=== PATIENT | female | born 1965 | race Caucasian/White ===

== ENCOUNTER 2016-11-18 06:52 | Inpatient (IN) | payer BC ==
[2016-11-15 16:04] VITALS: Ht 162.6 cm; Wt 58.0 kg
[2016-11-18] VITALS (41 sets, daily range): BP systolic 101–158; BP diastolic 73–102; PULSE 75–97; RESP 6–34
[~2016-11-18] VITALS: Ht 162.6 cm; Wt 58.0 kg
[~2016-11-18 06:52] MED LIST: ACYC800T PO; CIPR500T4 PO; GABA300C16 PO; ZOLP5TAB6 PO
[2016-11-18] MEDS ORDERED: ACETAMINOPHEN 1000 MG/100 ML IVPB ONE (07:00)
[2016-11-18] MEDS ORDERED: metroNIDAZOLE 500 MG/100 ML NS IVPB ONE (07:00)
[2016-11-18] MEDS ORDERED: PROPOFOL 20 ML ONE (07:56)
[2016-11-18] MEDS ORDERED: LIDOCAINE 2% (SDV) 5 ML INJ ONE (07:56)
[2016-11-18] MEDS ORDERED: MIDAZOLAM 1 MG/ML 2 ML INJ ONE (07:56)
[2016-11-18] MEDS ORDERED: FENTAnyl 50 MCG/ML VIAL ONE (07:56)
[2016-11-18] MEDS ORDERED: LIDOCAINE 1% (STERILE-PAK) 30 ML INJ ONE (08:28)
[2016-11-18] MEDS ORDERED: BUPIVACAINE 0.25%/EPI (SDV) 30 ML INJ ONE (08:29)
[2016-11-18] MEDS ORDERED: BUPIVACAINE 0.5% ON-Q-PUMP 0 ML ONE (08:29)
[2016-11-18] MEDS ORDERED: AMPICILLIN/SULB 3 GM/NS (PMX) 100 ML IVPB ONE (08:30)
[2016-11-18] MEDS ORDERED: metroNIDAZOLE 500 MG/NS (PMX) 100 ML IVPB ONE (08:30)
[2016-11-18] MEDS ORDERED: SOD CHLORIDE 0.9% 1,000 ML IV SCH (08:30)
[2016-11-18] MEDS ORDERED: NITR100C73 PO (08:34)
[2016-11-18] MEDS ORDERED: ZOLP10TA5 PO (08:34)
[2016-11-18] MEDS ORDERED: TRAZ50TA18 PO (08:34)
[2016-11-18] MEDS ORDERED: ASPI81TA3 PO (08:34)
[2016-11-18] MEDS ORDERED: GABA-526 PO (08:34)
[2016-11-18] MEDS ORDERED: PANT40TA4 PO (08:34)
[2016-11-18] MEDS ORDERED: HYDR-3011 PO (08:34)
[2016-11-18] MEDS ORDERED: SUCR1TAB56 PO (08:34)
[2016-11-18] MEDS ORDERED: AMIT25TA9 PO (08:34)
[2016-11-18] MEDS ORDERED: TOPI-25 PO (08:34)
[2016-11-18] MEDS ORDERED: CEFAZOLIN 1 GM INJ ONE (09:03)
[2016-11-18] MEDS ORDERED: DEXAMETHASONE 4 MG/ML 1 ML INJ ONE (09:11)
[2016-11-18] MEDS ORDERED: ONDANSETRON 4 MG INJ ONE (09:11)
[2016-11-18] MEDS ORDERED: HYDROmorphONE 2 MG/ML SYG ONE (09:27)
[2016-11-18] MEDS ORDERED: BUPIVACAINE 0.25% (MPF) 30 ML INJ ONE (09:29)
[2016-11-18] MEDS ORDERED: NEOSTIGMINE 3 MG/3 ML SYRINGE ONE (09:59)
[2016-11-18] MEDS ORDERED: GLYCOPYRROLATE 0.4 MG INJ ONE (09:59)
[2016-11-18] MEDS ORDERED: MEPERIDINE 25 MG INJ IV PRN (10:00)
[2016-11-18] MEDS ORDERED: DIPHENHYDRAMINE 50 MG INJ IV PRN ×2 (10:00→13:00)
[2016-11-18] MEDS ORDERED: hydrALAzine 20 MG INJ IV PRN (10:00)
[2016-11-18] MEDS ORDERED: ALBUTEROL 0.5% (NEB) 2.5 MG/0.5 ML AMP INH ONE (10:00)
[2016-11-18] MEDS ORDERED: ONDANSETRON 4 MG INJ IV PRN (10:00)
[2016-11-18] MEDS ORDERED: PROCHLORPERAZINE 10 MG INJ IV PRN (10:00)
[2016-11-18] MEDS ORDERED: LABETALOL HCL 20MG INJ IV PRN (10:00)
[2016-11-18] MEDS ORDERED: IPRATROPIUM (NEB) 0.5 MG/2.5 ML AMP HHN ONE (10:00)
[2016-11-18] MEDS ORDERED: HYDROmorphONE (0.2 MG/ML) 10ML SYG IV PRN (10:00)
[2016-11-18] MEDS ORDERED: KETAMINE 500 MG INJ ONE (10:07)
[2016-11-18] MEDS ORDERED: ROCURONIUM 50 MG INJ ONE (10:30)
[2016-11-18] MEDS ORDERED: LACTATED RINGER'S 1,000 ML IV SCH (10:58)
[2016-11-18] MEDS: CIPROFLOXACIN 400MG/D5W 200 ML IVPB SCH ×2 (11:00→23:54)
[2016-11-18] MEDS: HYDROmorphONE (0.2 MG/ML) 10ML SYG IV PRN ×3 (11:20→12:23)
[2016-11-18] MEDS: FENTAnyl 50 MCG/ML VIAL IV PRN ×3 (11:26→12:28)
--- NOTE | 2016-11-18 11:33 | OPR ---
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 She requests surgical repair. Risks, alternatives, benefits, and personne l were discussed with the patient. Patient expressed understanding and consents to operation. PREOPERATIVE DIAGNOSES: Cecal bascule and chronic constipation. POSTOPERATIVE DIAGNOSES: Cecal bascule and chronic constipation. OPERATION PERFORMED: Laparoscopic right hemicolectomy. SURGEON: Srini Patricio MD SPECIMEN: Right colon and ileum. COMPLICATIONS: None. ANESTHESIA: General. DESCRIPTION OF PROCEDURE: The patient was taken to the OR and prepped and draped in the usual steri le fashion. Surgical timeout is performed. IV antibiotics were given. Infraumbilical midline inci brent is made with a 15 blade. Dissection cautery was carried down to the fascia, which was opened w ith cautery and 0 Vicryl stay sutures were placed on each side of the midline incision. Balloon Has son trocar was introduced. Pneumoperitoneum was established. Midline suprapubic 5 mm optical troca rs placed under direct visualization. Left lower quadrant 12 mm optical trocars placed under direct visualization. Upon initial inspection there is a large redundant cecum which is very floppy. The re are some adhesions to the anterior abdominal wall which were taken down bluntly and with laparosc opic Harmonic nena. The ileocolic artery was identified and ligated with 45 mm white load [place] stapler. Additional clips were placed for reinforcement. The right colon was then mobilized from the white line of T[place]t proximally all the way to the hepatic flexure. The colon is then bluntly di ssected and medialized. The ileum and right colon are fully mobilized. The hepatic flexure is part ially mobilized. The omentum is resected off of the part of the right transverse and right colon. This operation was then converted to the open portion. Midline incision is extended inferiorly furt her. The right colon and ileum are exteriorized. The right colon and ileum are resected and double stapled functional end-to-end [id number] anastomosis. This was performed by placing stay sutures on the tenia of the right colon and also on the ileum with 3-0 pop-off silk. Enterotomies were anastasia shaji in the ileum and colon. Two fires of 45 [place] blue load stapler is made for the anastomosis. The enterotomy is resected with multiple fires of the blue load. The mesentery is reinforced with i nterrupted 3-0 Vicryl and running 3-0 Vicryl. There is good hemostasis. The bowel looked viable. The specimen is handed over. Gel port was inserted in the midline. The bowel is then reexamined in traabdominally. There is no evidence of any torsion. There is good hemostasis. Ports were removed under direct visualization. The midline incision was closed with 2 running looped #1 PDS from super ior to inferior and inferior to superior and tied down the midline. Skin was closed using skin stap les. Local anesthesia was injected. Dry dressings were applied. Dictated By: SRINI CROSS/SCOTT Conf#: [id number] DID#: [id number]
[2016-11-18 11:44] LABS: ADD SCAN DIFF NO
[2016-11-18 11:52] LABS: BASOPHILS % 0.4 % (0.0-2.0); EOSINOPHILS % 0.2 % (0.0-7.0); HEMATOCRIT 39.1 % (37.0-47.0); HEMOGLOBIN 13.2 g/dl (12.0-16.0); LYMPHOCYTES # 1.1 10^3/ul (0.8-2.9); LYMPHOCYTES % 13.2 % (15.0-51.0); MEAN CORPUSCULAR HEMOGLOBIN 31.5 pg (29.0-33.0); MEAN CORPUSCULAR HGB CONC 33.8 g/dl (32.0-37.0); MEAN CORPUSCULAR VOLUME 93.3 fl (82.0-101.0); MEAN PLATELET VOLUME 11.2 fl (7.4-10.4); MONOCYTE # 0.1 10^3/ul (0.3-0.9); MONOCYTES % 1.3 % (0.0-11.0); NEUTROPHIL # 7.2 10^3/ul (1.6-7.5); NEUTROPHILS % 84.4 % (39.0-77.0); PLATELET COUNT 148 10^3/UL (140-415); RED BLOOD COUNT 4.19 10^6/ul (4.20-5.40); RED CELL DISTRIBUTION WIDTH 13.7 % (11.5-14.5); WHITE BLOOD COUNT 8.6 10^3/ul (4.8-10.8)
[2016-11-18 11:54] LABS: ALBUMIN 3.5 g/dl (3.3-4.9)
[2016-11-18 11:55] LABS: POTASSIUM 3.6 mmol/L (3.5-5.1)
[2016-11-18 11:57] LABS: ALBUMIN/GLOBULIN RATIO 1.34; TOTAL PROTEIN 6.1 g/dl (6.1-8.1)
[2016-11-18] MEDS: metroNIDAZOLE 500 MG/NS (PMX) 100 ML IVPB SCH ×2 (12:00→20:59)
[2016-11-18 12:21] LABS: CALCIUM 7.8 mg/dl (8.4-10.2); CREATININE 0.66 mg/dl (0.44-1.00)
[2016-11-18] MEDS ORDERED: HYDROmorphONE 0.2 MG/ML PCA ONE (12:32)
[2016-11-18] MEDS: HYDROmorphONE 0.2 MG/ML PCA IV SCH ×2 (12:39→19:53)
[2016-11-18] MEDS ORDERED: NALOXONE (0.4 MG/ML) INJ IV PRN (13:00)
[2016-11-18] MEDS ORDERED: TRIMETHOBENZAMIDE 100 MG/ML VIAL IM PRN (13:00)
[2016-11-18] MEDS ORDERED: OXYCODONE/ACETAMINOPHEN (5/325) TAB PO PRN ×2 (13:00)
[2016-11-18] MEDS ORDERED: HYDROmorphONE 1 MG/ML SYG IV PRN (13:00)
[2016-11-18] MEDS: D5W-0.45 NACL + KCL 20 MEQ 1,000 ML IV SCH ×2 (15:16→23:54)
[2016-11-18] MEDS: ONDANSETRON 4 MG INJ IV PRN (20:33)
[2016-11-19] VITALS (9 sets, daily range): BP systolic 137–175; BP diastolic 65–99; PULSE 84–100; RESP 16–24
[2016-11-19] MEDS: ZOLPIDEM 5 MG TAB PO PRN (00:13)
[2016-11-19] MEDS: hydrALAzine 20 MG INJ IV PRN ×2 (00:13→18:01)
[2016-11-19] MEDS: ONDANSETRON 4 MG INJ IV PRN ×3 (03:06→20:07)
[2016-11-19] MEDS ORDERED: FAMOTIDINE 20 MG INJ ONE (04:21)
[2016-11-19] MEDS: metroNIDAZOLE 500 MG/NS (PMX) 100 ML IVPB SCH (04:23)
[2016-11-19] MEDS ORDERED: FAMOTIDINE 20 MG INJ IV ONE (04:30)
[2016-11-19 05:47] LABS: ADD SCAN DIFF NO
[2016-11-19 05:55] LABS: ABNORMAL IP MESSAGE 1; BASOPHILS % 0.1 % (0.0-2.0); HEMATOCRIT 40.6 % (37.0-47.0); HEMOGLOBIN 13.4 g/dl (12.0-16.0); LYMPHOCYTES # 0.5 10^3/ul (0.8-2.9); LYMPHOCYTES % 5.7 % (15.0-51.0); MEAN CORPUSCULAR HEMOGLOBIN 30.5 pg (29.0-33.0); MEAN CORPUSCULAR VOLUME 92.5 fl (82.0-101.0); MEAN PLATELET VOLUME 11.5 fl (7.4-10.4); MONOCYTE # 0.4 10^3/ul (0.3-0.9); MONOCYTES % 4.7 % (0.0-11.0); NEUTROPHIL # 8.1 10^3/ul (1.6-7.5); NEUTROPHILS % 89.1 % (39.0-77.0); PLATELET COUNT 151 10^3/UL (140-415); RED BLOOD COUNT 4.39 10^6/ul (4.20-5.40); RED CELL DISTRIBUTION WIDTH 13.8 % (11.5-14.5); WHITE BLOOD COUNT 9.1 10^3/ul (4.8-10.8)
[2016-11-19 06:18] LABS: ALBUMIN 3.7 g/dl (3.3-4.9)
[2016-11-19 06:19] LABS: POTASSIUM 3.2 mmol/L (3.5-5.1)
[2016-11-19 06:21] LABS: ALBUMIN/GLOBULIN RATIO 1.37; CREATININE 0.47 mg/dl (0.44-1.00); TOTAL PROTEIN 6.4 g/dl (6.1-8.1)
[2016-11-19 06:22] LABS: CALCIUM 8.5 mg/dl (8.4-10.2)
[2016-11-19] MEDS: D5W-0.45 NACL + KCL 20 MEQ 1,000 ML IV SCH ×3 (07:00→20:07)
[2016-11-19] MEDS: FAMOTIDINE 20 MG INJ IV SCH ×2 (08:47→20:07)
[2016-11-19] MEDS ORDERED: POTASSIUM CHLORIDE 250 ML IVPB ONE (09:30)
[2016-11-19] MEDS ORDERED: INFLUENZA VIRUS VACCINE 0.5 ML (DISPENSING) IM* ONE (10:00)
[2016-11-19] MEDS: HYDROmorphONE 0.2 MG/ML PCA IV SCH (13:59)
--- NOTE | 2016-11-19 17:16 | PN ---
Date/Time of Note Date/Time of Note DATE: 11/19/16 TIME: 17:15 Assessment/Plan VTE Prophylaxis VTE Prophylaxis Intervention: SCD's Lines/Catheters IV Catheter Type (from Nrs): Peripheral IV Urinary Cath still in place: Yes Reason Cath still needed: other (indicate) (post surgical) Assessment/Plan Chief Complaint/Hosp Course s/p lap right hemicolectomy Problems: Assessment/Plan doing well start clears Subjective 24 Hr Interval Summary Free Text/Dictation doing well, no issues Exam/Review of Systems Vital Signs Vitals Vital Signs Date Time Temp Pulse Resp B/P Pulse Ox O2 Delivery O2 Flow Rate FiO2 11/19/16 12:46 18 11/19/16 09:00 Nasal Cannula 2.0 11/19/16 07:37 97.8 101 159/89 94 Intake and Output 11/18/16 11/18/16 11/19/16 15:00 23:00 07:00 Intake Total 1400 ml 475 ml 925 ml Output Total 170 ml 650 ml 1600 ml Balance 1230 ml -175 ml -675 ml Exam nonspecifc clean intact Results Result Diagram: 11/19/16 0516 11/19/16 0516 Results 24 hrs Laboratory Tests Test 11/19/16 05:16 Alanine Aminotransferase (ALT/SGPT) 21 Albumin 3.7 Albumin/Globulin Ratio 1.37 Alkaline Phosphatase 87 Anion Gap 15 Aspartate Amino Transf (AST/SGOT) 28 Basophils # 0.0 Basophils % 0.1 Blood Urea Nitrogen 11 Calcium Level 8.5 Carbon Dioxide Level 21 Chloride Level 106 Creatinine 0.47 Direct Bilirubin 0.00 Eosinophils # 0.0 Eosinophils % 0.0 Globulin 2.70 Glucose Level 158 Hematocrit 40.6 Hemoglobin 13.4 Indirect Bilirubin 0.0 Lymphocytes # 0.5 L Lymphocytes % 5.7 L Mean Corpuscular Hemoglobin 30.5 Mean Corpuscular Hemoglobin Concent 33.0 Mean Corpuscular Volume 92.5 Mean Platelet Volume 11.5 H Monocytes # 0.4 Monocytes % 4.7 Neutrophils # 8.1 H Neutrophils % 89.1 H Nucleated Red Blood Cells # 0.0 Nucleated Red Blood Cells % 0.0 Platelet Count 151 Potassium Level 3.2 L Red Blood Count 4.39 Red Cell Distribution Width 13.8 Sodium Level 139 Total Bilirubin 0.0 L Total Protein 6.4 White Blood Count 9.1 Medications Medications Current Medications Morphine Sulfate (morphine) 2 mg Q2H PRN IV PAIN LEVEL 6-10; Start 11/18/16 at 11:00 Naloxone HCl (Narcan) 0.2 mg PRN PRN IV DECREASED REPIRATORY RATE; Start at 13:00 Hydromorphone HCl (Dilaudid DISTILLATION OPERATOR) Q4PCA IV Last administered on 11/19/16t 13:59 ; Admin Dose 6 MG; Start 11/18/16 at 13:00; Stop 11/20/16 at 17:00 Oxycodone/ Acetaminophen (Percocet (5/ 325)) 1 tab Q4H PRN PO PAIN LEVEL 1-5; Start 11/18/16 at 13:00; Status Future Hold Oxycodone/ Acetaminophen (Percocet (5/ 325)) 2 tab Q4H PRN PO PAIN LEVEL 6-10; Start 11/18/16 at 13:00; Status Future Hold Hydromorphone HCl (Dilaudid) 0.2 mg Q4H PRN IV PAIN LEVEL 1-5; Start 11/18/16 at 13:00 Hydromorphone HCl (Dilaudid) 0.4 mg Q4H PRN IV PAIN LEVEL 6-10; Start 11/18/16 at 13:00 Ketorolac Tromethamine (Toradol) 15 mg Q6H PRN IV PAIN; Start 11/18/16 at 13:00 ; Stop 11/21/16 at 12:59 Ondansetron HCl (Zofran Inj) 4 mg Q6H PRN IV NAUSEA AND/OR VOMITING Last administered on 11/19/16t 14:29; Admin Dose 4 MG; Start 11/18/16 at 13:00 Trimethobenzamide HCl (Tigan) 200 mg Q8H PRN IM NAUSEA AND/OR VOMITING; Start 11/18/16 at 13:00 Diphenhydramine HCl (Benadryl) 25 mg Q6H PRN IV ITCHING; Start 11/18/16 at 13: 00 Miscellaneous Information 1. 24 hours after DISTILLATION OPERATOR st... DISTILLATION OPERATOR IV ; Start 11/18/16 at 13:00; Stop 11/19/16 at 23:00 Miscellaneous Information 1. Discontinue DISTILLATION OPERATOR... DISTILLATION OPERATOR IV ; Start 11/18/16 at 13:00 ; Stop 11/20/16 at 17:00 Potassium Chloride/Dextrose/ Sod Cl (D5-1/2ns + KCl 20 Meq) 1,000 ml @ 125 mls/ hr Q8H IV Last administered on 11/19/16 11:54; Admin Dose 125 MLS/HR; Start at 15:00 Hydralazine HCl (Apresoline) 10 mg Q6H PRN IV SBP >160 Last administered on 00:13; Admin Dose 10 MG; Start 11/18/16 at 15:00 Famotidine (Pepcid Iv) 20 mg BID IV Last administered on 11/19/16 08:47; Admin Dose 20 MG; Start 11/19/16 at 09:00 Rubin RUSS Nov 19, 2016 17:16
--- NOTE | 2016-11-19 19:40 | QN ---
Documentation Comment [id number] MARTINEZ MELVIN MD Nov 19, 2016 19:40
--- NOTE | 2016-11-19 20:18 | HP ---
DATE OF ADMISSION: 11/18/2016 HISTORY OF PRESENT ILLNESS: Aissatou Morel is a 51-year-old female who has history of diverticulosis, history of colonoscopy with polypectomy in the past. The patient also has a history of EGD, iron deficiency anemia. Now patient is being seen post-procedure. The patient had laparoscopic right hemicolectomy. The patient is denying any chest pain, palpitation. Short of breath at this point. No hematemesis or melena. PAST MEDICAL HISTORY: Listed as history of anxiety, depression, neuropathy, polypectomy, and insomnia. ALLERGIES: . SOCIAL HISTORY: Negative. FAMILY HISTORY: Noncontributory. MEDICATION HISTORY: 1. Amitriptyline. 2. Aspirin. 3. Gabapentin. 4. Hydroxyzine. 5. Nitrofurantoin. 6. Protonix. 7. Carafate. 8. Topamax. 9. Trazodone. 10. Ambien. REVIEW OF SYSTEMS: HEENT: Unremarkable. RESPIRATORY: Unremarkable. CARDIOVASCULAR: Unremarkable. ABDOMEN: Some abdominal pain, dyspepsia. EXTREMITIES: Unremarkable. CENTRAL NERVOUS SYSTEM: Unremarkable. PHYSICAL EXAMINATION: GENERAL: The patient is awake and alert. VITAL SIGNS: Pulse of 100, blood pressure 137/71. HEAD: Atraumatic, normocephalic. Pupils are equal, reactive to light. NECK: Supple. No JVD. LUNGS: Clear. CARDIOVASCULAR: S1, S2 are normal. ABDOMEN: Soft. Bowel sounds positive. Tenderness on palpation. Colostomy noted. EXTREMITIES: There is no cyanosis, clubbing, or edema. CENTRAL NERVOUS SYSTEM: The patient is awake, alert with no focal deficit. LABORATORY DATA: Hematocrit 40.6. Sodium , potassium 3.2. IMPRESSION: 1. The patient has right hemicolectomy. 2. Hypokalemia. 3. History of colonoscopy. 4. History of polypectomy. PLAN: 1. To continue current treatment. The patient is on Pepcid. 2. The patient is on potassium supplementation. 3. Hydralazine p.r.n. 4. The patient is also Cipro, Flagyl. 5. The patient will be started on Protonix, SCDs to the legs, and incentive spirometry. 6. Orders were done. Dictated By: MARTINEZ TIRADO/NTS Conf#: [id number] DID#: [id number] CC: LATRICE FUENTES MD;*EndCC* MTDD
[2016-11-20] VITALS: BP 142/65; PULSE 68; RESP 18
[2016-11-20] MEDS: HYDROmorphONE 0.2 MG/ML PCA IV SCH (02:24)
[2016-11-20] MEDS: ONDANSETRON 4 MG INJ IV PRN (03:56)
[2016-11-20 04:00] VITALS: BP 135/72; PULSE 75; RESP 16
[2016-11-20] MEDS: D5W-0.45 NACL + KCL 20 MEQ 1,000 ML IV SCH ×5 (04:03→23:00)
[2016-11-20 06:00] VITALS: BP 141/69; RESP 18
[2016-11-20] MEDS ORDERED: PANTOPRAZOLE 40 MG INJ IV SCH (06:00)
[2016-11-20 06:08] LABS: ADD SCAN DIFF NO
[2016-11-20 06:24] LABS: BASOPHILS % 0.1 % (0.0-2.0); HEMATOCRIT 39.1 % (37.0-47.0); HEMOGLOBIN 13.4 g/dl (12.0-16.0); LYMPHOCYTES # 0.6 10^3/ul (0.8-2.9); LYMPHOCYTES % 8.4 % (15.0-51.0); MEAN CORPUSCULAR HEMOGLOBIN 31.1 pg (29.0-33.0); MEAN CORPUSCULAR HGB CONC 34.3 g/dl (32.0-37.0); MEAN CORPUSCULAR VOLUME 90.7 fl (82.0-101.0); MEAN PLATELET VOLUME 11.8 fl (7.4-10.4); MONOCYTE # 0.3 10^3/ul (0.3-0.9); MONOCYTES % 3.8 % (0.0-11.0); NEUTROPHIL # 6.7 10^3/ul (1.6-7.5); NEUTROPHILS % 87.4 % (39.0-77.0); PLATELET COUNT 139 10^3/UL (140-415); RED BLOOD COUNT 4.31 10^6/ul (4.20-5.40); RED CELL DISTRIBUTION WIDTH 13.9 % (11.5-14.5); WHITE BLOOD COUNT 7.7 10^3/ul (4.8-10.8)
[2016-11-20 06:27] LABS: POTASSIUM 4.3 mmol/L (3.5-5.1)
[2016-11-20 06:30] LABS: CREATININE 0.46 mg/dl (0.44-1.00)
[2016-11-20 06:31] LABS: CALCIUM 8.6 mg/dl (8.4-10.2)
[2016-11-20 08:08] VITALS: BP 154/87; RESP 20
[2016-11-20] MEDS: FAMOTIDINE 20 MG INJ IV SCH ×2 (08:21→20:33)
--- NOTE | 2016-11-20 11:50 | PN ---
Date/Time of Note Date/Time of Note DATE: 11/20/16 TIME: 11:49 Assessment/Plan VTE Prophylaxis VTE Prophylaxis Intervention: SCD's Lines/Catheters IV Catheter Type (from Nrsg): Peripheral IV Urinary Cath still in place: Yes Reason Cath still needed: other (indicate) (post surgical) Assessment/Plan Chief Complaint/Hosp Course s/p lap right hemicolectomy Problems: Assessment/Plan full liquids Subjective 24 Hr Interval Summary Free Text/Dictation no new issues Exam/Review of Systems Vital Signs Vitals Vital Signs Date Time Temp Pulse Resp B/P Pulse Ox O2 Delivery O2 Flow Rate FiO2 11/20/16 08:08 97.7 105 20 154/87 94 11/20/16 06:00 Nasal Cannula 11/20/16 04:00 2.0 Intake and Output 11/19/16 11/19/16 11/20/16 15:00 23:00 07:00 Intake Total 625 ml 750 ml 1500 ml Output Total 2500 ml 1100 ml Balance 625 ml -1750 ml 400 ml Exam c/d/i Results Result Diagram: 11/20/16 0532 11/20/16 0537 Results 24 hrs Laboratory Tests Test 11/20/16 05:32 11/20/16 05:37 Basophils # 0.0 Basophils % 0.1 Eosinophils # 0.0 Eosinophils % 0.0 Hematocrit 39.1 Hemoglobin 13.4 Lymphocytes # 0.6 L Lymphocytes % 8.4 L Mean Corpuscular Hemoglobin 31.1 Mean Corpuscular Hemoglobin Concent 34.3 Mean Corpuscular Volume 90.7 Mean Platelet Volume 11.8 H Monocytes # 0.3 Monocytes % 3.8 Neutrophils # 6.7 Neutrophils % 87.4 H Nucleated Red Blood Cells # 0.0 Nucleated Red Blood Cells % 0.0 Platelet Count 139 L Red Blood Count 4.31 Red Cell Distribution Width 13.9 White Blood Count 7.7 Anion Gap 14 Blood Urea Nitrogen 8 Calcium Level 8.6 Carbon Dioxide Level 23 Chloride Level 103 Creatinine 0.46 Glucose Level 145 Potassium Level 4.3 Sodium Level 136 Medications Medications Current Medications Morphine Sulfate (morphine) 2 mg Q2H PRN IV PAIN LEVEL 6-10; Start 11/18/16 at 11:00 Naloxone HCl (Narcan) 0.2 mg PRN PRN IV DECREASED REPIRATORY RATE; Start at 13:00 Hydromorphone HCl (Dilaudid OUTREACH LIAISON) Q4PCA IV Last administered on 11/20/16 02:24 ; Admin Dose 6 MG; Start 11/18/16 at 13:00; Stop 11/20/16 at 17:00 Oxycodone/ Acetaminophen (Percocet (5/ 325)) 1 tab Q4H PRN PO PAIN LEVEL 1-5; Start 11/18/16 at 13:00; Status Future Hold Oxycodone/ Acetaminophen (Percocet (5/ 325)) 2 tab Q4H PRN PO PAIN LEVEL 6-10; Start 11/18/16 at 13:00; Status Future Hold Hydromorphone HCl (Dilaudid) 0.2 mg Q4H PRN IV PAIN LEVEL 1-5; Start 11/18/16 at 13:00 Hydromorphone HCl (Dilaudid) 0.4 mg Q4H PRN IV PAIN LEVEL 6-10; Start 11/18/16 at 13:00 Ketorolac Tromethamine (Toradol) 15 mg Q6H PRN IV PAIN; Start 11/18/16 at 13:00 ; Stop 11/21/16 at 12:59 Ondansetron HCl (Zofran Inj) 4 mg Q6H PRN IV NAUSEA AND/OR VOMITING Last administered on 11/20/16 03:56; Admin Dose 4 MG; Start 11/18/16 at 13:00 Trimethobenzamide HCl (Tigan) 200 mg Q8H PRN IM NAUSEA AND/OR VOMITING; Start 11/18/16 at 13:00 Diphenhydramine HCl (Benadryl) 25 mg Q6H PRN IV ITCHING; Start 11/18/16 at 13: 00 Miscellaneous Information 1. Discontinue OUTREACH LIAISON... OUTREACH LIAISON IV ; Start 11/18/16 at 13:00 ; Stop 11/20/16 at 17:00 Potassium Chloride/Dextrose/ Sod Cl (D5-1/2ns + KCl 20 Meq) 1,000 ml @ 125 mls/ hr Q8H IV Last administered on 11/20/16 04:03; Admin Dose 125 MLS/HR; Start at 15:00 Hydralazine HCl (Apresoline) 10 mg Q6H PRN IV SBP >160 Last administered on 18:01; Admin Dose 10 MG; Start 11/18/16 at 15:00 Famotidine (Pepcid Iv) 20 mg BID IV Last administered on 11/20/16 08:21; Admin Dose 20 MG; Start 11/19/16 at 09:00 Miscellaneous Information (*Order Clarification Bulletin) PT ON PEPCID IV ... Q8H XX ; Start 11/19/16 at 20:00 Rubin RUSS Nov 20, 2016 11:50
[2016-11-20] MEDS: CEPASTAT LOZENGE MT PRN ×3 (12:31→19:36)
--- NOTE | 2016-11-20 19:28 | PN ---
Date/Time of Note Date/Time of Note DATE: 11/20/16 TIME: 19:26 Assessment/Plan VTE Prophylaxis VTE Prophylaxis Intervention: other Lines/Catheters IV Catheter Type (from Nrs): Peripheral IV Urinary Cath still in place: Yes Reason Cath still needed: other (indicate) Assessment/Plan Chief Complaint/Hosp Course IMPRESSION: 1. The patient has right hemicolectomy. 2. Hypokalemia. 3. History of colonoscopy. 4. History of polypectomy. plan po diet per surgery Problems: Subjective 24 Hr Interval Summary Cardiovascular: no complaints Gastrointestinal: other (abd pain+) Exam/Review of Systems Vital Signs Vitals Vital Signs Date Time Temp Pulse Resp B/P Pulse Ox O2 Delivery O2 Flow Rate FiO2 11/20/16 17:00 18 11/20/16 08:08 97.7 105 154/87 94 11/20/16 06:00 Nasal Cannula 11/20/16 04:00 2.0 Intake and Output 11/19/16 11/19/16 11/20/16 15:00 23:00 07:00 Intake Total 625 ml 750 ml 1500 ml Output Total 2500 ml 1100 ml Balance 625 ml -1750 ml 400 ml Exam Respiratory: clear to auscultation Cardiovascular: regular rate and rhythm Gastrointestinal: bowel sounds (+), soft Results Result Diagram: 11/20/16 0532 11/20/16 0537 Results 24 hrs Laboratory Tests Test 11/20/16 05:32 11/20/16 05:37 Basophils # 0.0 Basophils % 0.1 Eosinophils # 0.0 Eosinophils % 0.0 Hematocrit 39.1 Hemoglobin 13.4 Lymphocytes # 0.6 L Lymphocytes % 8.4 L Mean Corpuscular Hemoglobin 31.1 Mean Corpuscular Hemoglobin Concent 34.3 Mean Corpuscular Volume 90.7 Mean Platelet Volume 11.8 H Monocytes # 0.3 Monocytes % 3.8 Neutrophils # 6.7 Neutrophils % 87.4 H Nucleated Red Blood Cells # 0.0 Nucleated Red Blood Cells % 0.0 Platelet Count 139 L Red Blood Count 4.31 Red Cell Distribution Width 13.9 White Blood Count 7.7 Anion Gap 14 Blood Urea Nitrogen 8 Calcium Level 8.6 Carbon Dioxide Level 23 Chloride Level 103 Creatinine 0.46 Glucose Level 145 Potassium Level 4.3 Sodium Level 136 Medications Medications Current Medications Morphine Sulfate (morphine) 2 mg Q2H PRN IV PAIN LEVEL 6-10; Start 3/13/17 at 11:00 Naloxone HCl (Narcan) 0.2 mg PRN PRN IV DECREASED REPIRATORY RATE; Start at 13:00 Oxycodone/ Acetaminophen (Percocet (5/ 325)) 1 tab Q4H PRN PO PAIN LEVEL 1-5; Start 11/18/16 at 13:00; Status Future Hold Oxycodone/ Acetaminophen (Percocet (5/ 325)) 2 tab Q4H PRN PO PAIN LEVEL 6-10; Start 11/18/16 at 13:00; Status Future Hold Hydromorphone HCl (Dilaudid) 0.2 mg Q4H PRN IV PAIN LEVEL 1-5; Start 11/18/16 at 13:00 Hydromorphone HCl (Dilaudid) 0.4 mg Q4H PRN IV PAIN LEVEL 6-10 Last administered on 11/20/16 17:51; Admin Dose 0.4 MG; Start 11/18/16 at 13:00 Ketorolac Tromethamine (Toradol) 15 mg Q6H PRN IV PAIN; Start 11/18/16 at 13:00 ; Stop 11/21/16 at 12:59 Ondansetron HCl (Zofran Inj) 4 mg Q6H PRN IV NAUSEA AND/OR VOMITING Last administered on 11/20/16 03:56; Admin Dose 4 MG; Start 11/18/16 at 13:00 Trimethobenzamide HCl (Tigan) 200 mg Q8H PRN IM NAUSEA AND/OR VOMITING; Start 11/18/16 at 13:00 Diphenhydramine HCl 25 mg 25 mg Q6H PRN IV ITCHING; Start 11/18/16 at 13:00 Potassium Chloride/Dextrose/ Sod Cl (D5-1/2ns + KCl 20 Meq) 1,000 ml @ 125 mls/ hr Q8H IV Last administered on 11/20/16 12:36; Admin Dose 125 MLS/HR; Start at 15:00 Hydralazine HCl (Apresoline) 10 mg Q6H PRN IV SBP >160 Last administered on 18:01; Admin Dose 10 MG; Start 11/18/16 at 15:00 Famotidine (Pepcid Iv) 20 mg BID IV Last administered on 11/20/16 08:21; Admin Dose 20 MG; Start 11/19/16 at 09:00 Phenol (Cepastat Lozenge) 1 lozenge Q1H PRN MT SORE THROAT Last administered on 11/20/16 17:52; Admin Dose 1 LOZENGE; Start 11/20/16 at 12:00 MARTINEZ MELVIN MD Nov 20, 2016 19:28
[2016-11-20] MEDS: KETOROLAC 15 MG INJ IV PRN (19:36)
[2016-11-20 20:00] VITALS: BP 140/87; RESP 20
[2016-11-20] MEDS: ZOLPIDEM 5 MG TAB PO PRN (20:34)
[2016-11-20] MEDS: HYDROmorphONE 1 MG/ML SYG IV PRN (22:23)
[2016-11-21] MEDS: CEPASTAT LOZENGE MT PRN ×3 (01:22→08:25)
[2016-11-21] MEDS: HYDROmorphONE 1 MG/ML SYG IV PRN ×7 (02:33→21:25)
[2016-11-21 05:05] VITALS: BP 145/94; PULSE 98; RESP 19
[2016-11-21] MEDS: D5W-0.45 NACL + KCL 20 MEQ 1,000 ML IV SCH ×4 (05:08→23:04)
[2016-11-21 08:01] VITALS: BP 162/94; RESP 16
[2016-11-21] MEDS: KETOROLAC 15 MG INJ IV PRN (08:25)
[2016-11-21] MEDS: hydrALAzine 20 MG INJ IV PRN (08:26)
[2016-11-21] MEDS: FAMOTIDINE 20 MG INJ IV SCH ×2 (08:26→20:07)
--- NOTE | 2016-11-21 08:38 | PN ---
Date/Time of Note Date/Time of Note DATE: 11/21/16 TIME: 08:37 Assessment/Plan VTE Prophylaxis VTE Prophylaxis Intervention: SCD's Lines/Catheters IV Catheter Type (from Nrsg): Saline Lock Urinary Cath still in place: Yes Reason Cath still needed: other (indicate) (post surgical) Assessment/Plan Chief Complaint/Hosp Course s/p lap right hemicolectomy Problems: Assessment/Plan had diarrhea, continue clears for now Subjective 24 Hr Interval Summary Free Text/Dictation some diarrhea, considerable pain issues Exam/Review of Systems Vital Signs Vitals Vital Signs Date Time Temp Pulse Resp B/P Pulse Ox O2 Delivery O2 Flow Rate FiO2 11/21/16 08:01 98.6 106 16 162/94 92 11/20/16 06:00 Nasal Cannula 11/20/16 04:00 2.0 Intake and Output 11/20/16 11/20/16 11/21/16 15:00 23:00 07:00 Intake Total 800 ml 865 ml 1600 ml Balance 800 ml 865 ml 1600 ml Exam abd soft, appropriately tender Results Result Diagram: 11/20/16 0532 11/20/16 0537 Medications Medications Current Medications Morphine Sulfate (morphine) 2 mg Q2H PRN IV PAIN LEVEL 6-10; Start 11/18/16 at 11:00 Naloxone HCl (Narcan) 0.2 mg PRN PRN IV DECREASED REPIRATORY RATE; Start at 13:00 Oxycodone/ Acetaminophen (Percocet (5/ 325)) 1 tab Q4H PRN PO PAIN LEVEL 1-5; Start 11/18/16 at 13:00; Status Future Hold Oxycodone/ Acetaminophen (Percocet (5/ 325)) 2 tab Q4H PRN PO PAIN LEVEL 6-10; Start 11/18/16 at 13:00; Status Future Hold Hydromorphone HCl (Dilaudid) 0.2 mg Q4H PRN IV PAIN LEVEL 1-5; Start 11/18/16 at 13:00 Ketorolac Tromethamine (Toradol) 15 mg Q6H PRN IV PAIN Last administered on t 08:25; Admin Dose 15 MG; Start 11/18/16 at 13:00; Stop 11/21/16 at 12:59 Ondansetron HCl (Zofran Inj) 4 mg Q6H PRN IV NAUSEA AND/OR VOMITING Last administered on 11/20/16 03:56; Admin Dose 4 MG; Start 11/18/16 at 13:00 Trimethobenzamide HCl (Tigan) 200 mg Q8H PRN IM NAUSEA AND/OR VOMITING; Start 11/18/16 at 13:00 Diphenhydramine HCl 25 mg 25 mg Q6H PRN IV ITCHING; Start 11/18/16 at 13:00 Potassium Chloride/Dextrose/ Sod Cl (D5-1/2ns + KCl 20 Meq) 1,000 ml @ 125 mls/ hr Q8H IV Last administered on 11/21/16 05:08; Admin Dose 125 MLS/HR; Start at 15:00 Hydralazine HCl (Apresoline) 10 mg Q6H PRN IV SBP >160 Last administered on 08:26; Admin Dose 10 MG; Start 11/18/16 at 15:00 Famotidine (Pepcid Iv) 20 mg BID IV Last administered on 11/21/16 08:26; Admin Dose 20 MG; Start 11/19/16 at 09:00 Phenol (Cepastat Lozenge) 1 lozenge Q1H PRN MT SORE THROAT Last administered on 11/21/16 08:25; Admin Dose 1 LOZENGE; Start 11/20/16 at 12:00 Hydromorphone HCl (Dilaudid) 1 mg Q4H PRN IV PAIN Last administered on 06:34; Admin Dose 1 MG; Start 11/20/16 at 21:30 Rubin RUSS Nov 21, 2016 08:38
[2016-11-21 11:00] VITALS: BP 142/68; PULSE 82; RESP 18
--- NOTE | 2016-11-21 18:15 | PN ---
Date/Time of Note Date/Time of Note DATE: 11/21/16 TIME: 18:13 Assessment/Plan VTE Prophylaxis VTE Prophylaxis Intervention: other Lines/Catheters IV Catheter Type (from Nrs): Saline Lock Urinary Cath still in place: Yes Reason Cath still needed: other (indicate) Assessment/Plan Chief Complaint/Hosp Course IMPRESSION: 1. The patient has right hemicolectomy. 2. Hypokalemia. BETTER 3. History of colonoscopy. 4. History of polypectomy. 5 HX DEPRESSION plan po diet per surgery HOME MEDS Problems: Subjective 24 Hr Interval Summary ENT: no complaints Respiratory: no complaints Gastrointestinal: pain (+) Exam/Review of Systems Vital Signs Vitals Vital Signs Date Time Temp Pulse Resp B/P Pulse Ox O2 Delivery O2 Flow Rate FiO2 11/21/16 11:00 82 18 142/68 11/21/16 08:01 98.6 92 11/20/16 06:00 Nasal Cannula 11/20/16 04:00 2.0 Intake and Output 11/20/16 11/20/16 11/21/16 15:00 23:00 07:00 Intake Total 800 ml 865 ml 1600 ml Balance 800 ml 865 ml 1600 ml Exam Neck: supple Respiratory: clear to auscultation Cardiovascular: regular rate and rhythm Gastrointestinal: bowel sounds (+), soft Musculoskeletal: nl extremities to inspection Results Result Diagram: 11/20/16 0532 11/20/16 0537 Medications Medications Current Medications Morphine Sulfate (morphine) 2 mg Q2H PRN IV PAIN LEVEL 6-10; Start 11/18/16 at 11:00 Naloxone HCl (Narcan) 0.2 mg PRN PRN IV DECREASED REPIRATORY RATE; Start at 13:00 Oxycodone/ Acetaminophen (Percocet (5/ 325)) 1 tab Q4H PRN PO PAIN LEVEL 1-5; Start 11/18/16 at 13:00; Status Future Hold Oxycodone/ Acetaminophen (Percocet (5/ 325)) 2 tab Q4H PRN PO PAIN LEVEL 6-10; Start 11/18/16 at 13:00; Status Future Hold Hydromorphone HCl (Dilaudid) 0.2 mg Q4H PRN IV PAIN LEVEL 1-5; Start 11/18/16 at 13:00 Ondansetron HCl (Zofran Inj) 4 mg Q6H PRN IV NAUSEA AND/OR VOMITING Last administered on 11/20/16 03:56; Admin Dose 4 MG; Start 11/18/16 at 13:00 Trimethobenzamide HCl (Tigan) 200 mg Q8H PRN IM NAUSEA AND/OR VOMITING; Start 11/18/16 at 13:00 Diphenhydramine HCl 25 mg 25 mg Q6H PRN IV ITCHING; Start 11/18/16 at 13:00 Potassium Chloride/Dextrose/ Sod Cl (D5-1/2ns + KCl 20 Meq) 1,000 ml @ 125 mls/ hr Q8H IV Last administered on 11/21/16 15:06; Admin Dose 125 MLS/HR; Start at 15:00 Hydralazine HCl (Apresoline) 10 mg Q6H PRN IV SBP >160 Last administered on 08:26; Admin Dose 10 MG; Start 11/18/16 at 15:00 Famotidine (Pepcid Iv) 20 mg BID IV Last administered on 11/21/16 08:26; Admin Dose 20 MG; Start 11/19/16 at 09:00 Phenol (Cepastat Lozenge) 1 lozenge Q1H PRN MT SORE THROAT Last administered on 11/21/16 08:25; Admin Dose 1 LOZENGE; Start 11/20/16 at 12:00 Hydromorphone HCl (Dilaudid) 1 mg Q3 PRN IV PAIN Last administered on 15:31; Admin Dose 1 MG; Start 11/21/16 at 09:00 MARTINEZ MELVIN MD Nov 21, 2016 18:15
[2016-11-21] MEDS: GABAPENTIN 300 MG CAP PO SCH (20:07)
[2016-11-21] MEDS: traZODone 50 MG TAB PO SCH (20:07)
[2016-11-21] MEDS: TOPIRAMATE 100 MG TAB PO SCH (20:07)
[2016-11-21] MEDS: AMITRIPTYLINE 25 MG TAB PO SCH (20:09)
[2016-11-21 20:55] VITALS: BP 146/91; RESP 18
[2016-11-21] MEDS ORDERED: ZOLPIDEM 5 MG TAB PO PRN (21:00)
[2016-11-21] MEDS: ZOLPIDEM 5 MG TAB PO PRN (21:25)
[2016-11-22] MEDS: HYDROmorphONE 1 MG/ML SYG IV PRN ×10 (00:33→23:17)
[2016-11-22] MEDS: D5W-0.45 NACL + KCL 20 MEQ 1,000 ML IV SCH ×4 (06:02→23:00)
[2016-11-22 07:27] VITALS: BP 121/75; RESP 22
[2016-11-22] MEDS: GABAPENTIN 300 MG CAP PO SCH ×3 (08:48→23:16)
[2016-11-22] MEDS: FAMOTIDINE 20 MG INJ IV SCH ×2 (08:48→20:47)
[2016-11-22 09:18] LABS: ADD SCAN DIFF NO
[2016-11-22 09:27] LABS: BASOPHILS % 0.1 % (0.0-2.0); EOSINOPHILS % 0.4 % (0.0-7.0); HEMATOCRIT 36.4 % (37.0-47.0); HEMOGLOBIN 12.4 g/dl (12.0-16.0); LYMPHOCYTES # 1.5 10^3/ul (0.8-2.9); LYMPHOCYTES % 18.7 % (15.0-51.0); MEAN CORPUSCULAR HEMOGLOBIN 30.9 pg (29.0-33.0); MEAN CORPUSCULAR HGB CONC 34.1 g/dl (32.0-37.0); MEAN CORPUSCULAR VOLUME 90.8 fl (82.0-101.0); MEAN PLATELET VOLUME 11.2 fl (7.4-10.4); MONOCYTE # 0.4 10^3/ul (0.3-0.9); MONOCYTES % 5.4 % (0.0-11.0); PLATELET COUNT 141 10^3/UL (140-415); RED BLOOD COUNT 4.01 10^6/ul (4.20-5.40); RED CELL DISTRIBUTION WIDTH 14.1 % (11.5-14.5)
--- NOTE | 2016-11-22 11:43 | PN ---
DATE: 11/22/2016 Postop day #4, status post right hemicolectomy and anastomosis. SUBJECTIVE: Patient is complaining of too much pain, especially in the right lower quadrant. Denie s passing gas. She states that yesterday had some bowel movement, initially was diarrhea, no nausea , no vomiting. OBJECTIVE: VITAL SIGNS: Temperature has been at recorded 99.9 once and once 98.8. Heart rate 102, respiration s 22, blood pressure 121/75, saturation 94% room air. We do not have electrolytes today. Hematology today, WBC is 8000 with 75% segmented, hemoglobin is 12.4 and hematocrit is 36.4. PHYSICAL EXAMINATION: HEART: Regular. ABDOMEN: Slightly distended. Bowel sounds hypoactive. It is quite tender in the right lower quadr ant. Positive plus/minus rebound tenderness GENERAL: Patient is coughing. She is currently a smoker. EXTREMITIES: Lower extremity: No pitting edema, no calf tenderness. ASSESSMENT: A 51-year-old lady status post right hemicolectomy for a cecal bascule. The patient h as been complaining of too much pain and requiring too much pain medication since operation, especia lly in the right lower quadrant, has not been passing gas but has more diarrhea ____today. No bowel movement. No chills. Her temperature today has been elevated at 99.9. Because of so much pain, i t is not clear to me at this time. It is possible that the patient has a leak or partial obstructio n. PLAN: Proceed with a CT scan of the abdomen and pelvis with IV and oral contrast. I would keep the patient n.p.o. Patient is getting IV also. Dictated By: BREN ROSALES MD PS/NTS Conf#: [id number] DID#: [id number]
[2016-11-22 13:33] LABS: POTASSIUM 3.8 mmol/L (3.5-5.1)
[2016-11-22 13:36] LABS: CREATININE 0.46 mg/dl (0.44-1.00)
[2016-11-22 13:37] LABS: CALCIUM 8.7 mg/dl (8.4-10.2)
[2016-11-22] MEDS ORDERED: IOHEXOL 300MG/ML 30 ML BTL ONE ×2 (16:46→20:10)
--- NOTE | 2016-11-22 18:19 | PN ---
Date/Time of Note Date/Time of Note DATE: 11/22/16 TIME: 18:18 Assessment/Plan VTE Prophylaxis VTE Prophylaxis Intervention: other Lines/Catheters IV Catheter Type (from Nrsg): Saline Lock Urinary Cath still in place: Yes Reason Cath still needed: other (indicate) Assessment/Plan Chief Complaint/Hosp Course IMPRESSION: 1. The patient has right hemicolectomy. 2. Hypokalemia. BETTER 3. History of colonoscopy. 4. History of polypectomy. 5 HX DEPRESSION plan po diet per surgery Problems: Subjective 24 Hr Interval Summary Cardiovascular: no complaints Gastrointestinal: pain (+) Exam/Review of Systems Vital Signs Vitals Vital Signs Date Time Temp Pulse Resp B/P Pulse Ox O2 Delivery O2 Flow Rate FiO2 11/22/16 07:27 99.9 102 22 121/75 94 11/20/16 06:00 Nasal Cannula 11/20/16 04:00 2.0 Intake and Output 11/21/16 11/21/16 11/22/16 15:00 23:00 07:00 Intake Total 2480 ml 1100 ml Output Total 1500 ml 1000 ml Balance 980 ml 100 ml Exam Respiratory: clear to auscultation Cardiovascular: regular rate and rhythm Gastrointestinal: bowel sounds (+), soft Results Result Diagram: 11/22/16 0900 11/22/16 1255 Results 24 hrs Laboratory Tests Test 11/22/16 09:00 11/22/16 12:55 Basophils # 0.0 Basophils % 0.1 Eosinophils # 0.0 Eosinophils % 0.4 Hematocrit 36.4 L Hemoglobin 12.4 Lymphocytes # 1.5 Lymphocytes % 18.7 Mean Corpuscular Hemoglobin 30.9 Mean Corpuscular Hemoglobin Concent 34.1 Mean Corpuscular Volume 90.8 Mean Platelet Volume 11.2 H Monocytes # 0.4 Monocytes % 5.4 Neutrophils # 6.0 Neutrophils % 75.0 Nucleated Red Blood Cells # 0.0 Nucleated Red Blood Cells % 0.0 Platelet Count 141 Red Blood Count 4.01 L Red Cell Distribution Width 14.1 White Blood Count 8.0 Anion Gap 13 Blood Urea Nitrogen 6 L Calcium Level 8.7 Carbon Dioxide Level 22 Chloride Level 104 Creatinine 0.46 Glucose Level 109 Potassium Level 3.8 Sodium Level 135 Medications Medications Current Medications Morphine Sulfate (morphine) 2 mg Q2H PRN IV PAIN LEVEL 6-10; Start 11/18/16 at 11:00 Naloxone HCl (Narcan) 0.2 mg PRN PRN IV DECREASED REPIRATORY RATE; Start at 13:00 Oxycodone/ Acetaminophen (Percocet (5/ 325)) 1 tab Q4H PRN PO PAIN LEVEL 1-5; Start 11/18/16 at 13:00; Status Future Hold Oxycodone/ Acetaminophen (Percocet (5/ 325)) 2 tab Q4H PRN PO PAIN LEVEL 6-10; Start 11/18/16 at 13:00; Status Future Hold Hydromorphone HCl (Dilaudid) 0.2 mg Q4H PRN IV PAIN LEVEL 1-5; Start 11/18/16 at 13:00 Ondansetron HCl (Zofran Inj) 4 mg Q6H PRN IV NAUSEA AND/OR VOMITING Last administered on 11/20/16 03:56; Admin Dose 4 MG; Start 11/18/16 at 13:00 Trimethobenzamide HCl (Tigan) 200 mg Q8H PRN IM NAUSEA AND/OR VOMITING; Start 11/18/16 at 13:00 Diphenhydramine HCl 25 mg 25 mg Q6H PRN IV ITCHING; Start 11/18/16 at 13:00 Potassium Chloride/Dextrose/ Sod Cl (D5-1/2ns + KCl 20 Meq) 1,000 ml @ 125 mls/ hr Q8H IV Last administered on 11/22/16 10:42; Admin Dose 125 MLS/HR; Start at 15:00 Hydralazine HCl (Apresoline) 10 mg Q6H PRN IV SBP >160 Last administered on 08:26; Admin Dose 10 MG; Start 11/18/16 at 15:00 Famotidine (Pepcid Iv) 20 mg BID IV Last administered on 11/22/16 08:48; Admin Dose 20 MG; Start 11/19/16 at 09:00 Phenol (Cepastat Lozenge) 1 lozenge Q1H PRN MT SORE THROAT Last administered on 11/21/16 08:25; Admin Dose 1 LOZENGE; Start 11/20/16 at 12:00 Amitriptyline HCl (Elavil) 25 mg QHS PO Last administered on 11/21/16 20:09; Admin Dose 25 MG; Start 11/21/16 at 21:00 Gabapentin (Neurontin) 600 mg BID PO Last administered on 11/22/16 08:48; Admin Dose 600 MG; Start 11/21/16 at 21:00 Topiramate (Topamax) 100 mg QHS PO Last administered on 11/21/16 20:07; Admin Dose 100 MG; Start 11/21/16 at 21:00 Trazodone HCl (Desyrel) 50 mg QHS PO Last administered on 11/21/16 20:07; Admin Dose 50 MG; Start 11/21/16 at 21:00 Hydromorphone HCl (Dilaudid) 0.8 mg Q2H PRN IV PAIN Last administered on 16:56; Admin Dose 0.8 MG; Start 11/22/16 at 13:00 MARTINEZ MELVIN MD Nov 22, 2016 18:19
[2016-11-22 20:18] VITALS: BP 132/94; RESP 18
[2016-11-22] MEDS: traZODone 50 MG TAB PO SCH ×2 (21:00→23:17)
[2016-11-22] MEDS: TOPIRAMATE 100 MG TAB PO SCH ×2 (21:00→23:17)
[2016-11-22] MEDS: AMITRIPTYLINE 25 MG TAB PO SCH ×2 (21:00→23:17)
[2016-11-22] MEDS: ONDANSETRON 4 MG INJ IV PRN (21:21)
[2016-11-22] MEDS ORDERED: SOD CHLORIDE 0.9% 100 ML ONE (22:02)
[2016-11-22] MEDS ORDERED: IOHEXOL 300MG/ML 150 ML BTL ONE (22:02)
[2016-11-22] MEDS: ZOLPIDEM 5 MG TAB PO PRN (23:45)
[2016-11-23] MEDS: HYDROmorphONE 1 MG/ML SYG IV PRN ×9 (01:10→23:29)
[2016-11-23] MEDS: D5W-0.45 NACL + KCL 20 MEQ 1,000 ML IV SCH ×4 (05:09→22:55)
[2016-11-23] MEDS: GABAPENTIN 300 MG CAP PO SCH ×2 (08:25→20:46)
[2016-11-23] MEDS: FAMOTIDINE 20 MG INJ IV SCH ×2 (08:25→20:46)
[2016-11-23 08:31] VITALS: BP 96/57; RESP 14
--- NOTE | 2016-11-23 09:21 | RADRPT ---
PROCEDURE: CT Abdomen and Pelvis with contrast. CLINICAL INDICATION: Abdominal pain ; recent postop TECHNIQUE: CT scan of the abdomen and pelvis with contrast was performed on a multidetector high-r esolution CT scanner. Coronal and sagittal reformatted images were obtained from the axial source im ages. Images were reviewed on a high-resolution PACS workstation. 80 cc of Isovue 300 iodinated cont rast was administered intravenously without reported complication. The total exam CTDI equals 8 mGy and the total exam DLP equals 425 mGy-cm. One or more of the following dose reduction techniques w ere used: Automated exposure control, Adjustment of the mA and/or kV according to patient size, and/ or use of iterative reconstruction technique. COMPARISON: None. FINDINGS: Bilateral lower lobe infiltrates/atelectasis. No suspicious hepatic mass identified. The portal vein is patent. No pancreatic ductal dilatation. The spleen and adrenals are unremarkable. Scattered upper abdominal pneumoperitoneum identified. No focal pericholecystic inflammatory changes. No hydronephrosis. No obstructing renal stone. Right lower quadrant bowel resection changes are seen with bowel wall thickening at the ileocolonic anastomosis. There is focal inflammatory stranding at this location without drainable rim-enhancing fluid collection is identified. No evidence of enteric contrast extravasation seen to the pericoli c gutters or small bowel obstruction. Small-bowel pelvic ascites. Air in the bladder. Aortoiliac atherosclerosis. IMPRESSION: Right lower quadrant bowel resection changes are seen with bowel wall thickening at the ileocolonic anastomosis. There is focal inflammatory stranding at this location without drainable abscess. No evidence of enteric contrast extravasation seen to the pericolic gutters or small bowel obstruction. Scattered upper abdominal pneumoperitoneum is presumably related to recent surgery, however, clinica l correlation is recommended. Bilateral lower lobe infiltrates/atelectasis. Air in the bladder is probably from recent instrumentation. RPTAT: AA .Lucho Méndez MD, Date Time Electronically viewed and signed by .Lucho Méndez MD, on 11/23/2016 09:21 .T/
[2016-11-23 10:17] LABS: ADD SCAN DIFF NO
[2016-11-23 10:20] LABS: BASOPHILS % 0.3 % (0.0-2.0); EOSINOPHILS # 0.1 10^3/ul (0.0-0.5); EOSINOPHILS % 1.2 % (0.0-7.0); HEMATOCRIT 37.4 % (37.0-47.0); HEMOGLOBIN 12.7 g/dl (12.0-16.0); LYMPHOCYTES # 2.1 10^3/ul (0.8-2.9); MEAN CORPUSCULAR HEMOGLOBIN 31.1 pg (29.0-33.0); MEAN CORPUSCULAR VOLUME 91.4 fl (82.0-101.0); MEAN PLATELET VOLUME 10.6 fl (7.4-10.4); MONOCYTE # 0.4 10^3/ul (0.3-0.9); NEUTROPHIL # 4.7 10^3/ul (1.6-7.5); NEUTROPHILS % 64.1 % (39.0-77.0); PLATELET COUNT 177 10^3/UL (140-415); RED BLOOD COUNT 4.09 10^6/ul (4.20-5.40); WHITE BLOOD COUNT 7.4 10^3/ul (4.8-10.8)
--- NOTE | 2016-11-23 12:37 | CONS ---
Date/Time of Note Date/Time of Note DATE: 11/23/16 TIME: 12:35 Assessment/Plan Assessment/Plan Chief Complaint/Hosp Course 1. S/p hemicolectomy, passing gas has PO diet. 2. Hypokalemia. resolved 3. History of colonoscopy. 4. History of polypectomy. 5 HX DEPRESSION Problems: Additional Assessment/Plan 1. Per surgery 2. Advance diet 3. PT Consultation Date/Type/Reason Admit Date/Time Nov 18, 2016 at 06:52 Initial Consult Date 24 HR Interval Summary Constitutional: improved, no complaints Exam/Review of Systems Vital Signs Vitals Vital Signs Date Time Temp Pulse Resp B/P Pulse Ox O2 Delivery O2 Flow Rate FiO2 11/23/16 08:31 98.4 94 14 96/57 94 11/20/16 06:00 Nasal Cannula 11/20/16 04:00 2.0 Intake and Output 11/22/16 11/22/16 11/23/16 15:00 23:00 07:00 Intake Total 1785 ml 1300 ml Output Total 1100 ml 800 ml Balance 685 ml 500 ml Exam Constitutional: alert, oriented Psych: depression, no complaints Head: normocephalic Eyes: nl conjunctiva ENMT: nl external ears & nose Neck: supple Respiratory: clear to auscultation Cardiovascular: regular rate and rhythm Gastrointestinal: other (stables midline), soft Genitourinary - Female: nl external genitalia Musculoskeletal: muscle weakness Extremities: normal pulses Skin: nl turgor Results Result Diagram: 11/23/16 0958 11/22/16 1255 Results 24 hrs Laboratory Tests Test 11/22/16 12:55 11/23/16 09:58 Anion Gap 13 Blood Urea Nitrogen 6 L Calcium Level 8.7 Carbon Dioxide Level 22 Chloride Level 104 Creatinine 0.46 Glucose Level 109 Potassium Level 3.8 Sodium Level 135 Basophils # 0.0 Basophils % 0.3 Eosinophils # 0.1 Eosinophils % 1.2 Hematocrit 37.4 Hemoglobin 12.7 Lymphocytes # 2.1 Lymphocytes % 28.0 Mean Corpuscular Hemoglobin 31.1 Mean Corpuscular Hemoglobin Concent 34.0 Mean Corpuscular Volume 91.4 Mean Platelet Volume 10.6 H Monocytes # 0.4 Monocytes % 6.0 Neutrophils # 4.7 Neutrophils % 64.1 Nucleated Red Blood Cells # 0.0 Nucleated Red Blood Cells % 0.0 Platelet Count 177 # Red Blood Count 4.09 L Red Cell Distribution Width 14.0 White Blood Count 7.4 Medications Medications Current Medications Morphine Sulfate (morphine) 2 mg Q2H PRN IV PAIN LEVEL 6-10; Start 11/18/16 at 11:00 Naloxone HCl (Narcan) 0.2 mg PRN PRN IV DECREASED REPIRATORY RATE; Start at 13:00 Oxycodone/ Acetaminophen (Percocet (5/ 325)) 1 tab Q4H PRN PO PAIN LEVEL 1-5; Start 11/18/16 at 13:00; Status Future Hold Oxycodone/ Acetaminophen (Percocet (5/ 325)) 2 tab Q4H PRN PO PAIN LEVEL 6-10; Start 11/18/16 at 13:00; Status Future Hold Hydromorphone HCl (Dilaudid) 0.2 mg Q4H PRN IV PAIN LEVEL 1-5 Last administered on 11/22/16 23:17; Admin Dose 0.2 MG; Start 11/18/16 at 13:00 Ondansetron HCl (Zofran Inj) 4 mg Q6H PRN IV NAUSEA AND/OR VOMITING Last administered on 11/22/16 21:21; Admin Dose 4 MG; Start 11/18/16 at 13:00 Trimethobenzamide HCl (Tigan) 200 mg Q8H PRN IM NAUSEA AND/OR VOMITING; Start 11/18/16 at 13:00 Diphenhydramine HCl 25 mg 25 mg Q6H PRN IV ITCHING; Start 11/18/16 at 13:00 Potassium Chloride/Dextrose/ Sod Cl (D5-1/2ns + KCl 20 Meq) 1,000 ml @ 125 mls/ hr Q8H IV Last administered on 11/23/16 05:09; Admin Dose 125 MLS/HR; Start at 15:00 Hydralazine HCl (Apresoline) 10 mg Q6H PRN IV SBP >160 Last administered on 08:26; Admin Dose 10 MG; Start 11/18/16 at 15:00 Famotidine (Pepcid Iv) 20 mg BID IV Last administered on 11/23/16 08:25; Admin Dose 20 MG; Start 11/19/16 at 09:00 Phenol (Cepastat Lozenge) 1 lozenge Q1H PRN MT SORE THROAT Last administered on 11/21/16 08:25; Admin Dose 1 LOZENGE; Start 11/20/16 at 12:00 Amitriptyline HCl (Elavil) 25 mg QHS PO Last administered on 11/22/16 23:17; Admin Dose 25 MG; Start 11/21/16 at 21:00 Gabapentin (Neurontin) 600 mg BID PO Last administered on 11/23/16 08:25; Admin Dose 600 MG; Start 11/21/16 at 21:00 Topiramate (Topamax) 100 mg QHS PO Last administered on 11/22/16 23:17; Admin Dose 100 MG; Start 11/21/16 at 21:00 Trazodone HCl (Desyrel) 50 mg QHS PO Last administered on 11/22/16 23:17; Admin Dose 50 MG; Start 11/21/16 at 21:00 Hydromorphone HCl (Dilaudid) 0.8 mg Q2H PRN IV PAIN Last administered on 11:00; Admin Dose 0.8 MG; Start 11/22/16 at 13:00 IZZY BRAMBILA Nov 23, 2016 12:37
--- NOTE | 2016-11-23 14:36 | PN ---
DATE: 11/23/2016 Postop day #5, operation right hemicolectomy and ileocolic anastomosis. SUBJECTIVE: The patient feels comfortable. The pain is under control with 0.8 mg of Dilaudid every 8 hours. OBJECTIVE: VITAL SIGNS: Temperature 98.4, heart rate 94, respirations 14, blood pressure 96/57, saturation 94% on room air. ABDOMEN: Still slightly distended, but is soft still. On deep pressure, there is tenderness mostly on the right side, right lower quadrant. LABORATORY DATA: WBC is 7400, 64% segmented, hemoglobin 12.7, hematocrit 37.4, IMAGING: CT scan with Gastrografin was done yesterday afternoon. The impression is as follows: Ri ght lower quadrant bowel resection changes are seen with bowel wall thickening at the ileocolic anas tomosis. There is focal inflammatory stranding at this location without drainable abscess. No evid ence of enteric contrast extravasation seen to the pericolic gutters or a small-bowel obstruction. Scattered upper abdominal pneumoperitoneum is presumably related to recent surgery. However, clinic al correlation recommended. Bilateral lower lobe infiltrates - atelectasis. Air in the bladder is probably from recent instrume ntation. ASSESSMENT: A 51-year-old status post right hemicolectomy for cecal bascule. The patient has been complaining of too much pain since the operation, mainly on the right side. The CT scan with contr ast does not show any evidence of leak of contrast material, but there is a lot of gas in the remain ing colon and some stool in the rectosigmoid area. Most probably the problem is tolerance of the pa tient to the operation and to the pain is . Also, some gaseous distention of the colon can cau se this pain. PLAN: The patient advised to get out of bed and walk around. The patient has not been walking arou nd that much, so we advised the patient to walk around as much as possible so that she can pass more gas and the pain probably is going to get better. The other findings will be managed by the [facility] physician. Dictated By: BREN ROSALES MD PS/NTS Conf#: [id number] DID#: [id number]
[2016-11-23 20:29] VITALS: BP 116/67; RESP 18
[2016-11-23] MEDS: traZODone 50 MG TAB PO SCH (20:46)
[2016-11-23] MEDS: AMITRIPTYLINE 25 MG TAB PO SCH (20:46)
[2016-11-23] MEDS: TOPIRAMATE 100 MG TAB PO SCH (20:46)
[2016-11-24] MEDS: ZOLPIDEM 5 MG TAB PO PRN ×2 (00:18→21:37)
[2016-11-24] MEDS: D5W-0.45 NACL + KCL 20 MEQ 1,000 ML IV SCH ×3 (00:18→08:41)
[2016-11-24] MEDS: HYDROmorphONE 1 MG/ML SYG IV PRN ×9 (01:33→22:49)
[2016-11-24 07:54] VITALS: BP 110/64; RESP 20
[2016-11-24] MEDS: GABAPENTIN 300 MG CAP PO SCH ×2 (08:41→20:38)
[2016-11-24] MEDS: FAMOTIDINE 20 MG INJ IV SCH ×2 (08:41→20:37)
[2016-11-24 09:02] LABS: ADD SCAN DIFF NO
[2016-11-24 09:07] LABS: BASOPHILS % 0.3 % (0.0-2.0); EOSINOPHILS # 0.3 10^3/ul (0.0-0.5); EOSINOPHILS % 3.6 % (0.0-7.0); LYMPHOCYTES # 2.2 10^3/ul (0.8-2.9); LYMPHOCYTES % 31.7 % (15.0-51.0); MEAN CORPUSCULAR HEMOGLOBIN 30.9 pg (29.0-33.0); MEAN CORPUSCULAR HGB CONC 34.3 g/dl (32.0-37.0); MEAN CORPUSCULAR VOLUME 90.2 fl (82.0-101.0); MEAN PLATELET VOLUME 10.2 fl (7.4-10.4); MONOCYTE # 0.5 10^3/ul (0.3-0.9); MONOCYTES % 7.1 % (0.0-11.0); PLATELET COUNT 207 10^3/UL (140-415); RED BLOOD COUNT 3.88 10^6/ul (4.20-5.40); WHITE BLOOD COUNT 6.9 10^3/ul (4.8-10.8)
--- NOTE | 2016-11-24 15:48 | PN ---
Date/Time of Note Date/Time of Note DATE: 11/24/16 TIME: 15:47 Assessment/Plan VTE Prophylaxis VTE Prophylaxis Intervention: other Lines/Catheters IV Catheter Type (from Nrsg): Peripheral IV Urinary Cath still in place: Yes Reason Cath still needed: other (indicate) Assessment/Plan Chief Complaint/Hosp Course IMPRESSION: 1. The patient has right hemicolectomy. 2. Hypokalemia. BETTER 3. History of colonoscopy. 4. History of polypectomy. 5 HX DEPRESSION plan labs xr chest per surgery Problems: Subjective 24 Hr Interval Summary Cardiovascular: no complaints Gastrointestinal: no complaints, pain (+) Exam/Review of Systems Vital Signs Vitals Vital Signs Date Time Temp Pulse Resp B/P Pulse Ox O2 Delivery O2 Flow Rate FiO2 11/24/16 07:54 98.0 90 20 110/64 94 11/23/16 20:00 Room Air Intake and Output 11/23/16 11/23/16 11/24/16 15:00 23:00 07:00 Intake Total 1000 ml 240 ml 1850 ml Output Total 1100 ml 300 ml Balance 1000 ml -860 ml 1550 ml Exam Respiratory: clear to auscultation Cardiovascular: regular rate and rhythm Gastrointestinal: nl liver, spleen, soft Musculoskeletal: nl extremities to inspection Results Result Diagram: 11/24/16 0850 11/22/16 1255 Results 24 hrs Laboratory Tests Test 11/24/16 08:50 Basophils # 0.0 Basophils % 0.3 Eosinophils # 0.3 Eosinophils % 3.6 Hematocrit 35.0 L Hemoglobin 12.0 Lymphocytes # 2.2 Lymphocytes % 31.7 Mean Corpuscular Hemoglobin 30.9 Mean Corpuscular Hemoglobin Concent 34.3 Mean Corpuscular Volume 90.2 Mean Platelet Volume 10.2 Monocytes # 0.5 Monocytes % 7.1 Neutrophils # 4.0 Neutrophils % 57.0 Nucleated Red Blood Cells # 0.0 Nucleated Red Blood Cells % 0.0 Platelet Count 207 Red Blood Count 3.88 L Red Cell Distribution Width 14.0 White Blood Count 6.9 Medications Medications Current Medications Morphine Sulfate (morphine) 2 mg Q2H PRN IV PAIN LEVEL 6-10; Start 11/18/16 at 11:00 Naloxone HCl (Narcan) 0.2 mg PRN PRN IV DECREASED REPIRATORY RATE; Start at 13:00 Oxycodone/ Acetaminophen (Percocet (5/ 325)) 1 tab Q4H PRN PO PAIN LEVEL 1-5; Start 11/18/16 at 13:00; Status Future Hold Oxycodone/ Acetaminophen (Percocet (5/ 325)) 2 tab Q4H PRN PO PAIN LEVEL 6-10; Start 11/18/16 at 13:00; Status Future Hold Hydromorphone HCl (Dilaudid) 0.2 mg Q4H PRN IV PAIN LEVEL 1-5 Last administered on 11/22/16 23:17; Admin Dose 0.2 MG; Start 11/18/16 at 13:00 Ondansetron HCl (Zofran Inj) 4 mg Q6H PRN IV NAUSEA AND/OR VOMITING Last administered on 11/22/16 21:21; Admin Dose 4 MG; Start 11/18/16 at 13:00 Trimethobenzamide HCl (Tigan) 200 mg Q8H PRN IM NAUSEA AND/OR VOMITING; Start 11/18/16 at 13:00 Diphenhydramine HCl 25 mg 25 mg Q6H PRN IV ITCHING; Start 11/18/16 at 13:00 Potassium Chloride/Dextrose/ Sod Cl (D5-1/2ns + KCl 20 Meq) 1,000 ml @ 125 mls/ hr Q8H IV Last administered on 11/24/16 08:41; Admin Dose 125 MLS/HR; Start at 15:00 Hydralazine HCl (Apresoline) 10 mg Q6H PRN IV SBP >160 Last administered on 08:26; Admin Dose 10 MG; Start 11/18/16 at 15:00 Famotidine (Pepcid Iv) 20 mg BID IV Last administered on 11/24/16 08:41; Admin Dose 20 MG; Start 11/19/16 at 09:00 Phenol (Cepastat Lozenge) 1 lozenge Q1H PRN MT SORE THROAT Last administered on 11/21/16 08:25; Admin Dose 1 LOZENGE; Start 11/20/16 at 12:00 Amitriptyline HCl (Elavil) 25 mg QHS PO Last administered on 11/23/16 20:46; Admin Dose 25 MG; Start 11/21/16 at 21:00 Gabapentin (Neurontin) 600 mg BID PO Last administered on 11/24/16 08:41; Admin Dose 600 MG; Start 11/21/16 at 21:00 Topiramate (Topamax) 100 mg QHS PO Last administered on 11/23/16 20:46; Admin Dose 100 MG; Start 11/21/16 at 21:00 Trazodone HCl (Desyrel) 50 mg QHS PO Last administered on 11/23/16 20:46; Admin Dose 50 MG; Start 11/21/16 at 21:00 Hydromorphone HCl (Dilaudid) 0.8 mg Q2H PRN IV PAIN Last administered on 13:41; Admin Dose 0.8 MG; Start 11/22/16 at 13:00 MARTINEZ MELVIN MD Nov 24, 2016 15:48
--- NOTE | 2016-11-24 18:02 | RADRPT ---
PROCEDURE: XR Chest. CLINICAL INDICATION: Cough. TECHNIQUE: Two views. Frontal and lateral. COMPARISON: No prior study is available for comparison. FINDINGS: There is mild atelectasis at the lung bases. The lungs are otherwise clear. The heart size is normal. There is no pleural effusion. There is no pneumothorax. IMPRESSION: 1. Mild atelectasis at the lung bases. 2. Otherwise unremarkable chest x-ray. RPTAT: QQ .Andrew Ramos MD, MD Date Time Electronically viewed and signed by .Andrew Ramos MD, MD on 11/24/2016 18:02 .R/
--- NOTE | 2016-11-24 18:19 | PN ---
DATE: SUBJECTIVE: The patient does not have any severe complaint except continues to have abdominal pain for which she has been receiving 0.8 mg of Dilaudid every 2 hours. The patient states that she has not had any bowel movement today and is not passing any gas, but no nausea, no vomiting. She is lawrence erating full liquid diet. OBJECTIVE VITAL SIGNS: Today temperature 98, heart 90, respirations 20, blood pressure 110/64, saturation 94% on room air. WBC 6900 with 57% neutrophils, hemoglobin 12, hematocrit 35. Chemistry: BUN, sodium and potassium are within normal limits. GENERAL: The patient is lying down in the bed, appears okay. No distress. ABDOMEN: Slightly distended but soft, right lower quadrant less tenderness. EXTREMITIES: Legs no calf tenderness. ASSESSMENT: The patient postop right hemicolectomy for cecal bascule. The patient has continued to complain of abdominal pain, mainly lower part, for which she has been getting a lot of pain medicat ion, and a CT scan with oral contrast did not reveal any evidence of leakage, but some was the re. Leukocyte count is normal and has been normal all the way. The patient is tolerating full liqu id diet, but patient is not cooperating to get out of bed and walk around. It appears that the pain is more dependence on the pain medication in my opinion. PLAN: 1. Cut down on pain medication, to 0.6 mg of Dilaudid every 2 hours. 2. Discontinue IV, keep heparin lock. 3. Get her out of bed to walk if she wants to walk. If she says she cannot walk well without a wal ker, we will provide her a walker to walk. Dictated By: BREN GUILLEN/SCOTT Conf#: [id number] DID#: [id number]
[2016-11-24 19:22] VITALS: BP 123/68; RESP 18
[2016-11-24] MEDS: traZODone 50 MG TAB PO SCH (20:37)
[2016-11-24] MEDS: AMITRIPTYLINE 25 MG TAB PO SCH (20:38)
[2016-11-24] MEDS: TOPIRAMATE 100 MG TAB PO SCH (20:38)
[2016-11-25] MEDS: HYDROmorphONE 1 MG/ML SYG IV PRN ×10 (02:08→23:33)
[2016-11-25 05:53] LABS: ADD SCAN DIFF NO
[2016-11-25 05:56] LABS: BASOPHILS % 0.3 % (0.0-2.0); EOSINOPHILS # 0.2 10^3/ul (0.0-0.5); EOSINOPHILS % 3.2 % (0.0-7.0); HEMATOCRIT 37.1 % (37.0-47.0); HEMOGLOBIN 12.4 g/dl (12.0-16.0); LYMPHOCYTES # 1.7 10^3/ul (0.8-2.9); LYMPHOCYTES % 27.6 % (15.0-51.0); MEAN CORPUSCULAR HGB CONC 33.4 g/dl (32.0-37.0); MEAN CORPUSCULAR VOLUME 89.8 fl (82.0-101.0); MEAN PLATELET VOLUME 10.5 fl (7.4-10.4); MONOCYTE # 0.5 10^3/ul (0.3-0.9); MONOCYTES % 7.8 % (0.0-11.0); NEUTROPHIL # 3.8 10^3/ul (1.6-7.5); NEUTROPHILS % 60.8 % (39.0-77.0); PLATELET COUNT 266 10^3/UL (140-415); RED BLOOD COUNT 4.13 10^6/ul (4.20-5.40); WHITE BLOOD COUNT 6.3 10^3/ul (4.8-10.8)
[2016-11-25 06:05] LABS: ALBUMIN 3.3 g/dl (3.3-4.9)
[2016-11-25 06:06] LABS: POTASSIUM 3.8 mmol/L (3.5-5.1)
[2016-11-25 06:08] LABS: ALBUMIN/GLOBULIN RATIO 0.89; BILIRUBIN,INDIRECT 0.2 mg/dl (0-1.1); BILIRUBIN,TOTAL 0.2 mg/dl (0.2-1.3); CREATININE 0.52 mg/dl (0.44-1.00)
[2016-11-25 06:09] LABS: CALCIUM 8.9 mg/dl (8.4-10.2)
[2016-11-25 07:47] VITALS: BP 115/70; RESP 18
[2016-11-25] MEDS: GABAPENTIN 300 MG CAP PO SCH ×2 (08:36→20:55)
[2016-11-25] MEDS: FAMOTIDINE 20 MG INJ IV SCH ×2 (08:37→20:55)
--- NOTE | 2016-11-25 11:05 | PN ---
Date/Time of Note Date/Time of Note DATE: 11/25/16 TIME: 11:04 Assessment/Plan VTE Prophylaxis VTE Prophylaxis Intervention: SCD's Lines/Catheters IV Catheter Type (from Nrs): Saline Lock Urinary Cath still in place: No Assessment/Plan Chief Complaint/Hosp Course s/p lap right hemicolectomy Problems: Assessment/Plan regular diet Subjective 24 Hr Interval Summary Free Text/Dictation no issues new issues, had diarrhea a few days ago Exam/Review of Systems Vital Signs Vitals Vital Signs Date Time Temp Pulse Resp B/P Pulse Ox O2 Delivery O2 Flow Rate FiO2 11/25/16 07:47 98.5 99 18 115/70 92 11/23/16 20:00 Room Air Intake and Output 11/24/16 11/24/16 11/25/16 15:00 23:00 07:00 Intake Total 1440 ml 640 ml Output Total 500 ml 800 ml Balance 940 ml -160 ml Exam clean dry intact, no peritoneal signs, no rebound tenderness Results Result Diagram: 11/25/16 0455 11/25/16 0455 Results 24 hrs Laboratory Tests Test 11/25/16 04:55 Alanine Aminotransferase (ALT/SGPT) 51 Albumin 3.3 Albumin/Globulin Ratio 0.89 Alkaline Phosphatase 192 H Anion Gap 14 Aspartate Amino Transf (AST/SGOT) 42 Basophils # 0.0 Basophils % 0.3 Blood Urea Nitrogen 10 Calcium Level 8.9 Carbon Dioxide Level 25 Chloride Level 100 Creatinine 0.52 Direct Bilirubin 0.00 Eosinophils # 0.2 Eosinophils % 3.2 Globulin 3.70 H Glucose Level 92 Hematocrit 37.1 Hemoglobin 12.4 Indirect Bilirubin 0.2 Lymphocytes # 1.7 Lymphocytes % 27.6 Mean Corpuscular Hemoglobin 30.0 Mean Corpuscular Hemoglobin Concent 33.4 Mean Corpuscular Volume 89.8 Mean Platelet Volume 10.5 H Monocytes # 0.5 Monocytes % 7.8 Neutrophils # 3.8 Neutrophils % 60.8 Nucleated Red Blood Cells # 0.0 Nucleated Red Blood Cells % 0.0 Platelet Count 266 # Potassium Level 3.8 Red Blood Count 4.13 L Red Cell Distribution Width 14.0 Sodium Level 135 Total Bilirubin 0.2 Total Protein 7.0 White Blood Count 6.3 Medications Medications Current Medications Morphine Sulfate (morphine) 2 mg Q2H PRN IV PAIN LEVEL 6-10; Start 11/18/16 at 11:00 Naloxone HCl (Narcan) 0.2 mg PRN PRN IV DECREASED REPIRATORY RATE; Start at 13:00 Oxycodone/ Acetaminophen (Percocet (5/ 325)) 1 tab Q4H PRN PO PAIN LEVEL 1-5; Start 11/18/16 at 13:00; Status Future Hold Oxycodone/ Acetaminophen (Percocet (5/ 325)) 2 tab Q4H PRN PO PAIN LEVEL 6-10; Start 11/18/16 at 13:00; Status Future Hold Hydromorphone HCl (Dilaudid) 0.2 mg Q4H PRN IV PAIN LEVEL 1-5 Last administered on 11/22/16 23:17; Admin Dose 0.2 MG; Start 11/18/16 at 13:00 Ondansetron HCl (Zofran Inj) 4 mg Q6H PRN IV NAUSEA AND/OR VOMITING Last administered on 11/22/16 21:21; Admin Dose 4 MG; Start 11/18/16 at 13:00 Trimethobenzamide HCl (Tigan) 200 mg Q8H PRN IM NAUSEA AND/OR VOMITING; Start 11/18/16 at 13:00 Diphenhydramine HCl (Benadryl) 25 mg Q6H PRN IV ITCHING; Start 11/18/16 at 13: 00 Hydralazine HCl (Apresoline) 10 mg Q6H PRN IV SBP >160 Last administered on 08:26; Admin Dose 10 MG; Start 11/18/16 at 15:00 Famotidine (Pepcid Iv) 20 mg BID IV Last administered on 11/25/16 08:37; Admin Dose 20 MG; Start 11/19/16 at 09:00 Phenol (Cepastat Lozenge) 1 lozenge Q1H PRN MT SORE THROAT Last administered on 11/21/16 08:25; Admin Dose 1 LOZENGE; Start 11/20/16 at 12:00 Amitriptyline HCl (Elavil) 25 mg QHS PO Last administered on 11/24/16 20:38; Admin Dose 25 MG; Start 11/21/16 at 21:00 Gabapentin (Neurontin) 600 mg BID PO Last administered on 11/25/16 08:36; Admin Dose 600 MG; Start 11/21/16 at 21:00 Topiramate (Topamax) 100 mg QHS PO Last administered on 11/24/16 20:38; Admin Dose 100 MG; Start 11/21/16 at 21:00 Trazodone HCl (Desyrel) 50 mg QHS PO Last administered on 11/24/16 20:37; Admin Dose 50 MG; Start 11/21/16 at 21:00 Hydromorphone HCl (Dilaudid) 0.6 mg Q2H PRN IV PAIN Last administered on 10:49; Admin Dose 0.6 MG; Start 11/24/16 at 19:00 Rubin RUSS Nov 25, 2016 11:05
--- NOTE | 2016-11-25 17:18 | PN ---
Date/Time of Note Date/Time of Note DATE: 11/25/16 TIME: 17:17 Assessment/Plan VTE Prophylaxis VTE Prophylaxis Intervention: other Lines/Catheters IV C[facility]ter Type (from [facility]): Saline Lock Urinary Cath still in place: No Assessment/Plan Chief Complaint/Hosp Course IMPRESSION: 1. The patient has right hemicolectomy. 2. Hypokalemia. BETTER 3. History of colonoscopy. 4. History of polypectomy. 5 HX DEPRESSION plan AMBULATE per surgery Problems: Subjective 24 Hr Interval Summary Gastrointestinal: no complaints Genitourinary: no complaints Musculoskeletal: no complaints Exam/Review of Systems Vital Signs Vitals Vital Signs Date Time Temp Pulse Resp B/P Pulse Ox O2 Delivery O2 Flow Rate FiO2 11/25/16 07:47 98.5 99 18 115/70 92 11/23/16 20:00 Room Air Intake and Output 11/24/16 11/24/16 11/25/16 15:00 23:00 07:00 Intake Total 1440 ml 640 ml Output Total 500 ml 800 ml Balance 940 ml -160 ml Exam Neck: supple Respiratory: clear to auscultation Cardiovascular: regular rate and rhythm Gastrointestinal: bowel sounds (+), soft Results Result Diagram: 11/25/16 0455 11/25/16 0455 Results 24 hrs Laboratory Tests Test 11/25/16 04:55 Alanine Aminotransferase (ALT/SGPT) 51 Albumin 3.3 Albumin/Globulin Ratio 0.89 Alkaline Phosphatase 192 H Anion Gap 14 Aspartate Amino Transf (AST/SGOT) 42 Basophils # 0.0 Basophils % 0.3 Blood Urea Nitrogen 10 Calcium Level 8.9 Carbon Dioxide Level 25 Chloride Level 100 Creatinine 0.52 Direct Bilirubin 0.00 Eosinophils # 0.2 Eosinophils % 3.2 Globulin 3.70 H Glucose Level 92 Hematocrit 37.1 Hemoglobin 12.4 Indirect Bilirubin 0.2 Lymphocytes # 1.7 Lymphocytes % 27.6 Mean Corpuscular Hemoglobin 30.0 Mean Corpuscular Hemoglobin Concent 33.4 Mean Corpuscular Volume 89.8 Mean Platelet Volume 10.5 H Monocytes # 0.5 Monocytes % 7.8 Neutrophils # 3.8 Neutrophils % 60.8 Nucleated Red Blood Cells # 0.0 Nucleated Red Blood Cells % 0.0 Platelet Count 266 # Potassium Level 3.8 Red Blood Count 4.13 L Red Cell Distribution Width 14.0 Sodium Level 135 Total Bilirubin 0.2 Total Protein 7.0 White Blood Count 6.3 Medications Medications Current Medications Morphine Sulfate (morphine) 2 mg Q2H PRN IV PAIN LEVEL 6-10; Start 11/18/16 at 11:00 Naloxone HCl (Narcan) 0.2 mg PRN PRN IV DECREASED REPIRATORY RATE; Start at 13:00 Oxycodone/ Acetaminophen (Percocet (5/ 325)) 1 tab Q4H PRN PO PAIN LEVEL 1-5; Start 11/18/16 at 13:00; Status Future Hold Oxycodone/ Acetaminophen (Percocet (5/ 325)) 2 tab Q4H PRN PO PAIN LEVEL 6-10; Start 11/18/16 at 13:00; Status Future Hold Hydromorphone HCl (Dilaudid) 0.2 mg Q4H PRN IV PAIN LEVEL 1-5 Last administered on 11/22/16 23:17; Admin Dose 0.2 MG; Start 11/18/16 at 13:00 Ondansetron HCl (Zofran Inj) 4 mg Q6H PRN IV NAUSEA AND/OR VOMITING Last administered on 11/22/16 21:21; Admin Dose 4 MG; Start 11/18/16 at 13:00 Trimethobenzamide HCl (Tigan) 200 mg Q8H PRN IM NAUSEA AND/OR VOMITING; Start 11/18/16 at 13:00 Diphenhydramine HCl (Benadryl) 25 mg Q6H PRN IV ITCHING; Start 11/18/16 at 13: 00 Hydralazine HCl (Apresoline) 10 mg Q6H PRN IV SBP >160 Last administered on 08:26; Admin Dose 10 MG; Start 11/18/16 at 15:00 Famotidine (Pepcid Iv) 20 mg BID IV Last administered on 11/25/16 08:37; Admin Dose 20 MG; Start 11/19/16 at 09:00 Phenol (Cepastat Lozenge) 1 lozenge Q1H PRN MT SORE THROAT Last administered on 11/21/16 08:25; Admin Dose 1 LOZENGE; Start 11/20/16 at 12:00 Amitriptyline HCl (Elavil) 25 mg QHS PO Last administered on 3/19/17at 20:38; Admin Dose 25 MG; Start 11/21/16 at 21:00 Gabapentin (Neurontin) 600 mg BID PO Last administered on 11/25/16 08:36; Admin Dose 600 MG; Start 11/21/16 at 21:00 Topiramate (Topamax) 100 mg QHS PO Last administered on 11/24/16 20:38; Admin Dose 100 MG; Start 11/21/16 at 21:00 Trazodone HCl (Desyrel) 50 mg QHS PO Last administered on 11/24/16 20:37; Admin Dose 50 MG; Start 11/21/16 at 21:00 Hydromorphone HCl (Dilaudid) 0.6 mg Q2H PRN IV PAIN Last administered on 16:07; Admin Dose 0.6 MG; Start 11/24/16 at 19:00 MARTINEZ MELVIN MD Nov 25, 2016 17:18
[2016-11-25 20:00] VITALS: BP 124/80; RESP 18
[2016-11-25] MEDS: TOPIRAMATE 100 MG TAB PO SCH (20:55)
[2016-11-25] MEDS: AMITRIPTYLINE 25 MG TAB PO SCH (20:55)
[2016-11-25] MEDS: traZODone 50 MG TAB PO SCH (20:55)
[2016-11-25] MEDS: ZOLPIDEM 5 MG TAB PO PRN (21:17)
[2016-11-26] MEDS: HYDROmorphONE 1 MG/ML SYG IV PRN ×11 (01:31→23:11)
[2016-11-26 07:06] VITALS: BP 102/57; RESP 18
[2016-11-26] MEDS: FAMOTIDINE 20 MG INJ IV SCH ×2 (08:34→21:16)
[2016-11-26] MEDS: GABAPENTIN 300 MG CAP PO SCH ×2 (08:34→21:16)
--- NOTE | 2016-11-26 12:59 | PN ---
Date/Time of Note Date/Time of Note DATE: 11/26/16 TIME: 12:58 Assessment/Plan VTE Prophylaxis VTE Prophylaxis Intervention: SCD's Lines/Catheters IV C[facility] Type [facility]from [facility] Saline Lock Urinary Cath still in place: No Assessment/Plan Chief Complaint/Hosp Course s/p lap right hemicolectomy Problems: Assessment/Plan doing well awaiting bowel movement Subjective 24 Hr Interval Summary Free Text/Dictation no issues, no bm no flatus Exam/Review of Systems Vital Signs Vitals Vital Signs Date Time Temp Pulse Resp B/P Pulse Ox O2 Delivery O2 Flow Rate FiO2 11/26/16 07:06 98.6 94 18 102/57 92 11/23/16 20:00 Room Air Intake and Output 11/25/16 11/25/16 11/26/16 15:00 23:00 07:00 Intake Total 960 ml 600 ml Output Total 500 ml 700 ml Balance 460 ml -100 ml Exam nonspecific Results Result Diagram: 11/25/16 0455 11/25/16 0455 Medications Medications Current Medications Morphine Sulfate (morphine) 2 mg Q2H PRN IV PAIN LEVEL 6-10; Start 11/18/16 at 11:00 Naloxone HCl (Narcan) 0.2 mg PRN PRN IV DECREASED REPIRATORY RATE; Start at 13:00 Oxycodone/ Acetaminophen (Percocet (5/ 325)) 1 tab Q4H PRN PO PAIN LEVEL 1-5; Start 11/18/16 at 13:00; Status Future Hold Oxycodone/ Acetaminophen (Percocet (5/ 325)) 2 tab Q4H PRN PO PAIN LEVEL 6-10; Start 11/18/16 at 13:00; Status Future Hold Hydromorphone HCl (Dilaudid) 0.2 mg Q4H PRN IV PAIN LEVEL 1-5 Last administered on 11/22/16 23:17; Admin Dose 0.2 MG; Start 11/18/16 at 13:00 Ondansetron HCl (Zofran Inj) 4 mg Q6H PRN IV NAUSEA AND/OR VOMITING Last administered on 11/22/16 21:21; Admin Dose 4 MG; Start 11/18/16 at 13:00 Trimethobenzamide HCl (Tigan) 200 mg Q8H PRN IM NAUSEA AND/OR VOMITING; Start 11/18/16 at 13:00 Diphenhydramine HCl (Benadryl) 25 mg Q6H PRN IV ITCHING; Start 11/18/16 at 13: 00 Hydralazine HCl (Apresoline) 10 mg Q6H PRN IV SBP >160 Last administered on 08:26; Admin Dose 10 MG; Start 11/18/16 at 15:00 Famotidine (Pepcid Iv) 20 mg BID IV Last administered on 11/26/16 08:34; Admin Dose 20 MG; Start 11/19/16 at 09:00 Phenol (Cepastat Lozenge) 1 lozenge Q1H PRN MT SORE THROAT Last administered on 11/21/16 08:25; Admin Dose 1 LOZENGE; Start 11/20/16 at 12:00 Amitriptyline HCl (Elavil) 25 mg QHS PO Last administered on 11/25/16 20:55; Admin Dose 25 MG; Start 11/21/16 at 21:00 Gabapentin (Neurontin) 600 mg BID PO Last administered on 11/26/16 08:34; Admin Dose 600 MG; Start 11/21/16 at 21:00 Topiramate (Topamax) 100 mg QHS PO Last administered on 11/25/16 20:55; Admin Dose 100 MG; Start 11/21/16 at 21:00 Trazodone HCl (Desyrel) 50 mg QHS PO Last administered on 11/25/16 20:55; Admin Dose 50 MG; Start 11/21/16 at 21:00 Hydromorphone HCl (Dilaudid) 0.6 mg Q2H PRN IV PAIN Last administered on 11:22; Admin Dose 0.6 MG; Start 11/24/16 at 19:00 Rubin RUSS Nov 26, 2016 12:59
[2016-11-26] MEDS ORDERED: POLYETHYLENE GLYCOL 17 GM PACKET PO ONE (13:00)
[2016-11-26 19:56] VITALS: BP 127/73; RESP 18
[2016-11-26] MEDS: TOPIRAMATE 100 MG TAB PO SCH (21:16)
[2016-11-26] MEDS: AMITRIPTYLINE 25 MG TAB PO SCH (21:16)
[2016-11-26] MEDS: traZODone 50 MG TAB PO SCH (21:16)
--- NOTE | 2016-11-26 22:50 | PN ---
Date/Time of Note Date/Time of Note DATE: 11/26/16 TIME: 22:48 Assessment/Plan VTE Prophylaxis VTE Prophylaxis Intervention: ambulation Lines/Catheters IV [facility]from [facility] Saline Lock Urinary Cath still in place: No Assessment/Plan Chief Complaint/Hosp Course IMPRESSION: 1. The patient has right hemicolectomy. 2. Hypokalemia. BETTER 3. History of colonoscopy. 4. History of polypectomy. 5 HX DEPRESSION plan AMBULATE per surgery to pass gas Problems: Subjective 24 Hr Interval Summary Gastrointestinal: no complaints, No flatus, No nausea Exam/Review of Systems Vital Signs Vitals Vital Signs Date Time Temp Pulse Resp B/P Pulse Ox O2 Delivery O2 Flow Rate FiO2 11/26/16 19:56 98.1 104 18 127/73 92 11/23/16 20:00 Room Air Intake and Output 11/25/16 11/25/16 11/26/16 15:00 23:00 07:00 Intake Total 960 ml 600 ml Output Total 500 ml 700 ml Balance 460 ml -100 ml Exam Respiratory: clear to auscultation Cardiovascular: regular rate and rhythm Gastrointestinal: bowel sounds (+), soft Results Result Diagram: 11/25/16 0455 11/25/16 0455 Medications Medications Current Medications Morphine Sulfate (morphine) 2 mg Q2H PRN IV PAIN LEVEL 6-10; Start 11/18/16 at 11:00 Naloxone HCl (Narcan) 0.2 mg PRN PRN IV DECREASED REPIRATORY RATE; Start at 13:00 Oxycodone/ Acetaminophen (Percocet (5/ 325)) 1 tab Q4H PRN PO PAIN LEVEL 1-5; Start 11/18/16 at 13:00; Status Future Hold Oxycodone/ Acetaminophen (Percocet (5/ 325)) 2 tab Q4H PRN PO PAIN LEVEL 6-10; Start 11/18/16 at 13:00; Status Future Hold Hydromorphone HCl (Dilaudid) 0.2 mg Q4H PRN IV PAIN LEVEL 1-5 Last administered on 11/22/16 23:17; Admin Dose 0.2 MG; Start 11/18/16 at 13:00 Ondansetron HCl (Zofran Inj) 4 mg Q6H PRN IV NAUSEA AND/OR VOMITING Last administered on 11/22/16 21:21; Admin Dose 4 MG; Start 11/18/16 at 13:00 Trimethobenzamide HCl (Tigan) 200 mg Q8H PRN IM NAUSEA AND/OR VOMITING; Start 11/18/16 at 13:00 Diphenhydramine HCl (Benadryl) 25 mg Q6H PRN IV ITCHING; Start 11/18/16 at 13: 00 Hydralazine HCl (Apresoline) 10 mg Q6H PRN IV SBP >160 Last administered on 08:26; Admin Dose 10 MG; Start 11/18/16 at 15:00 Famotidine (Pepcid Iv) 20 mg BID IV Last administered on 11/26/16 21:16; Admin Dose 20 MG; Start 11/19/16 at 09:00 Phenol (Cepastat Lozenge) 1 lozenge Q1H PRN MT SORE THROAT Last administered on 11/21/16 08:25; Admin Dose 1 LOZENGE; Start 11/20/16 at 12:00 Amitriptyline HCl (Elavil) 25 mg QHS PO Last administered on 11/26/16 21:16; Admin Dose 25 MG; Start 11/21/16 at 21:00 Gabapentin (Neurontin) 600 mg BID PO Last administered on 11/26/16 21:16; Admin Dose 600 MG; Start 11/21/16 at 21:00 Topiramate (Topamax) 100 mg QHS PO Last administered on 11/26/16 21:16; Admin Dose 100 MG; Start 11/21/16 at 21:00 Trazodone HCl (Desyrel) 50 mg QHS PO Last administered on 11/26/16 21:16; Admin Dose 50 MG; Start 11/21/16 at 21:00 Hydromorphone HCl (Dilaudid) 0.6 mg Q2H PRN IV PAIN Last administered on 21:17; Admin Dose 0.6 MG; Start 11/24/16 at 19:00 MARTINEZ MELVIN MD Nov 26, 2016 22:50
[2016-11-26] MEDS: ZOLPIDEM 5 MG TAB PO PRN (23:11)
[2016-11-27] MEDS: HYDROmorphONE 1 MG/ML SYG IV PRN ×11 (01:32→22:29)
[2016-11-27 07:26] VITALS: BP 103/67; RESP 18
[2016-11-27] MEDS: GABAPENTIN 300 MG CAP PO SCH ×2 (08:21→21:36)
[2016-11-27] MEDS: FAMOTIDINE 20 MG INJ IV SCH ×2 (08:21→21:37)
[2016-11-27 20:46] VITALS: BP 129/79; RESP 20
[2016-11-27 21:00] VITALS: PULSE 86
[2016-11-27] MEDS: TOPIRAMATE 100 MG TAB PO SCH (21:36)
[2016-11-27] MEDS: traZODone 50 MG TAB PO SCH (21:37)
[2016-11-27] MEDS: AMITRIPTYLINE 25 MG TAB PO SCH (21:37)
[2016-11-27] MEDS: ZOLPIDEM 5 MG TAB PO PRN (22:27)
--- NOTE | 2016-11-27 23:36 | PN ---
Date/Time of Note Date/Time of Note DATE: 11/27/16 TIME: 23:35 Assessment/Plan VTE Prophylaxis VTE Prophylaxis Intervention: other Lines/Catheters IV [facility] Type ([facility] Saline Lock Urinary Cath still in place: No Assessment/Plan Chief Complaint/Hosp Course IMPRESSION: 1. The patient has right hemicolectomy. 2. Hypokalemia. BETTER 3. History of colonoscopy. 4. History of polypectomy. 5 HX DEPRESSION plan AMBULATE per surgery to pass gas home once cleared by surgery Problems: Subjective 24 Hr Interval Summary Respiratory: no complaints Cardiovascular: no complaints Gastrointestinal: pain (mild) Exam/Review of Systems Vital Signs Vitals Vital Signs Date Time Temp Pulse Resp B/P Pulse Ox O2 Delivery O2 Flow Rate FiO2 11/27/16 20:46 97.9 119 20 129/79 91 11/23/16 20:00 Room Air Intake and Output 11/26/16 11/26/16 11/27/16 15:00 23:00 07:00 Intake Total 1280 ml 1020 ml Output Total 1200 ml 400 ml Balance 80 ml 620 ml Exam Cardiovascular: regular rate and rhythm Gastrointestinal: soft Musculoskeletal: nl extremities to inspection Extremities: normal pulses Results Result Diagram: 11/25/16 0455 11/25/16 0455 Medications Medications Current Medications Morphine Sulfate (morphine) 2 mg Q2H PRN IV PAIN LEVEL 6-10; Start 11/18/16 at 11:00 Naloxone HCl (Narcan) 0.2 mg PRN PRN IV DECREASED REPIRATORY RATE; Start at 13:00 Oxycodone/ Acetaminophen (Percocet (5/ 325)) 1 tab Q4H PRN PO PAIN LEVEL 1-5; Start 11/18/16 at 13:00; Status Future Hold Oxycodone/ Acetaminophen (Percocet (5/ 325)) 2 tab Q4H PRN PO PAIN LEVEL 6-10; Start 11/18/16 at 13:00; Status Future Hold Hydromorphone HCl (Dilaudid) 0.2 mg Q4H PRN IV PAIN LEVEL 1-5 Last administered on 11/22/16 23:17; Admin Dose 0.2 MG; Start 11/18/16 at 13:00 Ondansetron HCl (Zofran Inj) 4 mg Q6H PRN IV NAUSEA AND/OR VOMITING Last administered on 11/22/16 21:21; Admin Dose 4 MG; Start 11/18/16 at 13:00 Trimethobenzamide HCl (Tigan) 200 mg Q8H PRN IM NAUSEA AND/OR VOMITING; Start 11/18/16 at 13:00 Diphenhydramine HCl (Benadryl) 25 mg Q6H PRN IV ITCHING; Start 11/18/16 at 13: 00 Hydralazine HCl (Apresoline) 10 mg Q6H PRN IV SBP >160 Last administered on 08:26; Admin Dose 10 MG; Start 11/18/16 at 15:00 Famotidine (Pepcid Iv) 20 mg BID IV Last administered on 11/27/16 21:37; Admin Dose 20 MG; Start 11/19/16 at 09:00 Phenol (Cepastat Lozenge) 1 lozenge Q1H PRN MT SORE THROAT Last administered on 11/21/16 08:25; Admin Dose 1 LOZENGE; Start 11/20/16 at 12:00 Amitriptyline HCl (Elavil) 25 mg QHS PO Last administered on 11/27/16 21:37; Admin Dose 25 MG; Start 11/21/16 at 21:00 Gabapentin (Neurontin) 600 mg BID PO Last administered on 11/27/16 21:36; Admin Dose 600 MG; Start 11/21/16 at 21:00 Topiramate (Topamax) 100 mg QHS PO Last administered on 11/27/16 21:36; Admin Dose 100 MG; Start 11/21/16 at 21:00 Trazodone HCl (Desyrel) 50 mg QHS PO Last administered on 11/27/16 21:37; Admin Dose 50 MG; Start 11/21/16 at 21:00 Hydromorphone HCl (Dilaudid) 0.6 mg Q2H PRN IV PAIN Last administered on 22:29; Admin Dose 0.6 MG; Start 11/24/16 at 19:00 Polyethylene Glycol (Miralax) 17 gm DAILY PRN PO CONSTIPATION; Start 11/27/16 at 18:30 MARTINEZ MELVIN MD Nov 27, 2016 23:36
[2016-11-28] MEDS: HYDROmorphONE 1 MG/ML SYG IV PRN ×10 (01:00→23:30)
[2016-11-28] MEDS: POLYETHYLENE GLYCOL 17 GM PACKET PO PRN (05:14)
[2016-11-28 07:52] VITALS: BP 107/72; RESP 18
[2016-11-28] MEDS: GABAPENTIN 300 MG CAP PO SCH ×2 (09:13→21:29)
[2016-11-28] MEDS: FAMOTIDINE 20 MG INJ IV SCH ×2 (09:13→21:29)
--- NOTE | 2016-11-28 12:26 | PN ---
Date/Time of Note Date/Time of Note DATE: 11/28/16 TIME: 12:25 Assessment/Plan VTE Prophylaxis VTE Prophylaxis Intervention: SCD's Lines/Catheters IV Catheter Type (from Nrs): Saline Lock Urinary Cath still in place: No Assessment/Plan Chief Complaint/Hosp Course s/p lap right hemicolectomy Problems: Assessment/Plan continue regular diet and bowel regiment if no movement by tomorrow will consider sbft Subjective 24 Hr Interval Summary Free Text/Dictation still no bowel movement, no flatus, patient not walking per nursing Exam/Review of Systems Vital Signs Vitals Vital Signs Date Time Temp Pulse Resp B/P Pulse Ox O2 Delivery O2 Flow Rate FiO2 11/28/16 07:52 97.8 96 18 107/72 96 Intake and Output 11/27/16 11/27/16 11/28/16 15:00 23:00 07:00 Intake Total 350 ml Output Total 600 ml Balance -250 ml Exam mild distention, appropriately tender no peritoneal signs Results Result Diagram: 11/25/16 0455 11/25/16 0455 Medications Medications Current Medications Morphine Sulfate (morphine) 2 mg Q2H PRN IV PAIN LEVEL 6-10; Start 11/18/16 at 11:00 Naloxone HCl (Narcan) 0.2 mg PRN PRN IV DECREASED REPIRATORY RATE; Start at 13:00 Oxycodone/ Acetaminophen (Percocet (5/ 325)) 1 tab Q4H PRN PO PAIN LEVEL 1-5; Start 11/18/16 at 13:00; Status Future Hold Oxycodone/ Acetaminophen (Percocet (5/ 325)) 2 tab Q4H PRN PO PAIN LEVEL 6-10; Start 11/18/16 at 13:00; Status Future Hold Hydromorphone HCl (Dilaudid) 0.2 mg Q4H PRN IV PAIN LEVEL 1-5 Last administered on 11/22/16 23:17; Admin Dose 0.2 MG; Start 11/18/16 at 13:00 Ondansetron HCl (Zofran Inj) 4 mg Q6H PRN IV NAUSEA AND/OR VOMITING Last administered on 11/22/16 21:21; Admin Dose 4 MG; Start 11/18/16 at 13:00 Trimethobenzamide HCl (Tigan) 200 mg Q8H PRN IM NAUSEA AND/OR VOMITING; Start 11/18/16 at 13:00 Diphenhydramine HCl (Benadryl) 25 mg Q6H PRN IV ITCHING; Start 11/18/16 at 13: 00 Hydralazine HCl (Apresoline) 10 mg Q6H PRN IV SBP >160 Last administered on 08:26; Admin Dose 10 MG; Start 11/18/16 at 15:00 Famotidine (Pepcid Iv) 20 mg BID IV Last administered on 11/28/16 09:13; Admin Dose 20 MG; Start 11/19/16 at 09:00 Phenol (Cepastat Lozenge) 1 lozenge Q1H PRN MT SORE THROAT Last administered on 11/21/16 08:25; Admin Dose 1 LOZENGE; Start 11/20/16 at 12:00 Amitriptyline HCl (Elavil) 25 mg QHS PO Last administered on 11/27/16 21:37; Admin Dose 25 MG; Start 11/21/16 at 21:00 Gabapentin (Neurontin) 600 mg BID PO Last administered on 11/28/16 09:13; Admin Dose 600 MG; Start 11/21/16 at 21:00 Topiramate (Topamax) 100 mg QHS PO Last administered on 11/27/16 21:36; Admin Dose 100 MG; Start 11/21/16 at 21:00 Trazodone HCl (Desyrel) 50 mg QHS PO Last administered on 11/27/16 21:37; Admin Dose 50 MG; Start 11/21/16 at 21:00 Hydromorphone HCl (Dilaudid) 0.6 mg Q2H PRN IV PAIN Last administered on 11:32; Admin Dose 0.6 MG; Start 11/24/16 at 19:00 Polyethylene Glycol (Miralax) 17 gm DAILY PRN PO CONSTIPATION Last administered on 11/28/16 05:14; Admin Dose 17 GM; Start 11/27/16 at 18:30 Rubin RUSS Nov 28, 2016 12:26
--- NOTE | 2016-11-28 14:17 | RADRPT ---
PROCEDURE: XR Abdomen CLINICAL INDICATION: Pain rule out abscess TECHNIQUE: An AP supine radiograph of the abdomen was submitted. COMPARISON: Previous CT done 11/22/2016 FINDINGS: Surgical clips and anastomotic aleta are again seen within the right abdomen and pelvis and vertic ally oriented aleta are seen across the lower abdomen. Surgical aleta also project in the left lower quadrant of the abdomen. Air distended colon is again evident and there appear to the several mildly air distended segments of small bowel most compatible with ileus.No organomegaly or discrete mass is identified. No pathological calcification is identified. The osseous elements appear unrema rkable. IMPRESSION: 1. Previous abdominal surgery. 2. The bowel gas pattern reflects an ileus with gaseous distension of primarily the colon. 3. No mass or pathological calcification is evident. Physician Rebecca Date Time Electronically viewed and signed by Physician Rebecca on 11/28/2016 14:17 /
[2016-11-28 20:20] VITALS: BP 115/76; RESP 16
[2016-11-28] MEDS: TOPIRAMATE 100 MG TAB PO SCH (21:29)
[2016-11-28] MEDS: traZODone 50 MG TAB PO SCH (21:29)
[2016-11-28] MEDS: AMITRIPTYLINE 25 MG TAB PO SCH (21:29)
[2016-11-28] MEDS: ZOLPIDEM 5 MG TAB PO PRN (21:29)
--- NOTE | 2016-11-28 22:51 | PN ---
Date/Time of Note Date/Time of Note DATE: 11/28/16 TIME: 22:50 Assessment/Plan VTE Prophylaxis VTE Prophylaxis Intervention: other Lines/Catheters IV Catheter Type (from Nrs): Saline Lock Urinary Cath still in place: No Assessment/Plan Chief Complaint/Hosp Course IMPRESSION: 1. The patient has right hemicolectomy. 2. Hypokalemia. BETTER 3. History of colonoscopy. 4. History of polypectomy. 5 HX DEPRESSION plan AMBULATE per surgery to pass gas home once cleared by surgery Problems: Subjective 24 Hr Interval Summary Gastrointestinal: pain Exam/Review of Systems Vital Signs Vitals Vital Signs Date Time Temp Pulse Resp B/P Pulse Ox O2 Delivery O2 Flow Rate FiO2 11/28/16 20:20 99.3 96 16 115/76 98 Intake and Output 11/27/16 11/27/16 11/28/16 14:59 22:59 06:59 Intake Total 350 ml Output Total 600 ml Balance -250 ml Exam Respiratory: clear to auscultation Cardiovascular: regular rate and rhythm Gastrointestinal: soft Musculoskeletal: nl extremities to inspection Results Result Diagram: 11/25/16 0455 11/25/16 0455 Medications Medications Current Medications Morphine Sulfate (morphine) 2 mg Q2H PRN IV PAIN LEVEL 6-10; Start 11/18/16 at 11:00 Naloxone HCl (Narcan) 0.2 mg PRN PRN IV DECREASED REPIRATORY RATE; Start at 13:00 Oxycodone/ Acetaminophen (Percocet (5/ 325)) 1 tab Q4H PRN PO PAIN LEVEL 1-5; Start 11/18/16 at 13:00; Status Future Hold Oxycodone/ Acetaminophen (Percocet (5/ 325)) 2 tab Q4H PRN PO PAIN LEVEL 6-10; Start 11/18/16 at 13:00; Status Future Hold Hydromorphone HCl (Dilaudid) 0.2 mg Q4H PRN IV PAIN LEVEL 1-5 Last administered on 11/22/16 23:17; Admin Dose 0.2 MG; Start 11/18/16 at 13:00 Ondansetron HCl (Zofran Inj) 4 mg Q6H PRN IV NAUSEA AND/OR VOMITING Last administered on 11/22/16 21:21; Admin Dose 4 MG; Start 11/18/16 at 13:00 Trimethobenzamide HCl (Tigan) 200 mg Q8H PRN IM NAUSEA AND/OR VOMITING; Start 11/18/16 at 13:00 Diphenhydramine HCl (Benadryl) 25 mg Q6H PRN IV ITCHING; Start 11/18/16 at 13: 00 Hydralazine HCl (Apresoline) 10 mg Q6H PRN IV SBP >160 Last administered on 08:26; Admin Dose 10 MG; Start 11/18/16 at 15:00 Famotidine (Pepcid Iv) 20 mg BID IV Last administered on 11/28/16 21:29; Admin Dose 20 MG; Start 11/19/16 at 09:00 Phenol (Cepastat Lozenge) 1 lozenge Q1H PRN MT SORE THROAT Last administered on 11/21/16 08:25; Admin Dose 1 LOZENGE; Start 11/20/16 at 12:00 Amitriptyline HCl (Elavil) 25 mg QHS PO Last administered on 11/28/16 21:29; Admin Dose 25 MG; Start 11/21/16 at 21:00 Gabapentin (Neurontin) 600 mg BID PO Last administered on 11/28/16 21:29; Admin Dose 600 MG; Start 11/21/16 at 21:00 Topiramate (Topamax) 100 mg QHS PO Last administered on 11/28/16 21:29; Admin Dose 100 MG; Start 11/21/16 at 21:00 Trazodone HCl (Desyrel) 50 mg QHS PO Last administered on 11/28/16 21:29; Admin Dose 50 MG; Start 11/21/16 at 21:00 Polyethylene Glycol (Miralax) 17 gm DAILY PRN PO CONSTIPATION Last administered on 11/28/16 05:14; Admin Dose 17 GM; Start 11/27/16 at 18:30 Hydromorphone HCl (Dilaudid) 0.6 mg Q3H PRN IV PAIN Last administered on 20:34; Admin Dose 0.6 MG; Start 11/28/16 at 15:00 MARTINEZ MELVIN MD Nov 28, 2016 22:51
[2016-11-29] MEDS: HYDROmorphONE 1 MG/ML SYG IV PRN ×7 (02:32→22:21)
[2016-11-29 07:00] VITALS: BP 109/74; RESP 20
[2016-11-29] MEDS: FAMOTIDINE 20 MG INJ IV SCH ×2 (08:16→20:35)
[2016-11-29] MEDS: GABAPENTIN 300 MG CAP PO SCH ×2 (08:16→20:35)
[2016-11-29] MEDS: POLYETHYLENE GLYCOL 17 GM PACKET PO PRN (08:21)
--- NOTE | 2016-11-29 10:01 | PN ---
Date/Time of Note Date/Time of Note DATE: 11/29/16 TIME: 10:00 Assessment/Plan VTE Prophylaxis VTE Prophylaxis Intervention: SCD's Lines/Catheters IV Catheter Type (from Nrs): Saline Lock Urinary Cath still in place: No Assessment/Plan Chief Complaint/Hosp Course s/p lap right hemicolectomy Problems: Assessment/Plan colonic inertia continue current care aggressive ambulation Subjective 24 Hr Interval Summary Free Text/Dictation colonic inertia, no nausea no vomiting Exam/Review of Systems Vital Signs Vitals Vital Signs Date Time Temp Pulse Resp B/P Pulse Ox O2 Delivery O2 Flow Rate FiO2 11/29/16 07:00 98.2 100 20 109/74 98 Intake and Output 11/28/16 11/28/16 11/29/16 15:00 23:00 07:00 Intake Total 940 ml 200 ml Balance 940 ml 200 ml Exam soft less pain, no peritoneal signs Results Result Diagram: 11/25/16 0455 11/25/16 0455 Medications Medications Current Medications Morphine Sulfate (morphine) 2 mg Q2H PRN IV PAIN LEVEL 6-10; Start 11/18/16 at 11:00 Naloxone HCl (Narcan) 0.2 mg PRN PRN IV DECREASED REPIRATORY RATE; Start at 13:00 Oxycodone/ Acetaminophen (Percocet (5/ 325)) 1 tab Q4H PRN PO PAIN LEVEL 1-5; Start 11/18/16 at 13:00; Status Future Hold Oxycodone/ Acetaminophen (Percocet (5/ 325)) 2 tab Q4H PRN PO PAIN LEVEL 6-10; Start 11/18/16 at 13:00; Status Future Hold Hydromorphone HCl (Dilaudid) 0.2 mg Q4H PRN IV PAIN LEVEL 1-5 Last administered on 11/22/16 23:17; Admin Dose 0.2 MG; Start 11/18/16 at 13:00 Ondansetron HCl (Zofran Inj) 4 mg Q6H PRN IV NAUSEA AND/OR VOMITING Last administered on 11/22/16 21:21; Admin Dose 4 MG; Start 11/18/16 at 13:00 Trimethobenzamide HCl (Tigan) 200 mg Q8H PRN IM NAUSEA AND/OR VOMITING; Start 11/18/16 at 13:00 Diphenhydramine HCl (Benadryl) 25 mg Q6H PRN IV ITCHING; Start 11/18/16 at 13: 00 Hydralazine HCl (Apresoline) 10 mg Q6H PRN IV SBP >160 Last administered on 08:26; Admin Dose 10 MG; Start 11/18/16 at 15:00 Famotidine (Pepcid Iv) 20 mg BID IV Last administered on 11/29/16 08:16; Admin Dose 20 MG; Start 11/19/16 at 09:00 Phenol (Cepastat Lozenge) 1 lozenge Q1H PRN MT SORE THROAT Last administered on 11/21/16 08:25; Admin Dose 1 LOZENGE; Start 11/20/16 at 12:00 Amitriptyline HCl (Elavil) 25 mg QHS PO Last administered on 11/28/16 21:29; Admin Dose 25 MG; Start 11/21/16 at 21:00 Gabapentin (Neurontin) 600 mg BID PO Last administered on 11/29/16 08:16; Admin Dose 600 MG; Start 11/21/16 at 21:00 Topiramate (Topamax) 100 mg QHS PO Last administered on 11/28/16 21:29; Admin Dose 100 MG; Start 11/21/16 at 21:00 Trazodone HCl (Desyrel) 50 mg QHS PO Last administered on 11/28/16 21:29; Admin Dose 50 MG; Start 11/21/16 at 21:00 Polyethylene Glycol (Miralax) 17 gm DAILY PRN PO CONSTIPATION Last administered on 11/29/16 08:21; Admin Dose 17 GM; Start 11/27/16 at 18:30 Hydromorphone HCl (Dilaudid) 0.6 mg Q3H PRN IV PAIN Last administered on 08:29; Admin Dose 0.6 MG; Start 11/28/16 at 15:00 Rubin RUSS Nov 29, 2016 10:01
[2016-11-29] MEDS ORDERED: HYDROmorphONE 1 MG/ML SYG IV PRN (11:00)
--- NOTE | 2016-11-29 16:35 | CONS ---
Date/Time of Note Date/Time of Note DATE: 11/29/16 TIME: 16:33 Assessment/Plan Assessment/Plan Chief Complaint/Hosp Course 1. The patient has right hemicolectomy. 2. Hypokalemia. BETTER 3. History of colonoscopy. 4. History of polypectomy. 5 HX DEPRESSION Problems: Additional Assessment/Plan 1. Ambulation 2. Pain control Consultation Date/Type/Reason Admit Date/Time Nov 18, 2016 at 06:52 Initial Consult Date 11/19/2016 Type of Consultation: nephrology Reason for Consultation Dr Funk Exam/Review of Systems Vital Signs Vitals Vital Signs Date Time Temp Pulse Resp B/P Pulse Ox O2 Delivery O2 Flow Rate FiO2 11/29/16 07:00 98.2 100 20 109/74 98 Intake and Output 11/28/16 11/28/16 11/29/16 15:00 23:00 07:00 Intake Total 940 ml 200 ml Balance 940 ml 200 ml Exam Constitutional: alert, oriented Psych: no complaints Head: normocephalic Eyes: nl conjunctiva ENMT: nl external ears & nose Neck: supple Respiratory: clear to auscultation Cardiovascular: regular rate and rhythm Gastrointestinal: soft Results Result Diagram: 11/25/16 0455 11/25/16 0455 Medications Medications Current Medications Morphine Sulfate (morphine) 2 mg Q2H PRN IV PAIN LEVEL 6-10; Start 11/18/16 at 11:00 Naloxone HCl (Narcan) 0.2 mg PRN PRN IV DECREASED REPIRATORY RATE; Start at 13:00 Oxycodone/ Acetaminophen (Percocet (5/ 325)) 1 tab Q4H PRN PO PAIN LEVEL 1-5; Start 11/18/16 at 13:00; Status Future Hold Oxycodone/ Acetaminophen (Percocet (5/ 325)) 2 tab Q4H PRN PO PAIN LEVEL 6-10; Start 11/18/16 at 13:00; Status Future Hold Ondansetron HCl (Zofran Inj) 4 mg Q6H PRN IV NAUSEA AND/OR VOMITING Last administered on 11/22/16t 21:21; Admin Dose 4 MG; Start 11/18/16 at 13:00 Trimethobenzamide HCl (Tigan) 200 mg Q8H PRN IM NAUSEA AND/OR VOMITING; Start 11/18/16 at 13:00 Diphenhydramine HCl (Benadryl) 25 mg Q6H PRN IV ITCHING; Start 11/18/16 at 13: 00 Hydralazine HCl (Apresoline) 10 mg Q6H PRN IV SBP >160 Last administered on 08:26; Admin Dose 10 MG; Start 11/18/16 at 15:00 Famotidine (Pepcid Iv) 20 mg BID IV Last administered on 11/29/16 08:16; Admin Dose 20 MG; Start 11/19/16 at 09:00 Phenol (Cepastat Lozenge) 1 lozenge Q1H PRN MT SORE THROAT Last administered on 11/21/16 08:25; Admin Dose 1 LOZENGE; Start 11/20/16 at 12:00 Amitriptyline HCl (Elavil) 25 mg QHS PO Last administered on 11/28/16 21:29; Admin Dose 25 MG; Start 11/21/16 at 21:00 Gabapentin (Neurontin) 600 mg BID PO Last administered on 11/29/16 08:16; Admin Dose 600 MG; Start 11/21/16 at 21:00 Topiramate (Topamax) 100 mg QHS PO Last administered on 11/28/16 21:29; Admin Dose 100 MG; Start 11/21/16 at 21:00 Trazodone HCl (Desyrel) 50 mg QHS PO Last administered on 11/28/16 21:29; Admin Dose 50 MG; Start 11/21/16 at 21:00 Polyethylene Glycol (Miralax) 17 gm DAILY PRN PO CONSTIPATION Last administered on 11/29/16 08:21; Admin Dose 17 GM; Start 11/27/16 at 18:30 Hydromorphone HCl (Dilaudid) 0.6 mg Q3H PRN IV PAIN Last administered on 16:06; Admin Dose 0.6 MG; Start 11/28/16 at 15:00 Hydromorphone HCl (Dilaudid) 0.2 mg Q2H PRN IV PAIN LEVEL 1-5 Last administered on 11/29/16 10:56; Admin Dose 0.2 MG; Start 11/29/16 at 11:00 IZZY BRAMBIAL 24, 2017 16:35
[2016-11-29 20:32] VITALS: BP 102/70; RESP 16
[2016-11-29] MEDS: TOPIRAMATE 100 MG TAB PO SCH (20:35)
[2016-11-29] MEDS: traZODone 50 MG TAB PO SCH (20:35)
[2016-11-29] MEDS: AMITRIPTYLINE 25 MG TAB PO SCH (20:35)
[2016-11-29] MEDS: ZOLPIDEM 5 MG TAB PO PRN (22:22)
[2016-11-30] MEDS: HYDROmorphONE 1 MG/ML SYG IV PRN ×8 (01:24→23:18)
[2016-11-30 07:38] VITALS: BP 102/66; RESP 18
[2016-11-30] MEDS: GABAPENTIN 300 MG CAP PO SCH ×3 (08:06→22:45)
[2016-11-30] MEDS: FAMOTIDINE 20 MG INJ IV SCH ×3 (08:06→22:45)
[2016-11-30] MEDS: POLYETHYLENE GLYCOL 17 GM PACKET PO PRN (08:11)
--- NOTE | 2016-11-30 12:52 | CONS ---
Date/Time of Note Date/Time of Note DATE: 11/30/16 TIME: 12:49 Assessment/Plan Assessment/Plan Chief Complaint/Hosp Course 1. The patient has right hemicolectomy. 2. Hypokalemia. BETTER 3. History of colonoscopy. 4. History of polypectomy. 5 HX DEPRESSION Problems: Additional Assessment/Plan 1. Ambulate. 2. gas pain expected and will be resolved with time Consultation Date/Type/Reason Admit Date/Time Nov 18, 2016 at 06:52 Initial Consult Date 11/19/2016 Type of Consultation: nephrology Reason for Consultation Dr Funk 24 HR Interval Summary Constitutional: other (pain) Exam/Review of Systems Vital Signs Vitals Vital Signs Date Time Temp Pulse Resp B/P Pulse Ox O2 Delivery O2 Flow Rate FiO2 11/30/16 07:38 98.3 100 18 102/66 94 Intake and Output 11/29/16 11/29/16 11/30/16 15:00 23:00 07:00 Intake Total 960 ml 400 ml Balance 960 ml 400 ml Exam Constitutional: alert, oriented Psych: no complaints Head: normocephalic Eyes: nl conjunctiva ENMT: nl external ears & nose Neck: supple Respiratory: clear to auscultation Cardiovascular: regular rate and rhythm Gastrointestinal: other (painful on palpation), soft Medications Medications Current Medications Morphine Sulfate (morphine) 2 mg Q2H PRN IV PAIN LEVEL 6-10; Start 11/18/16 at 11:00 Naloxone HCl (Narcan) 0.2 mg PRN PRN IV DECREASED REPIRATORY RATE; Start at 13:00 Oxycodone/ Acetaminophen (Percocet (5/ 325)) 1 tab Q4H PRN PO PAIN LEVEL 1-5; Start 11/18/16 at 13:00; Status Future Hold Oxycodone/ Acetaminophen (Percocet (5/ 325)) 2 tab Q4H PRN PO PAIN LEVEL 6-10; Start 11/18/16 at 13:00; Status Future Hold Ondansetron HCl (Zofran Inj) 4 mg Q6H PRN IV NAUSEA AND/OR VOMITING Last administered on 11/22/16t 21:21; Admin Dose 4 MG; Start 11/18/16 at 13:00 Trimethobenzamide HCl (Tigan) 200 mg Q8H PRN IM NAUSEA AND/OR VOMITING; Start 11/18/16 at 13:00 Diphenhydramine HCl (Benadryl) 25 mg Q6H PRN IV ITCHING; Start 11/18/16 at 13: 00 Hydralazine HCl (Apresoline) 10 mg Q6H PRN IV SBP >160 Last administered on 08:26; Admin Dose 10 MG; Start 11/18/16 at 15:00 Famotidine (Pepcid Iv) 20 mg BID IV Last administered on 11/30/16 08:06; Admin Dose 20 MG; Start 11/19/16 at 09:00 Phenol (Cepastat Lozenge) 1 lozenge Q1H PRN MT SORE THROAT Last administered on 11/21/16 08:25; Admin Dose 1 LOZENGE; Start 11/20/16 at 12:00 Amitriptyline HCl (Elavil) 25 mg QHS PO Last administered on 11/29/16 20:35; Admin Dose 25 MG; Start 11/21/16 at 21:00 Gabapentin (Neurontin) 600 mg BID PO Last administered on 11/30/16 08:06; Admin Dose 600 MG; Start 11/21/16 at 21:00 Topiramate (Topamax) 100 mg QHS PO Last administered on 11/29/16 20:35; Admin Dose 100 MG; Start 11/21/16 at 21:00 Trazodone HCl (Desyrel) 50 mg QHS PO Last administered on 11/29/16 20:35; Admin Dose 50 MG; Start 11/21/16 at 21:00 Polyethylene Glycol (Miralax) 17 gm DAILY PRN PO CONSTIPATION Last administered on 11/30/16 08:11; Admin Dose 17 GM; Start 11/27/16 at 18:30 Hydromorphone HCl (Dilaudid) 0.6 mg Q3H PRN IV PAIN Last administered on 11:05; Admin Dose 0.6 MG; Start 11/28/16 at 15:00 Simethicone (Mylicon) 80 mg BID PRN PO DISTENSION/GAS/BLOATING Last administered on 11/30/16 12:11; Admin Dose 80 MG; Start 11/30/16 at 11:30 IZZY BRAMBILA 25, 2017 12:52
[2016-11-30] MEDS: D5W-0.45 NACL + KCL 10 MEQ 1,000 ML IV SCH (18:30)
[2016-11-30] MEDS ORDERED: BARIUM SULF 2% 450 ML BTL (BERRY SMOOTHIE) PO STA (18:33)
[2016-11-30 19:00] VITALS: BP 103/67; RESP 18
[2016-11-30] MEDS: TOPIRAMATE 100 MG TAB PO SCH ×2 (21:00→22:46)
[2016-11-30] MEDS: AMITRIPTYLINE 25 MG TAB PO SCH ×2 (21:00→22:46)
[2016-11-30] MEDS: traZODone 50 MG TAB PO SCH ×2 (21:00→22:46)
[2016-11-30] MEDS ORDERED: IOHEXOL 300MG/ML 150 ML BTL ONE (21:36)
[2016-11-30] MEDS ORDERED: SOD CHLORIDE 0.9% 100 ML ONE (21:36)
[2016-11-30] MEDS: ZOLPIDEM 5 MG TAB PO PRN (23:17)
--- NOTE | 2016-12-01 01:51 | PN ---
DATE: 11/30/2016 SUBJECTIVE: The patient continues to complain of abdominal pain and continues to get 0.6 mg of Dilaudid every 3 hours for the pain. Denies any bowel movement or any passing of gas in the past several days. No vomiting. The patient is supposed to be able to eat, but has not been eating that much. Today , apparently the nurse found some material resembling stool on the incision site , and the patient states that she was smelling feces; therefore, they have put the patient n.p.o. and has ordered a CT scan of the abdomen with and without contrast IV for ruling out the leak. OBJECTIVE GENERAL: Patient is awake, alert, oriented x3, comfortable, looks not in acute distress. VITAL SIGNS: Temperature today 98.3, yesterday was 99.1, heart rate 100, respirations 18, blood pressure 102/66, saturation 94% on room air. LABORATORY DATA: There was no lab done today. The last lab was done on 2016. PHYSICAL EXAMINATION: The dressing was removed. Abdomen to me appears to be a distended abdomen. Incision line is slightly reddened at the site of the aleta. I do not see any gross cellulitis at this time. There is no discharge obviously seen. Bowel sounds are very hyperactive and ileotic. ASSESSMENT: A 51-year-old female who has had a right hemicolectomy for cecal bascule. Postop, has had a couple of diarrheas the first couple of days, but then after stopped having bowel movements, no passing gas, constantly has been complaining of pain. Once about a week ago, she had a CT scan of the abdomen with oral contrast, which did not reveal any evidence of leak, but some surrounding showed thickening of the wall of the bowel. Now today, the nurse has seen and the patient has smelled something which resembles feces. There is currently the suspicion of leak and stool leaking was raised; therefore the medical colleague has ordered a CT scan of the abdomen, I am not sure about it, but in any case, we are going to do it to rule out any leak. On the other hand , the physical exam, x-ray, and auscultation reveals that there is severe ileus of the colon, and the cause of this is not known, but apparently the patient has inertia of the colon, and the more she gets narcotics, the more she develops inertia and hyperactivity and hypoperistalsis of the colon. I told the patient, but she wants to use the medication for pain. I wanted to remove a couple of the aleta to see if there is any pus under the incision line. She did not agree with that, so she wants a CT scan to be done. Therefore, we are going to order the CT scan and we are going to add oral contrast to this one , if they are considering leak, to make sure to see if it visualizes or not, and also IV contrast. At this time, patient is stable. Dictated By: BREN GUILLEN/SCOTT Conf#: [id number] DID#: [id number] MTDD
[2016-12-01] MEDS: HYDROmorphONE 1 MG/ML SYG IV PRN ×8 (02:39→23:04)
[2016-12-01 06:02] LABS: ADD SCAN DIFF NO
[2016-12-01 06:09] LABS: BASOPHILS % 0.4 % (0.0-2.0); EOSINOPHILS # 0.1 10^3/ul (0.0-0.5); EOSINOPHILS % 0.7 % (0.0-7.0); HEMATOCRIT 36.7 % (37.0-47.0); HEMOGLOBIN 12.3 g/dl (12.0-16.0); LYMPHOCYTES # 1.2 10^3/ul (0.8-2.9); LYMPHOCYTES % 17.6 % (15.0-51.0); MEAN CORPUSCULAR HEMOGLOBIN 30.2 pg (29.0-33.0); MEAN CORPUSCULAR HGB CONC 33.5 g/dl (32.0-37.0); MEAN CORPUSCULAR VOLUME 90.2 fl (82.0-101.0); MEAN PLATELET VOLUME 9.3 fl (7.4-10.4); MONOCYTE # 0.5 10^3/ul (0.3-0.9); MONOCYTES % 7.9 % (0.0-11.0); NEUTROPHIL # 4.9 10^3/ul (1.6-7.5); PLATELET COUNT 454 10^3/UL (140-415); RED BLOOD COUNT 4.07 10^6/ul (4.20-5.40); RED CELL DISTRIBUTION WIDTH 13.4 % (11.5-14.5); WHITE BLOOD COUNT 6.7 10^3/ul (4.8-10.8)
[2016-12-01 06:18] LABS: POTASSIUM 3.6 mmol/L (3.5-5.1)
[2016-12-01 06:21] LABS: CREATININE 0.51 mg/dl (0.44-1.00)
[2016-12-01 06:22] LABS: CALCIUM 8.7 mg/dl (8.4-10.2)
[2016-12-01] MEDS: D5W-0.45 NACL + KCL 10 MEQ 1,000 ML IV SCH ×2 (06:43→08:47)
[2016-12-01 07:21] VITALS: BP 103/69; RESP 18
[2016-12-01] MEDS: GABAPENTIN 300 MG CAP PO SCH ×2 (08:16→20:42)
[2016-12-01] MEDS: FAMOTIDINE 20 MG INJ IV SCH ×2 (08:17→20:42)
--- NOTE | 2016-12-01 08:33 | RADRPT ---
PROCEDURE: CT abdomen and pelvis with and without contrast. CLINICAL INDICATION: Postop. Leakage from incision site. TECHNIQUE: CT scan of the abdomen and pelvis with oral contrast was performed and is reconstructed at 2.5 mm contiguous axial intervals from the dome of the diaphragm to the inferior pubic rami.. T he patient was injected with 100 cc of Omnipaque-300 and Imaging was performed. Sagittal and mckeon l reformatted images were obtained from the axial source images. The calculated radiation dose measu res 1181 mGy centimeters. The CTDI measures 11 mGy. COMPARISON: CT abdomen pelvis November 22, 2016 FINDINGS: There is atelectasis at the lung bases. No alveolar infiltrate or mass is seen. There is no effusi on. The liver is of normal size, contour and attenuation with no mass or ductal dilatation. No gallston es are visualized. No splenic, adrenal or pancreatic abnormalities present. Kidneys are of normal size and contour. 2 mm nonobstructing stone is seen in the midpole of the rig ht kidney. Kidneys enhance symmetrically. No hydronephrosis or masses seen. There are Ureters are o f normal course and caliber with no stone. No bladder mass or stone is present. There is gas in the non dependent urinary bladder. Uterus appears normal. No adnexal mass is seen. There is no aneurysm. Calcified plaque is seen in the aorta and iliac arteries. No adenopathy is present. Patient is status post resection of the cecum with ileocolic anastomosis. There is stranding surrou nding the surgical site. Trace residual pneumoperitoneum is seen. No active contrast extravasation is present, however, there is gas seen extending from the anterior aspect of the bowel at the sutur e line. The gas tracks into the rectus sheath deep to the laparotomy site. There is fluid and gas extending from this location to the wound. There is a less than 1 cm focal fluid collection deep to the muscles and approximate 1.5 x 1 cm collection within the sheath. Bowel does not appear to be o bstructed, however, there is diffuse dilatation of large and small bowel loops compatible with ileus . There is trace ascites. The osseous structures are intact. IMPRESSION: Status post distal right hemicolectomy with evidence of an anastomotic leak and sinus tract into the laparotomy incision site. Tiny intraperitoneal abscess as above. Bibasilar atelectasis. Postsurgical changes as above. .Shane Waldrop MD, MD Date Time Electronically viewed and signed by .Shane Waldrop MD, MD on 12/01/2016 08:32 .A/
[2016-12-01] MEDS: POLYETHYLENE GLYCOL 17 GM PACKET PO PRN (11:19)
[2016-12-01] MEDS: FLUCONAZOLE 200 MG/NS (PMX) 100 ML IVPB SCH (14:17)
[2016-12-01] MEDS: metroNIDAZOLE 500 MG/NS (PMX) 100 ML IVPB SCH ×2 (15:48→21:53)
--- NOTE | 2016-12-01 16:28 | PN ---
Date/Time of Note Date/Time of Note DATE: 12/01/16 TIME: 16:26 Assessment/Plan VTE Prophylaxis VTE Prophylaxis Intervention: other Lines/Catheters IV [facility] Peripheral IV Urinary Cath still in place: No Assessment/Plan Chief Complaint/Hosp Course IMPRESSION: 1. The patient has right hemicolectomy. 2. Hypokalemia. BETTER 3. History of colonoscopy. 4. History of polypectomy. 5 HX DEPRESSION 6 POSS ABD WOUND LLEAK plan ANTIBIOTIC PER SURGERY LABS Problems: Subjective 24 Hr Interval Summary Respiratory: no complaints Cardiovascular: no complaints Gastrointestinal: other (DRESSING WET W FLUID ) Exam/Review of Systems Vital Signs Vitals Vital Signs Date Time Temp Pulse Resp B/P Pulse Ox O2 Delivery O2 Flow Rate FiO2 12/01/16 07:21 98.5 96 18 103/69 98 Intake and Output 11/30/16 11/30/16 12/01/16 15:00 23:00 07:00 Intake Total 840 ml 1230 ml Output Total 200 ml Balance 840 ml 1030 ml Exam Respiratory: clear to auscultation Cardiovascular: regular rate and rhythm Gastrointestinal: bowel sounds (+), other (LEAK +), soft, No tender Results Result Diagram: 12/01/16 0524 12/01/16 0524 Results 24 hrs Laboratory Tests Test 12/01/16 05:24 White Blood Count 6.7 Red Blood Count 4.07 L Hemoglobin 12.3 Hematocrit 36.7 L Mean Corpuscular Volume 90.2 Mean Corpuscular Hemoglobin 30.2 Mean Corpuscular Hemoglobin Concent 33.5 Red Cell Distribution Width 13.4 Platelet Count 454 #H Mean Platelet Volume 9.3 Neutrophils % 73.0 Lymphocytes % 17.6 Monocytes % 7.9 Eosinophils % 0.7 Basophils % 0.4 Nucleated Red Blood Cells % 0.0 Neutrophils # 4.9 Lymphocytes # 1.2 Monocytes # 0.5 Eosinophils # 0.1 Basophils # 0.0 Nucleated Red Blood Cells # 0.0 Sodium Level 129 L Potassium Level 3.6 Chloride Level 98 Carbon Dioxide Level 22 Anion Gap 13 Blood Urea Nitrogen 8 Creatinine 0.51 Glucose Level 100 Calcium Level 8.7 Medications Medications Current Medications Morphine Sulfate (morphine) 2 mg Q2H PRN IV PAIN LEVEL 6-10; Start 11/18/16 at 11:00 Naloxone HCl (Narcan) 0.2 mg PRN PRN IV DECREASED REPIRATORY RATE; Start at 13:00 Oxycodone/ Acetaminophen (Percocet (5/ 325)) 1 tab Q4H PRN PO PAIN LEVEL 1-5; Start 11/18/16 at 13:00; Status Future Hold Oxycodone/ Acetaminophen (Percocet (5/ 325)) 2 tab Q4H PRN PO PAIN LEVEL 6-10; Start 11/18/16 at 13:00; Status Future Hold Ondansetron HCl (Zofran Inj) 4 mg Q6H PRN IV NAUSEA AND/OR VOMITING Last administered on 11/22/16 21:21; Admin Dose 4 MG; Start 11/18/16 at 13:00 Trimethobenzamide HCl (Tigan) 200 mg Q8H PRN IM NAUSEA AND/OR VOMITING; Start 11/18/16 at 13:00 Diphenhydramine HCl (Benadryl) 25 mg Q6H PRN IV ITCHING; Start 11/18/16 at 13: 00 Hydralazine HCl (Apresoline) 10 mg Q6H PRN IV SBP >160 Last administered on 08:26; Admin Dose 10 MG; Start 11/18/16 at 15:00 Famotidine (Pepcid Iv) 20 mg BID IV Last administered on 12/01/16 08:17; Admin Dose 20 MG; Start 11/19/16 at 09:00 Phenol (Cepastat Lozenge) 1 lozenge Q1H PRN MT SORE THROAT Last administered on 11/21/16 08:25; Admin Dose 1 LOZENGE; Start 11/20/16 at 12:00 Amitriptyline HCl (Elavil) 25 mg QHS PO Last administered on 11/30/16 22:46; Admin Dose 25 MG; Start 11/21/16 at 21:00 Gabapentin (Neurontin) 600 mg BID PO Last administered on 12/01/16 08:16; Admin Dose 600 MG; Start 11/21/16 at 21:00 Topiramate (Topamax) 100 mg QHS PO Last administered on 11/30/16 22:46; Admin Dose 100 MG; Start 11/21/16 at 21:00 Trazodone HCl (Desyrel) 50 mg QHS PO Last administered on 11/30/16 22:46; Admin Dose 50 MG; Start 11/21/16 at 21:00 Polyethylene Glycol (Miralax) 17 gm DAILY PRN PO CONSTIPATION Last administered on 12/01/16 11:19; Admin Dose 17 GM; Start 11/27/16 at 18:30 Hydromorphone HCl (Dilaudid) 0.6 mg Q3H PRN IV PAIN Last administered on 14:17; Admin Dose 0.6 MG; Start 11/28/16 at 15:00 Simethicone 80 mg 80 mg BID PRN PO DISTENSION/GAS/BLOATING Last administered on 12/01/16 11:19; Admin Dose 80 MG; Start 11/30/16 at 11:30 Potassium Chloride/Dextrose/ Sod Cl 1,000 ml @ 75 mls/hr [id number] IV Last administered on 12/01/16 08:47; Admin Dose 75 MLS/HR; Start 11/30/16 at 17:30 Piperacillin Sod/ Tazobactam Sod 100 ml @ 200 mls/hr Q6 IVPB ; Start 12/01/16 at 18:00 Metronidazole 100 ml @ 100 mls/hr Q8 IVPB Last administered on 12/01/16 15:48 ; Admin Dose 100 MLS/HR; Start 12/01/16 at 15:00 Fluconazole (Diflucan 200 Mg/ NS (Pmx)) 100 ml @ 100 mls/hr Q24H IVPB Last administered on 12/01/16 14:17; Admin Dose 100 MLS/HR; Start 12/01/16 at 14:00 Bisacodyl (Dulcolax Supp) 10 mg ONCE ONCE MI ; Start 12/01/16 at 16:30; Stop at 16:31 Sodium Biphosphate/ Sodium Phosphate (Fleet Enema) 133 ml ONCE PRN MI constipation; Start 12/01/16 at 16:30; Stop 12/01/16 at 22:00 MARTINEZ MELVIN MD Dec 01, 2016 16:28
[2016-12-01] MEDS ORDERED: BISACODYL 10 MG SUPP PR ONE (16:30)
[2016-12-01] MEDS ORDERED: NA PHOSPHATE/BIPHOS 133 ML ENEMA PR PRN (16:30)
[2016-12-01] MEDS: PIPER-TAZO 3.375 GM IV (PMX) 100 ML IVPB SCH (17:06)
--- NOTE | 2016-12-01 18:14 | PN ---
DATE: 12/01/2016 SUBJECTIVE: Postop day #13. No new complaints. She is not sure if she had a bowel movement or not. OBJECTIVE: VITAL SIGNS: Temperature 98.5, pulse rate 96, respirations 18, blood pressure 103/69, saturation 98% on room air. LABORATORY DATA: WBC today is 6700 with 73% segmented. Platelet has increased from 141 on the 17th to 454 today. Hemoglobin 12.3, hematocrit 36.7. Chemistry : BUN 8, creatinine 0.51, sodium 139, potassium 3.6. ABDOMEN: Still is slightly distended, but is relatively soft. Tender on deep pressure. No guarding. Bowel sounds hypoactive. IMAGING: Last night, the patient had a CT scan of the abdomen and pelvis with oral contrast, which has been read by the radiologist as follows. Impression of the radiologist, Dr. hSane Waldrop: 1. Status post distal right hemicolectomy with evidence of an anastomotic leak and sinus tract into the laparotomy incision site midline. 2. Tiny intraperitoneal abscess as above in the text. 3. Right basilar atelectasis. 4. Postsurgical changes as was mentioned in the text. LEGS: No calf tenderness. ASSESSMENT AND PLAN: The patient is 13 days postoperative right hemicolectomy for cecal bascule. The patient has had an ileus postoperatively. Barely has had some bowel movements and passing gas, has been complaining of too much pain , and x-ray has been read as an ileus. Yesterday, the nurse noticed some drainage from the midline, which looked like a stool and smell to the patient as feces. So, we ordered a CT scan of the abdomen and pelvis with oral and IV contrast and it as was mentioned. It was noted that there is evidence of leak with a tract formation going to the midline laparotomy site with air and some fluid there. So I removed the dressing today. The nurse said that 5 times she has changed the dressing today, some drainage from the midline, so 2 aleta were removed. No gross stool came out. I am going to leave it open and see what happens by tomorrow. Keep the patient on clear liquid now and since the colon is full of contrast and stool, will give her Dulcolax and also if not effective will give Fleet enema. The patient has been already started on antibiotics by Dr. Funk, PCP. Dictated By: BREN ROSALES MD PS/NTS Conf#: [id number] DID#: [id number] CC: LATRICE FUENTES MD;*EndCC* MTDD
[2016-12-01 19:23] VITALS: BP 108/70; RESP 18
[2016-12-01] MEDS: AMITRIPTYLINE 25 MG TAB PO SCH (20:42)
[2016-12-01] MEDS: traZODone 50 MG TAB PO SCH (20:42)
[2016-12-01] MEDS: TOPIRAMATE 100 MG TAB PO SCH (20:42)
[2016-12-01] MEDS: ZOLPIDEM 5 MG TAB PO PRN (23:10)
[2016-12-02] MEDS: PIPER-TAZO 3.375 GM IV (PMX) 100 ML IVPB SCH ×4 (00:06→17:06)
[2016-12-02] MEDS: HYDROmorphONE 1 MG/ML SYG IV PRN ×8 (02:31→22:06)
[2016-12-02] MEDS: D5W-0.45 NACL + KCL 10 MEQ 1,000 ML IV SCH ×4 (02:31→17:06)
[2016-12-02 05:34] LABS: ADD SCAN DIFF NO
[2016-12-02 05:48] LABS: BASOPHILS % 0.2 % (0.0-2.0); EOSINOPHILS # 0.1 10^3/ul (0.0-0.5); EOSINOPHILS % 1.2 % (0.0-7.0); HEMATOCRIT 34.7 % (37.0-47.0); HEMOGLOBIN 11.6 g/dl (12.0-16.0); LYMPHOCYTES % 19.8 % (15.0-51.0); MEAN CORPUSCULAR HEMOGLOBIN 30.4 pg (29.0-33.0); MEAN CORPUSCULAR HGB CONC 33.4 g/dl (32.0-37.0); MEAN CORPUSCULAR VOLUME 91.1 fl (82.0-101.0); MEAN PLATELET VOLUME 9.4 fl (7.4-10.4); MONOCYTE # 0.4 10^3/ul (0.3-0.9); MONOCYTES % 7.5 % (0.0-11.0); NEUTROPHIL # 3.7 10^3/ul (1.6-7.5); NEUTROPHILS % 70.9 % (39.0-77.0); PLATELET COUNT 486 10^3/UL (140-415); RED BLOOD COUNT 3.81 10^6/ul (4.20-5.40); RED CELL DISTRIBUTION WIDTH 13.4 % (11.5-14.5); WHITE BLOOD COUNT 5.2 10^3/ul (4.8-10.8)
[2016-12-02] MEDS: metroNIDAZOLE 500 MG/NS (PMX) 100 ML IVPB SCH ×3 (06:06→21:06)
[2016-12-02 06:23] LABS: ALBUMIN 2.9 g/dl (3.3-4.9); POTASSIUM 3.6 mmol/L (3.5-5.1)
[2016-12-02 06:26] LABS: ALBUMIN/GLOBULIN RATIO 0.87; BILIRUBIN,INDIRECT 0.1 mg/dl (0-1.1); BILIRUBIN,TOTAL 0.1 mg/dl (0.2-1.3); CALCIUM 8.5 mg/dl (8.4-10.2); CREATININE 0.62 mg/dl (0.44-1.00); TOTAL PROTEIN 6.2 g/dl (6.1-8.1)
[2016-12-02] MEDS: GABAPENTIN 300 MG CAP PO SCH ×2 (08:21→21:06)
[2016-12-02] MEDS: FAMOTIDINE 20 MG INJ IV SCH ×2 (08:21→21:05)
--- NOTE | 2016-12-02 10:14 | PN ---
Date/Time of Note Date/Time of Note DATE: 12/02/16 TIME: 10:12 Assessment/Plan VTE Prophylaxis VTE Prophylaxis Intervention: SCD's Lines/Catheters IV Catheter Type (from Nrs): Peripheral IV Urinary Cath still in place: No Assessment/Plan Chief Complaint/Hosp Course s/p lap right hemicolectomy Problems: Assessment/Plan small anastomotic leak with drainage NPO IV Abx Subjective 24 Hr Interval Summary Free Text/Dictation small anastomotic leak, discussed with radiology, too small for a perc drainage procedure. leak appears self contained and spontaneously draining to skin Exam/Review of Systems Vital Signs Vitals Vital Signs Date Time Temp Pulse Resp B/P Pulse Ox O2 Delivery O2 Flow Rate FiO2 12/01/16 19:23 99.1 90 18 108/70 94 Intake and Output 12/01/16 12/01/16 12/02/16 15:00 23:00 07:00 Intake Total 640 ml 1050 ml 1280 ml Output Total 700 ml 800 ml Balance -60 ml 1050 ml 480 ml Exam small opening with drainage Results Result Diagram: 12/02/16 0445 12/02/16 0445 Results 24 hrs Laboratory Tests Test 12/02/16 04:45 White Blood Count 5.2 # Red Blood Count 3.81 L Hemoglobin 11.6 L Hematocrit 34.7 L Mean Corpuscular Volume 91.1 Mean Corpuscular Hemoglobin 30.4 Mean Corpuscular Hemoglobin Concent 33.4 Red Cell Distribution Width 13.4 Platelet Count 486 H Mean Platelet Volume 9.4 Neutrophils % 70.9 Lymphocytes % 19.8 Monocytes % 7.5 Eosinophils % 1.2 Basophils % 0.2 Nucleated Red Blood Cells % 0.0 Neutrophils # 3.7 Lymphocytes # 1.0 Monocytes # 0.4 Eosinophils # 0.1 Basophils # 0.0 Nucleated Red Blood Cells # 0.0 Sodium Level 132 L Potassium Level 3.6 Chloride Level 101 Carbon Dioxide Level 24 Anion Gap 11 Blood Urea Nitrogen 6 L Creatinine 0.62 Glucose Level 105 Calcium Level 8.5 Total Bilirubin 0.1 L Direct Bilirubin 0.00 Indirect Bilirubin 0.1 Aspartate Amino Transf (AST/SGOT) 13 L Alanine Aminotransferase (ALT/SGPT) 23 Alkaline Phosphatase 134 H Total Protein 6.2 Albumin 2.9 L Globulin 3.30 H Albumin/Globulin Ratio 0.87 Medications Medications Current Medications Morphine Sulfate (morphine) 2 mg Q2H PRN IV PAIN LEVEL 6-10; Start 11/18/16 at 11:00 Naloxone HCl (Narcan) 0.2 mg PRN PRN IV DECREASED REPIRATORY RATE; Start at 13:00 Oxycodone/ Acetaminophen (Percocet (5/ 325)) 1 tab Q4H PRN PO PAIN LEVEL 1-5; Start 11/18/16 at 13:00; Status Future Hold Oxycodone/ Acetaminophen (Percocet (5/ 325)) 2 tab Q4H PRN PO PAIN LEVEL 6-10; Start 11/18/16 at 13:00; Status Future Hold Ondansetron HCl (Zofran Inj) 4 mg Q6H PRN IV NAUSEA AND/OR VOMITING Last administered on 11/22/16 21:21; Admin Dose 4 MG; Start 11/18/16 at 13:00 Trimethobenzamide HCl (Tigan) 200 mg Q8H PRN IM NAUSEA AND/OR VOMITING; Start 11/18/16 at 13:00 Diphenhydramine HCl (Benadryl) 25 mg Q6H PRN IV ITCHING; Start 11/18/16 at 13: 00 Hydralazine HCl (Apresoline) 10 mg Q6H PRN IV SBP >160 Last administered on 08:26; Admin Dose 10 MG; Start 11/18/16 at 15:00 Famotidine (Pepcid Iv) 20 mg BID IV Last administered on 12/02/16 08:21; Admin Dose 20 MG; Start 11/19/16 at 09:00 Phenol (Cepastat Lozenge) 1 lozenge Q1H PRN MT SORE THROAT Last administered on 11/21/16 08:25; Admin Dose 1 LOZENGE; Start 11/20/16 at 12:00 Amitriptyline HCl (Elavil) 25 mg QHS PO Last administered on 12/01/16 20:42; Admin Dose 25 MG; Start 11/21/16 at 21:00 Gabapentin (Neurontin) 600 mg BID PO Last administered on 12/02/16 08:21; Admin Dose 600 MG; Start 11/21/16 at 21:00 Topiramate (Topamax) 100 mg QHS PO Last administered on 12/01/16 20:42; Admin Dose 100 MG; Start 11/21/16 at 21:00 Trazodone HCl (Desyrel) 50 mg QHS PO Last administered on 12/01/16 20:42; Admin Dose 50 MG; Start 11/21/16 at 21:00 Polyethylene Glycol (Miralax) 17 gm DAILY PRN PO CONSTIPATION Last administered on 12/01/16 11:19; Admin Dose 17 GM; Start 11/27/16 at 18:30 Hydromorphone HCl (Dilaudid) 0.6 mg Q3H PRN IV PAIN Last administered on 08:21; Admin Dose 0.6 MG; Start 11/28/16 at 15:00 Simethicone 80 mg 80 mg BID PRN PO DISTENSION/GAS/BLOATING Last administered on 12/01/16 20:47; Admin Dose 80 MG; Start 11/30/16 at 11:30 Potassium Chloride/Dextrose/ Sod Cl 1,000 ml @ 100 mls/hr Q10H IV Last administered on 12/02/16 02:31; Admin Dose 75 MLS/HR; Start 11/30/16 at 17:30 Piperacillin Sod/ Tazobactam Sod 100 ml @ 200 mls/hr Q6 IVPB Last administered on 12/02/16 05:27; Admin Dose 200 MLS/HR; Start 12/01/16 at 18:00 Metronidazole 100 ml @ 100 mls/hr Q8 IVPB Last administered on 12/02/16 06:06 ; Admin Dose 100 MLS/HR; Start 12/01/16 at 15:00 Fluconazole (Diflucan 200 Mg/ NS (Pmx)) 100 ml @ 100 mls/hr Q24H IVPB Last administered on 12/01/16 14:17; Admin Dose 100 MLS/HR; Start 12/01/16 at 14:00 Rubin RUSS Dec 02, 2016 10:13
[2016-12-02] MEDS: FLUCONAZOLE 200 MG/NS (PMX) 100 ML IVPB SCH (14:14)
--- NOTE | 2016-12-02 18:39 | PN ---
Date/Time of Note Date/Time of Note DATE: 12/02/16 TIME: 18:38 Assessment/Plan VTE Prophylaxis VTE Prophylaxis Intervention: other Lines/Catheters IV [facility] Type [facility]from [facility] Peripheral IV Urinary Cath still in place: No Assessment/Plan Chief Complaint/Hosp Course IMPRESSION: 1. The patient has right hemicolectomy. 2. Hypokalemia. BETTER 3. History of colonoscopy. 4. History of polypectomy. 5 HX DEPRESSION 6 POSS ABD WOUND leak plan ANTIBIOTIC PER SURGERY LABS tpn Problems: Subjective 24 Hr Interval Summary Subjective hx not possible: other (abd drainage seen) Exam/Review of Systems Vital Signs Vitals Vital Signs Date Time Temp Pulse Resp B/P Pulse Ox O2 Delivery O2 Flow Rate FiO2 12/01/16 19:23 99.1 90 18 108/70 94 Intake and Output 12/01/16 12/01/16 12/02/16 15:00 23:00 07:00 Intake Total 640 ml 1050 ml 1280 ml Output Total 700 ml 800 ml Balance -60 ml 1050 ml 480 ml Exam Neck: supple Respiratory: clear to auscultation Cardiovascular: regular rate and rhythm Gastrointestinal: bowel sounds (+), other (dressing wet+) Results Result Diagram: 12/02/16 0445 12/02/16 0445 Results 24 hrs Laboratory Tests Test 12/02/16 04:45 White Blood Count 5.2 # Red Blood Count 3.81 L Hemoglobin 11.6 L Hematocrit 34.7 L Mean Corpuscular Volume 91.1 Mean Corpuscular Hemoglobin 30.4 Mean Corpuscular Hemoglobin Concent 33.4 Red Cell Distribution Width 13.4 Platelet Count 486 H Mean Platelet Volume 9.4 Neutrophils % 70.9 Lymphocytes % 19.8 Monocytes % 7.5 Eosinophils % 1.2 Basophils % 0.2 Nucleated Red Blood Cells % 0.0 Neutrophils # 3.7 Lymphocytes # 1.0 Monocytes # 0.4 Eosinophils # 0.1 Basophils # 0.0 Nucleated Red Blood Cells # 0.0 Sodium Level 132 L Potassium Level 3.6 Chloride Level 101 Carbon Dioxide Level 24 Anion Gap 11 Blood Urea Nitrogen 6 L Creatinine 0.62 Glucose Level 105 Calcium Level 8.5 Total Bilirubin 0.1 L Direct Bilirubin 0.00 Indirect Bilirubin 0.1 Aspartate Amino Transf (AST/SGOT) 13 L Alanine Aminotransferase (ALT/SGPT) 23 Alkaline Phosphatase 134 H Total Protein 6.2 Albumin 2.9 L Globulin 3.30 H Albumin/Globulin Ratio 0.87 Medications Medications Current Medications Morphine Sulfate (morphine) 2 mg Q2H PRN IV PAIN LEVEL 6-10; Start 11/18/16 at 11:00 Naloxone HCl (Narcan) 0.2 mg PRN PRN IV DECREASED REPIRATORY RATE; Start at 13:00 Oxycodone/ Acetaminophen (Percocet (5/ 325)) 1 tab Q4H PRN PO PAIN LEVEL 1-5; Start 11/18/16 at 13:00; Status Future Hold Oxycodone/ Acetaminophen (Percocet (5/ 325)) 2 tab Q4H PRN PO PAIN LEVEL 6-10; Start 11/18/16 at 13:00; Status Future Hold Ondansetron HCl (Zofran Inj) 4 mg Q6H PRN IV NAUSEA AND/OR VOMITING Last administered on 11/22/16 21:21; Admin Dose 4 MG; Start 11/18/16 at 13:00 Trimethobenzamide HCl (Tigan) 200 mg Q8H PRN IM NAUSEA AND/OR VOMITING; Start 11/18/16 at 13:00 Diphenhydramine HCl (Benadryl) 25 mg Q6H PRN IV ITCHING; Start 11/18/16 at 13: 00 Hydralazine HCl (Apresoline) 10 mg Q6H PRN IV SBP >160 Last administered on 08:26; Admin Dose 10 MG; Start 11/18/16 at 15:00 Famotidine (Pepcid Iv) 20 mg BID IV Last administered on 12/02/16 08:21; Admin Dose 20 MG; Start 11/19/16 at 09:00 Phenol (Cepastat Lozenge) 1 lozenge Q1H PRN MT SORE THROAT Last administered on 11/21/16 08:25; Admin Dose 1 LOZENGE; Start 11/20/16 at 12:00 Amitriptyline HCl (Elavil) 25 mg QHS PO Last administered on 12/01/16 20:42; Admin Dose 25 MG; Start 11/21/16 at 21:00 Gabapentin (Neurontin) 600 mg BID PO Last administered on 12/02/16 08:21; Admin Dose 600 MG; Start 11/21/16 at 21:00 Topiramate (Topamax) 100 mg QHS PO Last administered on 12/01/16 20:42; Admin Dose 100 MG; Start 11/21/16 at 21:00 Trazodone HCl (Desyrel) 50 mg QHS PO Last administered on 12/01/16 20:42; Admin Dose 50 MG; Start 11/21/16 at 21:00 Polyethylene Glycol (Miralax) 17 gm DAILY PRN PO CONSTIPATION Last administered on 12/01/16 11:19; Admin Dose 17 GM; Start 11/27/16 at 18:30 Simethicone 80 mg 80 mg BID PRN PO DISTENSION/GAS/BLOATING Last administered on 12/01/16 20:47; Admin Dose 80 MG; Start 11/30/16 at 11:30 Piperacillin Sod/ Tazobactam Sod 100 ml @ 200 mls/hr Q6 IVPB Last administered on 12/02/16 17:06; Admin Dose 200 MLS/HR; Start 12/01/16 at 18:00 Metronidazole 100 ml @ 100 mls/hr Q8 IVPB Last administered on 12/02/16 12:47 ; Admin Dose 100 MLS/HR; Start 12/01/16 at 15:00 Fluconazole (Diflucan 200 Mg/ NS (Pmx)) 100 ml @ 100 mls/hr Q24H IVPB Last administered on 12/02/16 14:14; Admin Dose 100 MLS/HR; Start 12/01/16 at 14:00 Hydromorphone HCl 0.4 mg 0.4 mg Q2H PRN IV PAIN Last administered on 12/02/16 18:07; Admin Dose 0.4 MG; Start 12/02/16 at 11:00 Potassium Chloride/Dextrose/ Sod Cl 1,000 ml @ 70 mls/hr [id number] IV Last administered on 12/02/16 17:06; Admin Dose 70 MLS/HR; Start 12/02/16 at 17:00 Total Parenteral Nutrition 1,000 ml @ 40 mls/hr Q24H IV ; Start 12/02/16 at 19: 00 Fat Emulsion Intravenous (Liposyn Ii 20%) 250 ml @ 10.4 mls/hr Q24H IV ; Start 12/02/16 at 19:00 Diagnostic Test (Pha) (Accu-Chek) 1 ea Q4 XX ; Start 12/02/16 at 21:00 MARTINEZ MELVIN MD Dec 02, 2016 18:39
[2016-12-02 19:00] VITALS: BP 122/87; RESP 20
[2016-12-02] MEDS: FAT EMULSION 20% 250 ML IV SCH (20:04)
[2016-12-02] MEDS: TPN 1,000 ML IV SCH (20:04)
[2016-12-02] MEDS: ACCU-CHEK XX SCH (21:00)
[2016-12-02] MEDS: traZODone 50 MG TAB PO SCH (21:06)
[2016-12-02] MEDS: AMITRIPTYLINE 25 MG TAB PO SCH (21:06)
[2016-12-02] MEDS: TOPIRAMATE 100 MG TAB PO SCH (21:06)
[2016-12-02] MEDS: ZOLPIDEM 5 MG TAB PO PRN (22:04)
[2016-12-02] MEDS ORDERED: LIDOCAINE 1% (MDV) 20 ML INJ SC ONE (22:30)
[2016-12-03] MEDS: HYDROmorphONE 1 MG/ML SYG IV PRN ×11 (00:08→23:30)
[2016-12-03] MEDS: PIPER-TAZO 3.375 GM IV (PMX) 100 ML IVPB SCH ×5 (00:08→23:34)
[2016-12-03] MEDS: ACCU-CHEK XX SCH ×6 (01:00→21:00)
[2016-12-03 06:04] LABS: ADD SCAN DIFF NO
[2016-12-03] MEDS: metroNIDAZOLE 500 MG/NS (PMX) 100 ML IVPB SCH ×3 (06:11→21:52)
[2016-12-03 06:28] LABS: BASOPHILS % 0.5 % (0.0-2.0); EOSINOPHILS # 0.1 10^3/ul (0.0-0.5); EOSINOPHILS % 0.9 % (0.0-7.0); HEMATOCRIT 37.6 % (37.0-47.0); LYMPHOCYTES # 1.3 10^3/ul (0.8-2.9); LYMPHOCYTES % 19.7 % (15.0-51.0); MEAN CORPUSCULAR HEMOGLOBIN 30.8 pg (29.0-33.0); MEAN CORPUSCULAR HGB CONC 34.6 g/dl (32.0-37.0); MEAN CORPUSCULAR VOLUME 89.1 fl (82.0-101.0); MEAN PLATELET VOLUME 9.3 fl (7.4-10.4); MONOCYTE # 0.4 10^3/ul (0.3-0.9); MONOCYTES % 6.2 % (0.0-11.0); NEUTROPHIL # 4.8 10^3/ul (1.6-7.5); NEUTROPHILS % 72.2 % (39.0-77.0); PLATELET COUNT 476 10^3/UL (140-415); RED BLOOD COUNT 4.22 10^6/ul (4.20-5.40); RED CELL DISTRIBUTION WIDTH 13.4 % (11.5-14.5); WHITE BLOOD COUNT 6.6 10^3/ul (4.8-10.8)
[2016-12-03 06:56] LABS: MAGNESIUM 1.8 mg/dl (1.7-2.5); PHOSPHORUS 3.7 mg/dl (2.5-4.9)
[2016-12-03 07:03] LABS: PREALBUMIN 6.7 mg/dl (17.6-36.0)
[2016-12-03 07:13] LABS: ALBUMIN 3.1 g/dl (3.3-4.9)
[2016-12-03 07:14] LABS: POTASSIUM 3.8 mmol/L (3.5-5.1)
[2016-12-03 07:15] LABS: BILIRUBIN,INDIRECT 0.1 mg/dl (0-1.1); CREATININE 0.61 mg/dl (0.44-1.00)
[2016-12-03 07:16] LABS: ALBUMIN/GLOBULIN RATIO 0.88; BILIRUBIN,TOTAL 0.1 mg/dl (0.2-1.3); CALCIUM 8.6 mg/dl (8.4-10.2); TOTAL PROTEIN 6.6 g/dl (6.1-8.1)
[2016-12-03] MEDS: D5W-0.45 NACL + KCL 10 MEQ 1,000 ML IV SCH ×3 (07:18→21:36)
[2016-12-03 08:00] VITALS: BP 96/63; RESP 18
[2016-12-03] MEDS: GABAPENTIN 300 MG CAP PO SCH ×2 (09:10→21:42)
[2016-12-03] MEDS: FAMOTIDINE 20 MG INJ IV SCH ×2 (09:10→21:42)
[2016-12-03] MEDS: FLUCONAZOLE 200 MG/NS (PMX) 100 ML IVPB SCH ×2 (14:00→17:03)
--- NOTE | 2016-12-03 14:14 | PN ---
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, agree with TPN and PICC line and dispo planning Exam/Review of Systems Vital Signs Vitals Vital Signs Date Time Temp Pulse Resp B/P Pulse Ox O2 Delivery O2 Flow Rate FiO2 12/03/16 08:00 98.6 90 18 96/63 94 Intake and Output 12/02/16 12/02/16 12/03/16 14:59 22:59 06:59 Intake Total 100 ml 710 ml 1000 ml Output Total 800 ml 1350 ml Balance 100 ml -90 ml -350 ml Exam some purulent drainage Results Result Diagram: 12/03/16 0525 12/03/16 0525 Results 24 hrs Laboratory Tests Test 12/02/16 22:13 12/03/16 05:25 Bedside Glucose 104 White Blood Count 6.6 # Red Blood Count 4.22 Hemoglobin 13.0 Hematocrit 37.6 Mean Corpuscular Volume 89.1 Mean Corpuscular Hemoglobin 30.8 Mean Corpuscular Hemoglobin Concent 34.6 Red Cell Distribution Width 13.4 Platelet Count 476 H Mean Platelet Volume 9.3 Neutrophils % 72.2 Lymphocytes % 19.7 Monocytes % 6.2 Eosinophils % 0.9 Basophils % 0.5 Nucleated Red Blood Cells % 0.0 Neutrophils # 4.8 Lymphocytes # 1.3 Monocytes # 0.4 Eosinophils # 0.1 Basophils # 0.0 Nucleated Red Blood Cells # 0.0 Sodium Level 131 L Potassium Level 3.8 Chloride Level 102 Carbon Dioxide Level 22 Anion Gap 11 Blood Urea Nitrogen 4 L Creatinine 0.61 Glucose Level 107 Calcium Level 8.6 Phosphorus Level 3.7 Magnesium Level 1.8 Total Bilirubin 0.1 L Direct Bilirubin 0.00 Indirect Bilirubin 0.1 Aspartate Amino Transf (AST/SGOT) 17 Alanine Aminotransferase (ALT/SGPT) 26 Alkaline Phosphatase 141 H Total Protein 6.6 Albumin 3.1 L Globulin 3.50 H Albumin/Globulin Ratio 0.88 Prealbumin 6.7 L Triglycerides Level 104 Medications Medications Current Medications Morphine Sulfate (morphine) 2 mg Q2H PRN IV PAIN LEVEL 6-10; Start 11/18/16 at 11:00 Naloxone HCl (Narcan) 0.2 mg PRN PRN IV DECREASED REPIRATORY RATE; Start at 13:00 Oxycodone/ Acetaminophen (Percocet (5/ 325)) 1 tab Q4H PRN PO PAIN LEVEL 1-5; Start 11/18/16 at 13:00; Status Future Hold Oxycodone/ Acetaminophen (Percocet (5/ 325)) 2 tab Q4H PRN PO PAIN LEVEL 6-10; Start 11/18/16 at 13:00; Status Future Hold Ondansetron HCl (Zofran Inj) 4 mg Q6H PRN IV NAUSEA AND/OR VOMITING Last administered on 11/22/16 21:21; Admin Dose 4 MG; Start 11/18/16 at 13:00 Trimethobenzamide HCl (Tigan) 200 mg Q8H PRN IM NAUSEA AND/OR VOMITING; Start 11/18/16 at 13:00 Diphenhydramine HCl (Benadryl) 25 mg Q6H PRN IV ITCHING; Start 11/18/16 at 13: 00 Hydralazine HCl (Apresoline) 10 mg Q6H PRN IV SBP >160 Last administered on 08:26; Admin Dose 10 MG; Start 11/18/16 at 15:00 Famotidine (Pepcid Iv) 20 mg BID IV Last administered on 12/03/16 09:10; Admin Dose 20 MG; Start 11/19/16 at 09:00 Phenol (Cepastat Lozenge) 1 lozenge Q1H PRN MT SORE THROAT Last administered on 11/21/16 08:25; Admin Dose 1 LOZENGE; Start 11/20/16 at 12:00 Amitriptyline HCl (Elavil) 25 mg QHS PO Last administered on 12/02/16 21:06; Admin Dose 25 MG; Start 11/21/16 at 21:00 Gabapentin (Neurontin) 600 mg BID PO Last administered on 12/03/16 09:10; Admin Dose 600 MG; Start 11/21/16 at 21:00 Topiramate (Topamax) 100 mg QHS PO Last administered on 12/02/16 21:06; Admin Dose 100 MG; Start 11/21/16 at 21:00 Trazodone HCl (Desyrel) 50 mg QHS PO Last administered on 12/02/16 21:06; Admin Dose 50 MG; Start 11/21/16 at 21:00 Polyethylene Glycol (Miralax) 17 gm DAILY PRN PO CONSTIPATION Last administered on 12/01/16 11:19; Admin Dose 17 GM; Start 11/27/16 at 18:30 Simethicone 80 mg 80 mg BID PRN PO DISTENSION/GAS/BLOATING Last administered on 12/01/16 20:47; Admin Dose 80 MG; Start 11/30/16 at 11:30 Piperacillin Sod/ Tazobactam Sod 100 ml @ 200 mls/hr Q6 IVPB Last administered on 12/03/16 12:33; Admin Dose 200 MLS/HR; Start 12/01/16 at 18:00 Metronidazole 100 ml @ 100 mls/hr Q8 IVPB Last administered on 12/03/16 14:05 ; Admin Dose 100 MLS/HR; Start 12/01/16 at 15:00 Fluconazole (Diflucan 200 Mg/ NS (Pmx)) 100 ml @ 100 mls/hr Q24H IVPB Last administered on 12/02/16 14:14; Admin Dose 100 MLS/HR; Start 12/01/16 at 14:00 Hydromorphone HCl 0.4 mg 0.4 mg Q2H PRN IV PAIN Last administered on 12/03/16 12:33; Admin Dose 0.4 MG; Start 12/02/16 at 11:00 Potassium Chloride/Dextrose/ Sod Cl 1,000 ml @ 70 mls/hr [id number] IV Last administered on 12/03/16 12:41; Admin Dose 70 MLS/HR; Start 12/02/16 at 17:00 Total Parenteral Nutrition 1,000 ml @ 40 mls/hr Q24H IV Last administered on 20:04; Admin Dose 40 MLS/HR; Start 12/02/16 at 19:00 Fat Emulsion Intravenous (Liposyn Ii 20%) 250 ml @ 10.4 mls/hr Q24H IV Last administered on 12/02/16 20:04; Admin Dose 10.4 MLS/HR; Start 12/02/16 at 19:00 Diagnostic Test (Pha) (Accu-Chek) 1 ea Q4 XX Last administered on 12/02/16 21: 00; Admin Dose 1 EA; Start 12/02/16 at 21:00 Rubin RUSS Dec 03, 2016 14:14
--- NOTE | 2016-12-03 17:55 | RADRPT ---
PROCEDURE: XR Chest. CLINICAL INDICATION: Check PICC line position. TECHNIQUE: Single frontal view. COMPARISON: 11/24/2016. FINDINGS: There is a right arm PICC line with the tip in the cavoatrial junction region. There is mild atelec tasis at the lung bases, improved. The lungs are otherwise clear. The heart size is normal. There is no pleural effusion. There is no pneumothorax. IMPRESSION: 1. Satisfactory position of right arm PICC line. 2. Mild atelectasis at the lung bases, improved. 3. No other change from 11/24/2016. RPTAT: QQ .Andrew Ramos MD, MD Date Time Electronically viewed and signed by .Andrew Ramos MD, MD on 12/03/2016 17:54 .R/
--- NOTE | 2016-12-03 17:57 | RADRPT ---
PROCEDURE: Ultrasound guidance for placement of needle in left upper extremity vein. CLINICAL INDICATION: Venous access. TECHNIQUE: Limited sonography of the left upper extremity was performed. Ultrasound images were recorded and s tored in the patient's medical record. COMPARISON: None. FINDINGS: The ultrasound images demonstrate a patent left upper extremity vein. The PICC line was inserted by the PICC line nurse. IMPRESSION: 1. Ultrasound guidance for a needle placement in a left upper extremity vein. 2. The left upper extremity vein is patent. RPTAT: QQ .Andrew Ramos MD, MD Date Time Electronically viewed and signed by .Andrew Ramos MD, MD on 12/03/2016 17:57 .R/
--- NOTE | 2016-12-03 18:16 | PN ---
Date/Time of Note Date/Time of Note DATE: 12/03/16 TIME: 18:15 Assessment/Plan VTE Prophylaxis VTE Prophylaxis Intervention: other Lines/Catheters IV C[facility] Type (from [facility] [place] Urinary Cath still in place: No Assessment/Plan Chief Complaint/Hosp Course IMPRESSION: 1. The patient has right hemicolectomy. 2. Hypokalemia. BETTER 3. History of colonoscopy. 4. History of polypectomy. 5 HX DEPRESSION 6 POSS ABD WOUND leak plan ANTIBIOTIC PER SURGERY LABS tpn Problems: Subjective 24 Hr Interval Summary Gastrointestinal: other Exam/Review of Systems Vital Signs Vitals Vital Signs Date Time Temp Pulse Resp B/P Pulse Ox O2 Delivery O2 Flow Rate FiO2 12/03/16 08:00 98.6 90 18 96/63 94 Intake and Output 12/02/16 12/02/16 12/03/16 15:00 23:00 07:00 Intake Total 100 ml 710 ml 1000 ml Output Total 800 ml 1350 ml Balance 100 ml -90 ml -350 ml Exam Cardiovascular: regular rate and rhythm Gastrointestinal: other (drainage+), soft Musculoskeletal: nl extremities to inspection Extremities: normal pulses Results Result Diagram: 12/03/16 0525 12/03/16 0525 Results 24 hrs Laboratory Tests Test 12/02/16 22:13 12/03/16 05:25 Bedside Glucose 104 White Blood Count 6.6 # Red Blood Count 4.22 Hemoglobin 13.0 Hematocrit 37.6 Mean Corpuscular Volume 89.1 Mean Corpuscular Hemoglobin 30.8 Mean Corpuscular Hemoglobin Concent 34.6 Red Cell Distribution Width 13.4 Platelet Count 476 H Mean Platelet Volume 9.3 Neutrophils % 72.2 Lymphocytes % 19.7 Monocytes % 6.2 Eosinophils % 0.9 Basophils % 0.5 Nucleated Red Blood Cells % 0.0 Neutrophils # 4.8 Lymphocytes # 1.3 Monocytes # 0.4 Eosinophils # 0.1 Basophils # 0.0 Nucleated Red Blood Cells # 0.0 Sodium Level 131 L Potassium Level 3.8 Chloride Level 102 Carbon Dioxide Level 22 Anion Gap 11 Blood Urea Nitrogen 4 L Creatinine 0.61 Glucose Level 107 Calcium Level 8.6 Phosphorus Level 3.7 Magnesium Level 1.8 Total Bilirubin 0.1 L Direct Bilirubin 0.00 Indirect Bilirubin 0.1 Aspartate Amino Transf (AST/SGOT) 17 Alanine Aminotransferase (ALT/SGPT) 26 Alkaline Phosphatase 141 H Total Protein 6.6 Albumin 3.1 L Globulin 3.50 H Albumin/Globulin Ratio 0.88 Prealbumin 6.7 L Triglycerides Level 104 Medications Medications Current Medications Morphine Sulfate (morphine) 2 mg Q2H PRN IV PAIN LEVEL 6-10; Start 11/18/16 at 11:00 Naloxone HCl (Narcan) 0.2 mg PRN PRN IV DECREASED REPIRATORY RATE; Start at 13:00 Oxycodone/ Acetaminophen (Percocet (5/ 325)) 1 tab Q4H PRN PO PAIN LEVEL 1-5; Start 11/18/16 at 13:00; Status Future Hold Oxycodone/ Acetaminophen (Percocet (5/ 325)) 2 tab Q4H PRN PO PAIN LEVEL 6-10; Start 11/18/16 at 13:00; Status Future Hold Ondansetron HCl (Zofran Inj) 4 mg Q6H PRN IV NAUSEA AND/OR VOMITING Last administered on 11/22/16 21:21; Admin Dose 4 MG; Start 11/18/16 at 13:00 Trimethobenzamide HCl (Tigan) 200 mg Q8H PRN IM NAUSEA AND/OR VOMITING; Start 11/18/16 at 13:00 Diphenhydramine HCl (Benadryl) 25 mg Q6H PRN IV ITCHING; Start 11/18/16 at 13: 00 Hydralazine HCl (Apresoline) 10 mg Q6H PRN IV SBP >160 Last administered on 08:26; Admin Dose 10 MG; Start 11/18/16 at 15:00 Famotidine (Pepcid Iv) 20 mg BID IV Last administered on 12/03/16 09:10; Admin Dose 20 MG; Start 11/19/16 at 09:00 Phenol (Cepastat Lozenge) 1 lozenge Q1H PRN MT SORE THROAT Last administered on 11/21/16 08:25; Admin Dose 1 LOZENGE; Start 11/20/16 at 12:00 Amitriptyline HCl (Elavil) 25 mg QHS PO Last administered on 12/02/16 21:06; Admin Dose 25 MG; Start 11/21/16 at 21:00 Gabapentin (Neurontin) 600 mg BID PO Last administered on 12/03/16 09:10; Admin Dose 600 MG; Start 11/21/16 at 21:00 Topiramate (Topamax) 100 mg QHS PO Last administered on 12/02/16 21:06; Admin Dose 100 MG; Start 11/21/16 at 21:00 Trazodone HCl (Desyrel) 50 mg QHS PO Last administered on 12/02/16 21:06; Admin Dose 50 MG; Start 11/21/16 at 21:00 Polyethylene Glycol (Miralax) 17 gm DAILY PRN PO CONSTIPATION Last administered on 12/01/16 11:19; Admin Dose 17 GM; Start 11/27/16 at 18:30 Simethicone 80 mg 80 mg BID PRN PO DISTENSION/GAS/BLOATING Last administered on 12/01/16 20:47; Admin Dose 80 MG; Start 11/30/16 at 11:30 Piperacillin Sod/ Tazobactam Sod 100 ml @ 200 mls/hr Q6 IVPB Last administered on 12/03/16 12:33; Admin Dose 200 MLS/HR; Start 12/01/16 at 18:00 Metronidazole 100 ml @ 100 mls/hr Q8 IVPB Last administered on 12/03/16 14:05 ; Admin Dose 100 MLS/HR; Start 12/01/16 at 15:00 Fluconazole (Diflucan 200 Mg/ NS (Pmx)) 100 ml @ 100 mls/hr Q24H IVPB Last administered on 12/03/16 17:03; Admin Dose 100 MLS/HR; Start 12/01/16 at 14:00 Hydromorphone HCl 0.4 mg 0.4 mg Q2H PRN IV PAIN Last administered on 12/03/16 17:02; Admin Dose 0.4 MG; Start 12/02/16 at 11:00 Potassium Chloride/Dextrose/ Sod Cl 1,000 ml @ 70 mls/hr [id number] IV Last administered on 12/03/16 12:41; Admin Dose 70 MLS/HR; Start 12/02/16 at 17:00 Total Parenteral Nutrition 1,000 ml @ 40 mls/hr Q24H IV Last administered on 20:04; Admin Dose 40 MLS/HR; Start 12/02/16 at 19:00 Fat Emulsion Intravenous (Liposyn Ii 20%) 250 ml @ 10.4 mls/hr Q24H IV Last administered on 12/02/16 20:04; Admin Dose 10.4 MLS/HR; Start 12/02/16 at 19:00 Diagnostic Test (Pha) (Accu-Chek) 1 ea Q4 XX Last administered on 12/02/16 21: 00; Admin Dose 1 EA; Start 12/02/16 at 21:00 MARTINEZ MELVIN MD Dec 03, 2016 18:16
[2016-12-03] MEDS ORDERED: SOD CHLORIDE 0.9% 100 ML ONE (19:31)
[2016-12-03 20:19] VITALS: BP 110/63; RESP 18
[2016-12-03] MEDS: FAT EMULSION 20% 250 ML IV SCH (21:00)
[2016-12-03] MEDS: TPN 1,000 ML IV SCH (21:00)
[2016-12-03] MEDS: traZODone 50 MG TAB PO SCH (21:42)
[2016-12-03] MEDS: TOPIRAMATE 100 MG TAB PO SCH (21:42)
[2016-12-03] MEDS: AMITRIPTYLINE 25 MG TAB PO SCH (21:42)
[2016-12-03] MEDS: ZOLPIDEM 5 MG TAB PO PRN (21:45)
[2016-12-04] MEDS: ACCU-CHEK XX SCH ×6 (01:23→21:00)
[2016-12-04] MEDS: HYDROmorphONE 1 MG/ML SYG IV PRN ×10 (01:53→23:52)
[2016-12-04] MEDS: PIPER-TAZO 3.375 GM IV (PMX) 100 ML IVPB SCH ×3 (05:35→17:00)
[2016-12-04 06:27] LABS: POTASSIUM 3.4 mmol/L (3.5-5.1)
[2016-12-04 06:30] LABS: CREATININE 0.55 mg/dl (0.44-1.00)
[2016-12-04 06:31] LABS: CALCIUM 8.1 mg/dl (8.4-10.2); PHOSPHORUS 3.1 mg/dl (2.5-4.9)
[2016-12-04] MEDS: metroNIDAZOLE 500 MG/NS (PMX) 100 ML IVPB SCH ×3 (06:34→21:18)
[2016-12-04 08:00] VITALS: BP 95/58; RESP 18
[2016-12-04] MEDS: FAMOTIDINE 20 MG INJ IV SCH ×2 (08:18→21:18)
[2016-12-04] MEDS: GABAPENTIN 300 MG CAP PO SCH ×2 (08:18→21:18)
[2016-12-04] MEDS ORDERED: ACETAMINOPHEN 325 MG TAB PO PRN (12:00)
[2016-12-04] MEDS: D5W-0.45 NACL + KCL 10 MEQ 1,000 ML IV SCH (12:17)
[2016-12-04] MEDS: FLUCONAZOLE 200 MG/NS (PMX) 100 ML IVPB SCH (13:11)
--- NOTE | 2016-12-04 16:31 | PN ---
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 Exam/Review of Systems Vital Signs Vitals Vital Signs Date Time Temp Pulse Resp B/P Pulse Ox O2 Delivery O2 Flow Rate FiO2 12/04/16 10:00 99.3 12/04/16 08:00 83 18 95/58 96 Intake and Output 12/03/16 12/03/16 12/04/16 15:00 23:00 07:00 Intake Total 400 ml 2300 ml 1220 ml Output Total 650 ml 850 ml Balance 400 ml 1650 ml 370 ml Exam some drainage Results Result Diagram: 12/03/16 0525 12/04/16 0547 Results 24 hrs Laboratory Tests Test 12/03/16 22:07 12/04/16 01:21 12/04/16 05:34 12/04/16 05:47 Bedside Glucose 128 113 108 Sodium Level 130 L Potassium Level 3.4 L Chloride Level 103 Carbon Dioxide Level 21 Anion Gap 9 Blood Urea Nitrogen 5 L Creatinine 0.55 Glucose Level 121 Calcium Level 8.1 L Phosphorus Level 3.1 Test 12/04/16 09:30 12/04/16 12:20 Bedside Glucose 132 114 Medications Medications Current Medications Morphine Sulfate (morphine) 2 mg Q2H PRN IV PAIN LEVEL 6-10; Start 11/18/16 at 11:00 Naloxone HCl (Narcan) 0.2 mg PRN PRN IV DECREASED REPIRATORY RATE; Start at 13:00 Oxycodone/ Acetaminophen (Percocet (5/ 325)) 1 tab Q4H PRN PO PAIN LEVEL 1-5; Start 11/18/16 at 13:00; Status Future Hold Oxycodone/ Acetaminophen (Percocet (5/ 325)) 2 tab Q4H PRN PO PAIN LEVEL 6-10; Start 11/18/16 at 13:00; Status Future Hold Ondansetron HCl (Zofran Inj) 4 mg Q6H PRN IV NAUSEA AND/OR VOMITING Last administered on 11/22/16 21:21; Admin Dose 4 MG; Start 11/18/16 at 13:00 Trimethobenzamide HCl (Tigan) 200 mg Q8H PRN IM NAUSEA AND/OR VOMITING; Start 11/18/16 at 13:00 Diphenhydramine HCl (Benadryl) 25 mg Q6H PRN IV ITCHING; Start 11/18/16 at 13: 00 Hydralazine HCl (Apresoline) 10 mg Q6H PRN IV SBP >160 Last administered on 08:26; Admin Dose 10 MG; Start 11/18/16 at 15:00 Famotidine (Pepcid Iv) 20 mg BID IV Last administered on 12/04/16 08:18; Admin Dose 20 MG; Start 11/19/16 at 09:00 Phenol (Cepastat Lozenge) 1 lozenge Q1H PRN MT SORE THROAT Last administered on 11/21/16 08:25; Admin Dose 1 LOZENGE; Start 11/20/16 at 12:00 Amitriptyline HCl (Elavil) 25 mg QHS PO Last administered on 12/03/16 21:42; Admin Dose 25 MG; Start 11/21/16 at 21:00 Gabapentin (Neurontin) 600 mg BID PO Last administered on 12/04/16 08:18; Admin Dose 600 MG; Start 11/21/16 at 21:00 Topiramate (Topamax) 100 mg QHS PO Last administered on 12/03/16 21:42; Admin Dose 100 MG; Start 11/21/16 at 21:00 Trazodone HCl (Desyrel) 50 mg QHS PO Last administered on 12/03/16 21:42; Admin Dose 50 MG; Start 11/21/16 at 21:00 Polyethylene Glycol (Miralax) 17 gm DAILY PRN PO CONSTIPATION Last administered on 12/01/16 11:19; Admin Dose 17 GM; Start 11/27/16 at 18:30 Simethicone 80 mg 80 mg BID PRN PO DISTENSION/GAS/BLOATING Last administered on 12/01/16 20:47; Admin Dose 80 MG; Start 11/30/16 at 11:30 Piperacillin Sod/ Tazobactam Sod 100 ml @ 200 mls/hr Q6 IVPB Last administered on 12/04/16 12:17; Admin Dose 200 MLS/HR; Start 12/01/16 at 18:00 Metronidazole 100 ml @ 100 mls/hr Q8 IVPB Last administered on 12/04/16 14:59 ; Admin Dose 100 MLS/HR; Start 12/01/16 at 15:00 Fluconazole (Diflucan 200 Mg/ NS (Pmx)) 100 ml @ 100 mls/hr Q24H IVPB Last administered on 12/04/16 13:11; Admin Dose 100 MLS/HR; Start 12/01/16 at 14:00 Hydromorphone HCl 0.4 mg 0.4 mg Q2H PRN IV PAIN Last administered on 12/04/16 15:00; Admin Dose 0.4 MG; Start 12/02/16 at 11:00 Potassium Chloride/Dextrose/ Sod Cl 1,000 ml @ 70 mls/hr [id number] IV Last administered on 12/04/16 12:17; Admin Dose 70 MLS/HR; Start 12/02/16 at 17:00 Total Parenteral Nutrition 1,000 ml @ 40 mls/hr Q24H IV Last administered on 21:00; Admin Dose 40 MLS/HR; Start 12/02/16 at 19:00 Fat Emulsion Intravenous (Liposyn Ii 20%) 250 ml @ 10.4 mls/hr Q24H IV Last administered on 12/03/16 21:00; Admin Dose 10.4 MLS/HR; Start 12/02/16 at 19:00 Diagnostic Test (Pha) (Accu-Chek) 1 ea Q4 XX Last administered on 12/04/16 12: 21; Admin Dose 1 EA; Start 12/02/16 at 21:00 IV Flush (NS 10 ml) 10 ml PRN PRN IV IV PROTOCOL; Start 12/03/16 at 20:30 Acetaminophen (Tylenol Tab) 650 mg Q6H PRN PO ELEVATED TEMPERATURE; Start 12/04 at 12:00 Rubin RUSS Dec 04, 2016 16:31
[2016-12-04] MEDS: FAT EMULSION 20% 250 ML IV SCH ×2 (19:00→21:34)
[2016-12-04] MEDS: TPN 1,000 ML IV SCH ×2 (19:00→21:34)
--- NOTE | 2016-12-04 20:06 | PN ---
Date/Time of Note Date/Time of Note DATE: 12/04/16 TIME: 20:04 Assessment/Plan VTE Prophylaxis VTE Prophylaxis Intervention: other Lines/Catheters IV Catheter Type (from Nrsg): PICC Line Central line still needed: Yes Urinary Cath still in place: No Reason Cath still needed: other (indicate) Assessment/Plan Chief Complaint/Hosp Course IMPRESSION: 1. The patient has right hemicolectomy. 2. Hypokalemia. 3. History of colonoscopy. 4. History of polypectomy. 5 HX DEPRESSION 6 POSS ABD WOUND leak,fistula plan ANTIBIOTIC empiric PER SURGERY LABS tpn kcl Problems: Subjective 24 Hr Interval Summary Respiratory: no complaints Cardiovascular: no complaints Gastrointestinal: other (abd woung draining), pain (+) Exam/Review of Systems Vital Signs Vitals Vital Signs Date Time Temp Pulse Resp B/P Pulse Ox O2 Delivery O2 Flow Rate FiO2 12/04/16 10:00 99.3 12/04/16 08:00 83 18 95/58 96 Intake and Output 12/03/16 12/03/16 12/04/16 15:00 23:00 07:00 Intake Total 400 ml 2300 ml 1220 ml Output Total 650 ml 850 ml Balance 400 ml 1650 ml 370 ml Exam Respiratory: clear to auscultation Cardiovascular: regular rate and rhythm Gastrointestinal: bowel sounds (+), other (dressing wet), soft Results Result Diagram: 12/03/16 0525 12/04/16 0547 Results 24 hrs Laboratory Tests Test 12/03/16 22:07 12/04/16 01:21 12/04/16 05:34 12/04/16 05:47 Bedside Glucose 128 113 108 Sodium Level 130 L Potassium Level 3.4 L Chloride Level 103 Carbon Dioxide Level 21 Anion Gap 9 Blood Urea Nitrogen 5 L Creatinine 0.55 Glucose Level 121 Calcium Level 8.1 L Phosphorus Level 3.1 Test 12/04/16 09:30 12/04/16 12:20 12/04/16 17:07 Bedside Glucose 132 114 121 Medications Medications Current Medications Morphine Sulfate (morphine) 2 mg Q2H PRN IV PAIN LEVEL 6-10; Start 11/18/16 at 11:00 Naloxone HCl (Narcan) 0.2 mg PRN PRN IV DECREASED REPIRATORY RATE; Start at 13:00 Oxycodone/ Acetaminophen (Percocet (5/ 325)) 1 tab Q4H PRN PO PAIN LEVEL 1-5; Start 11/18/16 at 13:00; Status Future Hold Oxycodone/ Acetaminophen (Percocet (5/ 325)) 2 tab Q4H PRN PO PAIN LEVEL 6-10; Start 11/18/16 at 13:00; Status Future Hold Ondansetron HCl (Zofran Inj) 4 mg Q6H PRN IV NAUSEA AND/OR VOMITING Last administered on 11/22/16 21:21; Admin Dose 4 MG; Start 11/18/16 at 13:00 Trimethobenzamide HCl (Tigan) 200 mg Q8H PRN IM NAUSEA AND/OR VOMITING; Start 11/18/16 at 13:00 Diphenhydramine HCl (Benadryl) 25 mg Q6H PRN IV ITCHING; Start 11/18/16 at 13: 00 Hydralazine HCl (Apresoline) 10 mg Q6H PRN IV SBP >160 Last administered on 08:26; Admin Dose 10 MG; Start 11/18/16 at 15:00 Famotidine (Pepcid Iv) 20 mg BID IV Last administered on 12/04/16 08:18; Admin Dose 20 MG; Start 11/19/16 at 09:00 Phenol (Cepastat Lozenge) 1 lozenge Q1H PRN MT SORE THROAT Last administered on 11/21/16 08:25; Admin Dose 1 LOZENGE; Start 11/20/16 at 12:00 Amitriptyline HCl (Elavil) 25 mg QHS PO Last administered on 12/03/16 21:42; Admin Dose 25 MG; Start 11/21/16 at 21:00 Gabapentin (Neurontin) 600 mg BID PO Last administered on 12/04/16 08:18; Admin Dose 600 MG; Start 11/21/16 at 21:00 Topiramate (Topamax) 100 mg QHS PO Last administered on 12/03/16 21:42; Admin Dose 100 MG; Start 11/21/16 at 21:00 Trazodone HCl (Desyrel) 50 mg QHS PO Last administered on 12/03/16 21:42; Admin Dose 50 MG; Start 11/21/16 at 21:00 Polyethylene Glycol (Miralax) 17 gm DAILY PRN PO CONSTIPATION Last administered on 12/01/16 11:19; Admin Dose 17 GM; Start 11/27/16 at 18:30 Simethicone 80 mg 80 mg BID PRN PO DISTENSION/GAS/BLOATING Last administered on 12/01/16 20:47; Admin Dose 80 MG; Start 11/30/16 at 11:30 Piperacillin Sod/ Tazobactam Sod 100 ml @ 200 mls/hr Q6 IVPB Last administered on 12/04/16 17:00; Admin Dose 200 MLS/HR; Start 12/01/16 at 18:00 Metronidazole 100 ml @ 100 mls/hr Q8 IVPB Last administered on 12/04/16 14:59 ; Admin Dose 100 MLS/HR; Start 12/01/16 at 15:00 Fluconazole (Diflucan 200 Mg/ NS (Pmx)) 100 ml @ 100 mls/hr Q24H IVPB Last administered on 12/04/16 13:11; Admin Dose 100 MLS/HR; Start 12/01/16 at 14:00 Hydromorphone HCl 0.4 mg 0.4 mg Q2H PRN IV PAIN Last administered on 12/04/16 19:28; Admin Dose 0.4 MG; Start 12/02/16 at 11:00 Potassium Chloride/Dextrose/ Sod Cl 1,000 ml @ 70 mls/hr [id number] IV Last administered on 12/04/16 12:17; Admin Dose 70 MLS/HR; Start 12/02/16 at 17:00 Total Parenteral Nutrition 1,000 ml @ 40 mls/hr Q24H IV Last administered on 21:00; Admin Dose 40 MLS/HR; Start 12/02/16 at 19:00 Fat Emulsion Intravenous (Liposyn Ii 20%) 250 ml @ 10.4 mls/hr Q24H IV Last administered on 12/03/16 21:00; Admin Dose 10.4 MLS/HR; Start 12/02/16 at 19:00 Diagnostic Test (Pha) (Accu-Chek) 1 ea Q4 XX Last administered on 12/04/16 17: 08; Admin Dose 1 EA; Start 12/02/16 at 21:00 IV Flush (NS 10 ml) 10 ml PRN PRN IV IV PROTOCOL; Start 12/03/16 at 20:30 Acetaminophen (Tylenol Tab) 650 mg Q6H PRN PO ELEVATED TEMPERATURE; Start 12/04 at 12:00 MARTINEZ MELVIN MD Dec 04, 2016 20:06
[2016-12-04 20:23] VITALS: BP 100/62; RESP 19
[2016-12-04] MEDS: AMITRIPTYLINE 25 MG TAB PO SCH (21:18)
[2016-12-04] MEDS: traZODone 50 MG TAB PO SCH (21:18)
[2016-12-04] MEDS: TOPIRAMATE 100 MG TAB PO SCH (21:18)
[2016-12-04] MEDS ORDERED: POTASSIUM CHLORIDE 250 ML IVPB ONE (21:30)
[2016-12-04] MEDS: ZOLPIDEM 5 MG TAB PO PRN (21:35)
[2016-12-05] MEDS: ACCU-CHEK XX SCH ×6 (01:36→20:51)
[2016-12-05] MEDS: D5W-0.45 NACL + KCL 10 MEQ 1,000 ML IV SCH ×3 (02:12→16:22)
[2016-12-05] MEDS: PIPER-TAZO 3.375 GM IV (PMX) 100 ML IVPB SCH ×5 (02:59→17:36)
[2016-12-05] MEDS: HYDROmorphONE 1 MG/ML SYG IV PRN ×9 (04:12→22:02)
[2016-12-05 06:05] LABS: ADD SCAN DIFF NO
[2016-12-05 06:10] LABS: HEMATOCRIT 32.7 % (37.0-47.0); HEMOGLOBIN 10.7 g/dl (12.0-16.0); MEAN CORPUSCULAR HEMOGLOBIN 29.8 pg (29.0-33.0); MEAN CORPUSCULAR HGB CONC 32.7 g/dl (32.0-37.0); MEAN CORPUSCULAR VOLUME 91.1 fl (82.0-101.0); MEAN PLATELET VOLUME 9.3 fl (7.4-10.4); PLATELET COUNT 464 10^3/UL (140-415); RED BLOOD COUNT 3.59 10^6/ul (4.20-5.40); RED CELL DISTRIBUTION WIDTH 13.8 % (11.5-14.5); WHITE BLOOD COUNT 6.1 10^3/ul (4.8-10.8)
[2016-12-05 06:31] LABS: POTASSIUM 3.8 mmol/L (3.5-5.1)
[2016-12-05 06:34] LABS: CREATININE 0.51 mg/dl (0.44-1.00); PHOSPHORUS 3.2 mg/dl (2.5-4.9)
[2016-12-05 06:35] LABS: CALCIUM 8.1 mg/dl (8.4-10.2); MAGNESIUM 2.1 mg/dl (1.7-2.5)
[2016-12-05] MEDS: metroNIDAZOLE 500 MG/NS (PMX) 100 ML IVPB SCH ×2 (06:59→13:35)
[2016-12-05 07:52] VITALS: BP 97/59; RESP 20
[2016-12-05 08:06] LABS: BASOPHIL # 0.1 10^3/ul (0.0-0.1); EOSINOPHILS # 0.2 10^3/ul (0.0-0.5); LYMPHOCYTES # 1.4 10^3/ul (0.8-2.9); MONOCYTE # 0.6 10^3/ul (0.3-0.9); NEUTROPHIL # 2.8 10^3/ul (1.6-7.5)
[2016-12-05] MEDS: FAMOTIDINE 20 MG INJ IV SCH ×2 (09:03→20:51)
[2016-12-05] MEDS: GABAPENTIN 300 MG CAP PO SCH ×2 (09:03→20:51)
[2016-12-05] MEDS ORDERED: VITAMIN A & D 5 GM OINT PACKET TOP ONE (09:37)
[2016-12-05] MEDS: FLUCONAZOLE 200 MG/NS (PMX) 100 ML IVPB SCH (14:42)
--- NOTE | 2016-12-05 17:32 | CONS ---
DATE OF ADMISSION: 11/18/2016 DATE OF CONSULTATION: 12/05/2016 TYPE OF CONSULTATION: Infectious disease. REASON FOR CONSULTATION: Antibiotic management. 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 She requests surgical repair . She was seen by Dr. Patricio on the and underwent laparoscopic right hemicolectomy. The patient, however, has had a stormy course. She was seen by Dr. Alexy Funk, who is the primary doctor. He notes she has a history of diverticulosis, colonoscopy and polypectomy in the past. She had a hist ory of EGD with iron deficiency anemia and laparoscopic right hemicolectomy. She also has anxiety, depression and insomnia. The patient was seen by GI. On the , her white count was 7.4. She wa s seen subsequently by numerous physicians. On the , she was seen by Dr. Patricio again. Status pos t right hemicolectomy, she had a small anastomotic leak with drainage, so small anastomotic leak dis cussed with Radiology, too small for percutaneous drainage procedure. Leak appears self-contained, spontaneously draining to the skin. Currently a PICC line has been placed. White count on the was 6.6. She is currently on total parenteral nutrition. She is on: 1. Zosyn. 2. Flagyl. 3. Fluconazole. Her urine shows no growth, but I see no wound culture or blood cultures, and she is on Flagyl and fl uconazole for unknown reasons. PICC line was inserted on the . A CT scan of the abdomen and pe lvis shows status post distal right hemicolectomy with evidence of an anastomotic leak and sinus tra ct into the laparotomy incision site. Tiny intraperitoneal abscesses noted. PAST MEDICAL HISTORY: Operations as outlined. FAMILY HISTORY: Noncontributory. SOCIAL HISTORY: She does not smoke, drink or abuse drugs. ALLERGIES: NONE TO PENICILLIN, SULFA OR FOODS. MEDICATIONS: Per chart. REVIEW OF SYSTEMS: As per HPI. PHYSICAL EXAMINATION: GENERAL: The patient is a well-developed, well-nourished, chronically ill-appearing female who is a wake, responsive. No acute distress. VITAL SIGNS: Stable. She is afebrile. SKIN: Without generalized rash. HEENT: Within normal limits. NECK: Supple. LYMPH NODES: None palpable. CHEST: Decreased breath sounds at the bases. HEART: Without murmur or gallop. ABDOMEN: Soft. There is some tenderness on palpation. There is a colostomy noted. 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 EXTREMITIES: Without cyanosis, clubbing or edema. RECTAL AND GENITAL: Deferred. NEUROLOGIC: No focal neurological abnormalities. IMPRESSION AND PLAN: The patient requires culturing of her wound certainly, and also she requires s ome blood cultures. I will dictate my findings to Dr. Funk and to Dr. Patricio. Dictated By: DEYVI GTZ MD, JD/SCOTT Conf#: [id number] DID#: [id number]
--- NOTE | 2016-12-05 17:59 | CONS ---
DATE OF ADMISSION: 11/18/2016 DATE OF CONSULTATION: ADDENDUM In reviewing Aissatou Morel's case, it seems to me that it would be arora for Dr. Patricio to go back and to repair the anastomotic leak and in that way to speed up her recovery. She is having a fair amount of abdominal pain as well. I will dictate my findings to Dr. Patricio and Dr. Funk. Dictated By: DEYVI GTZ MD, JD/SCOTT Conf#: [id number] DID#: [id number]
--- NOTE | 2016-12-05 19:32 | PN ---
Date/Time of Note Date/Time of Note DATE: 12/05/16 TIME: 19:30 Assessment/Plan VTE Prophylaxis VTE Prophylaxis Intervention: other Lines/Catheters IV Catheter Type (from Nrs): PICC Line Central line still needed: Yes Urinary Cath still in place: No Assessment/Plan Chief Complaint/Hosp Course IMPRESSION: 1. The patient has right hemicolectomy. 2. Hypokalemia.better 3. History of colonoscopy. 4. History of polypectomy. 5 HX DEPRESSION 6 POSS ABD WOUND leak,fistula plan ANTIBIOTIC empiric PER SURGERY LABS tpn Problems: Subjective 24 Hr Interval Summary Eyes: no complaints ENT: no complaints Gastrointestinal: pain (better) Exam/Review of Systems Vital Signs Vitals Vital Signs Date Time Temp Pulse Resp B/P Pulse Ox O2 Delivery O2 Flow Rate FiO2 12/05/16 07:52 99.3 83 20 97/59 95 Intake and Output 12/04/16 12/04/16 12/05/16 15:00 23:00 07:00 Intake Total 350 ml 1490 ml 840 ml Output Total 1450 ml 700 ml Balance 350 ml 40 ml 140 ml Exam Neck: supple Respiratory: clear to auscultation Cardiovascular: regular rate and rhythm Gastrointestinal: bowel sounds (+), soft Extremities: normal pulses Results Result Diagram: 12/05/16 0525 12/05/16 0525 Results 24 hrs Laboratory Tests Test 12/04/16 22:03 12/05/16 01:36 12/05/16 05:25 12/05/16 05:28 Bedside Glucose 110 98 109 White Blood Count 6.1 Red Blood Count 3.59 L Hemoglobin 10.7 L Hematocrit 32.7 L Mean Corpuscular Volume 91.1 Mean Corpuscular Hemoglobin 29.8 Mean Corpuscular Hemoglobin Concent 32.7 Red Cell Distribution Width 13.8 Platelet Count 464 H Mean Platelet Volume 9.3 Neutrophils % 46.0 Band Neutrophils % 16.0 H Lymphocytes % 23.0 Monocytes % 10.0 Eosinophils % 3.0 Basophils % 2.0 Neutrophils # 2.8 Lymphocytes # 1.4 Monocytes # 0.6 Eosinophils # 0.2 Basophils # 0.1 Sodium Level 136 Potassium Level 3.8 Chloride Level 108 Carbon Dioxide Level 20 L Anion Gap 12 Blood Urea Nitrogen 5 L Creatinine 0.51 Glucose Level 119 Calcium Level 8.1 L Phosphorus Level 3.2 Magnesium Level 2.1 Test 12/05/16 09:09 12/05/16 13:35 12/05/16 17:41 Bedside Glucose 108 113 108 Medications Medications Current Medications Morphine Sulfate (morphine) 2 mg Q2H PRN IV PAIN LEVEL 6-10; Start 11/18/16 at 11:00 Naloxone HCl (Narcan) 0.2 mg PRN PRN IV DECREASED REPIRATORY RATE; Start at 13:00 Oxycodone/ Acetaminophen (Percocet (5/ 325)) 1 tab Q4H PRN PO PAIN LEVEL 1-5; Start 11/18/16 at 13:00; Status Future Hold Oxycodone/ Acetaminophen (Percocet (5/ 325)) 2 tab Q4H PRN PO PAIN LEVEL 6-10; Start 11/18/16 at 13:00; Status Future Hold Ondansetron HCl (Zofran Inj) 4 mg Q6H PRN IV NAUSEA AND/OR VOMITING Last administered on 11/22/16 21:21; Admin Dose 4 MG; Start 11/18/16 at 13:00 Trimethobenzamide HCl (Tigan) 200 mg Q8H PRN IM NAUSEA AND/OR VOMITING; Start 11/18/16 at 13:00 Diphenhydramine HCl (Benadryl) 25 mg Q6H PRN IV ITCHING; Start 11/18/16 at 13: 00 Hydralazine HCl (Apresoline) 10 mg Q6H PRN IV SBP >160 Last administered on 08:26; Admin Dose 10 MG; Start 11/18/16 at 15:00 Famotidine (Pepcid Iv) 20 mg BID IV Last administered on 12/05/16 09:03; Admin Dose 20 MG; Start 11/19/16 at 09:00 Phenol (Cepastat Lozenge) 1 lozenge Q1H PRN MT SORE THROAT Last administered on 11/21/16 08:25; Admin Dose 1 LOZENGE; Start 11/20/16 at 12:00 Amitriptyline HCl (Elavil) 25 mg QHS PO Last administered on 12/04/16 21:18; Admin Dose 25 MG; Start 11/21/16 at 21:00 Gabapentin (Neurontin) 600 mg BID PO Last administered on 12/05/16 09:03; Admin Dose 600 MG; Start 11/21/16 at 21:00 Topiramate (Topamax) 100 mg QHS PO Last administered on 12/04/16 21:18; Admin Dose 100 MG; Start 11/21/16 at 21:00 Trazodone HCl (Desyrel) 50 mg QHS PO Last administered on 12/04/16 21:18; Admin Dose 50 MG; Start 11/21/16 at 21:00 Polyethylene Glycol (Miralax) 17 gm DAILY PRN PO CONSTIPATION Last administered on 12/01/16 11:19; Admin Dose 17 GM; Start 11/27/16 at 18:30 Simethicone 80 mg 80 mg BID PRN PO DISTENSION/GAS/BLOATING Last administered on 12/01/16 20:47; Admin Dose 80 MG; Start 11/30/16 at 11:30 Piperacillin Sod/ Tazobactam Sod (Zosyn 3.375gm/ 100 ml (Pmx)) 100 ml @ 200 mls /hr Q6 IVPB Last administered on 12/05/16 17:36; Admin Dose 200 MLS/HR; Start 12/01/16 at 18:00 Hydromorphone HCl 0.4 mg 0.4 mg Q2H PRN IV PAIN Last administered on 12/05/16 17:37; Admin Dose 0.4 MG; Start 12/02/16 at 11:00 Potassium Chloride/Dextrose/ Sod Cl 1,000 ml @ 70 mls/hr [id number] IV Last administered on 12/05/16 14:44; Admin Dose 70 MLS/HR; Start 12/02/16 at 17:00 Total Parenteral Nutrition 1,000 ml @ 40 mls/hr Q24H IV Last administered on 21:34; Admin Dose 40 MLS/HR; Start 12/02/16 at 19:00 Fat Emulsion Intravenous (Liposyn Ii 20%) 250 ml @ 10.4 mls/hr Q24H IV Last administered on 12/04/16 21:34; Admin Dose 10.4 MLS/HR; Start 12/02/16 at 19:00 Diagnostic Test (Pha) (Accu-Chek) 1 ea Q4 XX Last administered on 12/05/16 09: 10; Admin Dose 1 EA; Start 12/02/16 at 21:00 IV Flush (NS 10 ml) 10 ml PRN PRN IV IV PROTOCOL; Start 12/03/16 at 20:30 Acetaminophen (Tylenol Tab) 650 mg Q6H PRN PO ELEVATED TEMPERATURE Last administered on 12/04/16t 22:00; Admin Dose 650 MG; Start 12/04/16 at 12:00 MARTINEZ MELVIN MD Dec 05, 2016 19:32
[2016-12-05 20:37] VITALS: BP 103/65; RESP 18
[2016-12-05] MEDS: TOPIRAMATE 100 MG TAB PO SCH (20:50)
[2016-12-05] MEDS: AMITRIPTYLINE 25 MG TAB PO SCH (20:51)
[2016-12-05] MEDS: traZODone 50 MG TAB PO SCH (20:51)
[2016-12-05] MEDS: ZOLPIDEM 5 MG TAB PO PRN (22:01)
[2016-12-05] MEDS: TPN 1,000 ML IV SCH (22:02)
[2016-12-05] MEDS: FAT EMULSION 20% 250 ML IV SCH (22:02)
[2016-12-06] MEDS: HYDROmorphONE 1 MG/ML SYG IV PRN ×10 (00:31→22:20)
[2016-12-06] MEDS: PIPER-TAZO 3.375 GM IV (PMX) 100 ML IVPB SCH ×4 (00:31→17:15)
[2016-12-06] MEDS: ACCU-CHEK XX SCH ×6 (01:06→20:43)
[2016-12-06 06:09] LABS: ADD SCAN DIFF NO
[2016-12-06 06:19] LABS: BASOPHILS % 0.5 % (0.0-2.0); EOSINOPHILS # 0.2 10^3/ul (0.0-0.5); EOSINOPHILS % 3.3 % (0.0-7.0); HEMATOCRIT 31.9 % (37.0-47.0); HEMOGLOBIN 10.6 g/dl (12.0-16.0); LYMPHOCYTES # 1.8 10^3/ul (0.8-2.9); MEAN CORPUSCULAR HGB CONC 33.2 g/dl (32.0-37.0); MEAN CORPUSCULAR VOLUME 90.4 fl (82.0-101.0); MEAN PLATELET VOLUME 9.4 fl (7.4-10.4); MONOCYTE # 0.7 10^3/ul (0.3-0.9); MONOCYTES % 11.4 % (0.0-11.0); NEUTROPHILS % 52.4 % (39.0-77.0); PLATELET COUNT 473 10^3/UL (140-415); RED BLOOD COUNT 3.53 10^6/ul (4.20-5.40); RED CELL DISTRIBUTION WIDTH 13.8 % (11.5-14.5); WHITE BLOOD COUNT 5.7 10^3/ul (4.8-10.8)
[2016-12-06 06:42] LABS: POTASSIUM 3.8 mmol/L (3.5-5.1)
[2016-12-06 06:44] LABS: CREATININE 0.5 mg/dl (0.44-1.00)
[2016-12-06 06:45] LABS: CALCIUM 8.2 mg/dl (8.4-10.2); PHOSPHORUS 3.8 mg/dl (2.5-4.9)
[2016-12-06] MEDS: D5W-0.45 NACL + KCL 10 MEQ 1,000 ML IV SCH ×3 (06:48→22:24)
[2016-12-06 07:00] VITALS: BP 103/65; RESP 20
[2016-12-06] MEDS: FAMOTIDINE 20 MG INJ IV SCH ×2 (08:08→20:43)
[2016-12-06] MEDS: GABAPENTIN 300 MG CAP PO SCH ×2 (08:08→20:43)
--- NOTE | 2016-12-06 11:12 | PN ---
Date/Time of Note Date/Time of Note DATE: 12/06/16 TIME: 11:11 Assessment/Plan VTE Prophylaxis VTE Prophylaxis Intervention: SCD's Lines/Catheters IV Catheter Type (from Nrs): PICC Line Central line still needed: Yes Urinary Cath still in place: No Assessment/Plan Chief Complaint/Hosp Course s/p lap right hemicolectomy Problems: Assessment/Plan with EC fistula, continue TPN clears Subjective 24 Hr Interval Summary Free Text/Dictation EC fistula, with output Exam/Review of Systems Vital Signs Vitals Vital Signs Date Time Temp Pulse Resp B/P Pulse Ox O2 Delivery O2 Flow Rate FiO2 12/06/16 07:00 99.5 89 20 103/65 98 Intake and Output 12/05/16 12/05/16 12/06/16 15:00 23:00 07:00 Intake Total 1000 ml 1500 ml 1150 ml Output Total 400 ml 1500 ml 1100 ml Balance 600 ml 0 ml 50 ml Exam ostomy bag in place with output Results Result Diagram: 12/06/16 0530 12/06/16 0530 Results 24 hrs Laboratory Tests Test 12/05/16 13:35 12/05/16 17:41 12/05/16 20:49 12/06/16 00:31 Bedside Glucose 113 108 106 105 Test 12/06/16 05:30 12/06/16 05:38 12/06/16 08:00 White Blood Count 5.7 Red Blood Count 3.53 L Hemoglobin 10.6 L Hematocrit 31.9 L Mean Corpuscular Volume 90.4 Mean Corpuscular Hemoglobin 30.0 Mean Corpuscular Hemoglobin Concent 33.2 Red Cell Distribution Width 13.8 Platelet Count 473 H Mean Platelet Volume 9.4 Neutrophils % 52.4 Lymphocytes % 32.0 Monocytes % 11.4 H Eosinophils % 3.3 Basophils % 0.5 Nucleated Red Blood Cells % 0.0 Neutrophils # 3.0 Lymphocytes # 1.8 Monocytes # 0.7 Eosinophils # 0.2 Basophils # 0.0 Nucleated Red Blood Cells # 0.0 Sodium Level 132 L Potassium Level 3.8 Chloride Level 104 Carbon Dioxide Level 23 Anion Gap 9 Blood Urea Nitrogen 4 L Creatinine 0.50 Glucose Level 107 Calcium Level 8.2 L Phosphorus Level 3.8 Magnesium Level 1.9 Bedside Glucose 112 119 Medications Medications Current Medications Morphine Sulfate (morphine) 2 mg Q2H PRN IV PAIN LEVEL 6-10; Start 3/13/17 at 11:00 Naloxone HCl (Narcan) 0.2 mg PRN PRN IV DECREASED REPIRATORY RATE; Start at 13:00 Oxycodone/ Acetaminophen (Percocet (5/ 325)) 1 tab Q4H PRN PO PAIN LEVEL 1-5; Start 11/18/16 at 13:00; Status Future Hold Oxycodone/ Acetaminophen (Percocet (5/ 325)) 2 tab Q4H PRN PO PAIN LEVEL 6-10; Start 11/18/16 at 13:00; Status Future Hold Ondansetron HCl (Zofran Inj) 4 mg Q6H PRN IV NAUSEA AND/OR VOMITING Last administered on 11/22/16 21:21; Admin Dose 4 MG; Start 11/18/16 at 13:00 Trimethobenzamide HCl (Tigan) 200 mg Q8H PRN IM NAUSEA AND/OR VOMITING; Start 11/18/16 at 13:00 Diphenhydramine HCl (Benadryl) 25 mg Q6H PRN IV ITCHING; Start 11/18/16 at 13: 00 Hydralazine HCl (Apresoline) 10 mg Q6H PRN IV SBP >160 Last administered on 08:26; Admin Dose 10 MG; Start 11/18/16 at 15:00 Famotidine (Pepcid Iv) 20 mg BID IV Last administered on 12/06/16 08:08; Admin Dose 20 MG; Start 11/19/16 at 09:00 Phenol (Cepastat Lozenge) 1 lozenge Q1H PRN MT SORE THROAT Last administered on 11/21/16 08:25; Admin Dose 1 LOZENGE; Start 11/20/16 at 12:00 Amitriptyline HCl (Elavil) 25 mg QHS PO Last administered on 12/05/16 20:51; Admin Dose 25 MG; Start 11/21/16 at 21:00 Gabapentin (Neurontin) 600 mg BID PO Last administered on 12/06/16 08:08; Admin Dose 600 MG; Start 11/21/16 at 21:00 Topiramate (Topamax) 100 mg QHS PO Last administered on 12/05/16 20:50; Admin Dose 100 MG; Start 11/21/16 at 21:00 Trazodone HCl (Desyrel) 50 mg QHS PO Last administered on 12/05/16 20:51; Admin Dose 50 MG; Start 11/21/16 at 21:00 Polyethylene Glycol (Miralax) 17 gm DAILY PRN PO CONSTIPATION Last administered on 12/01/16 11:19; Admin Dose 17 GM; Start 11/27/16 at 18:30 Simethicone 80 mg 80 mg BID PRN PO DISTENSION/GAS/BLOATING Last administered on 12/01/16 20:47; Admin Dose 80 MG; Start 11/30/16 at 11:30 Piperacillin Sod/ Tazobactam Sod (Zosyn 3.375gm/ 100 ml (Pmx)) 100 ml @ 200 mls /hr Q6 IVPB Last administered on 12/06/16 05:31; Admin Dose 200 MLS/HR; Start 12/01/16 at 18:00 Hydromorphone HCl 0.4 mg 0.4 mg Q2H PRN IV PAIN Last administered on 12/06/16 09:49; Admin Dose 0.4 MG; Start 12/02/16 at 11:00 Potassium Chloride/Dextrose/ Sod Cl 1,000 ml @ 70 mls/hr [id number] IV Last administered on 12/05/16 14:44; Admin Dose 70 MLS/HR; Start 12/02/16 at 17:00 Total Parenteral Nutrition 1,000 ml @ 40 mls/hr Q24H IV Last administered on 22:02; Admin Dose 40 MLS/HR; Start 12/02/16 at 19:00 Fat Emulsion Intravenous (Liposyn Ii 20%) 250 ml @ 10.4 mls/hr Q24H IV Last administered on 12/05/16 22:02; Admin Dose 10.4 MLS/HR; Start 12/02/16 at 19:00 Diagnostic Test (Pha) (Accu-Chek) 1 ea Q4 XX Last administered on 12/06/16 09: 00; Admin Dose 1 EA; Start 12/02/16 at 21:00 IV Flush (NS 10 ml) 10 ml PRN PRN IV IV PROTOCOL; Start 12/03/16 at 20:30 Acetaminophen (Tylenol Tab) 650 mg Q6H PRN PO ELEVATED TEMPERATURE Last administered on 12/04/16t 22:00; Admin Dose 650 MG; Start 12/04/16 at 12:00 Rubin RUSS Dec 06, 2016 11:12
--- NOTE | 2016-12-06 13:44 | CONS ---
Date/Time of Note Date/Time of Note DATE: 12/06/16 TIME: 13:42 Assessment/Plan Assessment/Plan Chief Complaint/Hosp Course 1. The patient has right hemicolectomy. 2. Hypokalemia,better 3. History of colonoscopy. 4. History of polypectomy. 5 HX DEPRESSION 6 POSS ABD WOUND leak,fistula Problems: Additional Assessment/Plan 1. Continue TPN with lipids 2. Plan per surgeon Consultation Date/Type/Reason Admit Date/Time Nov 18, 2016 at 06:52 Initial Consult Date 11/19/2016 Type of Consultation: nephrology Reason for Consultation Dr Funk 24 HR Interval Summary Constitutional: other (reported declined health) Exam/Review of Systems Vital Signs Vitals Vital Signs Date Time Temp Pulse Resp B/P Pulse Ox O2 Delivery O2 Flow Rate FiO2 12/06/16 07:00 99.5 89 20 103/65 98 Intake and Output 12/05/16 12/05/16 12/06/16 15:00 23:00 07:00 Intake Total 1000 ml 1500 ml 1150 ml Output Total 400 ml 1500 ml 1100 ml Balance 600 ml 0 ml 50 ml Exam Constitutional: alert, oriented Psych: no complaints Head: normocephalic Eyes: nl conjunctiva Neck: supple Cardiovascular: nl pulses Gastrointestinal: other (painful on palpation), soft Musculoskeletal: muscle weakness Extremities: normal pulses Neurological: CLINICAL SECRETARY II-XII intact Results Result Diagram: 12/06/16 0530 12/06/16 0530 Results 24 hrs Laboratory Tests Test 12/05/16 17:41 12/05/16 20:49 12/06/16 00:31 12/06/16 05:30 Bedside Glucose 108 106 105 White Blood Count 5.7 Red Blood Count 3.53 L Hemoglobin 10.6 L Hematocrit 31.9 L Mean Corpuscular Volume 90.4 Mean Corpuscular Hemoglobin 30.0 Mean Corpuscular Hemoglobin Concent 33.2 Red Cell Distribution Width 13.8 Platelet Count 473 H Mean Platelet Volume 9.4 Neutrophils % 52.4 Lymphocytes % 32.0 Monocytes % 11.4 H Eosinophils % 3.3 Basophils % 0.5 Nucleated Red Blood Cells % 0.0 Neutrophils # 3.0 Lymphocytes # 1.8 Monocytes # 0.7 Eosinophils # 0.2 Basophils # 0.0 Nucleated Red Blood Cells # 0.0 Sodium Level 132 L Potassium Level 3.8 Chloride Level 104 Carbon Dioxide Level 23 Anion Gap 9 Blood Urea Nitrogen 4 L Creatinine 0.50 Glucose Level 107 Calcium Level 8.2 L Phosphorus Level 3.8 Magnesium Level 1.9 Test 12/06/16 05:38 12/06/16 08:00 12/06/16 12:40 Bedside Glucose 112 119 120 Medications Medications Current Medications Morphine Sulfate (morphine) 2 mg Q2H PRN IV PAIN LEVEL 6-10; Start 11/18/16 at 11:00 Naloxone HCl (Narcan) 0.2 mg PRN PRN IV DECREASED REPIRATORY RATE; Start at 13:00 Oxycodone/ Acetaminophen (Percocet (5/ 325)) 1 tab Q4H PRN PO PAIN LEVEL 1-5; Start 11/18/16 at 13:00; Status Future Hold Oxycodone/ Acetaminophen (Percocet (5/ 325)) 2 tab Q4H PRN PO PAIN LEVEL 6-10; Start 11/18/16 at 13:00; Status Future Hold Ondansetron HCl (Zofran Inj) 4 mg Q6H PRN IV NAUSEA AND/OR VOMITING Last administered on 11/22/16 21:21; Admin Dose 4 MG; Start 11/18/16 at 13:00 Trimethobenzamide HCl (Tigan) 200 mg Q8H PRN IM NAUSEA AND/OR VOMITING; Start 11/18/16 at 13:00 Diphenhydramine HCl (Benadryl) 25 mg Q6H PRN IV ITCHING; Start 11/18/16 at 13: 00 Hydralazine HCl (Apresoline) 10 mg Q6H PRN IV SBP >160 Last administered on 08:26; Admin Dose 10 MG; Start 11/18/16 at 15:00 Famotidine (Pepcid Iv) 20 mg BID IV Last administered on 12/06/16 08:08; Admin Dose 20 MG; Start 11/19/16 at 09:00 Phenol (Cepastat Lozenge) 1 lozenge Q1H PRN MT SORE THROAT Last administered on 11/21/16 08:25; Admin Dose 1 LOZENGE; Start 11/20/16 at 12:00 Amitriptyline HCl (Elavil) 25 mg QHS PO Last administered on 12/05/16 20:51; Admin Dose 25 MG; Start 11/21/16 at 21:00 Gabapentin (Neurontin) 600 mg BID PO Last administered on 12/06/16 08:08; Admin Dose 600 MG; Start 11/21/16 at 21:00 Topiramate (Topamax) 100 mg QHS PO Last administered on 12/05/16 20:50; Admin Dose 100 MG; Start 11/21/16 at 21:00 Trazodone HCl (Desyrel) 50 mg QHS PO Last administered on 12/05/16 20:51; Admin Dose 50 MG; Start 11/21/16 at 21:00 Polyethylene Glycol (Miralax) 17 gm DAILY PRN PO CONSTIPATION Last administered on 12/01/16 11:19; Admin Dose 17 GM; Start 11/27/16 at 18:30 Simethicone 80 mg 80 mg BID PRN PO DISTENSION/GAS/BLOATING Last administered on 12/01/16 20:47; Admin Dose 80 MG; Start 11/30/16 at 11:30 Piperacillin Sod/ Tazobactam Sod 100 ml @ 200 mls/hr Q6 IVPB Last administered on 12/06/16 11:47; Admin Dose 200 MLS/HR; Start 12/01/16 at 18:00 Potassium Chloride/Dextrose/ Sod Cl 1,000 ml @ 70 mls/hr [id number] IV Last administered on 12/05/16 14:44; Admin Dose 70 MLS/HR; Start 12/02/16 at 17:00 Total Parenteral Nutrition 1,000 ml @ 40 mls/hr Q24H IV Last administered on 22:02; Admin Dose 40 MLS/HR; Start 12/02/16 at 19:00 Fat Emulsion Intravenous (Liposyn Ii 20%) 250 ml @ 10.4 mls/hr Q24H IV Last administered on 12/05/16 22:02; Admin Dose 10.4 MLS/HR; Start 12/02/16 at 19:00 Diagnostic Test (Pha) (Accu-Chek) 1 ea Q4 XX Last administered on 12/06/16 13: 01; Admin Dose 1 EA; Start 12/02/16 at 21:00 IV Flush (NS 10 ml) 10 ml PRN PRN IV IV PROTOCOL; Start 12/03/16 at 20:30 Acetaminophen (Tylenol Tab) 650 mg Q6H PRN PO ELEVATED TEMPERATURE Last administered on 12/04/16t 22:00; Admin Dose 650 MG; Start 12/04/16 at 12:00 Hydromorphone HCl (Dilaudid) 0.5 mg Q2H PRN IV PAIN; Start 12/06/16 at 12:00 IZZY BRAMBILA Dec 06, 2016 13:44
--- NOTE | 2016-12-06 15:22 | PN ---
DATE: 12/06/2016 INFECTIOUS DISEASE PROGRESS NOTE SUBJECTIVE: No events overnight. The patient is lying comfortably in bed, spiking low-grade fevers . LABORATORY DATA: WBC today 5.7, no shift, no bands. BUN 4, creatinine 0.50. MICROBIOLOGY: Cultures pending. INDWELLINGS: The patient had PICC line placed on December 03. ANTIMICROBIALS: She is on Zosyn. PHYSICAL EXAMINATION: GENERAL: Well-developed, middle-aged white woman who is in no distress. HEENT: Head atraumatic, normocephalic. Sclerae anicteric. Buccal mucosa dry. NECK: Supple. CHEST: Rise symmetrical. Breath sounds diminished. HEART: S1, S2. ABDOMEN: Soft. Some tenderness on palpation. There is also drainage from the operative site. Col ostomy present. EXTREMITIES: Without cyanosis. ASSESSMENT: 1. Systemic inflammatory response syndrome with low grade fevers secondary to #2. 2. Anastomotic leak and sinus tract into the laparotomy site with tiny peritoneal abscess as per CT of the abdomen and pelvis. 3. History of right hemicolectomy on 11/18/2016. PLAN: The patient remains clinically stable on appropriate antimicrobials. Fluid culture pending. She is followed by surgery. She is on TPN and clears. Continue present care. Dictated By: BÁRBARA SMITH TIP LENGTH CHECKER for DEYVI SMITH/SCOTT Conf#: [id number] DID#: [id number]
[2016-12-06] MEDS: FAT EMULSION 20% 250 ML IV SCH (18:43)
[2016-12-06 19:45] VITALS: BP 136/64; RESP 16
[2016-12-06] MEDS: TOPIRAMATE 100 MG TAB PO SCH (20:43)
[2016-12-06] MEDS: traZODone 50 MG TAB PO SCH (20:43)
[2016-12-06] MEDS: AMITRIPTYLINE 25 MG TAB PO SCH (20:43)
[2016-12-06] MEDS: ZOLPIDEM 5 MG TAB PO PRN (22:24)
[2016-12-07] MEDS: TPN 1,000 ML IV SCH ×2 (00:58→20:09)
[2016-12-07] MEDS: HYDROmorphONE 1 MG/ML SYG IV PRN ×10 (00:58→21:59)
[2016-12-07] MEDS: PIPER-TAZO 3.375 GM IV (PMX) 100 ML IVPB SCH ×5 (01:01→23:57)
[2016-12-07] MEDS: ACCU-CHEK XX SCH ×6 (01:05→21:01)
[2016-12-07 06:31] LABS: ADD SCAN DIFF NO
[2016-12-07 06:43] LABS: BASOPHILS % 0.5 % (0.0-2.0); EOSINOPHILS # 0.2 10^3/ul (0.0-0.5); EOSINOPHILS % 3.7 % (0.0-7.0); HEMOGLOBIN 10.2 g/dl (12.0-16.0); LYMPHOCYTES % 31.4 % (15.0-51.0); MEAN CORPUSCULAR HEMOGLOBIN 29.7 pg (29.0-33.0); MEAN CORPUSCULAR HGB CONC 32.9 g/dl (32.0-37.0); MEAN CORPUSCULAR VOLUME 90.1 fl (82.0-101.0); MEAN PLATELET VOLUME 9.9 fl (7.4-10.4); MONOCYTE # 0.7 10^3/ul (0.3-0.9); MONOCYTES % 11.5 % (0.0-11.0); NEUTROPHIL # 3.3 10^3/ul (1.6-7.5); NEUTROPHILS % 52.3 % (39.0-77.0); PLATELET COUNT 390 10^3/UL (140-415); RED BLOOD COUNT 3.44 10^6/ul (4.20-5.40); WHITE BLOOD COUNT 6.2 10^3/ul (4.8-10.8)
[2016-12-07 07:02] LABS: ALBUMIN 2.6 g/dl (3.3-4.9)
[2016-12-07 07:03] LABS: POTASSIUM 4.6 mmol/L (3.5-5.1)
[2016-12-07 07:05] LABS: ALBUMIN/GLOBULIN RATIO 0.89; BILIRUBIN,INDIRECT 0.1 mg/dl (0-1.1); BILIRUBIN,TOTAL 0.1 mg/dl (0.2-1.3); CREATININE 0.43 mg/dl (0.44-1.00); TOTAL PROTEIN 5.5 g/dl (6.1-8.1)
[2016-12-07 07:06] LABS: CALCIUM 7.3 mg/dl (8.4-10.2)
[2016-12-07 08:00] VITALS: BP 92/53; RESP 20
[2016-12-07] MEDS: GABAPENTIN 300 MG CAP PO SCH ×2 (08:45→20:51)
[2016-12-07] MEDS: FAMOTIDINE 20 MG INJ IV SCH ×2 (08:45→20:55)
--- NOTE | 2016-12-07 14:13 | CONS ---
Date/Time of Note Date/Time of Note DATE: 12/07/16 TIME: 14:11 Assessment/Plan Assessment/Plan Chief Complaint/Hosp Course 1. Hypokalemia,better 2. The patient has right hemicolectomy,with colostomy, pt is on TPN 3. History of colonoscopy. 4. History of polypectomy. 5 HX DEPRESSION 6 POSS ABD WOUND leak,fistula Problems: Additional Assessment/Plan 1. Continue TPN 2. continue phys therapy Consultation Date/Type/Reason Admit Date/Time Nov 18, 2016 at 06:52 Initial Consult Date 11/19/2016 Type of Consultation: nephrology Reason for Consultation Dr Funk 24 HR Interval Summary Constitutional: improved Exam/Review of Systems Vital Signs Vitals Vital Signs Date Time Temp Pulse Resp B/P Pulse Ox O2 Delivery O2 Flow Rate FiO2 12/07/16 08:00 99.6 88 20 92/53 94 Intake and Output 12/06/16 12/06/16 12/07/16 15:00 23:00 07:00 Intake Total 100 ml 2910 ml 2050 ml Output Total 810 ml 300 ml Balance 100 ml 2100 ml 1750 ml Exam Constitutional: alert Psych: no complaints Neck: supple Respiratory: clear to auscultation Cardiovascular: regular rate and rhythm Gastrointestinal: other (colostomy pink and moist), soft Musculoskeletal: nl extremities to inspection Results Result Diagram: 12/07/16 0520 12/07/16 0805 Results 24 hrs Laboratory Tests Test 12/06/16 16:28 12/06/16 20:42 12/07/16 01:03 12/07/16 04:44 Bedside Glucose 115 99 106 110 Test 12/07/16 05:20 12/07/16 07:36 12/07/16 08:05 12/07/16 12:32 White Blood Count 6.2 Red Blood Count 3.44 L Hemoglobin 10.2 L Hematocrit 31.0 L Mean Corpuscular Volume 90.1 Mean Corpuscular Hemoglobin 29.7 Mean Corpuscular Hemoglobin Concent 32.9 Red Cell Distribution Width 14.0 Platelet Count 390 Mean Platelet Volume 9.9 Neutrophils % 52.3 Lymphocytes % 31.4 Monocytes % 11.5 H Eosinophils % 3.7 Basophils % 0.5 Nucleated Red Blood Cells % 0.0 Neutrophils # 3.3 Lymphocytes # 2.0 Monocytes # 0.7 Eosinophils # 0.2 Basophils # 0.0 Nucleated Red Blood Cells # 0.0 Sodium Level 126 L Potassium Level 4.6 Chloride Level 101 Carbon Dioxide Level 18 L Anion Gap 12 Blood Urea Nitrogen 4 L Creatinine 0.43 L Glucose Level 534 #*H 118 # Calcium Level 7.3 L Total Bilirubin 0.1 L Direct Bilirubin 0.00 Indirect Bilirubin 0.1 Aspartate Amino Transf (AST/SGOT) 25 Alanine Aminotransferase (ALT/SGPT) 22 Alkaline Phosphatase 107 Total Protein 5.5 L Albumin 2.6 L Globulin 2.90 Albumin/Globulin Ratio 0.89 Bedside Glucose 118 112 Medications Medications Current Medications Morphine Sulfate (morphine) 2 mg Q2H PRN IV PAIN LEVEL 6-10; Start 11/18/16 at 11:00 Naloxone HCl (Narcan) 0.2 mg PRN PRN IV DECREASED REPIRATORY RATE; Start at 13:00 Oxycodone/ Acetaminophen (Percocet (5/ 325)) 1 tab Q4H PRN PO PAIN LEVEL 1-5; Start 11/18/16 at 13:00; Status Future Hold Oxycodone/ Acetaminophen (Percocet (5/ 325)) 2 tab Q4H PRN PO PAIN LEVEL 6-10; Start 11/18/16 at 13:00; Status Future Hold Ondansetron HCl (Zofran Inj) 4 mg Q6H PRN IV NAUSEA AND/OR VOMITING Last administered on 11/22/16 21:21; Admin Dose 4 MG; Start 11/18/16 at 13:00 Trimethobenzamide HCl (Tigan) 200 mg Q8H PRN IM NAUSEA AND/OR VOMITING; Start 11/18/16 at 13:00 Diphenhydramine HCl (Benadryl) 25 mg Q6H PRN IV ITCHING; Start 11/18/16 at 13: 00 Hydralazine HCl (Apresoline) 10 mg Q6H PRN IV SBP >160 Last administered on 08:26; Admin Dose 10 MG; Start 11/18/16 at 15:00 Famotidine (Pepcid Iv) 20 mg BID IV Last administered on 12/07/16 08:45; Admin Dose 20 MG; Start 11/19/16 at 09:00 Phenol (Cepastat Lozenge) 1 lozenge Q1H PRN MT SORE THROAT Last administered on 11/21/16 08:25; Admin Dose 1 LOZENGE; Start 11/20/16 at 12:00 Amitriptyline HCl (Elavil) 25 mg QHS PO Last administered on 12/06/16 20:43; Admin Dose 25 MG; Start 11/21/16 at 21:00 Gabapentin (Neurontin) 600 mg BID PO Last administered on 12/07/16 08:45; Admin Dose 600 MG; Start 11/21/16 at 21:00 Topiramate (Topamax) 100 mg QHS PO Last administered on 12/06/16 20:43; Admin Dose 100 MG; Start 11/21/16 at 21:00 Trazodone HCl (Desyrel) 50 mg QHS PO Last administered on 12/06/16 20:43; Admin Dose 50 MG; Start 11/21/16 at 21:00 Polyethylene Glycol (Miralax) 17 gm DAILY PRN PO CONSTIPATION Last administered on 12/01/16 11:19; Admin Dose 17 GM; Start 11/27/16 at 18:30 Simethicone 80 mg 80 mg BID PRN PO DISTENSION/GAS/BLOATING Last administered on 12/01/16 20:47; Admin Dose 80 MG; Start 11/30/16 at 11:30 Piperacillin Sod/ Tazobactam Sod 100 ml @ 200 mls/hr Q6 IVPB Last administered on 12/07/16 12:20; Admin Dose 200 MLS/HR; Start 12/01/16 at 18:00 Potassium Chloride/Dextrose/ Sod Cl 1,000 ml @ 70 mls/hr [id number] IV Last administered on 12/06/16 22:24; Admin Dose 70 MLS/HR; Start 12/02/16 at 17:00 Total Parenteral Nutrition 1,000 ml @ 40 mls/hr Q24H IV Last administered on 00:58; Admin Dose 40 MLS/HR; Start 12/02/16 at 19:00 Fat Emulsion Intravenous (Liposyn Ii 20%) 250 ml @ 10.4 mls/hr Q24H IV Last administered on 12/06/16 18:43; Admin Dose 10.4 MLS/HR; Start 12/02/16 at 19:00 Diagnostic Test (Pha) (Accu-Chek) 1 ea Q4 XX Last administered on 12/07/16 13: 42; Admin Dose 1 EA; Start 12/02/16 at 21:00 IV Flush (NS 10 ml) 10 ml PRN PRN IV IV PROTOCOL; Start 12/03/16 at 20:30 Acetaminophen (Tylenol Tab) 650 mg Q6H PRN PO ELEVATED TEMPERATURE Last administered on 12/04/16 22:00; Admin Dose 650 MG; Start 12/04/16 at 12:00 Hydromorphone HCl (Dilaudid) 0.5 mg Q2H PRN IV PAIN Last administered on 13:10; Admin Dose 0.5 MG; Start 12/06/16 at 12:00 IZZY BRAMBILA Dec 07, 2016 14:13
[2016-12-07] MEDS: D5W-0.45 NACL + KCL 10 MEQ 1,000 ML IV SCH (15:30)
--- NOTE | 2016-12-07 19:39 | CONS ---
Date/Time of Note Date/Time of Note DATE: 12/07/16 TIME: 19:38 Assessment/Plan Assessment/Plan Chief Complaint/Hosp Course SUBJECTIVE: No events overnight. The patient is lying comfortably in bed, tolerates clears. MICROBIOLOGY: Cultures negative INDWELLINGS: The patient had PICC line placed on December 03. ANTIMICROBIALS: Zosyn. PHYSICAL EXAMINATION: GENERAL: Well-developed, middle-aged white woman who is in no distress. HEENT: Head atraumatic, normocephalic. Sclerae anicteric. Buccal mucosa dry. NECK: Supple. CHEST: Rise symmetrical. Breath sounds diminished. HEART: S1, S2. ABDOMEN: Soft. Some tenderness on palpation. Colostomy present. EXTREMITIES: Without cyanosis. ASSESSMENT: 1. Systemic inflammatory response syndrome with low grade fevers secondary to # 2. 2. Anastomotic leak and sinus tract into the laparotomy site with tiny peritoneal abscess as per CT of the abdomen and pelvis. 3. History of right hemicolectomy on 11/18/2016. PLAN: The patient remains stable, on appropriate antimicrobials. She is followed by surgery. Continue present care. DW staff Problems: Consultation Date/Type/Reason Admit Date/Time Nov 18, 2016 at 06:52 Initial Consult Date Type of Consultation: id Exam/Review of Systems Vital Signs Vitals Vital Signs Date Time Temp Pulse Resp B/P Pulse Ox O2 Delivery O2 Flow Rate FiO2 12/07/16 08:00 99.6 88 20 92/53 94 Intake and Output 12/06/16 12/06/16 12/07/16 15:00 23:00 07:00 Intake Total 100 ml 2910 ml 2050 ml Output Total 810 ml 300 ml Balance 100 ml 2100 ml 1750 ml Results Result Diagram: 12/07/16 0520 12/07/16 0805 Results 24 hrs Laboratory Tests Test 12/06/16 20:42 12/07/16 01:03 12/07/16 04:44 12/07/16 05:20 Bedside Glucose 99 106 110 White Blood Count 6.2 Red Blood Count 3.44 L Hemoglobin 10.2 L Hematocrit 31.0 L Mean Corpuscular Volume 90.1 Mean Corpuscular Hemoglobin 29.7 Mean Corpuscular Hemoglobin Concent 32.9 Red Cell Distribution Width 14.0 Platelet Count 390 Mean Platelet Volume 9.9 Neutrophils % 52.3 Lymphocytes % 31.4 Monocytes % 11.5 H Eosinophils % 3.7 Basophils % 0.5 Nucleated Red Blood Cells % 0.0 Neutrophils # 3.3 Lymphocytes # 2.0 Monocytes # 0.7 Eosinophils # 0.2 Basophils # 0.0 Nucleated Red Blood Cells # 0.0 Sodium Level 126 L Potassium Level 4.6 Chloride Level 101 Carbon Dioxide Level 18 L Anion Gap 12 Blood Urea Nitrogen 4 L Creatinine 0.43 L Glucose Level 534 #*H Calcium Level 7.3 L Total Bilirubin 0.1 L Direct Bilirubin 0.00 Indirect Bilirubin 0.1 Aspartate Amino Transf (AST/SGOT) 25 Alanine Aminotransferase (ALT/SGPT) 22 Alkaline Phosphatase 107 Total Protein 5.5 L Albumin 2.6 L Globulin 2.90 Albumin/Globulin Ratio 0.89 Test 12/07/16 07:36 12/07/16 08:05 12/07/16 12:32 12/07/16 17:09 Bedside Glucose 118 112 117 Glucose Level 118 # Medications Medications Current Medications Morphine Sulfate (morphine) 2 mg Q2H PRN IV PAIN LEVEL 6-10; Start 11/18/16 at 11:00 Naloxone HCl (Narcan) 0.2 mg PRN PRN IV DECREASED REPIRATORY RATE; Start at 13:00 Oxycodone/ Acetaminophen (Percocet (5/ 325)) 1 tab Q4H PRN PO PAIN LEVEL 1-5; Start 11/18/16 at 13:00; Status Future Hold Oxycodone/ Acetaminophen (Percocet (5/ 325)) 2 tab Q4H PRN PO PAIN LEVEL 6-10; Start 11/18/16 at 13:00; Status Future Hold Ondansetron HCl (Zofran Inj) 4 mg Q6H PRN IV NAUSEA AND/OR VOMITING Last administered on 11/22/16 21:21; Admin Dose 4 MG; Start 11/18/16 at 13:00 Trimethobenzamide HCl (Tigan) 200 mg Q8H PRN IM NAUSEA AND/OR VOMITING; Start 11/18/16 at 13:00 Diphenhydramine HCl (Benadryl) 25 mg Q6H PRN IV ITCHING; Start 11/18/16 at 13: 00 Hydralazine HCl (Apresoline) 10 mg Q6H PRN IV SBP >160 Last administered on 08:26; Admin Dose 10 MG; Start 11/18/16 at 15:00 Famotidine (Pepcid Iv) 20 mg BID IV Last administered on 12/07/16 08:45; Admin Dose 20 MG; Start 11/19/16 at 09:00 Phenol (Cepastat Lozenge) 1 lozenge Q1H PRN MT SORE THROAT Last administered on 11/21/16 08:25; Admin Dose 1 LOZENGE; Start 11/20/16 at 12:00 Amitriptyline HCl (Elavil) 25 mg QHS PO Last administered on 12/06/16 20:43; Admin Dose 25 MG; Start 11/21/16 at 21:00 Gabapentin (Neurontin) 600 mg BID PO Last administered on 12/07/16 08:45; Admin Dose 600 MG; Start 11/21/16 at 21:00 Topiramate (Topamax) 100 mg QHS PO Last administered on 12/06/16 20:43; Admin Dose 100 MG; Start 11/21/16 at 21:00 Trazodone HCl (Desyrel) 50 mg QHS PO Last administered on 12/06/16 20:43; Admin Dose 50 MG; Start 11/21/16 at 21:00 Polyethylene Glycol (Miralax) 17 gm DAILY PRN PO CONSTIPATION Last administered on 12/01/16 11:19; Admin Dose 17 GM; Start 11/27/16 at 18:30 Simethicone 80 mg 80 mg BID PRN PO DISTENSION/GAS/BLOATING Last administered on 12/01/16 20:47; Admin Dose 80 MG; Start 11/30/16 at 11:30 Piperacillin Sod/ Tazobactam Sod 100 ml @ 200 mls/hr Q6 IVPB Last administered on 12/07/16 17:31; Admin Dose 200 MLS/HR; Start 12/01/16 at 18:00 Potassium Chloride/Dextrose/ Sod Cl 1,000 ml @ 70 mls/hr [id number] IV Last administered on 12/07/16 15:30; Admin Dose 70 MLS/HR; Start 12/02/16 at 17:00 Total Parenteral Nutrition 1,000 ml @ 40 mls/hr Q24H IV Last administered on 00:58; Admin Dose 40 MLS/HR; Start 12/02/16 at 19:00 Fat Emulsion Intravenous (Liposyn Ii 20%) 250 ml @ 10.4 mls/hr Q24H IV Last administered on 12/06/16 18:43; Admin Dose 10.4 MLS/HR; Start 12/02/16 at 19:00 Diagnostic Test (Pha) (Accu-Chek) 1 ea Q4 XX Last administered on 12/07/16 17: 14; Admin Dose 1 EA; Start 12/02/16 at 21:00 IV Flush (NS 10 ml) 10 ml PRN PRN IV IV PROTOCOL; Start 12/03/16 at 20:30 Acetaminophen (Tylenol Tab) 650 mg Q6H PRN PO ELEVATED TEMPERATURE Last administered on 12/04/16 22:00; Admin Dose 650 MG; Start 12/04/16 at 12:00 Hydromorphone HCl (Dilaudid) 0.5 mg Q2H PRN IV PAIN Last administered on 17:31; Admin Dose 0.5 MG; Start 12/06/16 at 12:00 BÁRBARA SMITH NP Dec 07, 2016 19:39
[2016-12-07 19:41] VITALS: BP 105/64; RESP 20
[2016-12-07] MEDS: TOPIRAMATE 100 MG TAB PO SCH (20:51)
[2016-12-07] MEDS: traZODone 50 MG TAB PO SCH (20:51)
[2016-12-07] MEDS: AMITRIPTYLINE 25 MG TAB PO SCH (20:51)
[2016-12-07] MEDS: FAT EMULSION 20% 250 ML IV SCH (20:51)
[2016-12-07] MEDS: ZOLPIDEM 5 MG TAB PO PRN (21:58)
[2016-12-08] MEDS: HYDROmorphONE 1 MG/ML SYG IV PRN ×9 (00:01→16:26)
[2016-12-08] MEDS: ACCU-CHEK XX SCH ×6 (01:25→20:54)
[2016-12-08] MEDS: TPN 1,000 ML IV SCH ×2 (01:26→19:00)
[2016-12-08] MEDS: D5W-0.45 NACL + KCL 10 MEQ 1,000 ML IV SCH ×2 (01:42→08:08)
--- NOTE | 2016-12-08 03:01 | PN ---
DATE: SUBJECTIVE: Status post right hemicolectomy . 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 except for clear liquids and TPN, appears to be a low output fistula. I am seeing the patient at the request of Dr. Patricio. OBJECTIVE GENERAL: Patient is alert, awake, oriented x3, lying down in the bed, does not appear in any acute distress. VITAL SIGNS: Today temperature is 99.6, heart rate 88, respirations 20, blood pressure 92/53, saturation 94% on room air. LABORATORY DATA: WBC today is 6200 with 52% neutrophils. Hemoglobin 10.2, hematocrit 31. Platelet count has decreased from 486 to 390. Chemistry today, there is 1 episode of glucose which has been recorded at 534, but repeated shows 118. Sodium is 126, potassium 4.6. BUN 4, creatinine 0.____, calcium is 7.____, albumin is 2.60. PHYSICAL EXAMINATION : the colostomy bag is containing the drainage from the fistula, which is greenish and a liquid but it has been almost about 300 to 400 mL since yesterday . Abdomen is relatively soft. EXTREMITIES: Lower extremities, no calf tenderness. ASSESSMENT AND PLAN: Plan is to continue TPN and probably continue patient on clear liquids, expecting and hoping for the fistula to be closed either at this time, sooner or later, for the patient may go to a penitentiary where they can provide the patient with TPN. The patient is going to be handled by primary care physician. Otherwise, patient is stable now. Dictated By: BREN GUILLEN/SCOTT Conf#: [id number] DID#: [id number] MONICA
[2016-12-08] MEDS: PIPER-TAZO 3.375 GM IV (PMX) 100 ML IVPB SCH ×4 (05:53→23:54)
[2016-12-08] MEDS: GABAPENTIN 300 MG CAP PO SCH ×2 (08:07→20:43)
[2016-12-08] MEDS: FAMOTIDINE 20 MG INJ IV SCH ×2 (08:07→20:44)
[2016-12-08 08:18] VITALS: BP 94/52; RESP 18
--- NOTE | 2016-12-08 16:14 | PN ---
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 The patient states that now there is drainage from another spot which is close t o the umbilicus. OBJECTIVE VITAL SIGNS: Temperature 98.8, heart rate 85, respirations 18, blood pressure 94/52, saturation 96% on room air. ABDOMEN: Soft. LABORATORIES: There No new labs today. The colostomy bag is in place. There is accumulation of ye llowish liquid stool in the bag. This has been about 200 mL since 6:00 in the morning and now it is 2 p.m. ASSESSMENT AND PLAN: Status post right hemicolectomy and status of development of an enterocutaneou s fistula. The fistula is under control. ABDOMEN: Soft. The discharge is accumulating in the colostomy bag which is applied over the fistul a orifice. PLAN: 1. Continue current care. 2. Continue total parenteral nutrition and keep clear liquids. Dictated By: BREN GUILLEN/SCOTT Conf#: [id number] DID#: [id number]
--- NOTE | 2016-12-08 17:04 | PN ---
Date/Time of Note Date/Time of Note DATE: 12/08/16 TIME: 17:03 Assessment/Plan VTE Prophylaxis VTE Prophylaxis Intervention: other Lines/Catheters IV Catheter Type (from Nrsg): PICC Line Central line still needed: Yes Urinary Cath still in place: No Reason Cath still needed: other (indicate) Assessment/Plan Chief Complaint/Hosp Course IMPRESSION: 1. The patient has right hemicolectomy. 2. Hypokalemia.better 3. History of colonoscopy. 4. History of polypectomy. 5 HX DEPRESSION 6 POSS ABD WOUND leak,fistula plan per id PER SURGERY LABS tpn Problems: Subjective 24 Hr Interval Summary Respiratory: no complaints Gastrointestinal: pain (+) Exam/Review of Systems Vital Signs Vitals Vital Signs Date Time Temp Pulse Resp B/P Pulse Ox O2 Delivery O2 Flow Rate FiO2 12/08/16 08:18 98.8 85 18 94/52 96 Intake and Output 12/07/16 12/07/16 12/08/16 14:59 22:59 06:59 Intake Total 100 ml 2070 ml 1362 ml Output Total 250 ml 200 ml Balance 100 ml 1820 ml 1162 ml Exam Neck: supple Respiratory: clear to auscultation Cardiovascular: regular rate and rhythm Gastrointestinal: bowel sounds (+), other (drainage bag +), soft Extremities: No edema Results Result Diagram: 12/07/16 0520 12/07/16 0805 Results 24 hrs Laboratory Tests Test 12/07/16 17:09 12/07/16 20:54 12/08/16 01:27 12/08/16 05:56 Bedside Glucose 117 108 111 106 Test 12/08/16 07:59 12/08/16 12:00 Bedside Glucose 110 106 Medications Medications Current Medications Morphine Sulfate (morphine) 2 mg Q2H PRN IV PAIN LEVEL 6-10; Start 11/18/16 at 11:00 Naloxone HCl (Narcan) 0.2 mg PRN PRN IV DECREASED REPIRATORY RATE; Start at 13:00 Oxycodone/ Acetaminophen (Percocet (5/ 325)) 1 tab Q4H PRN PO PAIN LEVEL 1-5; Start 11/18/16 at 13:00; Status Future Hold Oxycodone/ Acetaminophen (Percocet (5/ 325)) 2 tab Q4H PRN PO PAIN LEVEL 6-10; Start 11/18/16 at 13:00; Status Future Hold Ondansetron HCl (Zofran Inj) 4 mg Q6H PRN IV NAUSEA AND/OR VOMITING Last administered on 11/22/16 21:21; Admin Dose 4 MG; Start 11/18/16 at 13:00 Trimethobenzamide HCl (Tigan) 200 mg Q8H PRN IM NAUSEA AND/OR VOMITING; Start 11/18/16 at 13:00 Diphenhydramine HCl (Benadryl) 25 mg Q6H PRN IV ITCHING; Start 11/18/16 at 13: 00 Hydralazine HCl (Apresoline) 10 mg Q6H PRN IV SBP >160 Last administered on 08:26; Admin Dose 10 MG; Start 11/18/16 at 15:00 Famotidine (Pepcid Iv) 20 mg BID IV Last administered on 12/08/16 08:07; Admin Dose 20 MG; Start 11/19/16 at 09:00 Phenol (Cepastat Lozenge) 1 lozenge Q1H PRN MT SORE THROAT Last administered on 11/21/16 08:25; Admin Dose 1 LOZENGE; Start 11/20/16 at 12:00 Amitriptyline HCl (Elavil) 25 mg QHS PO Last administered on 12/07/16 20:51; Admin Dose 25 MG; Start 11/21/16 at 21:00 Gabapentin (Neurontin) 600 mg BID PO Last administered on 12/08/16 08:07; Admin Dose 600 MG; Start 11/21/16 at 21:00 Topiramate (Topamax) 100 mg QHS PO Last administered on 12/07/16 20:51; Admin Dose 100 MG; Start 11/21/16 at 21:00 Trazodone HCl (Desyrel) 50 mg QHS PO Last administered on 12/07/16 20:51; Admin Dose 50 MG; Start 11/21/16 at 21:00 Polyethylene Glycol (Miralax) 17 gm DAILY PRN PO CONSTIPATION Last administered on 12/01/16 11:19; Admin Dose 17 GM; Start 11/27/16 at 18:30 Simethicone 80 mg 80 mg BID PRN PO DISTENSION/GAS/BLOATING Last administered on 12/01/16 20:47; Admin Dose 80 MG; Start 11/30/16 at 11:30 Piperacillin Sod/ Tazobactam Sod 100 ml @ 200 mls/hr Q6 IVPB Last administered on 12/08/16 12:13; Admin Dose 200 MLS/HR; Start 12/01/16 at 18:00 Potassium Chloride/Dextrose/ Sod Cl 1,000 ml @ 70 mls/hr [id number] IV Last administered on 12/08/16 08:08; Admin Dose 70 MLS/HR; Start 12/02/16 at 17:00 Total Parenteral Nutrition 1,000 ml @ 40 mls/hr Q24H IV Last administered on 01:26; Admin Dose 40 MLS/HR; Start 12/02/16 at 19:00 Fat Emulsion Intravenous (Liposyn Ii 20%) 250 ml @ 10.4 mls/hr Q24H IV Last administered on 12/07/16 20:51; Admin Dose 10.4 MLS/HR; Start 12/02/16 at 19:00 Diagnostic Test (Pha) (Accu-Chek) 1 ea Q4 XX Last administered on 12/08/16 12: 04; Admin Dose 1 EA; Start 12/02/16 at 21:00 IV Flush (NS 10 ml) 10 ml PRN PRN IV IV PROTOCOL; Start 12/03/16 at 20:30 Acetaminophen (Tylenol Tab) 650 mg Q6H PRN PO ELEVATED TEMPERATURE Last administered on 12/04/16 22:00; Admin Dose 650 MG; Start 12/04/16 at 12:00 Hydromorphone HCl (Dilaudid) 0.5 mg Q2H PRN IV PAIN Last administered on 16:26; Admin Dose 0.5 MG; Start 12/06/16 at 12:00 MARTINEZ MELVIN MD Dec 08, 2016 17:04
--- NOTE | 2016-12-08 17:35 | CONS ---
Date/Time of Note Date/Time of Note DATE: 12/08/16 TIME: 17:33 Assessment/Plan Assessment/Plan Chief Complaint/Hosp Course SUBJECTIVE: No events overnight. The patient is awake, lying comfortably in bed, tolerates clears. MICROBIOLOGY: Cultures + Enterococcus/Staph INDWELLINGS: The patient had PICC line placed on December 03. ANTIMICROBIALS: Zosyn. PHYSICAL EXAMINATION: GENERAL: Well-developed, middle-aged white woman who is in no distress. HEENT: Head atraumatic, normocephalic. Sclerae anicteric. Buccal mucosa dry. NECK: Supple. CHEST: Rise symmetrical. Breath sounds diminished. HEART: S1, S2. ABDOMEN: Soft. Some tenderness on palpation. Colostomy present. EXTREMITIES: Without cyanosis. ASSESSMENT: 1. Systemic inflammatory response syndrome with low grade fevers secondary to # 2. 2. Anastomotic leak and sinus tract into the laparotomy site with tiny peritoneal abscess as per CT of the abdomen and pelvis. 3. History of right hemicolectomy on 11/18/2016. PLAN: The patient remains stable, will add Vanco, await for final cx, f/u surgical rec-s [facility] staff Problems: Consultation Date/Type/Reason Admit Date/Time Nov 18, 2016 at 06:52 Type of Consultation: id Exam/Review of Systems Vital Signs Vitals Vital Signs Date Time Temp Pulse Resp B/P Pulse Ox O2 Delivery O2 Flow Rate FiO2 12/08/16 08:18 98.8 85 18 94/52 96 Intake and Output 12/07/16 12/07/16 12/08/16 15:00 23:00 07:00 Intake Total 100 ml 2070 ml 1362 ml Output Total 250 ml 200 ml Balance 100 ml 1820 ml 1162 ml Results Result Diagram: 12/07/16 0520 12/07/16 0805 Results 24 hrs Laboratory Tests Test 12/07/16 20:54 12/08/16 01:27 12/08/16 05:56 12/08/16 07:59 Bedside Glucose 108 111 106 110 Test 12/08/16 12:00 12/08/16 17:22 Bedside Glucose 106 104 Medications Medications Current Medications Morphine Sulfate (morphine) 2 mg Q2H PRN IV PAIN LEVEL 6-10; Start 11/18/16 at 11:00 Naloxone HCl (Narcan) 0.2 mg PRN PRN IV DECREASED REPIRATORY RATE; Start at 13:00 Oxycodone/ Acetaminophen (Percocet (5/ 325)) 1 tab Q4H PRN PO PAIN LEVEL 1-5; Start 11/18/16 at 13:00; Status Future Hold Oxycodone/ Acetaminophen (Percocet (5/ 325)) 2 tab Q4H PRN PO PAIN LEVEL 6-10; Start 11/18/16 at 13:00; Status Future Hold Ondansetron HCl (Zofran Inj) 4 mg Q6H PRN IV NAUSEA AND/OR VOMITING Last administered on 11/22/16 21:21; Admin Dose 4 MG; Start 11/18/16 at 13:00 Trimethobenzamide HCl (Tigan) 200 mg Q8H PRN IM NAUSEA AND/OR VOMITING; Start 11/18/16 at 13:00 Diphenhydramine HCl (Benadryl) 25 mg Q6H PRN IV ITCHING; Start 11/18/16 at 13: 00 Hydralazine HCl (Apresoline) 10 mg Q6H PRN IV SBP >160 Last administered on 08:26; Admin Dose 10 MG; Start 11/18/16 at 15:00 Famotidine (Pepcid Iv) 20 mg BID IV Last administered on 12/08/16 08:07; Admin Dose 20 MG; Start 11/19/16 at 09:00 Phenol (Cepastat Lozenge) 1 lozenge Q1H PRN MT SORE THROAT Last administered on 11/21/16 08:25; Admin Dose 1 LOZENGE; Start 11/20/16 at 12:00 Amitriptyline HCl (Elavil) 25 mg QHS PO Last administered on 12/07/16 20:51; Admin Dose 25 MG; Start 11/21/16 at 21:00 Gabapentin (Neurontin) 600 mg BID PO Last administered on 12/08/16 08:07; Admin Dose 600 MG; Start 11/21/16 at 21:00 Topiramate (Topamax) 100 mg QHS PO Last administered on 12/07/16 20:51; Admin Dose 100 MG; Start 11/21/16 at 21:00 Trazodone HCl (Desyrel) 50 mg QHS PO Last administered on 12/07/16 20:51; Admin Dose 50 MG; Start 11/21/16 at 21:00 Polyethylene Glycol (Miralax) 17 gm DAILY PRN PO CONSTIPATION Last administered on 12/01/16 11:19; Admin Dose 17 GM; Start 11/27/16 at 18:30 Simethicone 80 mg 80 mg BID PRN PO DISTENSION/GAS/BLOATING Last administered on 12/01/16 20:47; Admin Dose 80 MG; Start 11/30/16 at 11:30 Piperacillin Sod/ Tazobactam Sod 100 ml @ 200 mls/hr Q6 IVPB Last administered on 12/08/16 12:13; Admin Dose 200 MLS/HR; Start 12/01/16 at 18:00 Potassium Chloride/Dextrose/ Sod Cl 1,000 ml @ 70 mls/hr [id number] IV Last administered on 12/08/16 08:08; Admin Dose 70 MLS/HR; Start 12/02/16 at 17:00 Total Parenteral Nutrition 1,000 ml @ 40 mls/hr Q24H IV Last administered on 01:26; Admin Dose 40 MLS/HR; Start 12/02/16 at 19:00 Fat Emulsion Intravenous (Liposyn Ii 20%) 250 ml @ 10.4 mls/hr Q24H IV Last administered on 12/07/16 20:51; Admin Dose 10.4 MLS/HR; Start 12/02/16 at 19:00 Diagnostic Test (Pha) (Accu-Chek) 1 ea Q4 XX Last administered on 12/08/16 17: 23; Admin Dose 1 EA; Start 12/02/16 at 21:00 IV Flush (NS 10 ml) 10 ml PRN PRN IV IV PROTOCOL; Start 12/03/16 at 20:30 Acetaminophen (Tylenol Tab) 650 mg Q6H PRN PO ELEVATED TEMPERATURE Last administered on 12/04/16 22:00; Admin Dose 650 MG; Start 12/04/16 at 12:00 Hydromorphone HCl (Dilaudid) 0.5 mg Q2H PRN IV PAIN Last administered on 16:26; Admin Dose 0.5 MG; Start 12/06/16 at 12:00 BÁRBARA SMITH [employer]IZ[employer] DEVELOPMENT MANAGER Dec 08, 2016 17:35
[2016-12-08] MEDS ORDERED: VANCOMYCIN IV PER PHARMACY XX SCH (18:00)
[2016-12-08] MEDS ORDERED: VANCOMYCIN 1 GM in NS 250 ML IVPB ONE (18:00)
[2016-12-08] MEDS: morphine 2 MG INJ IV PRN ×3 (18:14→22:44)
[2016-12-08 19:42] VITALS: BP 105/60; RESP 20
[2016-12-08] MEDS: traZODone 50 MG TAB PO SCH (20:43)
[2016-12-08] MEDS: AMITRIPTYLINE 25 MG TAB PO SCH (20:43)
[2016-12-08] MEDS: TOPIRAMATE 100 MG TAB PO SCH (20:43)
[2016-12-08] MEDS: FAT EMULSION 20% 250 ML IV SCH (20:44)
[2016-12-08] MEDS: ZOLPIDEM 5 MG TAB PO PRN (20:58)
[2016-12-09] MEDS: TPN 1,000 ML IV SCH ×3 (00:37→21:09)
[2016-12-09] MEDS: D5W-0.45 NACL + KCL 10 MEQ 1,000 ML IV SCH ×3 (00:38→19:38)
[2016-12-09] MEDS: morphine 2 MG INJ IV PRN ×7 (00:45→14:54)
[2016-12-09] MEDS: PIPER-TAZO 3.375 GM IV (PMX) 100 ML IVPB SCH ×2 (05:41→12:34)
[2016-12-09] MEDS ORDERED: VANCOMYCIN 750 MG in SOD CHLORIDE 0.9% 150 ML IVPB SCH (06:00)
[2016-12-09 06:20] LABS: POTASSIUM 3.7 mmol/L (3.5-5.1)
[2016-12-09 06:23] LABS: CREATININE 0.53 mg/dl (0.44-1.00)
[2016-12-09 06:24] LABS: CALCIUM 8.4 mg/dl (8.4-10.2); MAGNESIUM 2.1 mg/dl (1.7-2.5); PHOSPHORUS 4.3 mg/dl (2.5-4.9)
[2016-12-09 07:37] VITALS: BP 99/58; RESP 18
--- NOTE | 2016-12-09 08:55 | PN ---
Date/Time of Note Date/Time of Note DATE: 12/09/16 TIME: 08:55 Assessment/Plan VTE Prophylaxis VTE Prophylaxis Intervention: SCD's Lines/Catheters IV Catheter Type (from Nrsg): PICC Line Central line still needed: Yes Urinary Cath still in place: No Assessment/Plan Chief Complaint/Hosp Course s/p lap right hemicolectomy Problems: Assessment/Plan with ECF cont TPN pain control clear liquid diet Subjective 24 Hr Interval Summary Free Text/Dictation stable low output ECF Exam/Review of Systems Vital Signs Vitals Vital Signs Date Time Temp Pulse Resp B/P Pulse Ox O2 Delivery O2 Flow Rate FiO2 12/09/16 07:37 98.7 87 18 99/58 97 Intake and Output 12/08/16 12/08/16 12/09/16 15:00 23:00 07:00 Intake Total 200 ml 1500 ml 2622 ml Output Total 1750 ml 1400 ml Balance 200 ml -250 ml 1222 ml Exam ECF draining Results Result Diagram: 12/07/16 0520 12/09/16 0545 Results 24 hrs Laboratory Tests Test 12/08/16 12:00 12/08/16 17:22 12/08/16 20:56 12/09/16 05:45 Bedside Glucose 106 104 102 Sodium Level 136 Potassium Level 3.7 Chloride Level 103 Carbon Dioxide Level 23 Anion Gap 14 Blood Urea Nitrogen 6 L Creatinine 0.53 Glucose Level 101 Calcium Level 8.4 Phosphorus Level 4.3 Magnesium Level 2.1 Prealbumin 8.8 L Medications Medications Current Medications Morphine Sulfate (morphine) 2 mg Q2H PRN IV PAIN LEVEL 6-10 Last administered on 12/09/16t 06:52; Admin Dose 2 MG; Start 11/18/16 at 11:00 Naloxone HCl (Narcan) 0.2 mg PRN PRN IV DECREASED REPIRATORY RATE; Start at 13:00 Oxycodone/ Acetaminophen (Percocet (5/ 325)) 1 tab Q4H PRN PO PAIN LEVEL 1-5; Start 11/18/16 at 13:00; Status Future Hold Oxycodone/ Acetaminophen (Percocet (5/ 325)) 2 tab Q4H PRN PO PAIN LEVEL 6-10; Start 11/18/16 at 13:00; Status Future Hold Ondansetron HCl (Zofran Inj) 4 mg Q6H PRN IV NAUSEA AND/OR VOMITING Last administered on 11/22/16 21:21; Admin Dose 4 MG; Start 11/18/16 at 13:00 Trimethobenzamide HCl (Tigan) 200 mg Q8H PRN IM NAUSEA AND/OR VOMITING; Start 11/18/16 at 13:00 Diphenhydramine HCl (Benadryl) 25 mg Q6H PRN IV ITCHING; Start 11/18/16 at 13: 00 Hydralazine HCl (Apresoline) 10 mg Q6H PRN IV SBP >160 Last administered on 08:26; Admin Dose 10 MG; Start 11/18/16 at 15:00 Famotidine (Pepcid Iv) 20 mg BID IV Last administered on 12/08/16 20:44; Admin Dose 20 MG; Start 11/19/16 at 09:00 Phenol (Cepastat Lozenge) 1 lozenge Q1H PRN MT SORE THROAT Last administered on 11/21/16 08:25; Admin Dose 1 LOZENGE; Start 11/20/16 at 12:00 Amitriptyline HCl (Elavil) 25 mg QHS PO Last administered on 12/08/16 20:43; Admin Dose 25 MG; Start 11/21/16 at 21:00 Gabapentin (Neurontin) 600 mg BID PO Last administered on 12/08/16 20:43; Admin Dose 600 MG; Start 11/21/16 at 21:00 Topiramate (Topamax) 100 mg QHS PO Last administered on 12/08/16 20:43; Admin Dose 100 MG; Start 11/21/16 at 21:00 Trazodone HCl (Desyrel) 50 mg QHS PO Last administered on 12/08/16 20:43; Admin Dose 50 MG; Start 11/21/16 at 21:00 Polyethylene Glycol (Miralax) 17 gm DAILY PRN PO CONSTIPATION Last administered on 12/01/16 11:19; Admin Dose 17 GM; Start 11/27/16 at 18:30 Simethicone 80 mg 80 mg BID PRN PO DISTENSION/GAS/BLOATING Last administered on 12/01/16 20:47; Admin Dose 80 MG; Start 11/30/16 at 11:30 Piperacillin Sod/ Tazobactam Sod 100 ml @ 200 mls/hr Q6 IVPB Last administered on 12/09/16 05:41; Admin Dose 200 MLS/HR; Start 12/01/16 at 18:00 Potassium Chloride/Dextrose/ Sod Cl 1,000 ml @ 70 mls/hr [id number] IV Last administered on 12/09/16 00:38; Admin Dose 70 MLS/HR; Start 12/02/16 at 17:00 Total Parenteral Nutrition 1,000 ml @ 40 mls/hr Q24H IV Last administered on 00:37; Admin Dose 40 MLS/HR; Start 12/02/16 at 19:00 Fat Emulsion Intravenous (Liposyn Ii 20%) 250 ml @ 10.4 mls/hr Q24H IV Last administered on 12/08/16 20:44; Admin Dose 10.4 MLS/HR; Start 12/02/16 at 19:00 IV Flush (NS 10 ml) 10 ml PRN PRN IV IV PROTOCOL; Start 12/03/16 at 20:30 Acetaminophen (Tylenol Tab) 650 mg Q6H PRN PO ELEVATED TEMPERATURE Last administered on 12/04/16 22:00; Admin Dose 650 MG; Start 12/04/16 at 12:00 Hydromorphone HCl (Dilaudid) 0.5 mg Q2H PRN IV PAIN Last administered on 16:26; Admin Dose 0.5 MG; Start 12/06/16 at 12:00 Diagnostic Test (Pha) 1 ea 1 ea Q12 XX Last administered on 12/08/16 20:54; Admin Dose 1 EA; Start 12/08/16 at 21:00 Vancomycin HCl/ Sodium Chloride (Vancocin/NS) 150 ml @ 75 mls/hr Q12H IVPB Last administered on 12/09/16 06:15; Admin Dose 75 MLS/HR; Start 12/09/16 at 06: 00 Rubin RUSS Dec 09, 2016 08:55
[2016-12-09] MEDS: FAMOTIDINE 20 MG INJ IV SCH ×2 (09:01→20:30)
[2016-12-09] MEDS: GABAPENTIN 300 MG CAP PO SCH ×2 (09:01→20:30)
[2016-12-09] MEDS: ACCU-CHEK XX SCH ×2 (09:13→20:30)
--- NOTE | 2016-12-09 14:03 | CONS ---
Date/Time of Note Date/Time of Note DATE: 12/09/16 TIME: 14:01 Assessment/Plan Assessment/Plan Chief Complaint/Hosp Course SUBJECTIVE: No events overnight. The patient is awake, lying comfortably in bed, no fevers. MICROBIOLOGY: Cultures + Enterococcus/Staph INDWELLINGS: The patient had PICC line placed on December 03. ANTIMICROBIALS: Zosyn, Vanco PHYSICAL EXAMINATION: GENERAL: Well-developed, middle-aged white woman who is in no distress. HEENT: Head atraumatic, normocephalic. Sclerae anicteric. Buccal mucosa dry. NECK: Supple. CHEST: Rise symmetrical. Breath sounds diminished. HEART: S1, S2. ABDOMEN: Soft. Some tenderness on palpation. Colostomy present. EXTREMITIES: Without cyanosis. ASSESSMENT: 1. Systemic inflammatory response syndrome with low grade fevers secondary to # 2. 2. Anastomotic leak with sinus tract into the laparotomy site with tiny peritoneal abscess as per CT of the abdomen and pelvis. 3. History of right hemicolectomy on 11/18/2016. PLAN: The patient remains stable, no active infection per Dr Patricio, will dc abx per surgical rec-s DW Dr Patricio Problems: Consultation Date/Type/Reason Admit Date/Time Nov 18, 2016 at 06:52 Type of Consultation: id Exam/Review of Systems Vital Signs Vitals Vital Signs Date Time Temp Pulse Resp B/P Pulse Ox O2 Delivery O2 Flow Rate FiO2 12/09/16 07:37 98.7 87 18 99/58 97 Intake and Output 12/08/16 12/08/16 12/09/16 15:00 23:00 07:00 Intake Total 200 ml 1500 ml 2622 ml Output Total 1750 ml 1400 ml Balance 200 ml -250 ml 1222 ml Results Result Diagram: 12/07/16 0520 12/09/16 0545 Results 24 hrs Laboratory Tests Test 12/08/16 17:22 12/08/16 20:56 12/09/16 05:45 12/09/16 09:09 Bedside Glucose 104 102 96 Sodium Level 136 Potassium Level 3.7 Chloride Level 103 Carbon Dioxide Level 23 Anion Gap 14 Blood Urea Nitrogen 6 L Creatinine 0.53 Glucose Level 101 Calcium Level 8.4 Phosphorus Level 4.3 Magnesium Level 2.1 Prealbumin 8.8 L Medications Medications Current Medications Morphine Sulfate (morphine) 2 mg Q2H PRN IV PAIN LEVEL 6-10 Last administered on 12/09/16 12:01; Admin Dose 2 MG; Start 11/18/16 at 11:00 Naloxone HCl (Narcan) 0.2 mg PRN PRN IV DECREASED REPIRATORY RATE; Start at 13:00 Oxycodone/ Acetaminophen (Percocet (5/ 325)) 1 tab Q4H PRN PO PAIN LEVEL 1-5; Start 11/18/16 at 13:00; Status Future Hold Oxycodone/ Acetaminophen (Percocet (5/ 325)) 2 tab Q4H PRN PO PAIN LEVEL 6-10; Start 11/18/16 at 13:00; Status Future Hold Ondansetron HCl (Zofran Inj) 4 mg Q6H PRN IV NAUSEA AND/OR VOMITING Last administered on 11/22/16 21:21; Admin Dose 4 MG; Start 11/18/16 at 13:00 Trimethobenzamide HCl (Tigan) 200 mg Q8H PRN IM NAUSEA AND/OR VOMITING; Start 11/18/16 at 13:00 Diphenhydramine HCl (Benadryl) 25 mg Q6H PRN IV ITCHING; Start 11/18/16 at 13: 00 Hydralazine HCl (Apresoline) 10 mg Q6H PRN IV SBP >160 Last administered on 08:26; Admin Dose 10 MG; Start 11/18/16 at 15:00 Famotidine (Pepcid Iv) 20 mg BID IV Last administered on 12/09/16 09:01; Admin Dose 20 MG; Start 11/19/16 at 09:00 Phenol (Cepastat Lozenge) 1 lozenge Q1H PRN MT SORE THROAT Last administered on 11/21/16 08:25; Admin Dose 1 LOZENGE; Start 11/20/16 at 12:00 Amitriptyline HCl (Elavil) 25 mg QHS PO Last administered on 12/08/16 20:43; Admin Dose 25 MG; Start 11/21/16 at 21:00 Gabapentin (Neurontin) 600 mg BID PO Last administered on 12/09/16 09:01; Admin Dose 600 MG; Start 11/21/16 at 21:00 Topiramate (Topamax) 100 mg QHS PO Last administered on 12/08/16 20:43; Admin Dose 100 MG; Start 11/21/16 at 21:00 Trazodone HCl (Desyrel) 50 mg QHS PO Last administered on 12/08/16 20:43; Admin Dose 50 MG; Start 11/21/16 at 21:00 Polyethylene Glycol (Miralax) 17 gm DAILY PRN PO CONSTIPATION Last administered on 12/01/16 11:19; Admin Dose 17 GM; Start 11/27/16 at 18:30 Simethicone 80 mg 80 mg BID PRN PO DISTENSION/GAS/BLOATING Last administered on 12/01/16 20:47; Admin Dose 80 MG; Start 11/30/16 at 11:30 Piperacillin Sod/ Tazobactam Sod 100 ml @ 200 mls/hr Q6 IVPB Last administered on 12/09/16 12:34; Admin Dose 200 MLS/HR; Start 12/01/16 at 18:00 Potassium Chloride/Dextrose/ Sod Cl 1,000 ml @ 70 mls/hr [id number] IV Last administered on 12/09/16 00:38; Admin Dose 70 MLS/HR; Start 12/02/16 at 17:00 Total Parenteral Nutrition 1,000 ml @ 40 mls/hr Q24H IV Last administered on 00:37; Admin Dose 40 MLS/HR; Start 12/02/16 at 19:00 Fat Emulsion Intravenous (Liposyn Ii 20%) 250 ml @ 10.4 mls/hr Q24H IV Last administered on 12/08/16 20:44; Admin Dose 10.4 MLS/HR; Start 12/02/16 at 19:00 IV Flush (NS 10 ml) 10 ml PRN PRN IV IV PROTOCOL; Start 12/03/16 at 20:30 Acetaminophen (Tylenol Tab) 650 mg Q6H PRN PO ELEVATED TEMPERATURE Last administered on 12/04/16 22:00; Admin Dose 650 MG; Start 12/04/16 at 12:00 Hydromorphone HCl (Dilaudid) 0.5 mg Q2H PRN IV PAIN Last administered on 16:26; Admin Dose 0.5 MG; Start 12/06/16 at 12:00 Diagnostic Test (Pha) 1 ea 1 ea Q12 XX Last administered on 12/09/16 09:13; Admin Dose 1 EA; Start 12/08/16 at 21:00 Vancomycin HCl/ Sodium Chloride (Vancocin/NS) 150 ml @ 75 mls/hr Q12H IVPB Last administered on 12/09/16 06:15; Admin Dose 75 MLS/HR; Start 12/09/16 at 06: 00 Miscellaneous Information (*Rx Drug Level Order Reminder*) VANCOMYCIN TROUGH 12/10 AT 0500 ONCE ONCE XX ; Start 12/10/16 at 05:00; Stop 12/10/16 at 05:01 BÁRBARA SMITH NP Dec 09, 2016 14:03
[2016-12-09] MEDS: HYDROmorphONE 1 MG/ML SYG IV PRN ×3 (17:09→21:08)
[2016-12-09 19:00] VITALS: BP 95/59; RESP 18
[2016-12-09] MEDS: FAT EMULSION 20% 250 ML IV SCH ×2 (19:00→21:09)
--- NOTE | 2016-12-09 19:25 | PN ---
Date/Time of Note Date/Time of Note DATE: 12/09/16 TIME: 19:23 Assessment/Plan VTE Prophylaxis VTE Prophylaxis Intervention: other Lines/Catheters IV Catheter Type (from Nrsg): PICC Line Central line still needed: Yes Urinary Cath still in place: No Assessment/Plan Chief Complaint/Hosp Course IMPRESSION: 1. The patient has right hemicolectomy. 2. Hypokalemia.better 3. History of colonoscopy. 4. History of polypectomy. 5 HX DEPRESSION 6 POSS ABD WOUND leak,fistula plan per id PER SURGERY LABS tpn Problems: Subjective 24 Hr Interval Summary Cardiovascular: no complaints Gastrointestinal: no complaints Exam/Review of Systems Vital Signs Vitals Vital Signs Date Time Temp Pulse Resp B/P Pulse Ox O2 Delivery O2 Flow Rate FiO2 12/09/16 07:37 98.7 87 18 99/58 97 Intake and Output 12/08/16 12/08/16 12/09/16 15:00 23:00 07:00 Intake Total 200 ml 1500 ml 2622 ml Output Total 1750 ml 1400 ml Balance 200 ml -250 ml 1222 ml Exam Neck: supple Respiratory: clear to auscultation Cardiovascular: regular rate and rhythm Gastrointestinal: bowel sounds (+), soft Results Result Diagram: 12/07/16 0520 12/09/16 0545 Results 24 hrs Laboratory Tests Test 12/08/16 20:56 12/09/16 05:45 12/09/16 09:09 Bedside Glucose 102 96 Sodium Level 136 Potassium Level 3.7 Chloride Level 103 Carbon Dioxide Level 23 Anion Gap 14 Blood Urea Nitrogen 6 L Creatinine 0.53 Glucose Level 101 Calcium Level 8.4 Phosphorus Level 4.3 Magnesium Level 2.1 Prealbumin 8.8 L Medications Medications Current Medications Morphine Sulfate (morphine) 2 mg Q2H PRN IV PAIN LEVEL 6-10 Last administered on 12/09/16t 14:54; Admin Dose 2 MG; Start 11/18/16 at 11:00 Naloxone HCl (Narcan) 0.2 mg PRN PRN IV DECREASED REPIRATORY RATE; Start at 13:00 Oxycodone/ Acetaminophen (Percocet (5/ 325)) 1 tab Q4H PRN PO PAIN LEVEL 1-5; Start 11/18/16 at 13:00; Status Future Hold Oxycodone/ Acetaminophen (Percocet (5/ 325)) 2 tab Q4H PRN PO PAIN LEVEL 6-10; Start 11/18/16 at 13:00; Status Future Hold Ondansetron HCl (Zofran Inj) 4 mg Q6H PRN IV NAUSEA AND/OR VOMITING Last administered on 11/22/16 21:21; Admin Dose 4 MG; Start 11/18/16 at 13:00 Trimethobenzamide HCl (Tigan) 200 mg Q8H PRN IM NAUSEA AND/OR VOMITING; Start 11/18/16 at 13:00 Diphenhydramine HCl (Benadryl) 25 mg Q6H PRN IV ITCHING; Start 11/18/16 at 13: 00 Hydralazine HCl (Apresoline) 10 mg Q6H PRN IV SBP >160 Last administered on 08:26; Admin Dose 10 MG; Start 11/18/16 at 15:00 Famotidine (Pepcid Iv) 20 mg BID IV Last administered on 12/09/16 09:01; Admin Dose 20 MG; Start 11/19/16 at 09:00 Phenol (Cepastat Lozenge) 1 lozenge Q1H PRN MT SORE THROAT Last administered on 11/21/16 08:25; Admin Dose 1 LOZENGE; Start 11/20/16 at 12:00 Amitriptyline HCl (Elavil) 25 mg QHS PO Last administered on 12/08/16 20:43; Admin Dose 25 MG; Start 11/21/16 at 21:00 Gabapentin (Neurontin) 600 mg BID PO Last administered on 12/09/16 09:01; Admin Dose 600 MG; Start 11/21/16 at 21:00 Topiramate (Topamax) 100 mg QHS PO Last administered on 12/08/16 20:43; Admin Dose 100 MG; Start 11/21/16 at 21:00 Trazodone HCl (Desyrel) 50 mg QHS PO Last administered on 12/08/16 20:43; Admin Dose 50 MG; Start 11/21/16 at 21:00 Polyethylene Glycol (Miralax) 17 gm DAILY PRN PO CONSTIPATION Last administered on 12/01/16 11:19; Admin Dose 17 GM; Start 11/27/16 at 18:30 Simethicone 80 mg 80 mg BID PRN PO DISTENSION/GAS/BLOATING Last administered on 12/01/16 20:47; Admin Dose 80 MG; Start 11/30/16 at 11:30 Potassium Chloride/Dextrose/ Sod Cl 1,000 ml @ 70 mls/hr [id number] IV Last administered on 12/09/16 00:38; Admin Dose 70 MLS/HR; Start 12/02/16 at 17:00 Total Parenteral Nutrition 1,000 ml @ 40 mls/hr Q24H IV Last administered on 00:37; Admin Dose 40 MLS/HR; Start 12/02/16 at 19:00 Fat Emulsion Intravenous (Liposyn Ii 20%) 250 ml @ 10.4 mls/hr Q24H IV Last administered on 12/08/16 20:44; Admin Dose 10.4 MLS/HR; Start 12/02/16 at 19:00 IV Flush (NS 10 ml) 10 ml PRN PRN IV IV PROTOCOL; Start 12/03/16 at 20:30 Acetaminophen (Tylenol Tab) 650 mg Q6H PRN PO ELEVATED TEMPERATURE Last administered on 12/04/16 22:00; Admin Dose 650 MG; Start 12/04/16 at 12:00 Hydromorphone HCl (Dilaudid) 0.5 mg Q2H PRN IV PAIN Last administered on 19:11; Admin Dose 0.5 MG; Start 12/06/16 at 12:00 Diagnostic Test (Pha) (Accu-Chek) 1 ea Q12 XX Last administered on 12/09/16 09: 13; Admin Dose 1 EA; Start 12/08/16 at 21:00 MARTINEZ MELVIN MD Dec 09, 2016 19:25
[2016-12-09] MEDS: traZODone 50 MG TAB PO SCH (20:29)
[2016-12-09] MEDS: TOPIRAMATE 100 MG TAB PO SCH (20:29)
[2016-12-09] MEDS: AMITRIPTYLINE 25 MG TAB PO SCH (20:29)
[2016-12-09] MEDS: ZOLPIDEM 5 MG TAB PO PRN (21:08)
[2016-12-10] MEDS: HYDROmorphONE 1 MG/ML SYG IV PRN ×11 (00:02→23:07)
[2016-12-10 07:56] VITALS: BP 94/54; RESP 18
[2016-12-10] MEDS: FAMOTIDINE 20 MG INJ IV SCH ×2 (08:04→20:59)
[2016-12-10] MEDS: GABAPENTIN 300 MG CAP PO SCH ×2 (08:04→20:59)
[2016-12-10] MEDS: ACCU-CHEK XX SCH ×2 (08:08→20:59)
[2016-12-10] MEDS: D5W-0.45 NACL + KCL 10 MEQ 1,000 ML IV SCH (10:30)
--- NOTE | 2016-12-10 15:49 | PDOCDIS ---
Discharge Instructions CONDITION Patient Condition: Stable HOME CARE INSTRUCTIONS: Special Diet: clear liquid ACTIVITY: Activity Restrictions: Slowly Increase Activity FOLLOW UP/APPOINTMENTS Appointments f/u dr dirk morrison 10 days see pcp 1 wk MARTINEZ MELVIN MD Dec 10, 2016 15:49
[2016-12-10] MEDS ORDERED: FAMO20VI9 IV (15:53)
[2016-12-10] MEDS ORDERED: ONDA4VIA2 IV (15:53)
[2016-12-10] MEDS ORDERED: ACET325T40 PO (15:53)
[2016-12-10] MEDS ORDERED: ZOLP5TAB PO (15:53)
[2016-12-10] MEDS ORDERED: MYL80 PO (15:53)
[2016-12-10] MEDS ORDERED: Oxycodone/Acetamin (5/325) PO (15:53)
[2016-12-10] MEDS ORDERED: POLY17PO6 PO (15:53)
[2016-12-10] MEDS ORDERED: BENZ1LOZ4 MT (15:53)
--- NOTE | 2016-12-10 17:27 | PN ---
Date/Time of Note Date/Time of Note DATE: 12/10/16 TIME: 17:26 Assessment/Plan VTE Prophylaxis VTE Prophylaxis Intervention: SCD's Lines/Catheters IV Catheter Type (from Nrsg): PICC Line Central line still needed: Yes Urinary Cath still in place: No Assessment/Plan Chief Complaint/Hosp Course s/p lap right hemicolectomy Problems: Assessment/Plan SNF placement as patient doesn't have any family support Subjective 24 Hr Interval Summary Free Text/Dictation ECF with output, no active infection or undrained fluid collection Exam/Review of Systems Vital Signs Vitals Vital Signs Date Time Temp Pulse Resp B/P Pulse Ox O2 Delivery O2 Flow Rate FiO2 12/10/16 07:56 98.7 80 18 94/54 98 Intake and Output 12/09/16 12/09/16 12/10/16 15:00 23:00 07:00 Intake Total 4755.8 ml 1794 ml Output Total 1 ml Balance 4755.8 ml 1793 ml Exam ECF with active drainage Results Result Diagram: 12/07/16 0520 12/09/16 0545 Results 24 hrs Laboratory Tests Test 12/09/16 20:27 12/10/16 08:11 Bedside Glucose 103 103 Medications Medications Current Medications Naloxone HCl (Narcan) 0.2 mg PRN PRN IV DECREASED REPIRATORY RATE; Start at 13:00 Oxycodone/ Acetaminophen (Percocet (5/ 325)) 1 tab Q4H PRN PO PAIN LEVEL 1-5; Start 11/18/16 at 13:00; Status Future Hold Oxycodone/ Acetaminophen (Percocet (5/ 325)) 2 tab Q4H PRN PO PAIN LEVEL 6-10; Start 11/18/16 at 13:00; Status Future Hold Ondansetron HCl (Zofran Inj) 4 mg Q6H PRN IV NAUSEA AND/OR VOMITING Last administered on 11/22/16t 21:21; Admin Dose 4 MG; Start 11/18/16 at 13:00 Trimethobenzamide HCl (Tigan) 200 mg Q8H PRN IM NAUSEA AND/OR VOMITING; Start 11/18/16 at 13:00 Diphenhydramine HCl (Benadryl) 25 mg Q6H PRN IV ITCHING; Start 11/18/16 at 13: 00 Hydralazine HCl (Apresoline) 10 mg Q6H PRN IV SBP >160 Last administered on 08:26; Admin Dose 10 MG; Start 11/18/16 at 15:00 Famotidine (Pepcid Iv) 20 mg BID IV Last administered on 12/10/16 08:04; Admin Dose 20 MG; Start 11/19/16 at 09:00 Phenol (Cepastat Lozenge) 1 lozenge Q1H PRN MT SORE THROAT Last administered on 11/21/16 08:25; Admin Dose 1 LOZENGE; Start 11/20/16 at 12:00 Amitriptyline HCl (Elavil) 25 mg QHS PO Last administered on 12/09/16 20:29; Admin Dose 25 MG; Start 11/21/16 at 21:00 Gabapentin (Neurontin) 600 mg BID PO Last administered on 12/10/16 08:04; Admin Dose 600 MG; Start 11/21/16 at 21:00 Topiramate (Topamax) 100 mg QHS PO Last administered on 12/09/16 20:29; Admin Dose 100 MG; Start 11/21/16 at 21:00 Trazodone HCl (Desyrel) 50 mg QHS PO Last administered on 12/09/16 20:29; Admin Dose 50 MG; Start 11/21/16 at 21:00 Polyethylene Glycol (Miralax) 17 gm DAILY PRN PO CONSTIPATION Last administered on 12/01/16 11:19; Admin Dose 17 GM; Start 11/27/16 at 18:30 Simethicone 80 mg 80 mg BID PRN PO DISTENSION/GAS/BLOATING Last administered on 12/01/16 20:47; Admin Dose 80 MG; Start 11/30/16 at 11:30 Potassium Chloride/Dextrose/ Sod Cl 1,000 ml @ 70 mls/hr [id number] IV Last administered on 12/10/16 10:30; Admin Dose 70 MLS/HR; Start 12/02/16 at 17:00 Total Parenteral Nutrition 1,000 ml @ 40 mls/hr Q24H IV Last administered on 21:09; Admin Dose 40 MLS/HR; Start 12/02/16 at 19:00 Fat Emulsion Intravenous (Liposyn Ii 20%) 250 ml @ 10.4 mls/hr Q24H IV Last administered on 12/09/16 21:09; Admin Dose 10.4 MLS/HR; Start 12/02/16 at 19:00 IV Flush (NS 10 ml) 10 ml PRN PRN IV IV PROTOCOL; Start 12/03/16 at 20:30 Acetaminophen (Tylenol Tab) 650 mg Q6H PRN PO ELEVATED TEMPERATURE Last administered on 12/04/16 22:00; Admin Dose 650 MG; Start 12/04/16 at 12:00 Hydromorphone HCl (Dilaudid) 0.5 mg Q2H PRN IV PAIN Last administered on 16:44; Admin Dose 0.5 MG; Start 12/06/16 at 12:00 Diagnostic Test (Pha) (Accu-Chek) 1 ea Q12 XX Last administered on 12/09/16 20: 30; Admin Dose 1 EA; Start 12/08/16 at 21:00 Rubin RUSS Dec 10, 2016 17:27
[2016-12-10] MEDS: FAT EMULSION 20% 250 ML IV SCH (18:58)
[2016-12-10] MEDS: TPN 1,000 ML IV SCH ×2 (19:00→23:07)
[2016-12-10 20:44] VITALS: BP 95/65; RESP 19
[2016-12-10] MEDS: ZOLPIDEM 5 MG TAB PO PRN (20:58)
[2016-12-10] MEDS: AMITRIPTYLINE 25 MG TAB PO SCH (20:59)
[2016-12-10] MEDS: traZODone 50 MG TAB PO SCH (20:59)
[2016-12-10] MEDS: TOPIRAMATE 100 MG TAB PO SCH (20:59)
--- NOTE | 2016-12-10 21:23 | PN ---
Date/Time of Note Date/Time of Note DATE: 12/10/16 TIME: 21:22 Assessment/Plan VTE Prophylaxis VTE Prophylaxis Intervention: other Lines/Catheters IV Catheter Type (from Nrsg): PICC Line Central line still needed: Yes Urinary Cath still in place: No Assessment/Plan Chief Complaint/Hosp Course IMPRESSION: 1. The patient has right hemicolectomy. 2. Hypokalemia.better 3. History of colonoscopy. 4. History of polypectomy. 5 HX DEPRESSION 6 POSS ABD WOUND leak,fistula plan per id [facility] tpn Problems: Subjective 24 Hr Interval Summary Subjective hx not possible: other (PER [facility]) Exam/Review of Systems Vital Signs Vitals Vital Signs Date Time Temp Pulse Resp B/P Pulse Ox O2 Delivery O2 Flow Rate FiO2 12/10/16 20:44 99.3 86 19 95/65 95 Intake and Output 12/09/16 12/09/16 12/10/16 15:00 23:00 07:00 Intake Total 4755.8 ml 1794 ml Output Total 1 ml Balance 4755.8 ml 1793 ml Exam Respiratory: clear to auscultation Cardiovascular: regular rate and rhythm Gastrointestinal: other (NO CHANGE), soft Musculoskeletal: nl extremities to inspection Extremities: normal pulses Results Result Diagram: 12/07/16 0520 12/09/16 0545 Results 24 hrs Laboratory Tests Test 12/10/16 08:11 12/10/16 21:11 Bedside Glucose 103 107 Medications Medications Current Medications Naloxone HCl (Narcan) 0.2 mg PRN PRN IV DECREASED REPIRATORY RATE; Start at 13:00 Oxycodone/ Acetaminophen (Percocet (5/ 325)) 1 tab Q4H PRN PO PAIN LEVEL 1-5; Start 11/18/16 at 13:00; Status Future Hold Oxycodone/ Acetaminophen (Percocet (5/ 325)) 2 tab Q4H PRN PO PAIN LEVEL 6-10; Start 11/18/16 at 13:00; Status Future Hold Ondansetron HCl (Zofran Inj) 4 mg Q6H PRN IV NAUSEA AND/OR VOMITING Last administered on 11/22/16t 21:21; Admin Dose 4 MG; Start 11/18/16 at 13:00 Trimethobenzamide HCl (Tigan) 200 mg Q8H PRN IM NAUSEA AND/OR VOMITING; Start 11/18/16 at 13:00 Diphenhydramine HCl (Benadryl) 25 mg Q6H PRN IV ITCHING; Start 11/18/16 at 13: 00 Hydralazine HCl (Apresoline) 10 mg Q6H PRN IV SBP >160 Last administered on 08:26; Admin Dose 10 MG; Start 11/18/16 at 15:00 Famotidine (Pepcid Iv) 20 mg BID IV Last administered on 12/10/16 20:59; Admin Dose 20 MG; Start 11/19/16 at 09:00 Phenol (Cepastat Lozenge) 1 lozenge Q1H PRN MT SORE THROAT Last administered on 11/21/16 08:25; Admin Dose 1 LOZENGE; Start 11/20/16 at 12:00 Amitriptyline HCl (Elavil) 25 mg QHS PO Last administered on 12/10/16 20:59; Admin Dose 25 MG; Start 11/21/16 at 21:00 Gabapentin (Neurontin) 600 mg BID PO Last administered on 12/10/16 20:59; Admin Dose 600 MG; Start 11/21/16 at 21:00 Topiramate (Topamax) 100 mg QHS PO Last administered on 12/10/16 20:59; Admin Dose 100 MG; Start 11/21/16 at 21:00 Trazodone HCl (Desyrel) 50 mg QHS PO Last administered on 12/10/16 20:59; Admin Dose 50 MG; Start 11/21/16 at 21:00 Polyethylene Glycol (Miralax) 17 gm DAILY PRN PO CONSTIPATION Last administered on 12/01/16 11:19; Admin Dose 17 GM; Start 11/27/16 at 18:30 Simethicone 80 mg 80 mg BID PRN PO DISTENSION/GAS/BLOATING Last administered on 12/01/16 20:47; Admin Dose 80 MG; Start 11/30/16 at 11:30 Potassium Chloride/Dextrose/ Sod Cl 1,000 ml @ 70 mls/hr [id number] IV Last administered on 12/10/16 10:30; Admin Dose 70 MLS/HR; Start 12/02/16 at 17:00 Total Parenteral Nutrition 1,000 ml @ 40 mls/hr Q24H IV Last administered on 21:09; Admin Dose 40 MLS/HR; Start 12/02/16 at 19:00 Fat Emulsion Intravenous (Liposyn Ii 20%) 250 ml @ 10.4 mls/hr Q24H IV Last administered on 12/10/16 18:58; Admin Dose 10.4 MLS/HR; Start 12/02/16 at 19:00 IV Flush (NS 10 ml) 10 ml PRN PRN IV IV PROTOCOL; Start 12/03/16 at 20:30 Acetaminophen (Tylenol Tab) 650 mg Q6H PRN PO ELEVATED TEMPERATURE Last administered on 12/04/16 22:00; Admin Dose 650 MG; Start 12/04/16 at 12:00 Hydromorphone HCl (Dilaudid) 0.5 mg Q2H PRN IV PAIN Last administered on 20:59; Admin Dose 0.5 MG; Start 12/06/16 at 12:00 Diagnostic Test (Pha) (Accu-Chek) 1 ea Q12 XX Last administered on 12/10/16 20: 59; Admin Dose 1 EA; Start 12/08/16 at 21:00 MARTINEZ MELVIN MD Dec 10, 2016 21:23
[2016-12-11] MEDS: D5W-0.45 NACL + KCL 10 MEQ 1,000 ML IV SCH ×2 (01:02→15:43)
[2016-12-11] MEDS: HYDROmorphONE 1 MG/ML SYG IV PRN ×11 (01:02→22:36)
[2016-12-11 06:06] LABS: POTASSIUM 3.9 mmol/L (3.5-5.1)
[2016-12-11 06:09] LABS: CREATININE 0.49 mg/dl (0.44-1.00)
[2016-12-11 06:10] LABS: CALCIUM 8.4 mg/dl (8.4-10.2); MAGNESIUM 1.9 mg/dl (1.7-2.5); PHOSPHORUS 4.8 mg/dl (2.5-4.9)
[2016-12-11 07:29] VITALS: BP 83/57; RESP 16
[2016-12-11] MEDS: FAMOTIDINE 20 MG INJ IV SCH ×2 (08:23→20:31)
[2016-12-11] MEDS: GABAPENTIN 300 MG CAP PO SCH ×2 (08:23→20:33)
[2016-12-11] MEDS: ACCU-CHEK XX SCH ×2 (09:00→20:34)
--- NOTE | 2016-12-11 13:58 | PN ---
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 Exam/Review of Systems Vital Signs Vitals Vital Signs Date Time Temp Pulse Resp B/P Pulse Ox O2 Delivery O2 Flow Rate FiO2 12/11/16 07:29 98.9 79 16 83/57 95 Intake and Output 12/10/16 12/10/16 12/11/16 14:59 22:59 06:59 Intake Total 300 ml 1607 ml 1614 ml Output Total 300 ml Balance 300 ml 1307 ml 1614 ml Exam ecf fistula with more liquid output Results Result Diagram: 12/07/16 0520 12/11/16 0508 Results 24 hrs Laboratory Tests Test 12/10/16 21:11 12/11/16 05:08 12/11/16 09:04 Bedside Glucose 107 101 Sodium Level 133 L Potassium Level 3.9 Chloride Level 104 Carbon Dioxide Level 24 Anion Gap 9 # Blood Urea Nitrogen 6 L Creatinine 0.49 Glucose Level 106 Calcium Level 8.4 Phosphorus Level 4.8 Magnesium Level 1.9 Medications Medications Current Medications Naloxone HCl (Narcan) 0.2 mg PRN PRN IV DECREASED REPIRATORY RATE; Start at 13:00 Oxycodone/ Acetaminophen (Percocet (5/ 325)) 1 tab Q4H PRN PO PAIN LEVEL 1-5; Start 11/18/16 at 13:00; Status Future Hold Oxycodone/ Acetaminophen (Percocet (5/ 325)) 2 tab Q4H PRN PO PAIN LEVEL 6-10; Start 11/18/16 at 13:00; Status Future Hold Ondansetron HCl (Zofran Inj) 4 mg Q6H PRN IV NAUSEA AND/OR VOMITING Last administered on 11/22/16t 21:21; Admin Dose 4 MG; Start 11/18/16 at 13:00 Trimethobenzamide HCl (Tigan) 200 mg Q8H PRN IM NAUSEA AND/OR VOMITING; Start 11/18/16 at 13:00 Diphenhydramine HCl (Benadryl) 25 mg Q6H PRN IV ITCHING; Start 11/18/16 at 13: 00 Hydralazine HCl (Apresoline) 10 mg Q6H PRN IV SBP >160 Last administered on 08:26; Admin Dose 10 MG; Start 11/18/16 at 15:00 Famotidine (Pepcid Iv) 20 mg BID IV Last administered on 12/11/16 08:23; Admin Dose 20 MG; Start 11/19/16 at 09:00 Phenol (Cepastat Lozenge) 1 lozenge Q1H PRN MT SORE THROAT Last administered on 11/21/16 08:25; Admin Dose 1 LOZENGE; Start 11/20/16 at 12:00 Amitriptyline HCl (Elavil) 25 mg QHS PO Last administered on 12/10/16 20:59; Admin Dose 25 MG; Start 11/21/16 at 21:00 Gabapentin (Neurontin) 600 mg BID PO Last administered on 12/11/16 08:23; Admin Dose 600 MG; Start 11/21/16 at 21:00 Topiramate (Topamax) 100 mg QHS PO Last administered on 12/10/16 20:59; Admin Dose 100 MG; Start 11/21/16 at 21:00 Trazodone HCl (Desyrel) 50 mg QHS PO Last administered on 12/10/16 20:59; Admin Dose 50 MG; Start 11/21/16 at 21:00 Polyethylene Glycol (Miralax) 17 gm DAILY PRN PO CONSTIPATION Last administered on 12/01/16 11:19; Admin Dose 17 GM; Start 11/27/16 at 18:30 Simethicone 80 mg 80 mg BID PRN PO DISTENSION/GAS/BLOATING Last administered on 12/01/16 20:47; Admin Dose 80 MG; Start 11/30/16 at 11:30 Potassium Chloride/Dextrose/ Sod Cl 1,000 ml @ 70 mls/hr [id number] IV Last administered on 12/11/16 01:02; Admin Dose 70 MLS/HR; Start 12/02/16 at 17:00 Total Parenteral Nutrition 1,000 ml @ 40 mls/hr Q24H IV Last administered on 23:07; Admin Dose 40 MLS/HR; Start 12/02/16 at 19:00 Fat Emulsion Intravenous (Liposyn Ii 20%) 250 ml @ 10.4 mls/hr Q24H IV Last administered on 12/10/16 18:58; Admin Dose 10.4 MLS/HR; Start 12/02/16 at 19:00 IV Flush (NS 10 ml) 10 ml PRN PRN IV IV PROTOCOL; Start 12/03/16 at 20:30 Acetaminophen (Tylenol Tab) 650 mg Q6H PRN PO ELEVATED TEMPERATURE Last administered on 12/04/16 22:00; Admin Dose 650 MG; Start 12/04/16 at 12:00 Hydromorphone HCl (Dilaudid) 0.5 mg Q2H PRN IV PAIN Last administered on 12:11; Admin Dose 0.5 MG; Start 12/06/16 at 12:00 Diagnostic Test (Pha) (Accu-Chek) 1 ea Q12 XX Last administered on 12/10/16 20: 59; Admin Dose 1 EA; Start 12/08/16 at 21:00 Rubin RUSS Dec 11, 2016 13:58
[2016-12-11 19:00] VITALS: BP 101/60; RESP 18
[2016-12-11] MEDS: FAT EMULSION 20% 250 ML IV SCH (19:00)
[2016-12-11] MEDS: TPN 1,000 ML IV SCH (19:00)
--- NOTE | 2016-12-11 20:18 | PN ---
Date/Time of Note Date/Time of Note DATE: 12/11/16 TIME: 20:17 Assessment/Plan VTE Prophylaxis VTE Prophylaxis Intervention: other Lines/Catheters IV Catheter Type (from Nrsg): PICC Line Central line still needed: Yes Urinary Cath still in place: No Reason Cath still needed: other (indicate) Assessment/Plan Chief Complaint/Hosp Course IMPRESSION: 1. The patient has right hemicolectomy. 2. Hypokalemia.better 3. History of colonoscopy. 4. History of polypectomy. 5 HX DEPRESSION 6 POSS ABD WOUND leak,fistula plan per id [facility] tpn Problems: Subjective 24 Hr Interval Summary Gastrointestinal: no complaints, passing stool, No nausea, No vomiting Genitourinary: no complaints Exam/Review of Systems Vital Signs Vitals Vital Signs Date Time Temp Pulse Resp B/P Pulse Ox O2 Delivery O2 Flow Rate FiO2 12/11/16 07:29 98.9 79 16 83/57 95 Intake and Output 12/10/16 12/10/16 12/11/16 15:00 23:00 07:00 Intake Total 300 ml 1767 ml 1454 ml Output Total 300 ml Balance 300 ml 1467 ml 1454 ml Exam Cardiovascular: regular rate and rhythm Gastrointestinal: bowel sounds (+), soft Extremities: normal pulses Results Result Diagram: 12/07/16 0520 12/11/16 0508 Results 24 hrs Laboratory Tests Test 12/10/16 21:11 12/11/16 05:08 12/11/16 09:04 Bedside Glucose 107 101 Sodium Level 133 L Potassium Level 3.9 Chloride Level 104 Carbon Dioxide Level 24 Anion Gap 9 # Blood Urea Nitrogen 6 L Creatinine 0.49 Glucose Level 106 Calcium Level 8.4 Phosphorus Level 4.8 Magnesium Level 1.9 Medications Medications Current Medications Naloxone HCl (Narcan) 0.2 mg PRN PRN IV DECREASED REPIRATORY RATE; Start at 13:00 Oxycodone/ Acetaminophen (Percocet (5/ 325)) 1 tab Q4H PRN PO PAIN LEVEL 1-5; Start 11/18/16 at 13:00; Status Future Hold Oxycodone/ Acetaminophen (Percocet (5/ 325)) 2 tab Q4H PRN PO PAIN LEVEL 6-10; Start 11/18/16 at 13:00; Status Future Hold Ondansetron HCl (Zofran Inj) 4 mg Q6H PRN IV NAUSEA AND/OR VOMITING Last administered on 11/22/16 21:21; Admin Dose 4 MG; Start 11/18/16 at 13:00 Trimethobenzamide HCl (Tigan) 200 mg Q8H PRN IM NAUSEA AND/OR VOMITING; Start 11/18/16 at 13:00 Diphenhydramine HCl (Benadryl) 25 mg Q6H PRN IV ITCHING; Start 11/18/16 at 13: 00 Hydralazine HCl (Apresoline) 10 mg Q6H PRN IV SBP >160 Last administered on 08:26; Admin Dose 10 MG; Start 11/18/16 at 15:00 Famotidine (Pepcid Iv) 20 mg BID IV Last administered on 12/11/16 08:23; Admin Dose 20 MG; Start 11/19/16 at 09:00 Phenol (Cepastat Lozenge) 1 lozenge Q1H PRN MT SORE THROAT Last administered on 11/21/16 08:25; Admin Dose 1 LOZENGE; Start 11/20/16 at 12:00 Amitriptyline HCl (Elavil) 25 mg QHS PO Last administered on 12/10/16 20:59; Admin Dose 25 MG; Start 11/21/16 at 21:00 Gabapentin (Neurontin) 600 mg BID PO Last administered on 12/11/16 08:23; Admin Dose 600 MG; Start 11/21/16 at 21:00 Topiramate (Topamax) 100 mg QHS PO Last administered on 12/10/16 20:59; Admin Dose 100 MG; Start 11/21/16 at 21:00 Trazodone HCl (Desyrel) 50 mg QHS PO Last administered on 12/10/16 20:59; Admin Dose 50 MG; Start 11/21/16 at 21:00 Polyethylene Glycol (Miralax) 17 gm DAILY PRN PO CONSTIPATION Last administered on 12/01/16 11:19; Admin Dose 17 GM; Start 11/27/16 at 18:30 Simethicone 80 mg 80 mg BID PRN PO DISTENSION/GAS/BLOATING Last administered on 12/01/16 20:47; Admin Dose 80 MG; Start 11/30/16 at 11:30 Potassium Chloride/Dextrose/ Sod Cl 1,000 ml @ 70 mls/hr [id number] IV Last administered on 12/11/16 15:43; Admin Dose 70 MLS/HR; Start 12/02/16 at 17:00 Total Parenteral Nutrition 1,000 ml @ 40 mls/hr Q24H IV Last administered on 23:07; Admin Dose 40 MLS/HR; Start 12/02/16 at 19:00 Fat Emulsion Intravenous (Liposyn Ii 20%) 250 ml @ 10.4 mls/hr Q24H IV Last administered on 12/11/16 19:00; Admin Dose 10.4 MLS/HR; Start 12/02/16 at 19:00 IV Flush (NS 10 ml) 10 ml PRN PRN IV IV PROTOCOL; Start 12/03/16 at 20:30 Acetaminophen (Tylenol Tab) 650 mg Q6H PRN PO ELEVATED TEMPERATURE Last administered on 12/04/16 22:00; Admin Dose 650 MG; Start 12/04/16 at 12:00 Hydromorphone HCl (Dilaudid) 0.5 mg Q2H PRN IV PAIN Last administered on 18:23; Admin Dose 0.5 MG; Start 12/06/16 at 12:00 Diagnostic Test (Pha) (Accu-Chek) 1 ea Q12 XX Last administered on 12/10/16 20: 59; Admin Dose 1 EA; Start 12/08/16 at 21:00 MARTINEZ MELVIN MD Dec 11, 2016 20:18
[2016-12-11] MEDS: TOPIRAMATE 100 MG TAB PO SCH (20:33)
[2016-12-11] MEDS: traZODone 50 MG TAB PO SCH (20:33)
[2016-12-11] MEDS: AMITRIPTYLINE 25 MG TAB PO SCH (20:33)
[2016-12-11] MEDS: ZOLPIDEM 5 MG TAB PO PRN (21:04)
[2016-12-12] MEDS: HYDROmorphONE 1 MG/ML SYG IV PRN ×8 (00:28→16:34)
[2016-12-12] MEDS: TPN 1,000 ML IV SCH (00:28)
[2016-12-12] MEDS: D5W-0.45 NACL + KCL 10 MEQ 1,000 ML IV SCH (05:26)
[2016-12-12 06:54] LABS: POTASSIUM 3.9 mmol/L (3.5-5.1)
[2016-12-12 06:56] LABS: CREATININE 0.53 mg/dl (0.44-1.00)
[2016-12-12 06:57] LABS: CALCIUM 8.4 mg/dl (8.4-10.2); MAGNESIUM 1.8 mg/dl (1.7-2.5); PHOSPHORUS 4.4 mg/dl (2.5-4.9)
[2016-12-12 07:28] VITALS: BP 101/56; RESP 16
[2016-12-12] MEDS: FAMOTIDINE 20 MG INJ IV SCH (08:14)
[2016-12-12] MEDS: GABAPENTIN 300 MG CAP PO SCH (08:16)
[2016-12-12] MEDS: ACCU-CHEK XX SCH (08:25)
--- NOTE | 2016-12-12 08:57 | PN ---
Date/Time of Note Date/Time of Note DATE: 12/12/16 TIME: 08:55 Assessment/Plan VTE Prophylaxis VTE Prophylaxis Intervention: SCD's Lines/Catheters IV Catheter Type (from Nrsg): PICC Line Central line still needed: Yes Urinary Cath still in place: No Assessment/Plan Chief Complaint/Hosp Course s/p lap right hemicolectomy Problems: Assessment/Plan ECF draining clears keep TPN u/s of kidney as patient feels she has flank mild increase in pain meds Subjective 24 Hr Interval Summary Free Text/Dictation patient have some additional flank pain Exam/Review of Systems Vital Signs Vitals Vital Signs Date Time Temp Pulse Resp B/P Pulse Ox O2 Delivery O2 Flow Rate FiO2 12/12/16 07:28 99.0 89 16 101/56 95 Intake and Output 12/11/16 12/11/16 12/12/16 15:00 23:00 07:00 Intake Total 1106 ml 2804 ml Output Total 1100 ml 1000 ml Balance 6 ml 1804 ml Exam draining ECF Results Result Diagram: 12/12/16 0532 Results 24 hrs Laboratory Tests Test 12/11/16 09:04 12/11/16 20:35 12/12/16 05:32 12/12/16 08:25 Bedside Glucose 101 95 96 Sodium Level 133 L Potassium Level 3.9 Chloride Level 101 Carbon Dioxide Level 21 Anion Gap 15 Blood Urea Nitrogen 7 Creatinine 0.53 Glucose Level 97 Calcium Level 8.4 Phosphorus Level 4.4 Magnesium Level 1.8 Medications Medications Current Medications Naloxone HCl (Narcan) 0.2 mg PRN PRN IV DECREASED REPIRATORY RATE; Start at 13:00 Oxycodone/ Acetaminophen (Percocet (5/ 325)) 1 tab Q4H PRN PO PAIN LEVEL 1-5; Start 11/18/16 at 13:00; Status Future Hold Oxycodone/ Acetaminophen (Percocet (5/ 325)) 2 tab Q4H PRN PO PAIN LEVEL 6-10; Start 11/18/16 at 13:00; Status Future Hold Ondansetron HCl (Zofran Inj) 4 mg Q6H PRN IV NAUSEA AND/OR VOMITING Last administered on 11/22/16t 21:21; Admin Dose 4 MG; Start 11/18/16 at 13:00 Trimethobenzamide HCl (Tigan) 200 mg Q8H PRN IM NAUSEA AND/OR VOMITING; Start 11/18/16 at 13:00 Diphenhydramine HCl (Benadryl) 25 mg Q6H PRN IV ITCHING; Start 11/18/16 at 13: 00 Hydralazine HCl (Apresoline) 10 mg Q6H PRN IV SBP >160 Last administered on 08:26; Admin Dose 10 MG; Start 11/18/16 at 15:00 Famotidine (Pepcid Iv) 20 mg BID IV Last administered on 12/12/16 08:14; Admin Dose 20 MG; Start 11/19/16 at 09:00 Phenol (Cepastat Lozenge) 1 lozenge Q1H PRN MT SORE THROAT Last administered on 11/21/16 08:25; Admin Dose 1 LOZENGE; Start 11/20/16 at 12:00 Amitriptyline HCl (Elavil) 25 mg QHS PO Last administered on 12/11/16 20:33; Admin Dose 25 MG; Start 11/21/16 at 21:00 Gabapentin (Neurontin) 600 mg BID PO Last administered on 12/12/16 08:16; Admin Dose 600 MG; Start 11/21/16 at 21:00 Topiramate (Topamax) 100 mg QHS PO Last administered on 12/11/16 20:33; Admin Dose 100 MG; Start 11/21/16 at 21:00 Trazodone HCl (Desyrel) 50 mg QHS PO Last administered on 12/11/16 20:33; Admin Dose 50 MG; Start 11/21/16 at 21:00 Polyethylene Glycol (Miralax) 17 gm DAILY PRN PO CONSTIPATION Last administered on 12/01/16 11:19; Admin Dose 17 GM; Start 11/27/16 at 18:30 Simethicone 80 mg 80 mg BID PRN PO DISTENSION/GAS/BLOATING Last administered on 12/01/16 20:47; Admin Dose 80 MG; Start 11/30/16 at 11:30 Potassium Chloride/Dextrose/ Sod Cl 1,000 ml @ 70 mls/hr [id number] IV Last administered on 12/12/16 05:26; Admin Dose 70 MLS/HR; Start 12/02/16 at 17:00 Total Parenteral Nutrition 1,000 ml @ 40 mls/hr Q24H IV Last administered on 00:28; Admin Dose 40 MLS/HR; Start 12/02/16 at 19:00 Fat Emulsion Intravenous (Liposyn Ii 20%) 250 ml @ 10.4 mls/hr Q24H IV Last administered on 12/11/16 19:00; Admin Dose 10.4 MLS/HR; Start 12/02/16 at 19:00 IV Flush (NS 10 ml) 10 ml PRN PRN IV IV PROTOCOL Last administered on 12/12/16 06:15; Admin Dose 10 ML; Start 12/03/16 at 20:30 Acetaminophen (Tylenol Tab) 650 mg Q6H PRN PO ELEVATED TEMPERATURE Last administered on 12/04/16 22:00; Admin Dose 650 MG; Start 12/04/16 at 12:00 Hydromorphone HCl (Dilaudid) 0.5 mg Q2H PRN IV PAIN Last administered on 08:11; Admin Dose 0.5 MG; Start 12/06/16 at 12:00 Diagnostic Test (Pha) (Accu-Chek) 1 ea Q12 XX Last administered on 12/12/16 08: 25; Admin Dose 1 EA; Start 12/08/16 at 21:00 Rubin RUSS Dec 12, 2016 08:57
--- NOTE | 2016-12-12 13:09 | RADRPT ---
PROCEDURE: Renal US. CLINICAL INDICATION: Flank pain. TECHNIQUE: Multiple sonographic images of the kidneys and urinary bladder were obtained. The imag es were reviewed on a PACS workstation. COMPARISON: CT scan of the abdomen and pelvis dated 11/22/2016. FINDINGS: The right kidney measures 10.6 x 5.4 x 4.4 cm. The left kidney measures 12.2 x 5.6 x 4.0 cm. There is no renal mass. There is no hydronephrosis. There is a 0.6 cm nonobstructing calculus in the mid right kidney. There is no other renal calculus . Renal parenchymal thickness and echogenicity is normal bilaterally. The perirenal regions are normal with no fluid collection or mass. The urinary bladder is unremarkable. IMPRESSION: 1. Nonobstructing 0.6 cm calculus in the mid right kidney. 2. No hydronephrosis. 3. Otherwise normal renal ultrasound. RPTAT: QQ .Andrew Ramos MD, MD Date Time Electronically viewed and signed by .Andrew Ramos MD, on 12/12/2016 13:09 .R/
== END 2016-12-12 17:25 | DRG 329 ==
LOC: REC 06:52 → MS2 14:12
PROVIDERS: ADMIT Internal Medicine; ATTEND Surgery
PROC: 0WJP4ZZ Inspection of Gastrointestinal Tract, Percutaneous Endoscopic Approach (ICD-10-PCS; 2016-11-18)
PROC: 0DTF0ZZ Resection of Right Large Intestine, Open Approach (ICD-10-PCS; principal; 2016-11-18 08:30)
PROC: 02HV33Z Insertion of Infusion Device into Superior Vena Cava, Percutaneous Approach (ICD-10-PCS; 2016-12-03)
DX: K56.69 Other intestinal obstruction (principal); K65.1 Peritoneal abscess; K91.3 Postprocedural intestinal obstruction; T81.4XXA Infection following a procedure, initial encounter; K63.2 Fistula of intestine; K59.09 Other constipation; E87.6 Hypokalemia; Z86.010 Personal history of colon polyps; R14.0 Abdominal distension (gaseous); R10.31 Right lower quadrant pain; R50.82 Postprocedural fever
CPT/HCPCS: 36569; 71010; 71020; 74000; 74177; 74178; 76775; 76937; 80048; 80053; 82947; 82962; 83735; 84100; 84134; 84478; 85025; 87040; 87070; 87086; 88307; 90686; 97110; 97116; 97161; 97530; J0131; J0295; J0360; J0690; J0744; J1100; J1170; J1200; J1885; J2250; J2270; J2405; J2543; J2710; J3010; J3250; J3370; J3480; J7120; Q9967

== ENCOUNTER 2016-12-29 16:53 | Emergency (ER) | payer BC ==
[~2016-12-29] VITALS: Ht 170.2 cm; Wt 70.0 kg
[~2016-12-29 16:53] MED LIST changes: +ACET325T40 PO; -ACYC800T PO; +AMIT25TA9 PO; +ASPI81TA3 PO; +BENZ1LOZ4 MT; -CIPR500T4 PO; +FAMO20VI9 IV; +GABA-526 PO; -GABA300C16 PO; +HYDR-3011 PO; +MYL80 PO; +ONDA4VIA2 IV; +Oxycodone/Acetamin (5/325) PO; +PANT40TA4 PO; +POLY17PO6 PO; +SUCR1TAB56 PO; +TOPI-25 PO; +TRAZ50TA18 PO; +ZOLP10TA5 PO; +ZOLP5TAB PO; -ZOLP5TAB6 PO
[2016-12-29 17:00] VITALS: Ht 170.2 cm; Wt 70.0 kg
[2016-12-29] MEDS ORDERED: ONDANSETRON 4 MG INJ IV STA (18:07)
[2016-12-29] MEDS ORDERED: HYDROmorphONE 1 MG/ML SYG IV STA (18:07)
--- NOTE | 2016-12-29 18:23 | ERD ---
ER Documentation Chief Complaint Date/Time DATE: 12/29/16 TIME: 18:22 Chief Complaint SENT FROM [facility] FOR EVAL OF BOIL TO REAR END. HPI The patient was sent from assisted living facility for evaluation of potential boil to the patient's buttock. The patient thinks that this is a pressure sore. The patient does have a history of complicated surgery with enterocutaneous fistula scheduled for surgery on Friday. She denies any fevers or chills, no dysuria ROS All systems reviewed and are negative except as per history of present illness. Medications Home Meds Active Scripts Simethicone* (Mylicon*) 80 Mg Tab, 80 MG PO BID Y for DISTENSION/GAS/BLOATING for 28 Days, TAB Prov:ALEXY GRACE MD 12/10/16 Ondansetron Hcl* (Ondansetron Hcl* Inj) 4 Mg/2 Ml Vial, 4 MG IV Q6H Y for NAUSEA AND/OR VOMITING for 28 Days, VIAL Prov:ALEXY GRACE MD 12/10/16 Polyethylene Glycol* (Miralax*) 17 Gm Powd.pack, 17 GM PO DAILY Y for CONSTIPATION for 14 Days Prov:ALEXY GRACE MD 12/10/16 Famotidine* (Pepcid*) 20 Mg/2 Ml Vial, 20 MG IV BID for 28 Days, VIAL Prov:ALEXY GRACE MD 12/10/16 Benzocaine/Menthol (SORE THROAT LOZENGE) 1 Each Lozenge, 1 LOZENGE MT Q1H Y for SORE THROAT for 7 Days, LOZENGE Prov:ALEXY GRACE MD 12/10/16 Zolpidem Tartrate (Ambien Eloy) 5 Mg Tablet, 5 MG PO HS MAY REPEAT X 1 Y for INSOMNIA for 28 Days, TAB Prov:ALEXY GRACE MD 12/10/16 [Oxycodone/Acetamin (5/325)] 1 TAB TAB No Conflict Check, 1 TAB PO Q4H Y for PAIN LEVEL 1-5 for 14 Days Prov:ALEXY GRACE MD 12/10/16 Acetaminophen (MAPAP) 325 Mg Tablet, 650 MG PO Q6H Y for ELEVATED TEMPERATURE for 14 Days, TAB Prov:ALEXY GRACE MD 12/10/16 Reported Medications Hydroxyzine Hcl* (Hydroxyzine Hcl*) 25 Mg Tablet, 25 MG PO QHS, #30 TAB 11/18/16 Trazodone Hcl* (Trazodone Hcl*) 50 Mg Tablet, 50 MG PO QHS, #30 TAB 11/18/16 Amitriptyline Hcl* (Amitriptyline Hcl*) 25 Mg Tablet, 25 MG PO QHS, #30 TAB 11/18/16 Zolpidem Tartrate* (Zolpidem Tartrate*) 10 Mg Tablet, 10 MG PO QHS Y for INSOMNIA, #30 TAB 11/18/16 Topiramate* (Topiramate*) 100 Mg Tablet, 100 MG PO QHS, TAB 11/18/16 Gabapentin* (Gabapentin*) 600 Mg Tablet, 600 MG PO BID, #60 TAB 11/18/16 Pantoprazole* (Pantoprazole*) 40 Mg Tablet.dr, 40 MG PO DAILY, TAB 11/18/16 Aspirin* (Aspirin* Chew) 81 Mg Tab.chew, 81 MG PO DAILY, TAB.CHEW 11/18/16 Sucralfate* (Carafate*) 1 Gm Tab, 1 GM PO BID, TAB 11/18/16 Allergies Allergies: Coded Allergies: succinylcholine (Unverified Allergy, Unknown, 12/29/16) PMhx/Soc History of Surgery: Yes (POLYPECTOMY) Anesthesia Reaction: No Hx Neurological Disorder: No Hx Respiratory Disorders: Yes (SEASONAL ALLERGIES) Hx Cardiac Disorders: No Hx Psychiatric Problems: Yes (DEPRESSION/ANXIETY) Hx Miscellaneous Medical Probl: Yes (DIVERTICULOSIS,ANXIETY,INSOMNIA,DEPRESSION ,NEUROPATHYANEMIA) Hx Alcohol Use: Yes (OCCASIONAL) Hx Substance Use: No Hx Tobacco Use: Yes Smoking Status: Current every day smoker FmHx Family History: No diabetes Physical Exam Vitals Vital Signs Date Time Temp Pulse Resp B/P Pulse Ox O2 Delivery O2 Flow Rate FiO2 12/29/16 17:00 98.3 72 16 115/70 99 Physical Exam General: Well developed, well nourished, no acute distress Head: Normocephalic, atraumatic. Eyes: EOM intact ENT: Moist mucous membranes Neck: Full ROM Respiratory: No respiratory distress Cardiovascular: Good capillary refil Abdominal: Nondistended : Deferred MSK: No edema, no unilateral swelling, 5/5 strength Neurologic: Alert and oriented, moving all extremities, normal speech, steady gait Skin: Stage I decubitus ulcer to the sacrum and coccyx, no drainage or discharge , no fluctuance, mild erythema, no warmth or tenderness. Psych: Normal mood Results 24 hrs Current Medications Medications (Trade) Dose Ordered Sig/Juan A Route PRN Reason Start Time Stop Time Status Last Admin Dose Admin Hydromorphone HCl (Dilaudid) 0.5 mg ONCE STAT IV 12/29/16 18:07 12/29/16 18:08 DC Ondansetron HCl (Zofran Inj) 4 mg ONCE STAT IV 12/29/16 18:07 12/29/16 18:08 DC Procedures/MDM The patient's clinical exam is very consistent with a stage I decubitus ulcer. No evidence of abscess, no evidence of pilonidal abscess or cyst. The patient has no evidence of cellulitis. Wound care was provided in the emergency department. The patient has chronic pain and was given pain medication. I spoke to the patient's referring provider Dr. Alexy Grace. I do not believe the patient requires inpatient hospitalization, appropriate decubitus ulcer care at [facility] facility is appropriate. Patient will be returned to [facility] facility. Departure Diagnosis: Primary Impression: Sacral decubitus ulcer Pressure ulcer stage: stage 1 Qualified Code: L89.151 - Decubitus ulcer of sacral region, stage 1 Condition: Stable Patient Instructions: Decubitus Ulcer Referrals: [facility] YOU HAVE RECEIVED A MEDICAL SCREENING EXAM AND THE RESULTS INDICATE THAT YOU DO NOT HAVE A CONDITION THAT REQUIRES URGENT TREATMENT IN THE EMERGENCY DEPARTMENT. FURTHER EVALUATION AND TREATMENT OF YOUR CONDITION CAN WAIT UNTIL YOU ARE SEEN IN YOUR DOCTORS OFFICE WITHIN THE NEXT 1-2 DAYS. IT IS YOUR RESPONSIBILITY TO MAKE AN APPOINTMENT FOR FOLOW-UP CARE. IF YOU HAVE A PRIMARY DOCTOR --you should call your primary doctor and schedule an appointment IF YOU DO NOT HAVE A PRIMARY DOCTOR YOU CAN CALL OUR PHYSICIAN REFERRAL HOTLINE AT IF YOU CAN NOT AFFORD TO SEE A PHYSICIAN YOU CAN CHOSE FROM THE FOLLOWING [facility] [address] [facility] [address] [facility] [address] [facility] [address] [facility]. [facility] [address] [facility]. [facility] [address] [facility]. [facility] YOU HAVE RECEIVED A MEDICAL SCREENING EXAM AND THE RESULTS INDICATE THAT YOU DO NOT HAVE A CONDITION THAT REQUIRES URGENT TREATMENT IN THE EMERGENCY DEPARTMENT. FURTHER EVALUATION AND TREATMENT OF YOUR CONDITION CAN WAIT UNTIL YOU ARE SEEN IN YOUR DOCTORS OFFICE WITHIN THE NEXT 1-2 DAYS. IT IS YOUR RESPONSIBILITY TO MAKE AN APPOINTMENT FOR FOLOW-UP CARE. IF YOU HAVE A PRIMARY DOCTOR --you should call your primary doctor and schedule and appointment IF YOU DO NOT HAVE A PRIMARY DOCTOR YOU CAN CALL OUR PHYSICIAN REFERRAL HOTLINE AT . IF YOU CAN NOT AFFORD TO SEE A PHYSICIAN YOU CAN CHOSE FROM THE FOLLOWING COUNT INCLUDES THE [facility] INSTITUTIONS: [facility] [id number] [place] [id number] [facility] [address] [place], [place] [id number] [place] [address] [address] [place] [address] Additional Instructions: Call your primary care doctor TOMORROW for an appointment during the next 1 WEEK.Tell the social secretary that you were referred from this facility.See the doctor sooner or return here if your condition worsens before your appointment time. MIKAELA MORRIS MD Dec 29, 2016 18:23
[2016-12-29 20:24] VITALS: BP 111/63; PULSE 81; RESP 16; TEMP 98.3
== END 2016-12-29 20:24 | disposition home or self-care (01) ==
LOC: E/R 16:53
DX: L89.151 Pressure ulcer of sacral region, stage 1 (principal); F17.210 Nicotine dependence, cigarettes, uncomplicated; Z79.82 Long term (current) use of aspirin
CPT/HCPCS: 96374; 96375; J1170; J2405; Z7502

== ENCOUNTER 2016-12-31 07:35 | Inpatient (IN) | payer BC ==
[~2016-12-31] VITALS: Ht 165.1 cm; Wt 54.4 kg
[2016-12-31 08:08] LABS: ADD SCAN DIFF NO
--- NOTE | 2016-12-31 08:11 | RADRPT ---
PROCEDURE: XR Chest. CLINICAL INDICATION: Abdominal Pain TECHNIQUE: Single frontal view of the chest was obtained. COMPARISON: Chest x-ray from 12/03/2016 FINDINGS: A right-sided PICC line is again noted. The heart and mediastinum are within normal limits. The lungs are clear. There is no significant pleural effusion or pneumothorax. IMPRESSION: No acute disease. Right-sided PICC line is again noted. RPTAT: EE Physician Kieran Date Time Electronically viewed and signed by Horace Carter Physician on 12/31/2016 08:11 RA/
[2016-12-31 08:12] LABS: BASOPHILS % 0.4 % (0.0-2.0); EOSINOPHILS # 0.1 10^3/ul (0.0-0.5); EOSINOPHILS % 2.1 % (0.0-7.0); HEMATOCRIT 34.9 % (37.0-47.0); HEMOGLOBIN 11.4 g/dl (12.0-16.0); LYMPHOCYTES % 29.7 % (15.0-51.0); MEAN CORPUSCULAR HEMOGLOBIN 30.2 pg (29.0-33.0); MEAN CORPUSCULAR HGB CONC 32.7 g/dl (32.0-37.0); MEAN CORPUSCULAR VOLUME 92.3 fl (82.0-101.0); MEAN PLATELET VOLUME 10.9 fl (7.4-10.4); MONOCYTE # 0.3 10^3/ul (0.3-0.9); MONOCYTES % 4.6 % (0.0-11.0); NEUTROPHIL # 4.2 10^3/ul (1.6-7.5); NEUTROPHILS % 63.1 % (39.0-77.0); PLATELET COUNT 318 10^3/UL (140-415); RED BLOOD COUNT 3.78 10^6/ul (4.20-5.40); WHITE BLOOD COUNT 6.7 10^3/ul (4.8-10.8)
[2016-12-31 08:26] LABS: ANION GAP 9 (8-16); BLOOD UREA NITROGEN 11 mg/dl (7-20); CALCIUM 9.2 mg/dl (8.4-10.2); CARBON DIOXIDE 25 mmol/L (21-31); CHLORIDE 107 mmol/L (97-110); CREATININE 0.55 mg/dl (0.44-1.00); GLUCOSE 121 mg/dl (70-220); POTASSIUM 3.4 mmol/L (3.5-5.1); SODIUM 138 mmol/L (135-144)
[2016-12-31] MEDS ORDERED: ONDANSETRON 4 MG INJ IV PRN (08:30)
[2016-12-31] MEDS ORDERED: ACETAMINOPHEN 325 MG TAB PO PRN (08:30)
[2016-12-31] MEDS ORDERED: POTASSIUM CHLORIDE (SR) 20 MEQ TAB PO STA (08:32)
[2016-12-31 08:36] LABS: INR 1.04; PROTIME 13.6 Sec (12.2-14.2); PT RATIO 1.1
[2016-12-31 08:37] LABS: PARTIAL THROMBOPLASTIN TIME 57.9 Sec (25.0-35.0)
[2016-12-31 08:51] LABS: TROPONIN-I < 0.012 ng/ml (0.00-0.12)
[2016-12-31 09:45] VITALS: TEMP 96.7
[2016-12-31 11:37] VITALS: Ht 165.1 cm; Wt 54.4 kg
--- NOTE | 2016-12-31 13:30 | ERD ---
ER Documentation Chief Complaint Date/Time DATE: 12/31/16 TIME: 13:28 Chief Complaint SENT FOR PRE OP LABS FOR DR RUSS, ADMIT BY DR MELVIN [facility] Patient is a 51-year-old female who presents for admission. The patient was sent by Dr. Melvin for admission. There is a planned surgery to reanastomose her colon. She currently has a colostomy. She has abdominal pain. She has been dealing with an enterocutaneous fistula. She is here for colostomy reversal. Dr. Russ is going to be doing her surgery. ROS All systems reviewed and are negative except as per history of present illness. Medications Home Meds Active Scripts Simethicone* (Mylicon*) 80 Mg Tab, 80 MG PO BID Y for DISTENSION/GAS/BLOATING for 28 Days, TAB Prov:MARTINEZ MELVIN MD 12/10/16 Ondansetron Hcl* (Ondansetron Hcl* Inj) 4 Mg/2 Ml Vial, 4 MG IV Q6H Y for NAUSEA AND/OR VOMITING for 28 Days, VIAL Prov:MARTINEZ MELVIN MD 12/10/16 Polyethylene Glycol* (Miralax*) 17 Gm Powd.pack, 17 GM PO DAILY Y for CONSTIPATION for 14 Days Prov:MARTINEZ MELVIN MD 12/10/16 Famotidine* (Pepcid*) 20 Mg/2 Ml Vial, 20 MG IV BID for 28 Days, VIAL Prov:MARTINEZ MELVIN MD 12/10/16 Benzocaine/Menthol (SORE THROAT LOZENGE) 1 Each Lozenge, 1 LOZENGE MT Q1H Y for SORE THROAT for 7 Days, LOZENGE Prov:MARTINEZ MELVIN MD 12/10/16 Zolpidem Tartrate (Ambien Eloy) 5 Mg Tablet, 5 MG PO HS MAY REPEAT X 1 Y for INSOMNIA for 28 Days, TAB Prov:MARTINEZ MELVIN MD 12/10/16 [Oxycodone/Acetamin (5/325)] 1 TAB TAB No Conflict Check, 1 TAB PO Q4H Y for PAIN LEVEL 1-5 for 14 Days Prov:MARTINEZ MELVIN MD 12/10/16 Acetaminophen (MAPAP) 325 Mg Tablet, 650 MG PO Q6H Y for ELEVATED TEMPERATURE for 14 Days, TAB Prov:MARTINEZ MELVIN MD 12/10/16 Reported Medications Hydroxyzine Hcl* (Hydroxyzine Hcl*) 25 Mg Tablet, 25 MG PO QHS, #30 TAB 11/18/16 Trazodone Hcl* (Trazodone Hcl*) 50 Mg Tablet, 50 MG PO QHS, #30 TAB 11/18/16 Amitriptyline Hcl* (Amitriptyline Hcl*) 25 Mg Tablet, 25 MG PO QHS, #30 TAB 11/18/16 Zolpidem Tartrate* (Zolpidem Tartrate*) 10 Mg Tablet, 10 MG PO QHS Y for INSOMNIA, #30 TAB 11/18/16 Topiramate* (Topiramate*) 100 Mg Tablet, 100 MG PO QHS, TAB 11/18/16 Gabapentin* (Gabapentin*) 600 Mg Tablet, 600 MG PO BID, #60 TAB 11/18/16 Pantoprazole* (Pantoprazole*) 40 Mg Tablet.dr, 40 MG PO DAILY, TAB 11/18/16 Aspirin* (Aspirin* Chew) 81 Mg Tab.chew, 81 MG PO DAILY, TAB.CHEW 11/18/16 Sucralfate* (Carafate*) 1 Gm Tab, 1 GM PO BID, TAB 11/18/16 Allergies Allergies: Coded Allergies: succinylcholine (Unverified Allergy, Unknown, 12/29/16) PMhx/Soc History of Surgery: Yes (polypectomy, right hemicolectomy ) Anesthesia Reaction: No Hx Neurological Disorder: No Hx Respiratory Disorders: Yes (SEASONAL ALLERGIES) Hx Cardiac Disorders: No Hx Miscellaneous Medical Probl: Yes (DIVERTICULOSIS,ANXIETY,INSOMNIA,DEPRESSION ,NEUROPATHYANEMIA) Hx Alcohol Use: Yes (occasional) Hx Substance Use: Yes Hx Tobacco Use: Yes Smoking Status: Light tobacco smoker Fmx Adopted Physical Exam Vitals Vital Signs Date Time Temp Pulse Resp B/P Pulse Ox O2 Delivery O2 Flow Rate FiO2 12/31/16 07:39 96.7 106 18 102/57 98 Physical Exam Const: [] Head: Atraumatic Eyes: Normal Conjunctiva ENT: Normal External Ears, Nose and Mouth. Neck: Full range of motion..~ No meningismus. Resp: Clear to auscultation bilaterally Cardio: Regular rate and rhythm, no murmurs Abd: Soft, non tender, non distended. Normal bowel sounds Skin: No petechiae or rashes Back: No midline or flank tenderness Ext: No cyanosis, or edema Neur: Awake and alert Psych: Normal Mood and Affect Result Diagram: 12/31/16 0750 12/31/16 0750 Results 24 hrs Laboratory Tests Test 12/31/16 07:50 White Blood Count 6.710^3/ul Red Blood Count 3.7810^6/ul Hemoglobin 11.4g/dl Hematocrit 34.9% Mean Corpuscular Volume 92.3fl Mean Corpuscular Hemoglobin 30.2pg Mean Corpuscular Hemoglobin Concent 32.7g/dl Red Cell Distribution Width 16.0% Platelet Count 31273^3/UL Mean Platelet Volume 10.9fl Neutrophils % 63.1% Lymphocytes % 29.7% Monocytes % 4.6% Eosinophils % 2.1% Basophils % 0.4% Nucleated Red Blood Cells % 0.0/100WBC Neutrophils # 4.210^3/ul Lymphocytes # 2.010^3/ul Monocytes # 0.310^3/ul Eosinophils # 0.110^3/ul Basophils # 0.010^3/ul Nucleated Red Blood Cells # 0.010^3/ul Prothrombin Time 13.6Sec Prothrombin Time Ratio 1.1 INR International Normalized Ratio 1.04 Activated Partial Thromboplast Time 57.9Sec Sodium Level 138mmol/L Potassium Level 3.4mmol/L Chloride Level 107mmol/L Carbon Dioxide Level 25mmol/L Anion Gap 9 Blood Urea Nitrogen 11mg/dl Creatinine 0.55mg/dl Glucose Level 121mg/dl Calcium Level 9.2mg/dl Troponin I < 0.012ng/ml Procedures/MDM EKG read by me: Rate/Rhythm: Regular rate and rhythm at a normal rate Intervals: Normal Impression: No evidence of ischemia or arrhythmia PROCEDURE: XR Chest. CLINICAL INDICATION: Abdominal Pain TECHNIQUE: Single frontal view of the chest was obtained. COMPARISON: Chest x-ray from 12/03/2016 FINDINGS: A right-sided PICC line is again noted. The heart and mediastinum are within normal limits. The lungs are clear. There is no significant pleural effusion or pneumothorax. IMPRESSION: No acute disease. Right-sided PICC line is again noted. RPTAT: EE Horace Emma, Physician Date Time Electronically viewed and signed by Horace Carter Physician on 12/31/2016 08:11 Smoking Cessation Therapy: Pt. was lectured for greater than 3 minutes on the health risks of continued smoking and the benefits of cessation. Patient is a 51-year-old female with no medical problems who presents for surgery. I spoke with Dr. Melvin for admission to a medical surgical bed as the patient has [employer] insurance and Dr. Melvin admits for [employer]. I spoke with Dr. Russ as well who will see the patient for surgery. Preoperative laboratory studies were done. The patient has hypokalemia and was given potassium by mouth. The patient has anemia but does not require transfusion at this time. Departure Diagnosis: Primary Impression: Anemia Anemia type: unspecified type Qualified Code: D64.9 - Anemia, unspecified type Additional Impressions: Abdominal pain Abdominal location: generalized Qualified Code: R10.84 - Generalized abdominal pain Hypokalemia Condition: RAYMUNDO Hicks MD Dec 31, 2016 13:29
[2016-12-31] MEDS: HYDROmorphONE 1 MG/ML SYG IV PRN ×3 (14:15→21:37)
[2016-12-31] MEDS ORDERED: BARIUM SULF 2% 450 ML BTL (BERRY SMOOTHIE) PO ONE (14:30)
[2016-12-31] MEDS ORDERED: IOHEXOL 300MG/ML 30 ML BTL ONE ×2 (15:51→15:52)
[2016-12-31] MEDS ORDERED: SOD CHLORIDE 0.9% 0 ML ONE (15:51)
[2016-12-31] MEDS ORDERED: IOHEXOL 14.3 MG(I)/ML (ADULT) BTL PO ONE (16:00)
[2016-12-31] MEDS ORDERED: SUMATRIPTAN 25 MG TAB PO ONE (17:00)
--- NOTE | 2016-12-31 17:48 | CONS ---
DATE OF ADMISSION: 12/31/2016 DATE OF CONSULTATION: 12/31/2016 HISTORY OF PRESENT ILLNESS: This is a 51-year-old female who had a right hemicolectomy. Postoperat ively, she developed an enterocutaneous fistula. The fistula has been low output and has been manag ed with nutritional optimization and TPN. It appears that the fistula was initially a low output fi stula and now is resolving; however, we will interrogate with CT scan of the abdomen and pelvis with IV contrast and oral contrast to evaluate if the fistula is persistent or not. She is admitted to the ER for evaluation, assessment and management for the enterocutaneous fistula. REVIEW OF SYSTEMS: All review of systems are negative except per HPI. ALLERGIES: NO KNOWN DRUG ALLERGIES. PAST SURGICAL HISTORY: Laparoscopic right hemicolectomy. SOCIAL HISTORY: Long-term use of tobacco. Occasional alcohol use PHYSICAL EXAMINATION: VITAL SIGNS: Temperature is 96.7, pulse is 75, respiratory rate is 18, blood pressure is 103/59. G ENERAL: Well-nourished female. HEENT: PERRLA, EOMI. NECK: Supple, midline. CARDIOVASCULAR: Regular rate and rhythm. ABDOMEN: Soft. Minimal drainage from midline incision. EXTREMITIES: No cyanosis or edema. LABORATORY DATA: White blood cell count 6.7, hemoglobin 11.4, platelets of 318. Sodium is 138, pot assium 3.4, chloride 107, carbon dioxide 25, BUN 11, creatinine 0.5, glucose is 121. ASSESSMENT AND PLAN: This is a 51-year-old female with a resolving enterocutaneous fistula. We cam l get nutritional labs. We will optimize nutrition and evaluate CT scan to see if enterocutaneous f istula is still persistent or has resolved. If it has not resolved, we will schedule for surgical r epair. Dictated By: AARTI CROSS/SCOTT Conf#: [id number] DID#: [id number]
--- NOTE | 2016-12-31 18:44 | QN ---
Documentation Comment [id number] MARTINEZ MELVIN MD Dec 31, 2016 18:44
[2016-12-31] MEDS ORDERED: POLYETHYLENE GLYCOL 17 GM PACKET PO PRN (19:00)
[2016-12-31] MEDS ORDERED: CEPASTAT LOZENGE MT PRN (19:00)
[2016-12-31] MEDS: TPN 1,000 ML IV SCH (19:34)
[2016-12-31 19:55] VITALS: BP 97/57; RESP 18
[2016-12-31] MEDS ORDERED: SOD CHLORIDE 0.9% 100 ML ONE (20:21)
[2016-12-31] MEDS ORDERED: IOHEXOL 300MG/ML 150 ML BTL ONE (20:21)
[2016-12-31] MEDS ORDERED: 1/2 NS + KCL 20 MEQ 1,000 ML IV SCH (20:30)
--- NOTE | 2016-12-31 21:02 | RADRPT ---
PROCEDURE: CT Abdomen and Pelvis with contrast. CLINICAL INDICATION: Abdominal pain ; surgery, fistula, diverticulitis TECHNIQUE: CT scan of the abdomen and pelvis with contrast was performed on a multidetector high-r esolution CT scanner. Coronal and sagittal reformatted images were obtained from the axial source im ages. Images were reviewed on a high-resolution PACS workstation. 80 cc of Isovue 300 iodinated cont rast was administered intravenously without reported complication. The total exam CTDI equals 8 mGy and the total exam DLP equals 367 mGy-cm. One or more of the following dose reduction techniques w ere used: Automated exposure control, Adjustment of the mA and/or kV according to patient size, and/ or use of iterative reconstruction technique. COMPARISON: Abdominal CT 11/30/2016 FINDINGS: Interval decrease in bibasilar atelectasis. No suspicious hepatic mass. The portal vein is patent. No pancreatic ductal dilatation is identifi ed. The spleen and adrenals are unremarkable. No focal pericholecystic inflammatory changes. No hydronephrosis. Punctate nonobstructive right renal stones. Right hemicolectomy changes with decrease in subcutaneous emphysema and small rim enhancing fluid co llections at the laparotomy incision site. No enteric contrast extravasation is visible on this exa m. There is decreasing subcutaneous emphysema at the midline lower abdominal wall. The prior sinus fistula tract is no longer visible on CT. No significant retroperitoneal lymphadenopathy, ascites or evidence of pneumoperitoneum. Aortoiliac atherosclerosis. IMPRESSION: Right hemicolectomy changes with decrease in subcutaneous emphysema and small abscesses at the lapar otomy incision site since 11/30/16. No enteric contrast extravasation is visible on this exam. The prior sinus fistula tract is no longer visible on CT. There is decreasing subcutaneous emphysema at the midline lower abdominal wall. No evidence of bowel obstruction. Interval decrease in bibasilar atelectasis. RPTAT: AA .Lucho Méndez MD, Date Time Electronically viewed and signed by .Lucho Méndez MD, on 12/31/2016 21:01 .T/
[2016-12-31] MEDS: traZODone 50 MG TAB PO SCH (21:26)
[2016-12-31] MEDS: SUCRALFATE 1 GM TAB PO SCH (21:26)
[2016-12-31] MEDS: hydrOXYzine HCL 25 MG TAB PO SCH (21:26)
[2016-12-31] MEDS: GABAPENTIN 300 MG CAP PO SCH (21:26)
[2016-12-31] MEDS: FAMOTIDINE 20 MG INJ IV SCH (21:26)
[2016-12-31] MEDS: TOPIRAMATE 100 MG TAB PO SCH (21:29)
[2016-12-31] MEDS: AMITRIPTYLINE 25 MG TAB PO SCH (21:29)
[2016-12-31] MEDS: ZOLPIDEM 5 MG TAB PO PRN (21:37)
[2017-01-01] MEDS: HYDROmorphONE 1 MG/ML SYG IV PRN ×6 (02:29→21:35)
--- NOTE | 2017-01-01 05:41 | HP ---
DATE OF ADMISSION: 12/31/2016 HISTORY OF PRESENT ILLNESS: The patient is a 51-year-old female who was recently discharged from this hospital and the patient underwent laparoscopic right hemicolectomy. Patient has history of chronic right lower extremity pain , underwent surgical repair of th. The patient has right hemicolectomy. Postop , the patient developed electrolyte imbalance and also discharge from the abdominal area. The patient was started on TPN and went to the senior living for further management. At this time the patient's discharge has declined, and patient was brought in to possibly reverse any possibility of fistula by Dr. Srini Patricio. PAST MEDICAL HISTORY: Positive for enterococcus and staph infection, right hemicolectomy,, history of colonoscopy, history of polypectomy, history of depression, history of abdominal wound, abdominal fistula. ALLERGY HISTORY: SUCCINYLCHOLINE. SOCIAL HISTORY: Smoking positive. MEDICATION HISTORY: The patient is on: 1. Tylenol. 2. Amitriptyline. 3. Aspirin. 4. ppi 5. Pepcid. 6. Gabapentin. 7. Hydroxyzine. 8. Zofran. 9. Protonix. 10. MiraLAX. 11. Simethicone. 12. Carafate. 13. Topamax. 14. Trazadone. 15. Ambien. 16. Roxicodone. REVIEW OF SYSTEMS: HEENT: Unremarkable. RESPIRATORY: Unremarkable. CARDIOVASCULAR: Unremarkable. ABDOMEN: As mentioned above. No hematemesis, melena. EXTREMITIES: Unremarkable. CENTRAL NERVOUS SYSTEM: Unremarkable. PHYSICAL EXAMINATION: GENERAL: The patient is awake and alert. VITAL SIGNS: Pulse 75, blood pressure 102/57. HEAD: Atraumatic and normocephalic. Pupils are equal, reactive. No pallor or conjunctival icterus. NECK: Supple. LUNGS: Clear. CARDIOVASCULAR: S1, S2 are normal. ABDOMEN: Soft, nontender. Bowel sounds present. No palpable mass. The patient has a drainage bag noted in abdominal area, otherwise discharge is minimal. EXTREMITIES: There is no cyanosis, clubbing, or edema. CENTRAL NERVOUS SYSTEM: The patient is awake, alert, no deficit. LABORATORY DATA: Hematocrit 34.9, potassium 3.4. IMPRESSION: 1. Patient has hypokalemia. 2. 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 PLAN: Give this patient IV fluid, continue TPN and physical consultation. The patient will be started on p.o. diet. CT of the abdomen will be ordered by Dr. Patricio and the patient's TPN will be tapered off. The patient is tolerating p.o. diet okay. Dictated By: MARTINEZ MELVIN MD BS/NTS Conf#: [id number] DID#: [id number] MTDD
[2017-01-01 06:06] LABS: ADD SCAN DIFF NO
[2017-01-01 06:21] LABS: BASOPHILS % 0.2 % (0.0-2.0); EOSINOPHILS # 0.1 10^3/ul (0.0-0.5); EOSINOPHILS % 2.5 % (0.0-7.0); HEMATOCRIT 32.1 % (37.0-47.0); HEMOGLOBIN 10.4 g/dl (12.0-16.0); LYMPHOCYTES # 1.5 10^3/ul (0.8-2.9); LYMPHOCYTES % 31.5 % (15.0-51.0); MEAN CORPUSCULAR HEMOGLOBIN 30.2 pg (29.0-33.0); MEAN CORPUSCULAR HGB CONC 32.4 g/dl (32.0-37.0); MEAN CORPUSCULAR VOLUME 93.3 fl (82.0-101.0); MEAN PLATELET VOLUME 11.4 fl (7.4-10.4); MONOCYTE # 0.3 10^3/ul (0.3-0.9); MONOCYTES % 5.6 % (0.0-11.0); NEUTROPHIL # 2.9 10^3/ul (1.6-7.5); PLATELET COUNT 260 10^3/UL (140-415); RED BLOOD COUNT 3.44 10^6/ul (4.20-5.40); RED CELL DISTRIBUTION WIDTH 16.4 % (11.5-14.5); WHITE BLOOD COUNT 4.8 10^3/ul (4.8-10.8)
[2017-01-01] MEDS: PANTOPRAZOLE (EC) 40 MG TAB PO SCH (06:21)
[2017-01-01 06:26] LABS: POTASSIUM 3.7 mmol/L (3.5-5.1)
[2017-01-01 06:29] LABS: CREATININE 0.52 mg/dl (0.44-1.00)
[2017-01-01 06:30] LABS: CALCIUM 8.9 mg/dl (8.4-10.2); MAGNESIUM 1.8 mg/dl (1.7-2.5); PHOSPHORUS 4.5 mg/dl (2.5-4.9)
[2017-01-01 07:30] VITALS: BP 103/62; RESP 20
[2017-01-01] MEDS: SUCRALFATE 1 GM TAB PO SCH ×2 (08:57→21:36)
[2017-01-01] MEDS: GABAPENTIN 300 MG CAP PO SCH ×2 (08:57→21:37)
[2017-01-01] MEDS: ASPIRIN 81 MG TAB PO SCH (08:57)
[2017-01-01] MEDS: FAMOTIDINE 20 MG INJ IV SCH ×2 (08:57→21:36)
[2017-01-01 11:43] LABS: ADD UMIC YES; URINE BILIRUBIN (Dip) NEGATIVE (NEGATIVE); URINE BLOOD (Dip) NEGATIVE (NEGATIVE); URINE COLOR LT. YELLOW (YELLOW); URINE GLUCOSE (Dip) NEGATIVE (NEGATIVE); URINE KETONES (Dip) NEGATIVE (NEGATIVE); URINE LEUKOCYTE ESTERASE (Dip) TRACE (NEGATIVE); URINE NITRITE (Dip) NEGATIVE (NEGATIVE); URINE TOTAL PROTEIN (Dip) NEGATIVE (NEGATIVE); URINE UROBILINOGEN (Dip) 0.2 E.U./dL (0.1-1.0)
[2017-01-01 13:12] LABS: BACTERIA,URINE MANY; MUCUS,URINE MODERATE
--- NOTE | 2017-01-01 13:25 | PN ---
Date/Time of Note Date/Time of Note DATE: 01/01/17 TIME: 13:24 Assessment/Plan VTE Prophylaxis VTE Prophylaxis Intervention: SCD's Lines/Catheters IV Catheter Type (from Nrsg): PICC Line Central line still needed: Yes Urinary Cath still in place: Yes Reason Cath still needed: other (indicate) Assessment/Plan Chief Complaint/Hosp Course s/p ecf which has resolved Problems: Assessment/Plan schedule for wound debridement and revision for friday Subjective 24 Hr Interval Summary Free Text/Dictation CD scan shows fistula has resolved Exam/Review of Systems Vital Signs Vitals Vital Signs Date Time Temp Pulse Resp B/P Pulse Ox O2 Delivery O2 Flow Rate FiO2 01/01/17 07:30 97.8 78 20 103/62 78 Intake and Output 12/31/16 12/31/16 01/01/17 15:00 23:00 07:00 Intake Total 250 ml 1550 ml Balance 250 ml 1550 ml Exam small wound opening Results Result Diagram: 01/01/17 0535 01/01/17 0535 Results 24 hrs Laboratory Tests Test 12/31/16 16:50 01/01/17 05:35 Prealbumin 20.7 White Blood Count 4.8 # Red Blood Count 3.44 L Hemoglobin 10.4 L Hematocrit 32.1 L Mean Corpuscular Volume 93.3 Mean Corpuscular Hemoglobin 30.2 Mean Corpuscular Hemoglobin Concent 32.4 Red Cell Distribution Width 16.4 H Platelet Count 260 Mean Platelet Volume 11.4 H Neutrophils % 60.0 Lymphocytes % 31.5 Monocytes % 5.6 Eosinophils % 2.5 Basophils % 0.2 Nucleated Red Blood Cells % 0.0 Neutrophils # 2.9 Lymphocytes # 1.5 Monocytes # 0.3 Eosinophils # 0.1 Basophils # 0.0 Nucleated Red Blood Cells # 0.0 Sodium Level 140 Potassium Level 3.7 Chloride Level 107 Carbon Dioxide Level 23 Anion Gap 14 Blood Urea Nitrogen 11 Creatinine 0.52 Glucose Level 93 Calcium Level 8.9 Phosphorus Level 4.5 Magnesium Level 1.8 Medications Medications Current Medications Hydromorphone HCl 0.5 mg 0.5 mg Q3H PRN IV PAIN Last administered on 01/01/17t 10:58; Admin Dose 0.5 MG; Start 12/31/16 at 14:00 Total Parenteral Nutrition (Tpn) 1,000 ml @ 50 mls/hr Q20H IV Last administered on 12/31/16 19:34; Admin Dose 50 MLS/HR; Start 12/31/16 at 17:00 Acetaminophen (Tylenol Tab) 650 mg Q6H PRN PO ELEVATED TEMPERATURE; Start 12/31 at 19:00 Amitriptyline HCl (Elavil) 25 mg QHS PO Last administered on 12/31/16 21:29; Admin Dose 25 MG; Start 12/31/16 at 21:00 Aspirin (Aspirin) 81 mg DAILY PO Last administered on 01/01/17 08:57; Admin Dose 81 MG; Start 01/01/17 at 09:00 Phenol (Cepastat Lozenge) 1 lozenge Q1H PRN MT SORE THROAT; Start 12/31/16 at 19:00 Famotidine (Pepcid Iv) 20 mg BID IV Last administered on 01/01/17 08:57; Admin Dose 20 MG; Start 12/31/16 at 21:00 Gabapentin (Neurontin) 600 mg BID PO Last administered on 01/01/17 08:57; Admin Dose 600 MG; Start 12/31/16 at 21:00 Hydroxyzine HCl (Atarax) 25 mg QHS PO Last administered on 12/31/16 21:26; Admin Dose 25 MG; Start 12/31/16 at 21:00 Ondansetron HCl (Zofran Inj) 4 mg Q6H PRN IV NAUSEA AND/OR VOMITING; Start at 19:00 Pantoprazole (Protonix Tab) 40 mg DAILY@06 PO Last administered on 01/01/17 06 :21; Admin Dose 40 MG; Start 01/01/17 at 06:00 Polyethylene Glycol (Miralax) 17 gm DAILY PRN PO CONSTIPATION; Start 12/31/16 at 19:00 Simethicone (Mylicon) 80 mg BID PRN PO DISTENSION/GAS/BLOATING; Start 12/31/16 at 19:00 Sucralfate (Carafate) 1 gm BID PO Last administered on 01/01/17 08:57; Admin Dose 1 GM; Start 12/31/16 at 21:00 Topiramate (Topamax) 100 mg QHS PO Last administered on 12/31/16 21:29; Admin Dose 100 MG; Start 12/31/16 at 21:00 Trazodone HCl (Desyrel) 50 mg QHS PO Last administered on 12/31/16 21:26; Admin Dose 50 MG; Start 12/31/16 at 21:00 Zolpidem Tartrate (Ambien) 10 mg QHS PRN PO INSOMNIA Last administered on 21:37; Admin Dose 10 MG; Start 12/31/16 at 19:00 Rubin RUSS Jan 01, 2017 13:25
[2017-01-01] MEDS: TPN 1,000 ML IV SCH (18:10)
[2017-01-01 19:55] VITALS: BP 97/60; RESP 21; RESP 83
[2017-01-01] MEDS: AMITRIPTYLINE 25 MG TAB PO SCH (21:36)
[2017-01-01] MEDS: hydrOXYzine HCL 25 MG TAB PO SCH (21:36)
[2017-01-01] MEDS: traZODone 50 MG TAB PO SCH (21:36)
[2017-01-01] MEDS: TOPIRAMATE 100 MG TAB PO SCH (21:55)
[2017-01-01] MEDS: ZOLPIDEM 5 MG TAB PO PRN (21:55)
[2017-01-01] MEDS: CEPASTAT LOZENGE MT PRN (21:55)
--- NOTE | 2017-01-01 23:02 | PN ---
Date/Time of Note Date/Time of Note DATE: 01/01/17 TIME: 23:01 Assessment/Plan VTE Prophylaxis VTE Prophylaxis Intervention: other Lines/Catheters IV Catheter Type (from Nrsg): PICC Line Central line still needed: Yes Urinary Cath still in place: Yes Reason Cath still needed: other (indicate) Assessment/Plan Chief Complaint/Hosp Course IMPRESSION: 1. Patient has hypokalemia. 2. 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 plan ct abd seen per surgery Problems: Subjective 24 Hr Interval Summary Respiratory: no complaints Cardiovascular: no complaints Gastrointestinal: no complaints Exam/Review of Systems Vital Signs Vitals Vital Signs Date Time Temp Pulse Resp B/P Pulse Ox O2 Delivery O2 Flow Rate FiO2 01/01/17 19:55 97.0 83 83 97/60 96 Intake and Output 12/31/16 12/31/16 01/01/17 15:00 23:00 07:00 Intake Total 250 ml 1550 ml Balance 250 ml 1550 ml Exam Respiratory: clear to auscultation Cardiovascular: regular rate and rhythm Gastrointestinal: soft Musculoskeletal: nl extremities to inspection Extremities: normal pulses Results Result Diagram: 01/01/17 0535 01/01/17 0535 Results 24 hrs Laboratory Tests Test 01/01/17 05:35 White Blood Count 4.8 # Red Blood Count 3.44 L Hemoglobin 10.4 L Hematocrit 32.1 L Mean Corpuscular Volume 93.3 Mean Corpuscular Hemoglobin 30.2 Mean Corpuscular Hemoglobin Concent 32.4 Red Cell Distribution Width 16.4 H Platelet Count 260 Mean Platelet Volume 11.4 H Neutrophils % 60.0 Lymphocytes % 31.5 Monocytes % 5.6 Eosinophils % 2.5 Basophils % 0.2 Nucleated Red Blood Cells % 0.0 Neutrophils # 2.9 Lymphocytes # 1.5 Monocytes # 0.3 Eosinophils # 0.1 Basophils # 0.0 Nucleated Red Blood Cells # 0.0 Sodium Level 140 Potassium Level 3.7 Chloride Level 107 Carbon Dioxide Level 23 Anion Gap 14 Blood Urea Nitrogen 11 Creatinine 0.52 Glucose Level 93 Calcium Level 8.9 Phosphorus Level 4.5 Magnesium Level 1.8 Medications Medications Current Medications Hydromorphone HCl 0.5 mg 0.5 mg Q3H PRN IV PAIN Last administered on 01/01/17t 21:35; Admin Dose 0.5 MG; Start 12/31/16 at 14:00 Total Parenteral Nutrition (Tpn) 1,000 ml @ 50 mls/hr Q20H IV Last administered on 01/01/17 18:10; Admin Dose 50 MLS/HR; Start 12/31/16 at 17:00 Acetaminophen (Tylenol Tab) 650 mg Q6H PRN PO ELEVATED TEMPERATURE; Start 12/31 at 19:00 Amitriptyline HCl (Elavil) 25 mg QHS PO Last administered on 01/01/17 21:36; Admin Dose 25 MG; Start 12/31/16 at 21:00 Aspirin (Aspirin) 81 mg DAILY PO Last administered on 01/01/17 08:57; Admin Dose 81 MG; Start 01/01/17 at 09:00 Famotidine (Pepcid Iv) 20 mg BID IV Last administered on 01/01/17 21:36; Admin Dose 20 MG; Start 12/31/16 at 21:00 Gabapentin (Neurontin) 600 mg BID PO Last administered on 01/01/17 21:37; Admin Dose 600 MG; Start 12/31/16 at 21:00 Hydroxyzine HCl (Atarax) 25 mg QHS PO Last administered on 01/01/17 21:36; Admin Dose 25 MG; Start 12/31/16 at 21:00 Ondansetron HCl (Zofran Inj) 4 mg Q6H PRN IV NAUSEA AND/OR VOMITING; Start at 19:00 Pantoprazole (Protonix Tab) 40 mg DAILY@06 PO Last administered on 01/01/17 06 :21; Admin Dose 40 MG; Start 01/01/17 at 06:00 Polyethylene Glycol (Miralax) 17 gm DAILY PRN PO CONSTIPATION; Start 12/31/16 at 19:00 Simethicone (Mylicon) 80 mg BID PRN PO DISTENSION/GAS/BLOATING; Start 12/31/16 at 19:00 Sucralfate (Carafate) 1 gm BID PO Last administered on 01/01/17 21:36; Admin Dose 1 GM; Start 12/31/16 at 21:00 Topiramate (Topamax) 100 mg QHS PO Last administered on 01/01/17 21:55; Admin Dose 100 MG; Start 12/31/16 at 21:00 Trazodone HCl (Desyrel) 50 mg QHS PO Last administered on 01/01/17 21:36; Admin Dose 50 MG; Start 12/31/16 at 21:00 Zolpidem Tartrate (Ambien) 10 mg QHS PRN PO INSOMNIA Last administered on 21:55; Admin Dose 10 MG; Start 12/31/16 at 19:00 Phenol (Cepastat Lozenge) 1 lozenge Q4H PRN MT sore throat Last administered on 01/01/17 21:55; Admin Dose 1 LOZENGE; Start 01/01/17 at 20:30 MARTINEZ MELVIN MD Jan 01, 2017 23:02
[2017-01-02] MEDS: HYDROmorphONE 1 MG/ML SYG IV PRN ×7 (02:53→21:47)
[2017-01-02 05:24] LABS: POTASSIUM 3.5 mmol/L (3.5-5.1)
[2017-01-02 05:26] LABS: CREATININE 0.5 mg/dl (0.44-1.00)
[2017-01-02 05:27] LABS: CALCIUM 8.8 mg/dl (8.4-10.2)
[2017-01-02 05:28] LABS: MAGNESIUM 1.8 mg/dl (1.7-2.5)
[2017-01-02] MEDS: PANTOPRAZOLE (EC) 40 MG TAB PO SCH (05:33)
[2017-01-02 07:20] VITALS: BP 87/54; RESP 18
[2017-01-02] MEDS: ASPIRIN 81 MG TAB PO SCH (09:00)
[2017-01-02] MEDS: SUCRALFATE 1 GM TAB PO SCH ×2 (09:33→20:06)
[2017-01-02] MEDS: FAMOTIDINE 20 MG INJ IV SCH (09:33)
[2017-01-02] MEDS: GABAPENTIN 300 MG CAP PO SCH ×2 (09:34→20:06)
[2017-01-02] MEDS: CEPASTAT LOZENGE MT PRN ×3 (09:40→20:04)
[2017-01-02] MEDS: TPN 1,000 ML IV SCH (13:43)
--- NOTE | 2017-01-02 18:58 | PN ---
Date/Time of Note Date/Time of Note DATE: 01/02/17 TIME: 18:56 Assessment/Plan VTE Prophylaxis VTE Prophylaxis Intervention: other Lines/Catheters IV Catheter Type (from Nrsg): PICC Line Central line still needed: Yes Urinary Cath still in place: Yes Reason Cath still needed: other (indicate) Assessment/Plan Chief Complaint/Hosp Course IMPRESSION: 1. Patient has abd pain. 2. 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 plan po diet,taper tpn per surgery Problems: Subjective 24 Hr Interval Summary Subjective hx not possible: other (on po liquid) Exam/Review of Systems Vital Signs Vitals Vital Signs Date Time Temp Pulse Resp B/P Pulse Ox O2 Delivery O2 Flow Rate FiO2 01/02/17 07:20 98.8 84 18 87/54 98 Intake and Output 01/01/17 01/01/17 01/02/17 15:00 23:00 07:00 Intake Total 600 ml 960 ml Output Total 400 ml Balance 600 ml 560 ml Exam Respiratory: clear to auscultation Cardiovascular: regular rate and rhythm Gastrointestinal: soft Musculoskeletal: nl extremities to inspection Extremities: normal pulses Results Result Diagram: 01/01/17 0535 01/02/17 0450 Results 24 hrs Laboratory Tests Test 01/02/17 04:50 Sodium Level 140 Potassium Level 3.5 Chloride Level 109 Carbon Dioxide Level 23 Anion Gap 12 Blood Urea Nitrogen 13 Creatinine 0.50 Glucose Level 113 Calcium Level 8.8 Phosphorus Level 4.0 Magnesium Level 1.8 Medications Medications Current Medications Total Parenteral Nutrition (Tpn) 1,000 ml @ 25 mls/hr Q24H IV Last administered on 01/02/17 13:43; Admin Dose 50 MLS/HR; Start 12/31/16 at 17:00 Acetaminophen (Tylenol Tab) 650 mg Q6H PRN PO ELEVATED TEMPERATURE; Start 12/31 at 19:00 Amitriptyline HCl (Elavil) 25 mg QHS PO Last administered on 01/01/17 21:36; Admin Dose 25 MG; Start 12/31/16 at 21:00 Aspirin (Aspirin) 81 mg DAILY PO Last administered on 01/01/17 08:57; Admin Dose 81 MG; Start 01/01/17 at 09:00 Gabapentin (Neurontin) 600 mg BID PO Last administered on 01/02/17 09:34; Admin Dose 600 MG; Start 12/31/16 at 21:00 Hydroxyzine HCl (Atarax) 25 mg QHS PO Last administered on 01/01/17 21:36; Admin Dose 25 MG; Start 12/31/16 at 21:00 Ondansetron HCl (Zofran Inj) 4 mg Q6H PRN IV NAUSEA AND/OR VOMITING; Start at 19:00 Pantoprazole (Protonix Tab) 40 mg DAILY@06 PO Last administered on 01/02/17 05 :33; Admin Dose 40 MG; Start 01/01/17 at 06:00 Polyethylene Glycol (Miralax) 17 gm DAILY PRN PO CONSTIPATION; Start 12/31/16 at 19:00 Simethicone (Mylicon) 80 mg BID PRN PO DISTENSION/GAS/BLOATING; Start 12/31/16 at 19:00 Sucralfate (Carafate) 1 gm BID PO Last administered on 01/02/17 09:33; Admin Dose 1 GM; Start 12/31/16 at 21:00 Topiramate (Topamax) 100 mg QHS PO Last administered on 01/01/17 21:55; Admin Dose 100 MG; Start 12/31/16 at 21:00 Trazodone HCl (Desyrel) 50 mg QHS PO Last administered on 01/01/17 21:36; Admin Dose 50 MG; Start 12/31/16 at 21:00 Zolpidem Tartrate (Ambien) 10 mg QHS PRN PO INSOMNIA Last administered on 21:55; Admin Dose 10 MG; Start 12/31/16 at 19:00 Phenol (Cepastat Lozenge) 1 lozenge Q4H PRN MT sore throat Last administered on 01/02/17 15:44; Admin Dose 1 LOZENGE; Start 01/01/17 at 20:30 Hydromorphone HCl (Dilaudid) 0.75 mg Q3H PRN IV PAIN; Start 01/02/17 at 18:38 MARTINEZ MELVIN MD Jan 02, 2017 18:58
[2017-01-02 20:03] VITALS: BP 83/51; RESP 17
[2017-01-02] MEDS: AMITRIPTYLINE 25 MG TAB PO SCH (20:06)
[2017-01-02] MEDS: hydrOXYzine HCL 25 MG TAB PO SCH (20:06)
[2017-01-02] MEDS: TOPIRAMATE 100 MG TAB PO SCH (21:42)
[2017-01-02] MEDS: traZODone 50 MG TAB PO SCH (21:42)
[2017-01-02 21:43] VITALS: BP 96/64; PULSE 73
[2017-01-02] MEDS: ZOLPIDEM 5 MG TAB PO PRN (22:15)
[2017-01-03] VITALS (11 sets, daily range): BP systolic 97–141; BP diastolic 62–84; PULSE 78–88; RESP 18–44
[2017-01-03] MEDS: HYDROmorphONE 1 MG/ML SYG IV PRN ×4 (01:10→10:02)
[2017-01-03] MEDS: PANTOPRAZOLE (EC) 40 MG TAB PO SCH (05:08)
[2017-01-03 05:38] LABS: CALCIUM 9.3 mg/dl (8.4-10.2); CREATININE 0.53 mg/dl (0.44-1.00); MAGNESIUM 1.8 mg/dl (1.7-2.5); PHOSPHORUS 4.3 mg/dl (2.5-4.9); POTASSIUM 3.9 mmol/L (3.5-5.1)
[2017-01-03] MEDS: CEPASTAT LOZENGE MT PRN (07:28)
[2017-01-03] MEDS: TPN 1,000 ML IV SCH (08:05)
[2017-01-03] MEDS: ASPIRIN 81 MG TAB PO SCH (08:05)
[2017-01-03] MEDS: GABAPENTIN 300 MG CAP PO SCH ×2 (08:05→21:00)
[2017-01-03] MEDS: SUCRALFATE 1 GM TAB PO SCH ×2 (08:05→21:00)
[2017-01-03] MEDS ORDERED: ROCURONIUM 50 MG INJ ONE (12:29)
[2017-01-03] MEDS ORDERED: MIDAZOLAM 1 MG/ML 2 ML INJ ONE (12:29)
[2017-01-03] MEDS ORDERED: PROPOFOL 20 ML ONE (12:29)
[2017-01-03] MEDS ORDERED: FENTAnyl 50 MCG/ML VIAL ONE (12:29)
--- NOTE | 2017-01-03 12:40 | PN ---
Date/Time of Note Date/Time of Note DATE: 01/03/17 TIME: 12:39 Assessment/Plan VTE Prophylaxis VTE Prophylaxis Intervention: SCD's Lines/Catheters IV Catheter Type (from Nrs): PICC Line Central line still needed: Yes Urinary Cath still in place: Yes Reason Cath still needed: other (indicate) Assessment/Plan Chief Complaint/Hosp Course s/p ecf which has resolved Problems: Assessment/Plan will take to OR for exploration and wound closure and management, low chance for bowel resection Subjective 24 Hr Interval Summary Free Text/Dictation patient with resolving ecf fistula Exam/Review of Systems Vital Signs Vitals Vital Signs Date Time Temp Pulse Resp B/P Pulse Ox O2 Delivery O2 Flow Rate FiO2 01/03/17 07:50 98.8 88 18 97/62 98 Intake and Output 01/02/17 01/02/17 01/03/17 15:00 23:00 07:00 Intake Total 400 ml 1305 ml 565 ml Balance 400 ml 1305 ml 565 ml Exam small open wound Results Result Diagram: 01/01/17 0535 01/03/17 0445 Results 24 hrs Laboratory Tests Test 01/03/17 04:45 Sodium Level 140 Potassium Level 3.9 Chloride Level 110 Carbon Dioxide Level 22 Anion Gap 12 Blood Urea Nitrogen 10 Creatinine 0.53 Glucose Level 101 Calcium Level 9.3 Phosphorus Level 4.3 Magnesium Level 1.8 Medications Medications Current Medications Total Parenteral Nutrition (Tpn) 1,000 ml @ 25 mls/hr Q24H IV Last administered on 01/02/17 13:43; Admin Dose 50 MLS/HR; Start 12/31/16 at 17:00 Acetaminophen (Tylenol Tab) 650 mg Q6H PRN PO ELEVATED TEMPERATURE; Start 12/31 at 19:00 Amitriptyline HCl (Elavil) 25 mg QHS PO Last administered on 01/02/17 20:06; Admin Dose 25 MG; Start 12/31/16 at 21:00 Aspirin (Aspirin) 81 mg DAILY PO Last administered on 01/01/17 08:57; Admin Dose 81 MG; Start 01/01/17 at 09:00 Gabapentin (Neurontin) 600 mg BID PO Last administered on 01/02/17 20:06; Admin Dose 600 MG; Start 12/31/16 at 21:00 Hydroxyzine HCl (Atarax) 25 mg QHS PO Last administered on 01/02/17 20:06; Admin Dose 25 MG; Start 12/31/16 at 21:00 Ondansetron HCl (Zofran Inj) 4 mg Q6H PRN IV NAUSEA AND/OR VOMITING; Start at 19:00 Pantoprazole (Protonix Tab) 40 mg DAILY@06 PO Last administered on 01/02/17 05 :33; Admin Dose 40 MG; Start 01/01/17 at 06:00 Polyethylene Glycol (Miralax) 17 gm DAILY PRN PO CONSTIPATION; Start 12/31/16 at 19:00 Simethicone (Mylicon) 80 mg BID PRN PO DISTENSION/GAS/BLOATING; Start 12/31/16 at 19:00 Sucralfate (Carafate) 1 gm BID PO Last administered on 01/02/17 20:06; Admin Dose 1 GM; Start 12/31/16 at 21:00 Topiramate (Topamax) 100 mg QHS PO Last administered on 01/02/17 21:42; Admin Dose 100 MG; Start 12/31/16 at 21:00 Trazodone HCl (Desyrel) 50 mg QHS PO Last administered on 01/02/17 21:42; Admin Dose 50 MG; Start 12/31/16 at 21:00 Zolpidem Tartrate (Ambien) 10 mg QHS PRN PO INSOMNIA Last administered on 22:15; Admin Dose 10 MG; Start 12/31/16 at 19:00 Phenol (Cepastat Lozenge) 1 lozenge Q4H PRN MT sore throat Last administered on 01/03/17 07:28; Admin Dose 1 LOZENGE; Start 01/01/17 at 20:30 Hydromorphone HCl (Dilaudid) 0.75 mg Q3H PRN IV PAIN Last administered on 10:02; Admin Dose 0.75 MG; Start 01/02/17 at 18:38 Rubin RUSS Jan 03, 2017 12:40
[2017-01-03] MEDS ORDERED: PHENYLephrine (100 MCG/ML) 5ML SYG ONE (12:47)
[2017-01-03] MEDS ORDERED: PIPERACIL/TAZO 3.375GM/100ML BAG ONE (13:11)
[2017-01-03] MEDS ORDERED: DEXAMETHASONE 4 MG/ML 1 ML INJ ONE (13:13)
[2017-01-03] MEDS ORDERED: ONDANSETRON 4 MG INJ ONE (13:13)
[2017-01-03] MEDS ORDERED: KETOROLAC 30 MG INJ ONE (13:13)
[2017-01-03] MEDS ORDERED: FAMOTIDINE 20 MG INJ ONE (13:13)
[2017-01-03] MEDS ORDERED: POLYMYXIN/BACITRACIN 1L IRRIG ONE (13:22)
[2017-01-03] MEDS ORDERED: BUPIVACAINE 0.25% (MPF) 30 ML INJ ONE (13:22)
--- NOTE | 2017-01-03 13:32 | PN ---
Date/Time of Note Date/Time of Note DATE: 01/03/17 TIME: 13:30 Assessment/Plan VTE Prophylaxis VTE Prophylaxis Intervention: ambulation Lines/Catheters IV [facility] Type [facility]): PICC Line Central line still needed: Yes Urinary Cath still in place: Yes Reason Cath still needed: urinary retention, pres ulcer contaminated by urine Assessment/Plan Chief Complaint/Hosp Course 1. Patient has abdominal pain. 2. 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 Problems: Assessment/Plan 1. Possible surgery by dr Donaldson Subjective 24 Hr Interval Summary Constitutional: no complaints Exam/Review of Systems Vital Signs Vitals Vital Signs Date Time Temp Pulse Resp B/P Pulse Ox O2 Delivery O2 Flow Rate FiO2 01/03/17 07:50 98.8 88 18 97/62 98 Intake and Output 01/02/17 01/02/17 01/03/17 15:00 23:00 07:00 Intake Total 400 ml 1305 ml 565 ml Balance 400 ml 1305 ml 565 ml Exam Constitutional: alert, oriented Psych: no complaints Head: normocephalic Results Result Diagram: 01/01/17 0535 01/03/17 0445 Results 24 hrs Laboratory Tests Test 01/03/17 04:45 Sodium Level 140 Potassium Level 3.9 Chloride Level 110 Carbon Dioxide Level 22 Anion Gap 12 Blood Urea Nitrogen 10 Creatinine 0.53 Glucose Level 101 Calcium Level 9.3 Phosphorus Level 4.3 Magnesium Level 1.8 Medications Medications Current Medications Total Parenteral Nutrition (Tpn) 1,000 ml @ 25 mls/hr Q24H IV Last administered on 01/02/17 13:43; Admin Dose 50 MLS/HR; Start 12/31/16 at 17:00 Acetaminophen (Tylenol Tab) 650 mg Q6H PRN PO ELEVATED TEMPERATURE; Start 12/31 at 19:00 Amitriptyline HCl (Elavil) 25 mg QHS PO Last administered on 01/02/17 20:06; Admin Dose 25 MG; Start 12/31/16 at 21:00 Aspirin (Aspirin) 81 mg DAILY PO Last administered on 01/01/17 08:57; Admin Dose 81 MG; Start 01/01/17 at 09:00 Gabapentin (Neurontin) 600 mg BID PO Last administered on 01/02/17 20:06; Admin Dose 600 MG; Start 12/31/16 at 21:00 Hydroxyzine HCl (Atarax) 25 mg QHS PO Last administered on 01/02/17 20:06; Admin Dose 25 MG; Start 12/31/16 at 21:00 Ondansetron HCl (Zofran Inj) 4 mg Q6H PRN IV NAUSEA AND/OR VOMITING; Start at 19:00 Pantoprazole (Protonix Tab) 40 mg DAILY@06 PO Last administered on 01/02/17 05 :33; Admin Dose 40 MG; Start 01/01/17 at 06:00 Polyethylene Glycol (Miralax) 17 gm DAILY PRN PO CONSTIPATION; Start 12/31/16 at 19:00 Simethicone (Mylicon) 80 mg BID PRN PO DISTENSION/GAS/BLOATING; Start 12/31/16 at 19:00 Sucralfate (Carafate) 1 gm BID PO Last administered on 01/02/17 20:06; Admin Dose 1 GM; Start 12/31/16 at 21:00 Topiramate (Topamax) 100 mg QHS PO Last administered on 01/02/17 21:42; Admin Dose 100 MG; Start 12/31/16 at 21:00 Trazodone HCl (Desyrel) 50 mg QHS PO Last administered on 01/02/17 21:42; Admin Dose 50 MG; Start 12/31/16 at 21:00 Zolpidem Tartrate (Ambien) 10 mg QHS PRN PO INSOMNIA Last administered on 22:15; Admin Dose 10 MG; Start 12/31/16 at 19:00 Phenol (Cepastat Lozenge) 1 lozenge Q4H PRN MT sore throat Last administered on 01/03/17 07:28; Admin Dose 1 LOZENGE; Start 01/01/17 at 20:30 Hydromorphone HCl (Dilaudid) 0.75 mg Q3H PRN IV PAIN Last administered on 10:02; Admin Dose 0.75 MG; Start 01/02/17 at 18:38 IZZY BRAMBILA Jan 03, 2017 13:31
[2017-01-03] MEDS ORDERED: ROPIVACAINE 0.2% 20 ML VIAL ONE (13:55)
[2017-01-03] MEDS ORDERED: HYDROmorphONE (0.2 MG/ML) 10ML SYG IV PRN ×2 (14:00)
[2017-01-03] MEDS ORDERED: DIPHENHYDRAMINE 50 MG INJ IV PRN (14:00)
[2017-01-03] MEDS ORDERED: MEPERIDINE 25 MG INJ IV PRN (14:00)
[2017-01-03] MEDS ORDERED: ONDANSETRON 4 MG INJ IV PRN (14:00)
[2017-01-03] MEDS ORDERED: PROCHLORPERAZINE 10 MG INJ IV PRN (14:00)
[2017-01-03] MEDS ORDERED: NEOSTIGMINE 3 MG/3 ML SYRINGE ONE (14:02)
[2017-01-03] MEDS ORDERED: GLYCOPYRROLATE 0.4 MG INJ ONE (14:02)
[2017-01-03] MEDS ORDERED: HYDROmorphONE 2 MG/ML SYG ONE (14:06)
[2017-01-03] MEDS: HYDROmorphONE (0.2 MG/ML) 10ML SYG IV PRN ×2 (14:42→15:14)
--- NOTE | 2017-01-03 14:42 | OPR ---
DATE OF OPERATION: 01/03/2017 The risks, alternatives, benefits, and personnel were discussed with the patient. Patient expresses understanding and consented to the operation. PREOPERATIVE DIAGNOSIS: Enterocutaneous fistula. POSTOPERATIVE DIAGNOSIS: Enterocutaneous fistula. OPERATION PERFORMED: 1. Enterocutaneous fistula takedown and repair. 2. Partial colectomy. 3. [place]-enteric anastomosis. 4. Open lysis of adhesions of approximately 1 hour. SURGEON: Srini Patricio MD SPECIMEN: Partial colon. COMPLICATIONS: None. ANESTHESIA: General. DESCRIPTION OF PROCEDURE: The patient was taken to the OR and prepped and draped in the usual sterile fashion. A surgical timeout was performed. IV antibiotics were given. A midline incision was made over the old enterocutaneous fistulas, which have been resolving. The incision was extended superiorly and inferiorly in the midline. On initial exam there appeared to be a pus pocket. This area was cultured. The midline incision was then extended. There was lysis of adhesions performed to get to the open bowel. It appears that there was a disruption of the staple line. There was some scarring tissue. These were excised. From the anastomotic site proximally and distally the bowel looked completely viable and healthy. The 75 DARA was stapled across the crotch of the anastomosis for further extension of the anastomosis. The staple destructed line was insufficient and grasped with Allis graspers. The staple line was then closed in a double staple technique. The specimen was sent as a specimen as partial colon. The staple line was then reinforced with a running 3-0 Vicryl. There was good hemostasis. Additional pockets of abscess were drained in the anterior abdominal wall. The midline incision of the fascia was then closed with #1 looped PDS from superior to inferior and inferior to superior in a running fashion and tied down. The wound was then irrigated with additional irrigation and Betadine irrigation. The skin was closed with skin aleta. Local anesthesia was injected and dry dressings were applied. Dictated By: SRINI CROSS/SCOTT Conf#: [id number] DID#: [id number] MTDD
[2017-01-03] MEDS: HYDROmorphONE 0.2 MG/ML PCA IV SCH ×2 (14:55→22:14)
[2017-01-03] MEDS: LACTATED RINGER'S 1,000 ML IV SCH (16:10)
[2017-01-03 17:30] LABS: ADD SCAN DIFF NO
[2017-01-03 17:32] LABS: ABNORMAL IP MESSAGE 1; HEMATOCRIT 33.3 % (37.0-47.0); LYMPHOCYTES # 0.5 10^3/ul (0.8-2.9); LYMPHOCYTES % 7.9 % (15.0-51.0); MEAN CORPUSCULAR HEMOGLOBIN 30.6 pg (29.0-33.0); MEAN CORPUSCULAR VOLUME 92.5 fl (82.0-101.0); MEAN PLATELET VOLUME 10.9 fl (7.4-10.4); MONOCYTE # 0.2 10^3/ul (0.3-0.9); MONOCYTES % 2.4 % (0.0-11.0); NEUTROPHIL # 5.7 10^3/ul (1.6-7.5); NEUTROPHILS % 89.4 % (39.0-77.0); PLATELET COUNT 248 10^3/UL (140-415); RED CELL DISTRIBUTION WIDTH 16.2 % (11.5-14.5); WHITE BLOOD COUNT 6.3 10^3/ul (4.8-10.8)
[2017-01-03 17:42] LABS: ALBUMIN 3.3 g/dl (3.3-4.9); BILIRUBIN,INDIRECT 0.1 mg/dl (0-1.1); BILIRUBIN,TOTAL 0.1 mg/dl (0.2-1.3); CREATININE 0.57 mg/dl (0.44-1.00); POTASSIUM 3.7 mmol/L (3.5-5.1); TOTAL PROTEIN 6.6 g/dl (6.1-8.1)
[2017-01-03] MEDS: AMITRIPTYLINE 25 MG TAB PO SCH (21:00)
[2017-01-03] MEDS: hydrOXYzine HCL 25 MG TAB PO SCH (21:00)
[2017-01-03] MEDS: TOPIRAMATE 100 MG TAB PO SCH (21:00)
[2017-01-03] MEDS: traZODone 50 MG TAB PO SCH (21:00)
[2017-01-04] MEDS: PIPER-TAZO 3.375 GM IV (PMX) 100 ML IVPB SCH ×5 (00:13→18:35)
[2017-01-04] MEDS: LACTATED RINGER'S 1,000 ML IV SCH ×3 (00:30→20:15)
[2017-01-04] MEDS: HYDROmorphONE 0.2 MG/ML PCA IV SCH ×2 (03:12→17:50)
[2017-01-04] MEDS: PANTOPRAZOLE (EC) 40 MG TAB PO SCH (05:49)
[2017-01-04 06:11] LABS: ADD SCAN DIFF NO
[2017-01-04 06:33] LABS: HEMATOCRIT 26.3 % (37.0-47.0); HEMOGLOBIN 8.7 g/dl (12.0-16.0); MEAN CORPUSCULAR HEMOGLOBIN 30.3 pg (29.0-33.0); MEAN CORPUSCULAR HGB CONC 33.1 g/dl (32.0-37.0); MEAN CORPUSCULAR VOLUME 91.6 fl (82.0-101.0); MEAN PLATELET VOLUME 11.3 fl (7.4-10.4); PLATELET COUNT 262 10^3/UL (140-415); RED BLOOD COUNT 2.87 10^6/ul (4.20-5.40); WHITE BLOOD COUNT 9.9 10^3/ul (4.8-10.8)
[2017-01-04 06:44] LABS: ALBUMIN 2.8 g/dl (3.3-4.9)
[2017-01-04 06:45] LABS: POTASSIUM 3.7 mmol/L (3.5-5.1)
[2017-01-04 06:47] LABS: ALBUMIN/GLOBULIN RATIO 0.9; BILIRUBIN,INDIRECT 0.7 mg/dl (0-1.1); BILIRUBIN,TOTAL 0.7 mg/dl (0.2-1.3); CREATININE 0.58 mg/dl (0.44-1.00); TOTAL PROTEIN 5.9 g/dl (6.1-8.1)
[2017-01-04 06:48] LABS: CALCIUM 8.7 mg/dl (8.4-10.2)
[2017-01-04 07:28] VITALS: BP 117/82; RESP 20
[2017-01-04] MEDS ORDERED: KETOROLAC 30 MG INJ IV STA (07:47)
[2017-01-04] MEDS: SUCRALFATE 1 GM TAB PO SCH ×2 (09:00→20:52)
[2017-01-04] MEDS: ASPIRIN 81 MG TAB PO SCH (09:00)
[2017-01-04] MEDS: GABAPENTIN 300 MG CAP PO SCH ×2 (09:00→20:53)
[2017-01-04] MEDS ORDERED: SUMATRIPTAN 6 MG/0.5 ML INJ SC ONE (09:30)
[2017-01-04 09:54] LABS: LYMPHOCYTES # 0.8 10^3/ul (0.8-2.9); MONOCYTE # 0.2 10^3/ul (0.3-0.9); NEUTROPHIL # 8.5 10^3/ul (1.6-7.5); PLATELET ESTIMATE PLT APPEAR ADEQUATE
[2017-01-04] MEDS: FAMOTIDINE 20 MG INJ IV SCH ×2 (10:45→20:55)
--- NOTE | 2017-01-04 13:27 | PN ---
DATE: 01/04/2017 Postop day #1 status post takedown of the enterocutaneous fistula and partial colon resection. SUBJECTIVE: Complains of pain, has been out of bed and urinated. No bowel movement, no passing gas per rectum. OBJECTIVE: GENERAL: The patient is alert, awake, oriented x3. VITAL SIGNS: Temperature 98.3, heart rate 115, respirations 20, blood pressure 117/82, saturation 9 7% on room air. ABDOMEN: Dressing is intact. Some tenderness on pressure. EXTREMITIES: No leg tenderness. LABORATORIES: Today, WBC 9900, hemoglobin is 8.7, hematocrit 26.3. Differential is 86% neutrophil s. Chemistry: Total protein 5.9, albumin 2.8, BUN, creatinine normal. Sodium, potassium normal. ASSESSMENT: Status post exploratory laparotomy, lysis of adhesion and takedown of the enterocutaneo us fistula. Patient is stable so far receiving Dilaudid every 15 minutes IV. PLAN: Continue current care. If appears that there is a drop in the hemoglobin so we are going to repeat hemoglobin every 8 hours and watch it. Dictated By: BREN ROSALES MD PS/NTS Conf#: [id number] DID#: [id number]
--- NOTE | 2017-01-04 14:10 | PN ---
Date/Time of Note Date/Time of Note DATE: 01/04/17 TIME: 14:08 Assessment/Plan VTE Prophylaxis VTE Prophylaxis Intervention: ambulation Lines/Catheters IV Catheter Type (from Nrsg): PICC Line Central line still needed: Yes Urinary Cath still in place: Yes Reason Cath still needed: urinary retention Assessment/Plan Chief Complaint/Hosp Course 1. Abdominal pain. 2. Repair abdominal fistula after right hemicolectomy. 3. Hypokalemia 4. Pain control Problems: Assessment/Plan 1. Potassium replacement 30 meq IV 2. Keep Pt NPO Exam/Review of Systems Vital Signs Vitals Vital Signs Date Time Temp Pulse Resp B/P Pulse Ox O2 Delivery O2 Flow Rate FiO2 01/04/17 13:00 18 01/04/17 07:28 98.3 115 117/82 97 01/03/17 15:30 Nasal Cannula 01/03/17 15:03 2.0 Intake and Output 01/03/17 01/03/17 01/04/17 15:00 23:00 07:00 Intake Total 1175 ml 225 ml 1750 ml Output Total 50 ml Balance 1125 ml 225 ml 1750 ml Results Result Diagram: 01/04/17 0600 01/04/17 0600 Results 24 hrs Laboratory Tests Test 01/03/17 17:10 01/04/17 06:00 White Blood Count 6.3 # 9.9 # Red Blood Count 3.60 L 2.87 #L Hemoglobin 11.0 L 8.7 #L Hematocrit 33.3 L 26.3 #L Mean Corpuscular Volume 92.5 91.6 Mean Corpuscular Hemoglobin 30.6 30.3 Mean Corpuscular Hemoglobin Concent 33.0 33.1 Red Cell Distribution Width 16.2 H 16.0 H Platelet Count 248 262 Mean Platelet Volume 10.9 H 11.3 H Neutrophils % 89.4 H 86.0 H Lymphocytes % 7.9 L 8.0 L Monocytes % 2.4 2.0 Eosinophils % 0.0 Basophils % 0.0 Nucleated Red Blood Cells % 0.0 Neutrophils # 5.7 8.5 H Lymphocytes # 0.5 L 0.8 Monocytes # 0.2 L 0.2 L Eosinophils # 0.0 Basophils # 0.0 Nucleated Red Blood Cells # 0.0 Sodium Level 138 141 Potassium Level 3.7 3.7 Chloride Level 110 107 Carbon Dioxide Level 23 24 Anion Gap 9 14 Blood Urea Nitrogen 13 22 H Creatinine 0.57 0.58 Glucose Level 138 127 Calcium Level 9.0 8.7 Total Bilirubin 0.1 L 0.7 Direct Bilirubin 0.00 0.00 Indirect Bilirubin 0.1 0.7 Aspartate Amino Transf (AST/SGOT) 33 26 Alanine Aminotransferase (ALT/SGPT) 35 33 Alkaline Phosphatase 133 H 98 Total Protein 6.6 5.9 L Albumin 3.3 2.8 L Globulin 3.30 H 3.10 Albumin/Globulin Ratio 1.00 0.90 Band Neutrophils % 4.0 Platelet Estimate PLT APPEAR ADEQUATE Medications Medications Current Medications Acetaminophen (Tylenol Tab) 650 mg Q6H PRN PO ELEVATED TEMPERATURE; Start 12/31 at 19:00 Amitriptyline HCl (Elavil) 25 mg QHS PO Last administered on 01/02/17 20:06; Admin Dose 25 MG; Start 12/31/16 at 21:00 Aspirin (Aspirin) 81 mg DAILY PO Last administered on 01/01/17 08:57; Admin Dose 81 MG; Start 01/01/17 at 09:00 Gabapentin (Neurontin) 600 mg BID PO Last administered on 01/02/17 20:06; Admin Dose 600 MG; Start 12/31/16 at 21:00 Hydroxyzine HCl (Atarax) 25 mg QHS PO Last administered on 01/02/17 20:06; Admin Dose 25 MG; Start 12/31/16 at 21:00 Ondansetron HCl (Zofran Inj) 4 mg Q6H PRN IV NAUSEA AND/OR VOMITING; Start at 19:00 Pantoprazole (Protonix Tab) 40 mg DAILY@06 PO Last administered on 01/02/17 05 :33; Admin Dose 40 MG; Start 01/01/17 at 06:00 Polyethylene Glycol (Miralax) 17 gm DAILY PRN PO CONSTIPATION; Start 12/31/16 at 19:00 Simethicone (Mylicon) 80 mg BID PRN PO DISTENSION/GAS/BLOATING; Start 12/31/16 at 19:00 Sucralfate (Carafate) 1 gm BID PO Last administered on 01/02/17 20:06; Admin Dose 1 GM; Start 12/31/16 at 21:00 Topiramate (Topamax) 100 mg QHS PO Last administered on 01/02/17 21:42; Admin Dose 100 MG; Start 12/31/16 at 21:00 Trazodone HCl (Desyrel) 50 mg QHS PO Last administered on 01/02/17 21:42; Admin Dose 50 MG; Start 12/31/16 at 21:00 Zolpidem Tartrate (Ambien) 10 mg QHS PRN PO INSOMNIA Last administered on 22:15; Admin Dose 10 MG; Start 12/31/16 at 19:00 Phenol (Cepastat Lozenge) 1 lozenge Q4H PRN MT sore throat Last administered on 01/03/17 07:28; Admin Dose 1 LOZENGE; Start 01/01/17 at 20:30 Hydromorphone HCl 0.75 mg 0.75 mg Q3H PRN IV PAIN Last administered on 10:02; Admin Dose 0.75 MG; Start 01/02/17 at 18:38 Lactated Ringer's (Lr) 1,000 ml @ 100 mls/hr Q10H IV Last administered on 01/04 11:10; Admin Dose 100 MLS/HR; Start 01/03/17 at 14:15 Hydromorphone HCl 0.3 mg DOSE 10 ... Q4PCA IV Last administered on 01/04/17 03:12; Admin Dose 6 MG; Start 01/03/17 at 15:00 Piperacillin Sod/ Tazobactam Sod (Zosyn 3.375gm/ 100 ml (Pmx)) 100 ml @ 200 mls /hr Q6 IVPB Last administered on 01/04/17 11:10; Admin Dose 200 MLS/HR; Start 01/04/17 at 00:00 Famotidine (Pepcid Iv) 20 mg BID IV Last administered on 01/04/17 10:45; Admin Dose 20 MG; Start 01/04/17 at 09:30 IZZY BRAMBILA Jan 04, 2017 14:10
[2017-01-04] MEDS: POTASSIUM CHLORIDE 50 ML IVPB SCH ×3 (15:30→17:44)
[2017-01-04 15:44] LABS: HEMOGLOBIN 7.7 g/dl (12.0-16.0)
[2017-01-04 20:23] VITALS: BP 118/66; RESP 20
[2017-01-04] MEDS: traZODone 50 MG TAB PO SCH (20:52)
[2017-01-04] MEDS: hydrOXYzine HCL 25 MG TAB PO SCH (20:52)
[2017-01-04] MEDS: AMITRIPTYLINE 25 MG TAB PO SCH (20:52)
[2017-01-04] MEDS: TOPIRAMATE 100 MG TAB PO SCH (20:53)
[2017-01-04 23:05] VITALS: BP 109/69; RESP 20
[2017-01-04 23:20] VITALS: BP 111/62; RESP 20
[2017-01-04] MEDS ORDERED: DIPHENHYDRAMINE 50 MG INJ IV ONE (23:30)
[2017-01-04] MEDS ORDERED: ACETAMINOPHEN 325 MG TAB PO ONE (23:30)
[2017-01-04 23:35] VITALS: BP 108/60; RESP 20
[2017-01-04 23:50] VITALS: BP 109/58; RESP 20
[2017-01-05] VITALS (8 sets, daily range): BP systolic 99–121; BP diastolic 59–79; PULSE 113; RESP 17–20
[2017-01-05] MEDS: HYDROmorphONE 0.2 MG/ML PCA IV SCH ×4 (00:58→22:16)
[2017-01-05 01:10] LABS: HEMATOCRIT 22.6 % (37.0-47.0); HEMOGLOBIN 7.4 g/dl (12.0-16.0)
[2017-01-05] MEDS ORDERED: SOD CHLORIDE 0.9% 500 ML IV ONE (01:30)
[2017-01-05 03:26] LABS: POST-TRANSFUSION BILIRUBIN 0.5 mg/dl; PRETRANSFUSION BILIRUBIN 0.5 mg/dl
[2017-01-05 05:35] LABS: ADD SCAN DIFF NO
[2017-01-05] MEDS: PIPER-TAZO 3.375 GM IV (PMX) 100 ML IVPB SCH ×3 (05:48→17:21)
[2017-01-05] MEDS: PANTOPRAZOLE (EC) 40 MG TAB PO SCH (05:48)
[2017-01-05] MEDS: LACTATED RINGER'S 1,000 ML IV SCH ×2 (05:49→17:22)
[2017-01-05 05:57] LABS: ABNORMAL IP MESSAGE 1; HEMATOCRIT 20.9 % (37.0-47.0); MEAN CORPUSCULAR HEMOGLOBIN 30.2 pg (29.0-33.0); MEAN CORPUSCULAR HGB CONC 32.5 g/dl (32.0-37.0); MEAN CORPUSCULAR VOLUME 92.9 fl (82.0-101.0); MEAN PLATELET VOLUME 11.7 fl (7.4-10.4); PLATELET COUNT 201 10^3/UL (140-415); RED BLOOD COUNT 2.25 10^6/ul (4.20-5.40); RED CELL DISTRIBUTION WIDTH 16.7 % (11.5-14.5); WHITE BLOOD COUNT 7.8 10^3/ul (4.8-10.8)
[2017-01-05 06:07] LABS: POTASSIUM 3.6 mmol/L (3.5-5.1)
[2017-01-05 06:10] LABS: CREATININE 0.5 mg/dl (0.44-1.00)
[2017-01-05 06:11] LABS: CALCIUM 8.3 mg/dl (8.4-10.2)
[2017-01-05 06:22] LABS: HEMOGLOBIN 6.8 g/dl (12.0-16.0)
[2017-01-05] MEDS ORDERED: DIPHENHYDRAMINE 50 MG INJ IV ONE (06:30)
[2017-01-05 08:23] LABS: ADD UMIC YES; URINE BILIRUBIN (Dip) NEGATIVE (NEGATIVE); URINE BLOOD (Dip) 1+ (NEGATIVE); URINE COLOR LT. YELLOW (YELLOW); URINE GLUCOSE (Dip) NEGATIVE (NEGATIVE); URINE KETONES (Dip) NEGATIVE (NEGATIVE); URINE LEUKOCYTE ESTERASE (Dip) TRACE (NEGATIVE); URINE NITRITE (Dip) NEGATIVE (NEGATIVE); URINE TOTAL PROTEIN (Dip) NEGATIVE (NEGATIVE); URINE UROBILINOGEN (Dip) 0.2 E.U./dL (0.1-1.0)
[2017-01-05] MEDS: ASPIRIN 81 MG TAB PO SCH (09:00)
[2017-01-05 09:08] LABS: BACTERIA,URINE RARE
[2017-01-05] MEDS: FAMOTIDINE 20 MG INJ IV SCH ×2 (09:22→21:27)
[2017-01-05] MEDS: GABAPENTIN 300 MG CAP PO SCH ×2 (09:22→21:29)
[2017-01-05] MEDS: SUCRALFATE 1 GM TAB PO SCH ×2 (09:22→21:28)
[2017-01-05] MEDS ORDERED: SUMATRIPTAN 25 MG TAB PO ONE (09:30)
[2017-01-05] MEDS ORDERED: SUMATRIPTAN 25 MG TAB PO PRN (11:30)
[2017-01-05 14:28] LABS: HEMATOCRIT 28.5 % (37.0-47.0); HEMOGLOBIN 9.4 g/dl (12.0-16.0)
--- NOTE | 2017-01-05 18:47 | PN ---
Date/Time of Note Date/Time of Note DATE: 01/05/17 TIME: 18:45 Assessment/Plan VTE Prophylaxis VTE Prophylaxis Intervention: other Lines/Catheters IV Catheter Type (from Nrs): PICC Line Central line still needed: Yes Urinary Cath still in place: No Reason Cath still needed: other (indicate) Assessment/Plan Chief Complaint/Hosp Course IMPRESSION: 1. Patient has abd pain. 2. 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.s/p surgery 3 post op anemia plan antibiotic per surgery Problems: Subjective 24 Hr Interval Summary Cardiovascular: no complaints Gastrointestinal: No blood Genitourinary: no complaints Exam/Review of Systems Vital Signs Vitals Vital Signs Date Time Temp Pulse Resp B/P Pulse Ox O2 Delivery O2 Flow Rate FiO2 01/05/17 17:00 18 01/05/17 08:40 98.3 117 117/72 95 01/05/17 00:15 Room Air 01/03/17 15:03 2.0 Intake and Output 01/04/17 01/04/17 01/05/17 14:59 22:59 06:59 Intake Total 600 ml 700 ml 1830 ml Output Total 800 ml Balance 600 ml -100 ml 1830 ml Exam Neck: supple Respiratory: clear to auscultation Cardiovascular: regular rate and rhythm Gastrointestinal: soft Genitourinary - Female: nl adnexae Musculoskeletal: nl extremities to inspection Results Result Diagram: 01/05/17 1345 01/05/17 0510 Results 24 hrs Laboratory Tests Test 01/05/17 00:30 01/05/17 01:00 01/05/17 05:10 01/05/17 13:45 Hemoglobin 7.4 L 6.8 *L 9.4 #L Hematocrit 22.6 L 20.9 L 28.5 #L Urine Color LT. YELLOW Urine Clarity CLEAR Urine pH 7.0 Urine Specific [place] 1.010 Urine Ketones NEGATIVE Urine Nitrite NEGATIVE Urine Bilirubin NEGATIVE Urine Urobilinogen 0.2 E.U./dL Urine Leukocyte Esterase TRACE H Urine Microscopic RBC 2-5 Urine Microscopic WBC 2-5 Urine Epithelial Cells MODERATE Urine Bacteria RARE Urine Hemoglobin 1+ H Urine Glucose NEGATIVE Urine Total Protein NEGATIVE White Blood Count 7.8 # Red Blood Count 2.25 #L Mean Corpuscular Volume 92.9 Mean Corpuscular Hemoglobin 30.2 Mean Corpuscular Hemoglobin Concent 32.5 Red Cell Distribution Width 16.7 H Platelet Count 201 # Mean Platelet Volume 11.7 H Neutrophils % Lymphocytes % Monocytes % Neutrophils # Lymphocytes # Monocytes # Sodium Level 136 Potassium Level 3.6 Chloride Level 104 Carbon Dioxide Level 24 Anion Gap 12 Blood Urea Nitrogen 20 Creatinine 0.50 Glucose Level 106 Calcium Level 8.3 L Medications Medications Current Medications Acetaminophen (Tylenol Tab) 650 mg Q6H PRN PO ELEVATED TEMPERATURE; Start 12/31 at 19:00 Amitriptyline HCl (Elavil) 25 mg QHS PO Last administered on 01/02/17 20:06; Admin Dose 25 MG; Start 12/31/16 at 21:00 Aspirin (Aspirin) 81 mg DAILY PO Last administered on 01/01/17 08:57; Admin Dose 81 MG; Start 01/01/17 at 09:00 Gabapentin (Neurontin) 600 mg BID PO Last administered on 01/05/17 09:22; Admin Dose 600 MG; Start 12/31/16 at 21:00 Hydroxyzine HCl (Atarax) 25 mg QHS PO Last administered on 01/02/17 20:06; Admin Dose 25 MG; Start 12/31/16 at 21:00 Ondansetron HCl (Zofran Inj) 4 mg Q6H PRN IV NAUSEA AND/OR VOMITING; Start at 19:00 Pantoprazole (Protonix Tab) 40 mg DAILY@06 PO Last administered on 01/02/17 05 :33; Admin Dose 40 MG; Start 01/01/17 at 06:00 Polyethylene Glycol (Miralax) 17 gm DAILY PRN PO CONSTIPATION; Start 12/31/16 at 19:00 Simethicone (Mylicon) 80 mg BID PRN PO DISTENSION/GAS/BLOATING; Start 12/31/16 at 19:00 Sucralfate (Carafate) 1 gm BID PO Last administered on 01/05/17 09:22; Admin Dose 1 GM; Start 12/31/16 at 21:00 Topiramate (Topamax) 100 mg QHS PO Last administered on 01/02/17 21:42; Admin Dose 100 MG; Start 12/31/16 at 21:00 Trazodone HCl (Desyrel) 50 mg QHS PO Last administered on 01/02/17 21:42; Admin Dose 50 MG; Start 12/31/16 at 21:00 Zolpidem Tartrate (Ambien) 10 mg QHS PRN PO INSOMNIA Last administered on 22:15; Admin Dose 10 MG; Start 12/31/16 at 19:00 Phenol (Cepastat Lozenge) 1 lozenge Q4H PRN MT sore throat Last administered on 01/03/17 07:28; Admin Dose 1 LOZENGE; Start 01/01/17 at 20:30 Hydromorphone HCl 0.75 mg 0.75 mg Q3H PRN IV PAIN Last administered on 10:02; Admin Dose 0.75 MG; Start 01/02/17 at 18:38 Lactated Ringer's (Lr) 1,000 ml @ 100 mls/hr Q10H IV Last administered on 01/05 17:22; Admin Dose 100 MLS/HR; Start 01/03/17 at 14:15 Hydromorphone HCl 0.4 mg DOSE 10 ... Q4PCA IV Last administered on 01/05/17 15:51; Admin Dose 6 MG; Start 01/03/17 at 15:00 Piperacillin Sod/ Tazobactam Sod (Zosyn 3.375gm/ 100 ml (Pmx)) 100 ml @ 200 mls /hr Q6 IVPB Last administered on 01/05/17 17:21; Admin Dose 200 MLS/HR; Start 01/04/17 at 00:00 Famotidine (Pepcid Iv) 20 mg BID IV Last administered on 01/05/17 09:22; Admin Dose 20 MG; Start 01/04/17 at 09:30 MARTINEZ MELVIN MD Jan 05, 2017 18:47
[2017-01-05] MEDS: hydrOXYzine HCL 25 MG TAB PO SCH (21:28)
[2017-01-05] MEDS: traZODone 50 MG TAB PO SCH (21:28)
[2017-01-05] MEDS: TOPIRAMATE 100 MG TAB PO SCH (21:29)
[2017-01-05] MEDS: AMITRIPTYLINE 25 MG TAB PO SCH (21:29)
[2017-01-05] MEDS: ZOLPIDEM 5 MG TAB PO PRN (22:01)
[2017-01-05 22:07] LABS: HEMATOCRIT 27.6 % (37.0-47.0); HEMOGLOBIN 9.2 g/dl (12.0-16.0)
[2017-01-06] MEDS: LACTATED RINGER'S 1,000 ML IV SCH ×2 (02:32→12:54)
[2017-01-06 05:27] LABS: ADD SCAN DIFF NO
[2017-01-06] MEDS: PANTOPRAZOLE (EC) 40 MG TAB PO SCH (05:30)
[2017-01-06] MEDS: LEVOFLOXACIN 500 MG TAB PO SCH (05:30)
[2017-01-06 05:37] LABS: BASOPHILS % 0.1 % (0.0-2.0); EOSINOPHILS # 0.1 10^3/ul (0.0-0.5); EOSINOPHILS % 1.6 % (0.0-7.0); HEMATOCRIT 29.5 % (37.0-47.0); HEMOGLOBIN 9.7 g/dl (12.0-16.0); LYMPHOCYTES # 1.4 10^3/ul (0.8-2.9); MEAN CORPUSCULAR HEMOGLOBIN 28.7 pg (29.0-33.0); MEAN CORPUSCULAR HGB CONC 32.9 g/dl (32.0-37.0); MEAN CORPUSCULAR VOLUME 87.3 fl (82.0-101.0); MEAN PLATELET VOLUME 11.6 fl (7.4-10.4); MONOCYTE # 0.4 10^3/ul (0.3-0.9); MONOCYTES % 5.1 % (0.0-11.0); NEUTROPHIL # 5.7 10^3/ul (1.6-7.5); NEUTROPHILS % 74.5 % (39.0-77.0); PLATELET COUNT 183 10^3/UL (140-415); RED BLOOD COUNT 3.38 10^6/ul (4.20-5.40); RED CELL DISTRIBUTION WIDTH 17.5 % (11.5-14.5); WHITE BLOOD COUNT 7.7 10^3/ul (4.8-10.8)
[2017-01-06 06:11] LABS: ALBUMIN 2.7 g/dl (3.3-4.9); ALBUMIN/GLOBULIN RATIO 0.87; BILIRUBIN,INDIRECT 0.4 mg/dl (0-1.1); BILIRUBIN,TOTAL 0.4 mg/dl (0.2-1.3); CALCIUM 8.1 mg/dl (8.4-10.2); CREATININE 0.47 mg/dl (0.44-1.00); POTASSIUM 3.3 mmol/L (3.5-5.1); TOTAL PROTEIN 5.8 g/dl (6.1-8.1)
--- NOTE | 2017-01-06 07:07 | PN ---
DATE: SUBJECTIVE: Postop day #2 status post laparotomy, lysis of adhesions, closure of enterocutaneous fistula. Complains of headache and some abdominal pain. Has had minimal bowel movement (____), which was fresh blood per nurse. Has been out of bed to the bathroom. Last night they tried to transfuse the patient 1 unit of packed cells, but apparently patient responded very febrile response to be started. Today morning, she received 2 units of packed cells with no untoward reactions. Today at 5:00 a.m., the hemoglobin was 6.8 after 2 units of transfusion. At 1 or 2 p.m. today, hemoglobin is 9.4, hematocrit 28.5. OBJECTIVE: VITAL SIGNS: Temperature 98.3, heart rate between 117 and 95. Respirations 18. Blood pressure 117/72, saturation 95% room air. GENERAL: The patient is alert, awake, appears stable condition. No acute distress. Lying down in the bed. ABDOMEN: Abdominal binder wrapped around. Abdomen is slightly tender all over. Positive bowel sounds, hypoactive. ASSESSMENT AND PLAN: The patient is status post laparotomy for the closure of the site of the enterocutaneous fistula, which was done on Friday. The patient dropped her hemoglobin, apparently sign of bleeding required 2 units of packed cell transfusion today. Right now, patient is stable. We will repeat checking the H and H every 8 hours . Otherwise, patient is stable. Today, has been started on clear liquids. Dictated By: BREN ROSALES MD PS/NTS Conf#: [id number] DID#: [id number] CC: MARTINEZ MELVIN MD;*EndCC* MTDD
[2017-01-06 07:29] VITALS: BP 114/74; RESP 18
[2017-01-06] MEDS: GABAPENTIN 300 MG CAP PO SCH ×2 (09:26→20:56)
[2017-01-06] MEDS: FAMOTIDINE 20 MG INJ IV SCH ×2 (09:26→21:05)
[2017-01-06] MEDS: SUCRALFATE 1 GM TAB PO SCH ×2 (09:26→20:57)
[2017-01-06] MEDS: HYDROmorphONE 0.2 MG/ML PCA IV SCH ×3 (10:31→22:56)
[2017-01-06 14:43] LABS: HEMATOCRIT 29.1 % (37.0-47.0); HEMOGLOBIN 9.5 g/dl (12.0-16.0)
--- NOTE | 2017-01-06 18:22 | PN ---
Date/Time of Note Date/Time of Note DATE: 01/06/17 TIME: 18:19 Assessment/Plan VTE Prophylaxis VTE Prophylaxis Intervention: other Lines/Catheters IV Catheter Type (from Nrsg): PICC Line Central line still needed: Yes Urinary Cath still in place: No Reason Cath still needed: other (indicate) Assessment/Plan Chief Complaint/Hosp Course IMPRESSION: 1. Patient has abd pain.better 2. s/p abd surgery 3 post op anemia 4 post op gi bleed plan antibiotic per surgery ck cbc dr damico called to see Problems: Subjective 24 Hr Interval Summary Respiratory: no complaints Cardiovascular: no complaints Gastrointestinal: blood (per rectum+) Exam/Review of Systems Vital Signs Vitals Vital Signs Date Time Temp Pulse Resp B/P Pulse Ox O2 Delivery O2 Flow Rate FiO2 01/06/17 17:49 18 01/06/17 07:29 98.4 108 114/74 97 01/05/17 00:15 Room Air 01/03/17 15:03 2.0 Intake and Output 01/05/17 01/05/17 01/06/17 15:00 23:00 07:00 Intake Total 100 ml 2095 ml 1560 ml Output Total 750 ml Balance 100 ml 1345 ml 1560 ml Exam Neck: supple Respiratory: clear to auscultation Cardiovascular: regular rate and rhythm Gastrointestinal: soft Musculoskeletal: nl extremities to inspection Extremities: normal pulses Results Result Diagram: 01/06/17 1405 01/06/17 0455 Results 24 hrs Laboratory Tests Test 01/05/17 21:45 01/06/17 04:55 01/06/17 14:05 Hemoglobin 9.2 L 9.7 L 9.5 L Hematocrit 27.6 L 29.5 L 29.1 L White Blood Count 7.7 Red Blood Count 3.38 #L Mean Corpuscular Volume 87.3 Mean Corpuscular Hemoglobin 28.7 L Mean Corpuscular Hemoglobin Concent 32.9 Red Cell Distribution Width 17.5 H Platelet Count 183 Mean Platelet Volume 11.6 H Neutrophils % 74.5 Lymphocytes % 18.0 Monocytes % 5.1 Eosinophils % 1.6 Basophils % 0.1 Nucleated Red Blood Cells % 0.0 Neutrophils # 5.7 Lymphocytes # 1.4 Monocytes # 0.4 Eosinophils # 0.1 Basophils # 0.0 Nucleated Red Blood Cells # 0.0 Sodium Level 132 L Potassium Level 3.3 L Chloride Level 105 Carbon Dioxide Level 24 Anion Gap 6 L Blood Urea Nitrogen 8 # Creatinine 0.47 Glucose Level 96 Calcium Level 8.1 L Total Bilirubin 0.4 Direct Bilirubin 0.00 Indirect Bilirubin 0.4 Aspartate Amino Transf (AST/SGOT) 20 Alanine Aminotransferase (ALT/SGPT) 38 Alkaline Phosphatase 115 Total Protein 5.8 L Albumin 2.7 L Globulin 3.10 Albumin/Globulin Ratio 0.87 Medications Medications Current Medications Acetaminophen (Tylenol Tab) 650 mg Q6H PRN PO ELEVATED TEMPERATURE; Start 12/31 at 19:00 Amitriptyline HCl (Elavil) 25 mg QHS PO Last administered on 01/05/17 21:29; Admin Dose 25 MG; Start 12/31/16 at 21:00 Aspirin (Aspirin) 81 mg DAILY PO Last administered on 01/01/17 08:57; Admin Dose 81 MG; Start 01/01/17 at 09:00; Status Future Hold Gabapentin (Neurontin) 600 mg BID PO Last administered on 01/06/17 09:26; Admin Dose 600 MG; Start 12/31/16 at 21:00 Hydroxyzine HCl (Atarax) 25 mg QHS PO Last administered on 01/05/17 21:28; Admin Dose 25 MG; Start 12/31/16 at 21:00 Ondansetron HCl (Zofran Inj) 4 mg Q6H PRN IV NAUSEA AND/OR VOMITING; Start at 19:00 Pantoprazole (Protonix Tab) 40 mg DAILY@06 PO Last administered on 01/06/17 05: 30; Admin Dose 40 MG; Start 01/01/17 at 06:00 Polyethylene Glycol (Miralax) 17 gm DAILY PRN PO CONSTIPATION; Start 12/31/16 at 19:00 Simethicone (Mylicon) 80 mg BID PRN PO DISTENSION/GAS/BLOATING; Start 12/31/16 at 19:00 Sucralfate (Carafate) 1 gm BID PO Last administered on 01/06/17 09:26; Admin Dose 1 GM; Start 12/31/16 at 21:00 Topiramate (Topamax) 100 mg QHS PO Last administered on 01/05/17 21:29; Admin Dose 100 MG; Start 12/31/16 at 21:00 Trazodone HCl (Desyrel) 50 mg QHS PO Last administered on 01/05/17 21:28; Admin Dose 50 MG; Start 12/31/16 at 21:00 Zolpidem Tartrate (Ambien) 10 mg QHS PRN PO INSOMNIA Last administered on 22:01; Admin Dose 10 MG; Start 12/31/16 at 19:00 Phenol (Cepastat Lozenge) 1 lozenge Q4H PRN MT sore throat Last administered on 01/03/17 07:28; Admin Dose 1 LOZENGE; Start 01/01/17 at 20:30 Hydromorphone HCl 0.75 mg 0.75 mg Q3H PRN IV PAIN Last administered on 10:02; Admin Dose 0.75 MG; Start 01/02/17 at 18:38 Lactated Ringer's (Lr) 1,000 ml @ 100 mls/hr Q10H IV Last administered on 12:54; Admin Dose 100 MLS/HR; Start 01/03/17 at 14:15 Hydromorphone HCl (Dilaudid STAGE SETTING PAINTER APPRENTICE) 0.4 mg DOSE 10 ... Q4PCA IV Last administered on 01/06/17 17:49; Admin Dose 6 MG; Start 01/03/17 at 15:00 Famotidine (Pepcid Iv) 20 mg BID IV Last administered on 01/06/17 09:26; Admin Dose 20 MG; Start 01/04/17 at 09:30 Levofloxacin 500 mg 500 mg DAILY@06 PO Last administered on 01/06/17 05:30; Admin Dose 500 MG; Start 01/06/17 at 06:00 Potassium Chloride (KCl 40 MEQ/250 ML NS) 250 ml @ 62.5 mls/hr ONCE ONCE IVPB ; Start 01/06/17 at 18:30; Stop 01/06/17 at 22:29 MARTINEZ MELVIN MD January 06, 2017 18:22
[2017-01-06] MEDS ORDERED: POTASSIUM CHLORIDE 250 ML IVPB ONE (18:30)
[2017-01-06 20:17] VITALS: BP 133/77; RESP 19
[2017-01-06] MEDS: traZODone 50 MG TAB PO SCH (20:56)
[2017-01-06] MEDS: AMITRIPTYLINE 25 MG TAB PO SCH (20:56)
[2017-01-06] MEDS: hydrOXYzine HCL 25 MG TAB PO SCH (20:57)
[2017-01-06] MEDS: TOPIRAMATE 100 MG TAB PO SCH (20:57)
[2017-01-06] MEDS: ACETAMINOPHEN 325 MG TAB PO PRN (21:05)
[2017-01-06] MEDS: ZOLPIDEM 5 MG TAB PO PRN (22:26)
--- NOTE | 2017-01-06 22:41 | CONS ---
DATE OF ADMISSION: 12/31/2016 DATE OF CONSULTATION: HISTORY OF PRESENT ILLNESS: The patient is a 51-year-old female underwent right hemicolectomy lapar oscopically. Postoperatively, patient developed enterocutaneous fistula. Fistula was low output an d was successfully treated with n.p.o. and TPN and, on repeat CAT scan, the enterocutaneous fistula had closed completely. Now, GI consult was called in because of rectal bleeding. She had a colonos copy done by Dr. Valles. A polyp was removed and no other significant pathology was found. This was done just 6 to 8 months ago. The blood is of very small quantity and she sees it on tissue kyle r and also the fresh blood. No nausea, no vomiting. No abdominal pain. ALLERGIES: NONE. PAST MEDICAL HISTORY: 1. Laparoscopic right hemicolectomy. 2. Enterocutaneous fistula. SOCIAL HISTORY: Occasional alcohol use. Long-term tobacco consumption. PHYSICAL EXAMINATION: GENERAL: Alert, awake, not in distress. HEENT: Unremarkable. NECK: Supple. No thyromegaly, no lymphadenopathy. CARDIOVASCULAR: No murmur, gallop, or click. LUNGS: Clear. ABDOMEN: Benign. EXTREMITIES: No edema. CENTRAL NERVOUS SYSTEM: Grossly within normal limits. LABORATORY DATA: INR is within normal limits. CMP is also within normal limits. Hematocrit is 29, which is stable. IMPRESSION: 1. Rectal bleeding, most probably from hemorrhoids. 2. Enterocutaneous fistula, closed with conservative treatment. 3. Right hemicolectomy. 4. Abdominal pain, much better. 5. Anemia. PLAN: Monitor H and H. Observe for GI bleeding. If the bleeding is significant, then we will have to proceed with colonoscopy, if cleared by the surgeon. Dictated By: BRIANDA COSME/NTS Conf#: [id number] DID#: [id number] CC: MARTINEZ MELVIN MD; BRIANDA MORSE MD;*End*
[2017-01-07] MEDS: LACTATED RINGER'S 1,000 ML IV SCH ×4 (00:22→20:35)
[2017-01-07] MEDS: PANTOPRAZOLE (EC) 40 MG TAB PO SCH (05:33)
[2017-01-07] MEDS: LEVOFLOXACIN 500 MG TAB PO SCH (05:33)
[2017-01-07 05:38] LABS: ADD SCAN DIFF NO
[2017-01-07 05:45] LABS: BASOPHILS % 0.3 % (0.0-2.0); EOSINOPHILS # 0.3 10^3/ul (0.0-0.5); EOSINOPHILS % 3.9 % (0.0-7.0); HEMATOCRIT 30.7 % (37.0-47.0); HEMOGLOBIN 9.9 g/dl (12.0-16.0); LYMPHOCYTES # 1.9 10^3/ul (0.8-2.9); LYMPHOCYTES % 26.7 % (15.0-51.0); MEAN CORPUSCULAR HEMOGLOBIN 28.4 pg (29.0-33.0); MEAN CORPUSCULAR HGB CONC 32.2 g/dl (32.0-37.0); MONOCYTE # 0.5 10^3/ul (0.3-0.9); MONOCYTES % 6.5 % (0.0-11.0); NEUTROPHIL # 4.3 10^3/ul (1.6-7.5); NEUTROPHILS % 62.2 % (39.0-77.0); PLATELET COUNT 221 10^3/UL (140-415); RED BLOOD COUNT 3.49 10^6/ul (4.20-5.40); RED CELL DISTRIBUTION WIDTH 17.4 % (11.5-14.5); WHITE BLOOD COUNT 6.9 10^3/ul (4.8-10.8)
[2017-01-07 06:36] LABS: POTASSIUM 3.3 mmol/L (3.5-5.1)
[2017-01-07 06:38] LABS: CREATININE 0.42 mg/dl (0.44-1.00)
[2017-01-07 06:39] LABS: CALCIUM 8.3 mg/dl (8.4-10.2)
[2017-01-07 07:26] VITALS: BP 146/88; RESP 20
[2017-01-07] MEDS: HYDROmorphONE 0.2 MG/ML PCA IV SCH ×3 (08:36→21:20)
[2017-01-07] MEDS: FAMOTIDINE 20 MG INJ IV SCH ×2 (08:50→20:36)
[2017-01-07] MEDS: GABAPENTIN 300 MG CAP PO SCH ×2 (08:51→20:35)
[2017-01-07] MEDS: HYDROmorphONE 1 MG/ML SYG IV PRN ×2 (08:51→20:07)
[2017-01-07] MEDS: SUCRALFATE 1 GM TAB PO SCH ×2 (08:51→20:36)
--- NOTE | 2017-01-07 11:27 | CONS ---
Date/Time of Note Date/Time of Note DATE: 01/07/17 TIME: 11:25 Assessment/Plan Assessment/Plan Additional Assessment/Plan IMPRESSION: 1. Rectal bleeding, most probably from hemorrhoids. 2. Enterocutaneous fistula, closed with conservative treatment. 3. Right hemicolectomy. 4. Abdominal pain, much better. 5. Anemia. Plan monitor H&H sitz bath Consultation Date/Type/Reason Admit Date/Time Dec 31, 2016 at 08:01 Initial Consult Date 24 HR Interval Summary Constitutional: improved Exam/Review of Systems Vital Signs Vitals Vital Signs Date Time Temp Pulse Resp B/P Pulse Ox O2 Delivery O2 Flow Rate FiO2 01/07/17 08:36 17 01/07/17 07:26 98.4 111 146/88 95 01/05/17 00:15 Room Air 01/03/17 15:03 2.0 Intake and Output 01/06/17 01/06/17 01/07/17 15:00 23:00 07:00 Intake Total 700 ml 850 ml 1750 ml Balance 700 ml 850 ml 1750 ml Exam Constitutional: alert, oriented, well developed Psych: nl mood/affect, no complaints Head: atraumatic, normocephalic Eyes: EOMI, PERRL, nl conjunctiva, nl lids, nl sclera ENMT: nl external ears & nose, nl lips & teeth, nl nasal mucosa & septum Neck: non-tender, supple Respiratory: clear to auscultation, normal air movement Cardiovascular: nl pulses, regular rate and rhythm Gastrointestinal: nl liver, spleen, non-tender, soft Musculoskeletal: nl extremities to inspection, nl gait and stance Extremities: normal pulses Neurological: COACH II-XII intact, nl mental status, nl speech, nl strength Skin: nl turgor, No rash or lesions Lymph: nl lymph nodes Results Result Diagram: 01/07/17 0500 01/07/17 0500 Results 24 hrs Laboratory Tests Test 01/06/17 14:05 01/07/17 05:00 Hemoglobin 9.5 L 9.9 L Hematocrit 29.1 L 30.7 L White Blood Count 6.9 Red Blood Count 3.49 L Mean Corpuscular Volume 88.0 Mean Corpuscular Hemoglobin 28.4 L Mean Corpuscular Hemoglobin Concent 32.2 Red Cell Distribution Width 17.4 H Platelet Count 221 # Mean Platelet Volume 11.0 H Neutrophils % 62.2 Lymphocytes % 26.7 Monocytes % 6.5 Eosinophils % 3.9 Basophils % 0.3 Nucleated Red Blood Cells % 0.0 Neutrophils # 4.3 Lymphocytes # 1.9 Monocytes # 0.5 Eosinophils # 0.3 Basophils # 0.0 Nucleated Red Blood Cells # 0.0 Sodium Level 136 Potassium Level 3.3 L Chloride Level 106 Carbon Dioxide Level 21 Anion Gap 12 Blood Urea Nitrogen 5 L Creatinine 0.42 L Glucose Level 93 Calcium Level 8.3 L Medications Medications Current Medications Acetaminophen (Tylenol Tab) 650 mg Q6H PRN PO ELEVATED TEMPERATURE Last administered on 01/06/17 21:05; Admin Dose 650 MG; Start 12/31/16 at 19:00 Amitriptyline HCl (Elavil) 25 mg QHS PO Last administered on 01/06/17 20:56; Admin Dose 25 MG; Start 12/31/16 at 21:00 Aspirin (Aspirin) 81 mg DAILY PO Last administered on 01/01/17 08:57; Admin Dose 81 MG; Start 01/01/17 at 09:00; Status Future Hold Gabapentin (Neurontin) 600 mg BID PO Last administered on 01/07/17 08:51; Admin Dose 600 MG; Start 12/31/16 at 21:00 Hydroxyzine HCl (Atarax) 25 mg QHS PO Last administered on 01/06/17 20:57; Admin Dose 25 MG; Start 12/31/16 at 21:00 Ondansetron HCl (Zofran Inj) 4 mg Q6H PRN IV NAUSEA AND/OR VOMITING; Start at 19:00 Pantoprazole (Protonix Tab) 40 mg DAILY@06 PO Last administered on 01/07/17 05: 33; Admin Dose 40 MG; Start 01/01/17 at 06:00 Polyethylene Glycol (Miralax) 17 gm DAILY PRN PO CONSTIPATION; Start 12/31/16 at 19:00 Simethicone (Mylicon) 80 mg BID PRN PO DISTENSION/GAS/BLOATING; Start 12/31/16 at 19:00 Sucralfate (Carafate) 1 gm BID PO Last administered on 01/07/17 08:51; Admin Dose 1 GM; Start 12/31/16 at 21:00 Topiramate (Topamax) 100 mg QHS PO Last administered on 01/06/17 20:57; Admin Dose 100 MG; Start 12/31/16 at 21:00 Trazodone HCl (Desyrel) 50 mg QHS PO Last administered on 01/06/17 20:56; Admin Dose 50 MG; Start 12/31/16 at 21:00 Zolpidem Tartrate (Ambien) 10 mg QHS PRN PO INSOMNIA Last administered on 22:26; Admin Dose 10 MG; Start 12/31/16 at 19:00 Phenol (Cepastat Lozenge) 1 lozenge Q4H PRN MT sore throat Last administered on 01/03/17 07:28; Admin Dose 1 LOZENGE; Start 01/01/17 at 20:30 Hydromorphone HCl 0.75 mg 0.75 mg Q3H PRN IV PAIN Last administered on 08:51; Admin Dose 0.75 MG; Start 01/02/17 at 18:38 Lactated Ringer's (Lr) 1,000 ml @ 100 mls/hr Q10H IV Last administered on 08:53; Admin Dose 100 MLS/HR; Start 01/03/17 at 14:15 Hydromorphone HCl (Dilaudid TRUCK DRIVER SUPERVISOR) 0.4 mg DOSE 10 ... Q4PCA IV Last administered on 01/07/17 08:36; Admin Dose 6 MG; Start 01/03/17 at 15:00 Famotidine (Pepcid Iv) 20 mg BID IV Last administered on 01/07/17 08:50; Admin Dose 20 MG; Start 01/04/17 at 09:30 Levofloxacin (Levaquin) 500 mg DAILY@06 PO Last administered on 01/07/17 05:33 ; Admin Dose 500 MG; Start 01/06/17 at 06:00 BRIANDA MORSE MD January 07, 2017 11:27
--- NOTE | 2017-01-07 18:20 | PN ---
Date/Time of Note Date/Time of Note DATE: 01/07/17 TIME: 18:19 Assessment/Plan VTE Prophylaxis VTE Prophylaxis Intervention: SCD's Lines/Catheters IV C[facility]ter Type (from [facility] PICC Line Central line still needed: Yes Urinary Cath still in place: No Reason Cath still needed: other (indicate) Assessment/Plan Chief Complaint/Hosp Course s/p ecf which has resolved with repair with ECF and revision of anastomosis Problems: Assessment/Plan continue current care Subjective 24 Hr Interval Summary Free Text/Dictation doing well no issues, had some bleeding through anastomosis which appears to have stopped received 2 units. no further in past 24 hours with stabilization of hgb Exam/Review of Systems Vital Signs Vitals Vital Signs Date Time Temp Pulse Resp B/P Pulse Ox O2 Delivery O2 Flow Rate FiO2 01/07/17 16:18 17 01/07/17 07:26 98.4 111 146/88 95 01/05/17 00:15 Room Air 01/03/17 15:03 2.0 Intake and Output 01/06/17 01/06/17 01/07/17 15:00 23:00 07:00 Intake Total 700 ml 850 ml 1750 ml Balance 700 ml 850 ml 1750 ml Exam c/d/i Results Result Diagram: 01/07/17 0500 01/07/17 0500 Results 24 hrs Laboratory Tests Test 01/07/17 05:00 White Blood Count 6.9 Red Blood Count 3.49 L Hemoglobin 9.9 L Hematocrit 30.7 L Mean Corpuscular Volume 88.0 Mean Corpuscular Hemoglobin 28.4 L Mean Corpuscular Hemoglobin Concent 32.2 Red Cell Distribution Width 17.4 H Platelet Count 221 # Mean Platelet Volume 11.0 H Neutrophils % 62.2 Lymphocytes % 26.7 Monocytes % 6.5 Eosinophils % 3.9 Basophils % 0.3 Nucleated Red Blood Cells % 0.0 Neutrophils # 4.3 Lymphocytes # 1.9 Monocytes # 0.5 Eosinophils # 0.3 Basophils # 0.0 Nucleated Red Blood Cells # 0.0 Sodium Level 136 Potassium Level 3.3 L Chloride Level 106 Carbon Dioxide Level 21 Anion Gap 12 Blood Urea Nitrogen 5 L Creatinine 0.42 L Glucose Level 93 Calcium Level 8.3 L Medications Medications Current Medications Acetaminophen (Tylenol Tab) 650 mg Q6H PRN PO ELEVATED TEMPERATURE Last administered on 5/1/17at 21:05; Admin Dose 650 MG; Start 12/31/16 at 19:00 Amitriptyline HCl (Elavil) 25 mg QHS PO Last administered on 01/06/17 20:56; Admin Dose 25 MG; Start 12/31/16 at 21:00 Aspirin (Aspirin) 81 mg DAILY PO Last administered on 01/01/17 08:57; Admin Dose 81 MG; Start 01/01/17 at 09:00; Status Future Hold Gabapentin (Neurontin) 600 mg BID PO Last administered on 01/07/17 08:51; Admin Dose 600 MG; Start 12/31/16 at 21:00 Hydroxyzine HCl (Atarax) 25 mg QHS PO Last administered on 01/06/17 20:57; Admin Dose 25 MG; Start 12/31/16 at 21:00 Ondansetron HCl (Zofran Inj) 4 mg Q6H PRN IV NAUSEA AND/OR VOMITING; Start at 19:00 Pantoprazole (Protonix Tab) 40 mg DAILY@06 PO Last administered on 01/07/17 05: 33; Admin Dose 40 MG; Start 01/01/17 at 06:00 Polyethylene Glycol (Miralax) 17 gm DAILY PRN PO CONSTIPATION; Start 12/31/16 at 19:00 Simethicone (Mylicon) 80 mg BID PRN PO DISTENSION/GAS/BLOATING; Start 12/31/16 at 19:00 Sucralfate (Carafate) 1 gm BID PO Last administered on 01/07/17 08:51; Admin Dose 1 GM; Start 12/31/16 at 21:00 Topiramate (Topamax) 100 mg QHS PO Last administered on 01/06/17 20:57; Admin Dose 100 MG; Start 12/31/16 at 21:00 Trazodone HCl (Desyrel) 50 mg QHS PO Last administered on 01/06/17 20:56; Admin Dose 50 MG; Start 12/31/16 at 21:00 Zolpidem Tartrate (Ambien) 10 mg QHS PRN PO INSOMNIA Last administered on 22:26; Admin Dose 10 MG; Start 12/31/16 at 19:00 Phenol (Cepastat Lozenge) 1 lozenge Q4H PRN MT sore throat Last administered on 01/03/17 07:28; Admin Dose 1 LOZENGE; Start 01/01/17 at 20:30 Hydromorphone HCl 0.75 mg 0.75 mg Q3H PRN IV PAIN Last administered on 08:51; Admin Dose 0.75 MG; Start 01/02/17 at 18:38 Lactated Ringer's (Lr) 1,000 ml @ 100 mls/hr Q10H IV Last administered on 08:53; Admin Dose 100 MLS/HR; Start 01/03/17 at 14:15 Hydromorphone HCl (Dilaudid ADVERTISING EXECUTIVE) 0.4 mg DOSE 10 ... Q4PCA IV Last administered on 01/07/17 16:16; Admin Dose 6 MG; Start 01/03/17 at 15:00 Famotidine (Pepcid Iv) 20 mg BID IV Last administered on 01/07/17 08:50; Admin Dose 20 MG; Start 01/04/17 at 09:30 Levofloxacin (Levaquin) 500 mg DAILY@06 PO Last administered on 01/07/17 05:33 ; Admin Dose 500 MG; Start 01/06/17 at 06:00 Rubin RUSS January 07, 2017 18:20
[2017-01-07] MEDS ORDERED: POTASSIUM CHLORIDE 250 ML IVPB ONE (20:00)
[2017-01-07] MEDS: TOPIRAMATE 100 MG TAB PO SCH (20:35)
[2017-01-07] MEDS: AMITRIPTYLINE 25 MG TAB PO SCH (20:35)
[2017-01-07] MEDS: traZODone 50 MG TAB PO SCH (20:36)
[2017-01-07] MEDS: hydrOXYzine HCL 25 MG TAB PO SCH (20:36)
[2017-01-07 20:46] VITALS: BP 123/83; RESP 19
--- NOTE | 2017-01-07 23:07 | PN ---
Date/Time of Note Date/Time of Note DATE: 01/07/17 TIME: 23:06 Assessment/Plan VTE Prophylaxis VTE Prophylaxis Intervention: other Lines/Catheters IV Catheter Type (from Nrsg): PICC Line Central line still needed: Yes Urinary Cath still in place: No Reason Cath still needed: other (indicate) Assessment/Plan Chief Complaint/Hosp Course IMPRESSION: 1. Patient has abd pain 2. s/p abd surgery 3 post op anemia 4 post op gi bleed plan antibiotic per surgery ck cbc dr damico to f/u kcl Problems: Subjective 24 Hr Interval Summary Subjective hx not possible: other (abd pain,no gi bleed) Exam/Review of Systems Vital Signs Vitals Vital Signs Date Time Temp Pulse Resp B/P Pulse Ox O2 Delivery O2 Flow Rate FiO2 01/07/17 20:46 98.0 115 19 123/83 97 01/05/17 00:15 Room Air 01/03/17 15:03 2.0 Intake and Output 01/06/17 01/06/17 01/07/17 15:00 23:00 07:00 Intake Total 700 ml 850 ml 1750 ml Balance 700 ml 850 ml 1750 ml Exam Respiratory: diminished breath sounds Cardiovascular: regular rate and rhythm Gastrointestinal: soft Musculoskeletal: nl extremities to inspection Results Result Diagram: 01/07/17 0500 01/07/17 0500 Results 24 hrs Laboratory Tests Test 01/07/17 05:00 White Blood Count 6.9 Red Blood Count 3.49 L Hemoglobin 9.9 L Hematocrit 30.7 L Mean Corpuscular Volume 88.0 Mean Corpuscular Hemoglobin 28.4 L Mean Corpuscular Hemoglobin Concent 32.2 Red Cell Distribution Width 17.4 H Platelet Count 221 # Mean Platelet Volume 11.0 H Neutrophils % 62.2 Lymphocytes % 26.7 Monocytes % 6.5 Eosinophils % 3.9 Basophils % 0.3 Nucleated Red Blood Cells % 0.0 Neutrophils # 4.3 Lymphocytes # 1.9 Monocytes # 0.5 Eosinophils # 0.3 Basophils # 0.0 Nucleated Red Blood Cells # 0.0 Sodium Level 136 Potassium Level 3.3 L Chloride Level 106 Carbon Dioxide Level 21 Anion Gap 12 Blood Urea Nitrogen 5 L Creatinine 0.42 L Glucose Level 93 Calcium Level 8.3 L Medications Medications Current Medications Acetaminophen (Tylenol Tab) 650 mg Q6H PRN PO ELEVATED TEMPERATURE Last administered on 01/06/17 21:05; Admin Dose 650 MG; Start 12/31/16 at 19:00 Amitriptyline HCl (Elavil) 25 mg QHS PO Last administered on 01/07/17 20:35; Admin Dose 25 MG; Start 12/31/16 at 21:00 Aspirin (Aspirin) 81 mg DAILY PO Last administered on 01/01/17 08:57; Admin Dose 81 MG; Start 01/01/17 at 09:00; Status Future Hold Gabapentin (Neurontin) 600 mg BID PO Last administered on 01/07/17 20:35; Admin Dose 600 MG; Start 12/31/16 at 21:00 Hydroxyzine HCl (Atarax) 25 mg QHS PO Last administered on 01/07/17 20:36; Admin Dose 25 MG; Start 12/31/16 at 21:00 Ondansetron HCl (Zofran Inj) 4 mg Q6H PRN IV NAUSEA AND/OR VOMITING; Start at 19:00 Pantoprazole (Protonix Tab) 40 mg DAILY@06 PO Last administered on 01/07/17 05: 33; Admin Dose 40 MG; Start 01/01/17 at 06:00 Polyethylene Glycol (Miralax) 17 gm DAILY PRN PO CONSTIPATION; Start 12/31/16 at 19:00 Simethicone (Mylicon) 80 mg BID PRN PO DISTENSION/GAS/BLOATING; Start 12/31/16 at 19:00 Sucralfate (Carafate) 1 gm BID PO Last administered on 01/07/17 20:36; Admin Dose 1 GM; Start 12/31/16 at 21:00 Topiramate (Topamax) 100 mg QHS PO Last administered on 01/07/17 20:35; Admin Dose 100 MG; Start 12/31/16 at 21:00 Trazodone HCl (Desyrel) 50 mg QHS PO Last administered on 01/07/17 20:36; Admin Dose 50 MG; Start 12/31/16 at 21:00 Zolpidem Tartrate (Ambien) 10 mg QHS PRN PO INSOMNIA Last administered on 22:26; Admin Dose 10 MG; Start 12/31/16 at 19:00 Phenol (Cepastat Lozenge) 1 lozenge Q4H PRN MT sore throat Last administered on 01/03/17 07:28; Admin Dose 1 LOZENGE; Start 01/01/17 at 20:30 Hydromorphone HCl 0.75 mg 0.75 mg Q3H PRN IV PAIN Last administered on 20:07; Admin Dose 0.75 MG; Start 01/02/17 at 18:38 Lactated Ringer's (Lr) 1,000 ml @ 100 mls/hr Q10H IV Last administered on 20:35; Admin Dose 100 MLS/HR; Start 01/03/17 at 14:15 Hydromorphone HCl (Dilaudid BIRD RAISER) 0.4 mg DOSE 10 ... Q4PCA IV Last administered on 01/07/17 21:20; Admin Dose 6 MG; Start 01/03/17 at 15:00 Famotidine (Pepcid Iv) 20 mg BID IV Last administered on 01/07/17 20:36; Admin Dose 20 MG; Start 01/04/17 at 09:30 Levofloxacin 500 mg 500 mg DAILY@06 PO Last administered on 01/07/17 05:33; Admin Dose 500 MG; Start 01/06/17 at 06:00 Potassium Chloride (KCl 40 MEQ/250 ML NS) 250 ml @ 62.5 mls/hr ONCE ONCE IVPB Last administered on 01/07/17 20:46; Admin Dose 62.5 MLS/HR; Start 01/07/17 at 20:00; Stop 01/07/17 at 23:59 MARTINEZ MELVIN MD January 07, 2017 23:07
[2017-01-07] MEDS: ZOLPIDEM 5 MG TAB PO PRN (23:13)
[2017-01-08 05:03] LABS: ADD SCAN DIFF NO
[2017-01-08 05:25] LABS: BASOPHILS % 0.3 % (0.0-2.0); EOSINOPHILS # 0.3 10^3/ul (0.0-0.5); EOSINOPHILS % 3.8 % (0.0-7.0); HEMATOCRIT 30.2 % (37.0-47.0); HEMOGLOBIN 9.7 g/dl (12.0-16.0); LYMPHOCYTES # 1.5 10^3/ul (0.8-2.9); LYMPHOCYTES % 21.7 % (15.0-51.0); MEAN CORPUSCULAR HGB CONC 32.1 g/dl (32.0-37.0); MEAN PLATELET VOLUME 10.5 fl (7.4-10.4); MONOCYTE # 0.5 10^3/ul (0.3-0.9); MONOCYTES % 7.4 % (0.0-11.0); NEUTROPHIL # 4.5 10^3/ul (1.6-7.5); NEUTROPHILS % 66.5 % (39.0-77.0); PLATELET COUNT 241 10^3/UL (140-415); RED BLOOD COUNT 3.47 10^6/ul (4.20-5.40); WHITE BLOOD COUNT 6.8 10^3/ul (4.8-10.8)
[2017-01-08 05:26] LABS: POTASSIUM 3.5 mmol/L (3.5-5.1)
[2017-01-08 05:29] LABS: CREATININE 0.4 mg/dl (0.44-1.00)
[2017-01-08 05:30] LABS: CALCIUM 8.3 mg/dl (8.4-10.2)
[2017-01-08] MEDS: PANTOPRAZOLE (EC) 40 MG TAB PO SCH (05:31)
[2017-01-08] MEDS: LEVOFLOXACIN 500 MG TAB PO SCH (05:32)
[2017-01-08] MEDS: HYDROmorphONE 0.2 MG/ML PCA IV SCH ×3 (05:42→17:07)
[2017-01-08] MEDS: HYDROmorphONE 1 MG/ML SYG IV PRN (05:46)
[2017-01-08] MEDS: LACTATED RINGER'S 1,000 ML IV SCH ×2 (06:53→16:39)
[2017-01-08] MEDS: SUCRALFATE 1 GM TAB PO SCH ×2 (08:01→21:06)
[2017-01-08] MEDS: FAMOTIDINE 20 MG INJ IV SCH (08:01)
[2017-01-08] MEDS: GABAPENTIN 300 MG CAP PO SCH ×2 (08:01→21:07)
[2017-01-08 08:30] VITALS: BP 125/70; RESP 18
--- NOTE | 2017-01-08 13:45 | PN ---
Date/Time of Note Date/Time of Note DATE: 01/08/17 TIME: 13:45 Assessment/Plan VTE Prophylaxis VTE Prophylaxis Intervention: SCD's Lines/Catheters IV Catheter Type (from Nrs): PICC Line Central line still needed: Yes Urinary Cath still in place: No Assessment/Plan Chief Complaint/Hosp Course s/p ecf which has resolved with repair with ECF and revision of anastomosis Problems: Assessment/Plan doing well and tolerating liquids advance to gi soft Subjective 24 Hr Interval Summary Free Text/Dictation doing well, no new issues Exam/Review of Systems Vital Signs Vitals Vital Signs Date Time Temp Pulse Resp B/P Pulse Ox O2 Delivery O2 Flow Rate FiO2 01/08/17 12:00 17 01/08/17 08:30 98.4 78 125/70 96 01/05/17 00:15 Room Air Intake and Output 01/07/17 01/07/17 01/08/17 15:00 23:00 07:00 Intake Total 400 ml 1840 ml 1250 ml Output Total 300 ml Balance 400 ml 1840 ml 950 ml Exam c/d/i Results Result Diagram: 01/08/17 0444 01/08/17 0444 Results 24 hrs Laboratory Tests Test 01/08/17 04:44 White Blood Count 6.8 Red Blood Count 3.47 L Hemoglobin 9.7 L Hematocrit 30.2 L Mean Corpuscular Volume 87.0 Mean Corpuscular Hemoglobin 28.0 L Mean Corpuscular Hemoglobin Concent 32.1 Red Cell Distribution Width 17.0 H Platelet Count 241 Mean Platelet Volume 10.5 H Neutrophils % 66.5 Lymphocytes % 21.7 Monocytes % 7.4 Eosinophils % 3.8 Basophils % 0.3 Nucleated Red Blood Cells % 0.0 Neutrophils # 4.5 Lymphocytes # 1.5 Monocytes # 0.5 Eosinophils # 0.3 Basophils # 0.0 Nucleated Red Blood Cells # 0.0 Sodium Level 134 L Potassium Level 3.5 Chloride Level 102 Carbon Dioxide Level 23 Anion Gap 13 Blood Urea Nitrogen 4 L Creatinine 0.40 L Glucose Level 100 Calcium Level 8.3 L Medications Medications Current Medications Acetaminophen (Tylenol Tab) 650 mg Q6H PRN PO ELEVATED TEMPERATURE Last administered on 01/06/17t 21:05; Admin Dose 650 MG; Start 12/31/16 at 19:00 Amitriptyline HCl (Elavil) 25 mg QHS PO Last administered on 01/07/17 20:35; Admin Dose 25 MG; Start 12/31/16 at 21:00 Aspirin (Aspirin) 81 mg DAILY PO Last administered on 01/01/17 08:57; Admin Dose 81 MG; Start 01/01/17 at 09:00; Status Future Hold Gabapentin (Neurontin) 600 mg BID PO Last administered on 01/08/17 08:01; Admin Dose 600 MG; Start 12/31/16 at 21:00 Hydroxyzine HCl (Atarax) 25 mg QHS PO Last administered on 01/07/17 20:36; Admin Dose 25 MG; Start 12/31/16 at 21:00 Ondansetron HCl (Zofran Inj) 4 mg Q6H PRN IV NAUSEA AND/OR VOMITING; Start at 19:00 Pantoprazole (Protonix Tab) 40 mg DAILY@06 PO Last administered on 01/08/17 05: 31; Admin Dose 40 MG; Start 01/01/17 at 06:00 Polyethylene Glycol (Miralax) 17 gm DAILY PRN PO CONSTIPATION; Start 12/31/16 at 19:00 Simethicone (Mylicon) 80 mg BID PRN PO DISTENSION/GAS/BLOATING; Start 12/31/16 at 19:00 Sucralfate (Carafate) 1 gm BID PO Last administered on 01/08/17 08:01; Admin Dose 1 GM; Start 12/31/16 at 21:00 Topiramate (Topamax) 100 mg QHS PO Last administered on 01/07/17 20:35; Admin Dose 100 MG; Start 12/31/16 at 21:00 Trazodone HCl (Desyrel) 50 mg QHS PO Last administered on 01/07/17 20:36; Admin Dose 50 MG; Start 12/31/16 at 21:00 Zolpidem Tartrate (Ambien) 10 mg QHS PRN PO INSOMNIA Last administered on 23:13; Admin Dose 10 MG; Start 12/31/16 at 19:00 Phenol (Cepastat Lozenge) 1 lozenge Q4H PRN MT sore throat Last administered on 01/03/17 07:28; Admin Dose 1 LOZENGE; Start 01/01/17 at 20:30 Hydromorphone HCl 0.75 mg 0.75 mg Q3H PRN IV PAIN Last administered on 05:46; Admin Dose 0.75 MG; Start 01/02/17 at 18:38 Lactated Ringer's (Lr) 1,000 ml @ 100 mls/hr Q10H IV Last administered on 06:53; Admin Dose 100 MLS/HR; Start 01/03/17 at 14:15 Hydromorphone HCl (Dilaudid CREATIVE ART THERAPIST) 0.4 mg DOSE 10 ... Q4PCA IV Last administered on 01/08/17 11:25; Admin Dose 6 MG; Start 01/03/17 at 15:00 Levofloxacin (Levaquin) 500 mg DAILY@06 PO Last administered on 01/08/17 05:32 ; Admin Dose 500 MG; Start 01/06/17 at 06:00 Famotidine (Pepcid) 20 mg BID PO ; Start 01/08/17 at 21:00 Rubin RUSS January 08, 2017 13:45
--- NOTE | 2017-01-08 20:14 | CONS ---
Date/Time of Note Date/Time of Note DATE: 01/08/17 TIME: 20:13 Assessment/Plan Assessment/Plan Additional Assessment/Plan IMPRESSION: 1. Rectal bleeding, most probably from hemorrhoids. Has stopped completely 2. Enterocutaneous fistula, closed with conservative treatment. 3. Right hemicolectomy. 4. Abdominal pain, much better. 5. Anemia. Plan monitor H&H sitz bath Consultation Date/Type/Reason Admit Date/Time Dec 31, 2016 at 08:01 24 HR Interval Summary Free Text/Dictation No further bleeding as per the patient and also confirmed with the staff Constitutional: improved Exam/Review of Systems Vital Signs Vitals Vital Signs Date Time Temp Pulse Resp B/P Pulse Ox O2 Delivery O2 Flow Rate FiO2 01/08/17 16:00 17 01/08/17 08:30 98.4 78 125/70 96 01/05/17 00:15 Room Air Intake and Output 01/07/17 01/07/17 01/08/17 15:00 23:00 07:00 Intake Total 400 ml 1840 ml 1250 ml Output Total 300 ml Balance 400 ml 1840 ml 950 ml Exam Constitutional: alert, oriented, well developed Psych: nl mood/affect, no complaints Head: atraumatic, normocephalic Eyes: EOMI, PERRL, nl conjunctiva, nl lids, nl sclera ENMT: nl external ears & nose, nl lips & teeth, nl nasal mucosa & septum Neck: non-tender, supple Respiratory: clear to auscultation, normal air movement Cardiovascular: nl pulses, regular rate and rhythm Gastrointestinal: nl liver, spleen, non-tender, soft Musculoskeletal: nl extremities to inspection, nl gait and stance Extremities: normal pulses Neurological: AIR QUALITY ENGINEER II-XII intact, nl mental status, nl speech, nl strength Skin: nl turgor, No rash or lesions Lymph: nl lymph nodes Results Result Diagram: 01/08/17 0444 01/08/174 Results 24 hrs Laboratory Tests Test 01/08/17 04:44 White Blood Count 6.8 Red Blood Count 3.47 L Hemoglobin 9.7 L Hematocrit 30.2 L Mean Corpuscular Volume 87.0 Mean Corpuscular Hemoglobin 28.0 L Mean Corpuscular Hemoglobin Concent 32.1 Red Cell Distribution Width 17.0 H Platelet Count 241 Mean Platelet Volume 10.5 H Neutrophils % 66.5 Lymphocytes % 21.7 Monocytes % 7.4 Eosinophils % 3.8 Basophils % 0.3 Nucleated Red Blood Cells % 0.0 Neutrophils # 4.5 Lymphocytes # 1.5 Monocytes # 0.5 Eosinophils # 0.3 Basophils # 0.0 Nucleated Red Blood Cells # 0.0 Sodium Level 134 L Potassium Level 3.5 Chloride Level 102 Carbon Dioxide Level 23 Anion Gap 13 Blood Urea Nitrogen 4 L Creatinine 0.40 L Glucose Level 100 Calcium Level 8.3 L Medications Medications Current Medications Acetaminophen (Tylenol Tab) 650 mg Q6H PRN PO ELEVATED TEMPERATURE Last administered on 01/06/17 21:05; Admin Dose 650 MG; Start 12/31/16 at 19:00 Amitriptyline HCl (Elavil) 25 mg QHS PO Last administered on 01/07/17 20:35; Admin Dose 25 MG; Start 12/31/16 at 21:00 Aspirin (Aspirin) 81 mg DAILY PO Last administered on 01/01/17 08:57; Admin Dose 81 MG; Start 01/01/17 at 09:00; Status Future Hold Gabapentin (Neurontin) 600 mg BID PO Last administered on 01/08/17 08:01; Admin Dose 600 MG; Start 12/31/16 at 21:00 Hydroxyzine HCl (Atarax) 25 mg QHS PO Last administered on 01/07/17 20:36; Admin Dose 25 MG; Start 12/31/16 at 21:00 Ondansetron HCl (Zofran Inj) 4 mg Q6H PRN IV NAUSEA AND/OR VOMITING; Start at 19:00 Pantoprazole (Protonix Tab) 40 mg DAILY@06 PO Last administered on 01/08/17 05: 31; Admin Dose 40 MG; Start 01/01/17 at 06:00 Polyethylene Glycol (Miralax) 17 gm DAILY PRN PO CONSTIPATION; Start 12/31/16 at 19:00 Simethicone (Mylicon) 80 mg BID PRN PO DISTENSION/GAS/BLOATING; Start 12/31/16 at 19:00 Sucralfate (Carafate) 1 gm BID PO Last administered on 01/08/17 08:01; Admin Dose 1 GM; Start 12/31/16 at 21:00 Topiramate (Topamax) 100 mg QHS PO Last administered on 01/07/17 20:35; Admin Dose 100 MG; Start 12/31/16 at 21:00 Trazodone HCl (Desyrel) 50 mg QHS PO Last administered on 01/07/17 20:36; Admin Dose 50 MG; Start 12/31/16 at 21:00 Zolpidem Tartrate (Ambien) 10 mg QHS PRN PO INSOMNIA Last administered on 23:13; Admin Dose 10 MG; Start 12/31/16 at 19:00 Phenol (Cepastat Lozenge) 1 lozenge Q4H PRN MT sore throat Last administered on 01/03/17 07:28; Admin Dose 1 LOZENGE; Start 01/01/17 at 20:30 Hydromorphone HCl 0.75 mg 0.75 mg Q3H PRN IV PAIN Last administered on 05:46; Admin Dose 0.75 MG; Start 01/02/17 at 18:38 Lactated Ringer's (Lr) 1,000 ml @ 100 mls/hr Q10H IV Last administered on 16:39; Admin Dose 100 MLS/HR; Start 01/03/17 at 14:15 Hydromorphone HCl (Dilaudid INSPECTION CLERK) 0.4 mg DOSE 10 ... Q4PCA IV Last administered on 01/08/17 17:07; Admin Dose 6 MG; Start 01/03/17 at 15:00 Levofloxacin (Levaquin) 500 mg DAILY@06 PO Last administered on 01/08/17 05:32 ; Admin Dose 500 MG; Start 01/06/17 at 06:00 Famotidine (Pepcid) 20 mg BID PO ; Start 01/08/17 at 21:00 BRIANDA MORSE MD January 08, 2017 20:14
[2017-01-08] MEDS: AMITRIPTYLINE 25 MG TAB PO SCH (21:00)
--- NOTE | 2017-01-08 21:05 | PN ---
Date/Time of Note Date/Time of Note DATE: 01/08/17 TIME: 21:04 Assessment/Plan VTE Prophylaxis VTE Prophylaxis Intervention: other Lines/Catheters IV Catheter Type (from Nrsg): PICC Line Central line still needed: Yes Urinary Cath still in place: No Reason Cath still needed: other (indicate) Assessment/Plan Chief Complaint/Hosp Course IMPRESSION: 1. Patient has abd pain BETTER 2. s/p abd surgery 3 post op anemia 4 post op gi bleed plan antibiotic per surgery ck cbc dr damico to f/u KUB Problems: Subjective 24 Hr Interval Summary Respiratory: no complaints Gastrointestinal: pain (+) Exam/Review of Systems Vital Signs Vitals Vital Signs Date Time Temp Pulse Resp B/P Pulse Ox O2 Delivery O2 Flow Rate FiO2 01/08/17 16:00 17 01/08/17 08:30 98.4 78 125/70 96 01/05/17 00:15 Room Air Intake and Output 01/07/17 01/07/17 01/08/17 15:00 23:00 07:00 Intake Total 400 ml 1840 ml 1250 ml Output Total 300 ml Balance 400 ml 1840 ml 950 ml Exam Respiratory: clear to auscultation Cardiovascular: regular rate and rhythm Gastrointestinal: soft Musculoskeletal: nl extremities to inspection Extremities: normal pulses Results Result Diagram: 01/08/17 0444 01/08/17 0444 Results 24 hrs Laboratory Tests Test 01/08/17 04:44 White Blood Count 6.8 Red Blood Count 3.47 L Hemoglobin 9.7 L Hematocrit 30.2 L Mean Corpuscular Volume 87.0 Mean Corpuscular Hemoglobin 28.0 L Mean Corpuscular Hemoglobin Concent 32.1 Red Cell Distribution Width 17.0 H Platelet Count 241 Mean Platelet Volume 10.5 H Neutrophils % 66.5 Lymphocytes % 21.7 Monocytes % 7.4 Eosinophils % 3.8 Basophils % 0.3 Nucleated Red Blood Cells % 0.0 Neutrophils # 4.5 Lymphocytes # 1.5 Monocytes # 0.5 Eosinophils # 0.3 Basophils # 0.0 Nucleated Red Blood Cells # 0.0 Sodium Level 134 L Potassium Level 3.5 Chloride Level 102 Carbon Dioxide Level 23 Anion Gap 13 Blood Urea Nitrogen 4 L Creatinine 0.40 L Glucose Level 100 Calcium Level 8.3 L Medications Medications Current Medications Acetaminophen (Tylenol Tab) 650 mg Q6H PRN PO ELEVATED TEMPERATURE Last administered on 01/06/17 21:05; Admin Dose 650 MG; Start 12/31/16 at 19:00 Amitriptyline HCl (Elavil) 25 mg QHS PO Last administered on 01/07/17 20:35; Admin Dose 25 MG; Start 12/31/16 at 21:00 Aspirin (Aspirin) 81 mg DAILY PO Last administered on 01/01/17 08:57; Admin Dose 81 MG; Start 01/01/17 at 09:00; Status Future Hold Gabapentin (Neurontin) 600 mg BID PO Last administered on 01/08/17 08:01; Admin Dose 600 MG; Start 12/31/16 at 21:00 Hydroxyzine HCl (Atarax) 25 mg QHS PO Last administered on 01/07/17 20:36; Admin Dose 25 MG; Start 12/31/16 at 21:00 Ondansetron HCl (Zofran Inj) 4 mg Q6H PRN IV NAUSEA AND/OR VOMITING; Start at 19:00 Pantoprazole (Protonix Tab) 40 mg DAILY@06 PO Last administered on 01/08/17 05: 31; Admin Dose 40 MG; Start 01/01/17 at 06:00 Polyethylene Glycol (Miralax) 17 gm DAILY PRN PO CONSTIPATION; Start 12/31/16 at 19:00 Simethicone (Mylicon) 80 mg BID PRN PO DISTENSION/GAS/BLOATING; Start 12/31/16 at 19:00 Sucralfate (Carafate) 1 gm BID PO Last administered on 01/08/17 08:01; Admin Dose 1 GM; Start 12/31/16 at 21:00 Topiramate (Topamax) 100 mg QHS PO Last administered on 01/07/17 20:35; Admin Dose 100 MG; Start 12/31/16 at 21:00 Trazodone HCl (Desyrel) 50 mg QHS PO Last administered on 01/07/17 20:36; Admin Dose 50 MG; Start 12/31/16 at 21:00 Zolpidem Tartrate (Ambien) 10 mg QHS PRN PO INSOMNIA Last administered on 23:13; Admin Dose 10 MG; Start 12/31/16 at 19:00 Phenol (Cepastat Lozenge) 1 lozenge Q4H PRN MT sore throat Last administered on 01/03/17 07:28; Admin Dose 1 LOZENGE; Start 01/01/17 at 20:30 Hydromorphone HCl 0.75 mg 0.75 mg Q3H PRN IV PAIN Last administered on 05:46; Admin Dose 0.75 MG; Start 01/02/17 at 18:38 Lactated Ringer's (Lr) 1,000 ml @ 100 mls/hr Q10H IV Last administered on 16:39; Admin Dose 100 MLS/HR; Start 01/03/17 at 14:15 Hydromorphone HCl (Dilaudid MAINTENANCE OF WAY SUPERVISOR) 0.4 mg DOSE 10 ... Q4PCA IV Last administered on 01/08/17 17:07; Admin Dose 6 MG; Start 01/03/17 at 15:00 Levofloxacin (Levaquin) 500 mg DAILY@06 PO Last administered on 01/08/17 05:32 ; Admin Dose 500 MG; Start 01/06/17 at 06:00 Famotidine (Pepcid) 20 mg BID PO ; Start 01/08/17 at 21:00 MARTINEZ MELVIN MD January 08, 2017 21:05
[2017-01-08 21:06] VITALS: BP 122/74; RESP 20
[2017-01-08] MEDS: traZODone 50 MG TAB PO SCH (21:06)
[2017-01-08] MEDS: TOPIRAMATE 100 MG TAB PO SCH (21:06)
[2017-01-08] MEDS: FAMOTIDINE 20 MG TAB PO SCH (21:07)
[2017-01-08] MEDS: hydrOXYzine HCL 25 MG TAB PO SCH (21:07)
[2017-01-08] MEDS: ZOLPIDEM 5 MG TAB PO PRN (21:34)
[2017-01-09] MEDS: HYDROmorphONE 0.2 MG/ML PCA IV SCH ×3 (02:05→17:53)
[2017-01-09] MEDS: LACTATED RINGER'S 1,000 ML IV SCH ×2 (05:10→16:04)
[2017-01-09] MEDS: LEVOFLOXACIN 500 MG TAB PO SCH (05:18)
[2017-01-09] MEDS: PANTOPRAZOLE (EC) 40 MG TAB PO SCH (05:18)
[2017-01-09 05:47] LABS: ADD SCAN DIFF NO
[2017-01-09 06:10] LABS: BASOPHILS % 0.1 % (0.0-2.0); EOSINOPHILS # 0.3 10^3/ul (0.0-0.5); EOSINOPHILS % 2.3 % (0.0-7.0); HEMATOCRIT 21.6 % (37.0-47.0); HEMOGLOBIN 7.1 g/dl (12.0-16.0); LYMPHOCYTES # 2.1 10^3/ul (0.8-2.9); LYMPHOCYTES % 18.1 % (15.0-51.0); MEAN CORPUSCULAR HEMOGLOBIN 28.6 pg (29.0-33.0); MEAN CORPUSCULAR HGB CONC 32.9 g/dl (32.0-37.0); MEAN CORPUSCULAR VOLUME 87.1 fl (82.0-101.0); MEAN PLATELET VOLUME 10.9 fl (7.4-10.4); MONOCYTE # 0.6 10^3/ul (0.3-0.9); MONOCYTES % 5.6 % (0.0-11.0); NEUTROPHIL # 8.4 10^3/ul (1.6-7.5); NEUTROPHILS % 73.5 % (39.0-77.0); PLATELET COUNT 335 10^3/UL (140-415); RED BLOOD COUNT 2.48 10^6/ul (4.20-5.40); RED CELL DISTRIBUTION WIDTH 16.7 % (11.5-14.5); WHITE BLOOD COUNT 11.4 10^3/ul (4.8-10.8)
[2017-01-09 08:02] VITALS: BP 122/67; PULSE 119; RESP 18
[2017-01-09] MEDS: GABAPENTIN 300 MG CAP PO SCH ×2 (09:35→20:38)
[2017-01-09] MEDS: FAMOTIDINE 20 MG TAB PO SCH ×2 (09:35→20:39)
[2017-01-09] MEDS: SUCRALFATE 1 GM TAB PO SCH ×2 (09:35→20:38)
--- NOTE | 2017-01-09 11:06 | PN ---
Date/Time of Note Date/Time of Note DATE: 01/09/17 TIME: 11:05 Assessment/Plan VTE Prophylaxis VTE Prophylaxis Intervention: SCD's Lines/Catheters IV Catheter Type (from Nrs): PICC Line Central line still needed: Yes Urinary Cath still in place: No Assessment/Plan Chief Complaint/Hosp Course s/p ecf which has resolved with repair with ECF and revision of anastomosis Problems: Assessment/Plan small drop in hgb, may need transfusion for now will continue to monitor Subjective 24 Hr Interval Summary Free Text/Dictation slight drop in hgb, no further rectal bleeding episodes Exam/Review of Systems Vital Signs Vitals Vital Signs Date Time Temp Pulse Resp B/P Pulse Ox O2 Delivery O2 Flow Rate FiO2 01/09/17 08:02 99.8 119 18 122/67 95 Room Air Intake and Output 01/08/17 01/08/17 01/09/17 15:00 23:00 07:00 Intake Total 1260 ml 1850 ml Balance 1260 ml 1850 ml Exam abdomen c/d/i Results Result Diagram: 01/09/17 0515 01/08/17 0444 Results 24 hrs Laboratory Tests Test 01/09/17 05:15 White Blood Count 11.4 #H Red Blood Count 2.48 #L Hemoglobin 7.1 #L Hematocrit 21.6 #L Mean Corpuscular Volume 87.1 Mean Corpuscular Hemoglobin 28.6 L Mean Corpuscular Hemoglobin Concent 32.9 Red Cell Distribution Width 16.7 H Platelet Count 335 # Mean Platelet Volume 10.9 H Neutrophils % 73.5 Lymphocytes % 18.1 Monocytes % 5.6 Eosinophils % 2.3 Basophils % 0.1 Nucleated Red Blood Cells % 0.0 Neutrophils # 8.4 H Lymphocytes # 2.1 Monocytes # 0.6 Eosinophils # 0.3 Basophils # 0.0 Nucleated Red Blood Cells # 0.0 Medications Medications Current Medications Acetaminophen (Tylenol Tab) 650 mg Q6H PRN PO ELEVATED TEMPERATURE Last administered on 01/06/17 21:05; Admin Dose 650 MG; Start 12/31/16 at 19:00 Amitriptyline HCl (Elavil) 25 mg QHS PO Last administered on 01/07/17 20:35; Admin Dose 25 MG; Start 12/31/16 at 21:00 Aspirin (Aspirin) 81 mg DAILY PO Last administered on 01/01/17 08:57; Admin Dose 81 MG; Start 01/01/17 at 09:00; Status Future Hold Gabapentin (Neurontin) 600 mg BID PO Last administered on 01/09/17 09:35; Admin Dose 600 MG; Start 12/31/16 at 21:00 Hydroxyzine HCl (Atarax) 25 mg QHS PO Last administered on 01/08/17 21:07; Admin Dose 25 MG; Start 12/31/16 at 21:00 Ondansetron HCl (Zofran Inj) 4 mg Q6H PRN IV NAUSEA AND/OR VOMITING; Start at 19:00 Pantoprazole (Protonix Tab) 40 mg DAILY@06 PO Last administered on 01/09/17 05: 18; Admin Dose 40 MG; Start 01/01/17 at 06:00 Polyethylene Glycol (Miralax) 17 gm DAILY PRN PO CONSTIPATION; Start 12/31/16 at 19:00 Simethicone (Mylicon) 80 mg BID PRN PO DISTENSION/GAS/BLOATING; Start 12/31/16 at 19:00 Sucralfate (Carafate) 1 gm BID PO Last administered on 01/09/17 09:35; Admin Dose 1 GM; Start 12/31/16 at 21:00 Topiramate (Topamax) 100 mg QHS PO Last administered on 01/08/17 21:06; Admin Dose 100 MG; Start 12/31/16 at 21:00 Trazodone HCl (Desyrel) 50 mg QHS PO Last administered on 01/08/17 21:06; Admin Dose 50 MG; Start 12/31/16 at 21:00 Zolpidem Tartrate (Ambien) 10 mg QHS PRN PO INSOMNIA Last administered on 21:34; Admin Dose 10 MG; Start 12/31/16 at 19:00 Phenol (Cepastat Lozenge) 1 lozenge Q4H PRN MT sore throat Last administered on 01/03/17 07:28; Admin Dose 1 LOZENGE; Start 01/01/17 at 20:30 Hydromorphone HCl 0.75 mg 0.75 mg Q3H PRN IV PAIN Last administered on 05:46; Admin Dose 0.75 MG; Start 01/02/17 at 18:38 Lactated Ringer's (Lr) 1,000 ml @ 100 mls/hr Q10H IV Last administered on 05:10; Admin Dose 100 MLS/HR; Start 01/03/17 at 14:15 Hydromorphone HCl (Dilaudid SEISMOMETER OPERATOR) 0.4 mg DOSE 10 ... Q4PCA IV Last administered on 01/09/17 09:56; Admin Dose 6 MG; Start 01/03/17 at 15:00 Levofloxacin (Levaquin) 500 mg DAILY@06 PO Last administered on 01/09/17 05:18 ; Admin Dose 500 MG; Start 01/06/17 at 06:00 Famotidine (Pepcid) 20 mg BID PO Last administered on 01/09/17 09:35; Admin Dose 20 MG; Start 01/08/17 at 21:00 Rubin RUSS January 09, 2017 11:06
[2017-01-09 14:35] VITALS: BP 118/72; PULSE 117; RESP 18
[2017-01-09] MEDS: ACETAMINOPHEN 325 MG TAB PO PRN (14:53)
--- NOTE | 2017-01-09 15:59 | PN ---
Date/Time of Note Date/Time of Note DATE: 01/09/17 TIME: 15:57 Assessment/Plan VTE Prophylaxis VTE Prophylaxis Intervention: other Lines/Catheters IV Catheter Type (from Nrsg): PICC Line Central line still needed: Yes Urinary Cath still in place: No Assessment/Plan Chief Complaint/Hosp Course IMPRESSION: 1. Patient has abd pain 2. s/p abd surgery 3 post op anemia 4 post op gi bleed stable 5 sepsis 6 1. Enterocutaneous fistula takedown and repair. 2. Partial colectomy. 3. [place]-enteric anastomosis. 4. Open lysis of adhesions of approximately 1 hour. plan antibiotic per surgery ck cbc dr damico to f/u KUB Problems: Subjective 24 Hr Interval Summary Respiratory: no complaints Gastrointestinal: pain (+), No blood Exam/Review of Systems Vital Signs Vitals Vital Signs Date Time Temp Pulse Resp B/P Pulse Ox O2 Delivery O2 Flow Rate FiO2 01/09/17 14:35 101.8 117 18 118/72 97 Room Air Intake and Output 01/08/17 01/08/17 01/09/17 15:00 23:00 07:00 Intake Total 1260 ml 1850 ml Balance 1260 ml 1850 ml Exam Neck: supple Respiratory: clear to auscultation Cardiovascular: regular rate and rhythm Gastrointestinal: bowel sounds (+), soft Extremities: No edema Results Result Diagram: 01/09/17 0515 01/08/17 0444 Results 24 hrs Laboratory Tests Test 01/09/17 05:15 White Blood Count 11.4 #H Red Blood Count 2.48 #L Hemoglobin 7.1 #L Hematocrit 21.6 #L Mean Corpuscular Volume 87.1 Mean Corpuscular Hemoglobin 28.6 L Mean Corpuscular Hemoglobin Concent 32.9 Red Cell Distribution Width 16.7 H Platelet Count 335 # Mean Platelet Volume 10.9 H Neutrophils % 73.5 Lymphocytes % 18.1 Monocytes % 5.6 Eosinophils % 2.3 Basophils % 0.1 Nucleated Red Blood Cells % 0.0 Neutrophils # 8.4 H Lymphocytes # 2.1 Monocytes # 0.6 Eosinophils # 0.3 Basophils # 0.0 Nucleated Red Blood Cells # 0.0 Medications Medications Current Medications Acetaminophen (Tylenol Tab) 650 mg Q6H PRN PO ELEVATED TEMPERATURE Last administered on 01/09/17t 14:53; Admin Dose 650 MG; Start 12/31/16 at 19:00 Amitriptyline HCl (Elavil) 25 mg QHS PO Last administered on 01/07/17 20:35; Admin Dose 25 MG; Start 12/31/16 at 21:00 Aspirin (Aspirin) 81 mg DAILY PO Last administered on 01/01/17 08:57; Admin Dose 81 MG; Start 01/01/17 at 09:00; Status Future Hold Gabapentin (Neurontin) 600 mg BID PO Last administered on 01/09/17 09:35; Admin Dose 600 MG; Start 12/31/16 at 21:00 Hydroxyzine HCl (Atarax) 25 mg QHS PO Last administered on 01/08/17 21:07; Admin Dose 25 MG; Start 12/31/16 at 21:00 Ondansetron HCl (Zofran Inj) 4 mg Q6H PRN IV NAUSEA AND/OR VOMITING; Start at 19:00 Pantoprazole (Protonix Tab) 40 mg DAILY@06 PO Last administered on 01/09/17 05: 18; Admin Dose 40 MG; Start 01/01/17 at 06:00 Polyethylene Glycol (Miralax) 17 gm DAILY PRN PO CONSTIPATION; Start 12/31/16 at 19:00 Simethicone (Mylicon) 80 mg BID PRN PO DISTENSION/GAS/BLOATING; Start 12/31/16 at 19:00 Sucralfate (Carafate) 1 gm BID PO Last administered on 01/09/17 09:35; Admin Dose 1 GM; Start 12/31/16 at 21:00 Topiramate (Topamax) 100 mg QHS PO Last administered on 01/08/17 21:06; Admin Dose 100 MG; Start 12/31/16 at 21:00 Trazodone HCl (Desyrel) 50 mg QHS PO Last administered on 01/08/17 21:06; Admin Dose 50 MG; Start 12/31/16 at 21:00 Zolpidem Tartrate (Ambien) 10 mg QHS PRN PO INSOMNIA Last administered on 21:34; Admin Dose 10 MG; Start 12/31/16 at 19:00 Phenol (Cepastat Lozenge) 1 lozenge Q4H PRN MT sore throat Last administered on 01/03/17 07:28; Admin Dose 1 LOZENGE; Start 01/01/17 at 20:30 Hydromorphone HCl 0.75 mg 0.75 mg Q3H PRN IV PAIN Last administered on 05:46; Admin Dose 0.75 MG; Start 01/02/17 at 18:38 Lactated Ringer's (Lr) 1,000 ml @ 100 mls/hr Q10H IV Last administered on 05:10; Admin Dose 100 MLS/HR; Start 01/03/17 at 14:15 Hydromorphone HCl (Dilaudid ACETYLENE BURNER) 0.4 mg DOSE 10 ... Q4PCA IV Last administered on 01/09/17 09:56; Admin Dose 6 MG; Start 01/03/17 at 15:00 Levofloxacin (Levaquin) 500 mg DAILY@06 PO Last administered on 01/09/17 05:18 ; Admin Dose 500 MG; Start 01/06/17 at 06:00 Famotidine 20 mg 20 mg BID PO Last administered on 01/09/17 09:35; Admin Dose 20 MG; Start 01/08/17 at 21:00 Ciprofloxacin/ Dextrose 200 ml @ 200 mls/hr Q12 IVPB ; Start 01/09/17 at 16:00 Metronidazole (Flagyl 500 Mg (Pmx)) 100 ml @ 100 mls/hr Q8 IVPB ; Start at 16:00 MARTINEZ MELVIN MD January 09, 2017 15:58
[2017-01-09] MEDS ORDERED: CIPROFLOXACIN 400MG/D5W 200 ML IVPB SCH (16:00)
[2017-01-09 16:25] LABS: ADD SCAN DIFF NO
--- NOTE | 2017-01-09 16:28 | RADRPT ---
PROCEDURE: XR Abdomen. CLINICAL INDICATION: Abdomen pain. TECHNIQUE: AP supine abdomen x-ray. COMPARISON: 11/28/2016. FINDINGS: The bowel gas pattern is normal with no evidence of obstruction. There are postoperative changes with vertical midline skin aleta and right upper quadrant surgical clips. [place] are present in the right side of the abdomen from prior bowel surgery. There are no abnormal calcifications overlying the urinary tracts. The osseus structures are unremarkable. IMPRESSION: 1. Postoperative changes. 2. No evidence of obstruction. RPTAT: QQ .Andrew Ramos MD, MD Date Time Electronically viewed and signed by .Andrew Ramos MD, MD on 01/09/2017 16:28 .R/
[2017-01-09 16:30] LABS: BASOPHILS % 0.3 % (0.0-2.0); EOSINOPHILS # 0.2 10^3/ul (0.0-0.5); EOSINOPHILS % 2.1 % (0.0-7.0); HEMOGLOBIN 9.5 g/dl (12.0-16.0); LYMPHOCYTES # 1.4 10^3/ul (0.8-2.9); LYMPHOCYTES % 15.3 % (15.0-51.0); MEAN CORPUSCULAR HEMOGLOBIN 27.6 pg (29.0-33.0); MEAN CORPUSCULAR HGB CONC 31.7 g/dl (32.0-37.0); MEAN CORPUSCULAR VOLUME 87.2 fl (82.0-101.0); MEAN PLATELET VOLUME 9.9 fl (7.4-10.4); MONOCYTE # 0.6 10^3/ul (0.3-0.9); NEUTROPHILS % 75.8 % (39.0-77.0); PLATELET COUNT 287 10^3/UL (140-415); RED BLOOD COUNT 3.44 10^6/ul (4.20-5.40); RED CELL DISTRIBUTION WIDTH 16.5 % (11.5-14.5); WHITE BLOOD COUNT 9.2 10^3/ul (4.8-10.8)
[2017-01-09] MEDS: metroNIDAZOLE 500 MG/NS (PMX) 100 ML IVPB SCH ×2 (16:53→21:45)
[2017-01-09 17:13] VITALS: BP 104/68; PULSE 115; RESP 18
--- NOTE | 2017-01-09 19:45 | CONS ---
Date/Time of Note Date/Time of Note DATE: 01/09/17 TIME: 19:44 Assessment/Plan Assessment/Plan Additional Assessment/Plan IMPRESSION: 1. Rectal bleeding, most probably from hemorrhoids. Has stopped completely 2. Enterocutaneous fistula, closed with conservative treatment. 3. Right hemicolectomy. 4. Abdominal pain, much better. 5. Anemia.ht 30,stable Plan monitor H&H sitz bath Consultation Date/Type/Reason Admit Date/Time Dec 31, 2016 at 08:01 24 HR Interval Summary Constitutional: improved Exam/Review of Systems Vital Signs Vitals Vital Signs Date Time Temp Pulse Resp B/P Pulse Ox O2 Delivery O2 Flow Rate FiO2 01/09/17 17:13 98.8 115 18 104/68 97 Room Air Intake and Output 01/08/17 01/08/17 01/09/17 15:00 23:00 07:00 Intake Total 1260 ml 1850 ml Balance 1260 ml 1850 ml Exam Constitutional: alert, oriented, well developed Psych: nl mood/affect, no complaints Head: atraumatic, normocephalic Eyes: EOMI, PERRL, nl conjunctiva, nl lids, nl sclera ENMT: nl external ears & nose, nl lips & teeth, nl nasal mucosa & septum Neck: non-tender, supple Respiratory: clear to auscultation, normal air movement Cardiovascular: nl pulses, regular rate and rhythm Gastrointestinal: nl liver, spleen, non-tender, soft Musculoskeletal: nl extremities to inspection, nl gait and stance Extremities: normal pulses Neurological: MERCURY WASHER II-XII intact, nl mental status, nl speech, nl strength Skin: nl turgor, No rash or lesions Lymph: nl lymph nodes Results Result Diagram: 01/09/17 1610 01/08/17 0444 Results 24 hrs Laboratory Tests Test 01/09/17 05:15 01/09/17 16:10 White Blood Count 11.4 #H 9.2 Red Blood Count 2.48 #L 3.44 #L Hemoglobin 7.1 #L 9.5 #L Hematocrit 21.6 #L 30.0 #L Mean Corpuscular Volume 87.1 87.2 Mean Corpuscular Hemoglobin 28.6 L 27.6 L Mean Corpuscular Hemoglobin Concent 32.9 31.7 L Red Cell Distribution Width 16.7 H 16.5 H Platelet Count 335 # 287 Mean Platelet Volume 10.9 H 9.9 Neutrophils % 73.5 75.8 Lymphocytes % 18.1 15.3 Monocytes % 5.6 6.0 Eosinophils % 2.3 2.1 Basophils % 0.1 0.3 Nucleated Red Blood Cells % 0.0 0.0 Neutrophils # 8.4 H 7.0 Lymphocytes # 2.1 1.4 Monocytes # 0.6 0.6 Eosinophils # 0.3 0.2 Basophils # 0.0 0.0 Nucleated Red Blood Cells # 0.0 0.0 Medications Medications Current Medications Acetaminophen (Tylenol Tab) 650 mg Q6H PRN PO ELEVATED TEMPERATURE Last administered on 01/09/17 14:53; Admin Dose 650 MG; Start 12/31/16 at 19:00 Amitriptyline HCl (Elavil) 25 mg QHS PO Last administered on 01/07/17 20:35; Admin Dose 25 MG; Start 12/31/16 at 21:00 Aspirin (Aspirin) 81 mg DAILY PO Last administered on 01/01/17 08:57; Admin Dose 81 MG; Start 01/01/17 at 09:00; Status Future Hold Gabapentin (Neurontin) 600 mg BID PO Last administered on 01/09/17 09:35; Admin Dose 600 MG; Start 12/31/16 at 21:00 Hydroxyzine HCl (Atarax) 25 mg QHS PO Last administered on 01/08/17 21:07; Admin Dose 25 MG; Start 12/31/16 at 21:00 Ondansetron HCl (Zofran Inj) 4 mg Q6H PRN IV NAUSEA AND/OR VOMITING; Start at 19:00 Pantoprazole (Protonix Tab) 40 mg DAILY@06 PO Last administered on 01/09/17 05: 18; Admin Dose 40 MG; Start 01/01/17 at 06:00 Polyethylene Glycol (Miralax) 17 gm DAILY PRN PO CONSTIPATION; Start 12/31/16 at 19:00 Simethicone (Mylicon) 80 mg BID PRN PO DISTENSION/GAS/BLOATING; Start 12/31/16 at 19:00 Sucralfate (Carafate) 1 gm BID PO Last administered on 01/09/17 09:35; Admin Dose 1 GM; Start 12/31/16 at 21:00 Topiramate (Topamax) 100 mg QHS PO Last administered on 01/08/17 21:06; Admin Dose 100 MG; Start 12/31/16 at 21:00 Trazodone HCl (Desyrel) 50 mg QHS PO Last administered on 01/08/17 21:06; Admin Dose 50 MG; Start 12/31/16 at 21:00 Zolpidem Tartrate (Ambien) 10 mg QHS PRN PO INSOMNIA Last administered on 21:34; Admin Dose 10 MG; Start 12/31/16 at 19:00 Phenol (Cepastat Lozenge) 1 lozenge Q4H PRN MT sore throat Last administered on 01/03/17 07:28; Admin Dose 1 LOZENGE; Start 01/01/17 at 20:30 Hydromorphone HCl 0.75 mg 0.75 mg Q3H PRN IV PAIN Last administered on 05:46; Admin Dose 0.75 MG; Start 01/02/17 at 18:38 Lactated Ringer's (Lr) 1,000 ml @ 100 mls/hr Q10H IV Last administered on 16:04; Admin Dose 100 MLS/HR; Start 01/03/17 at 14:15 Hydromorphone HCl (Dilaudid TRANSPORTATION ATTENDANT) 0.4 mg DOSE 10 ... Q4PCA IV Last administered on 01/09/17 17:53; Admin Dose 6 MG; Start 01/03/17 at 15:00 Famotidine 20 mg 20 mg BID PO Last administered on 01/09/17 09:35; Admin Dose 20 MG; Start 01/08/17 at 21:00 Metronidazole (Flagyl 500 Mg (Pmx)) 100 ml @ 100 mls/hr Q8 IVPB Last administered on 01/09/17 16:53; Admin Dose 100 MLS/HR; Start 01/09/17 at 16:00 Trimethoprim/ Sulfamethoxazole (Bactrim (Ds)) 1 tab BID PO ; Start 01/09/17 at 21 :00 BRIANAD MORSE MD January 09, 2017 19:45
--- NOTE | 2017-01-09 20:04 | CONS ---
DATE OF ADMISSION: 12/31/2016 DATE OF CONSULTATION: 01/09/2017 TYPE OF CONSULTATION: Infectious Disease. REASON FOR CONSULTATION: Antibiotic management. HISTORY OF PRESENT ILLNESS: Aissatou Morel is a 51-year-old unfortunate female. She was recently dis charged from the hospital and underwent laparoscopic right hemicolectomy. 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 She underwent surgical repair and had a right hemicolectomy as note d. She had developed electrolyte imbalance and a discharge from the abdominal area. She was starte d on TPN and went to the skilled nursing for further management. The patient was brought back to the ospital to reverse any possibility of fistula by Dr. Patricio. Her past history is positive for enteroco ccus and staph infection, right hemicolectomy, history of colonoscopy, history of polypectomy, histo ry of depression, history of abdominal wound and abdominal fistula. HOSPITAL COURSE: The patient underwent surgery on the . She had an enterocutaneous fistula [place] and repair, partial colectomy, coloenteric anastomosis, open lysis of adhesions of approximate ly 1 hour at surgery by Dr. Patricio. She was seen in consultation by a number of different physicians. She has a PICC line. She had a urinary catheter for urinary retention. The patient still has abdo christa pain status post abdominal surgery, postoperative anemia, postoperative GI bleed. Currently, a CT scan of the abdomen and pelvis was done on the . It showed right hemicolectomy changes wit h decrease in subcutaneous emphysema or small apices of the laparotomy incision site since November 30. No enteric contrast extravasation. Sinus fistula tract no longer visible on CT. There is decreas ing subcutaneous emphysema at the midline level. As noted previously, Dr. Patricio operated on her subse quently on the . Currently, her white count is 11.4, H and H 7.1 and 21.6, platelet count of 33 5,000. BUN and creatinine is 4/0.4. Urine is trace leukocyte esterase. MICROBIOLOGY: The patient is growing Bacteroides fragilis, Citrobacter amalonaticus which is sensit alicia to Cipro, Klebsiella pneumoniae which is also sensitive to Cipro. She has a corynebacterium spe cies which is not exactly covered, but may be a skin contaminant. This was the abdominal wall wound . She is currently started on ciprofloxacin and metronidazole. PAST MEDICAL HISTORY: Operations as outlined. FAMILY HISTORY: Noncontributory. SOCIAL HISTORY: She does smoke. She does not drink or abuse drugs. ALLERGIES: SUCCINYLCHOLINE. MEDICATIONS: Per chart. REVIEW OF SYSTEMS: As per HPI. PHYSICAL EXAMINATION: GENERAL: The patient is a well-developed, well-nourished female who is alert, responsive, in no acu te distress. VITAL SIGNS: Stable. She is afebrile. SKIN: Without generalized rash. HEENT: Within normal limits. NECK: Supple. LYMPH NODES: None palpable. CHEST: Decreased breath sounds at the bases. HEART: Without murmur or gallop. ABDOMEN: Soft, nontender. However, she has erythema around her wound sites from the surgery. EXTREMITIES: Without cyanosis, clubbing, or edema. RECTAL AND GENITAL: Deferred. NEUROLOGIC: No focal neurological abnormalities. IMPRESSION AND PLAN: The patient should be covered for cellulitis of the wound. Continue Cipro, Fl agyl and add vancomycin to the regimen. We could add dicloxacillin or Bactrim. As it turns out, th e organisms are sensitive to Bactrim, so we are going to change her to Bactrim-DS b.i.d. and continu e the Flagyl. I will dictate my findings to Dr. Patricio and Dr. Funk. Dictated By: DEYVI GTZ MD, JD/SCOTT Conf#: [id number] DID#: [id number]
[2017-01-09] MEDS: TOPIRAMATE 100 MG TAB PO SCH (20:38)
[2017-01-09] MEDS: traZODone 50 MG TAB PO SCH (20:38)
[2017-01-09] MEDS: TRIMETHOPRIM/SULFAMETHOX (DS) TAB PO SCH (20:38)
[2017-01-09] MEDS: hydrOXYzine HCL 25 MG TAB PO SCH (20:42)
[2017-01-09] MEDS: AMITRIPTYLINE 25 MG TAB PO SCH (20:42)
[2017-01-09] MEDS: ZOLPIDEM 5 MG TAB PO PRN (20:43)
[2017-01-09 21:03] VITALS: BP 105/62; RESP 20
[2017-01-09 22:43] VITALS: BP 107/73; PULSE 110; RESP 18
[2017-01-10] MEDS: LACTATED RINGER'S 1,000 ML IV SCH ×2 (05:01→17:28)
[2017-01-10 05:21] LABS: ADD SCAN DIFF NO
[2017-01-10 05:33] LABS: BASOPHILS % 0.1 % (0.0-2.0); EOSINOPHILS # 0.4 10^3/ul (0.0-0.5); EOSINOPHILS % 5.2 % (0.0-7.0); HEMATOCRIT 28.4 % (37.0-47.0); HEMOGLOBIN 9.4 g/dl (12.0-16.0); LYMPHOCYTES # 1.1 10^3/ul (0.8-2.9); LYMPHOCYTES % 14.8 % (15.0-51.0); MEAN CORPUSCULAR HEMOGLOBIN 28.3 pg (29.0-33.0); MEAN CORPUSCULAR HGB CONC 33.1 g/dl (32.0-37.0); MEAN CORPUSCULAR VOLUME 85.5 fl (82.0-101.0); MEAN PLATELET VOLUME 10.2 fl (7.4-10.4); MONOCYTE # 0.5 10^3/ul (0.3-0.9); MONOCYTES % 6.4 % (0.0-11.0); NEUTROPHIL # 5.3 10^3/ul (1.6-7.5); NEUTROPHILS % 73.1 % (39.0-77.0); PLATELET COUNT 283 10^3/UL (140-415); RED BLOOD COUNT 3.32 10^6/ul (4.20-5.40); RED CELL DISTRIBUTION WIDTH 16.5 % (11.5-14.5); WHITE BLOOD COUNT 7.2 10^3/ul (4.8-10.8)
[2017-01-10] MEDS: PANTOPRAZOLE (EC) 40 MG TAB PO SCH (05:34)
[2017-01-10] MEDS: metroNIDAZOLE 500 MG/NS (PMX) 100 ML IVPB SCH ×3 (05:35→21:23)
[2017-01-10 05:45] LABS: ALBUMIN 2.5 g/dl (3.3-4.9)
[2017-01-10 05:47] LABS: CREATININE 0.4 mg/dl (0.44-1.00)
[2017-01-10 05:48] LABS: ALBUMIN/GLOBULIN RATIO 0.86; BILIRUBIN,INDIRECT 0.1 mg/dl (0-1.1); BILIRUBIN,TOTAL 0.1 mg/dl (0.2-1.3); CALCIUM 8.2 mg/dl (8.4-10.2); TOTAL PROTEIN 5.4 g/dl (6.1-8.1)
[2017-01-10] MEDS: HYDROmorphONE 0.2 MG/ML PCA IV SCH ×2 (06:28→15:47)
[2017-01-10 08:07] VITALS: BP 102/63; RESP 17
--- NOTE | 2017-01-10 09:23 | PN ---
Date/Time of Note Date/Time of Note DATE: 01/10/17 TIME: 09:22 Assessment/Plan VTE Prophylaxis VTE Prophylaxis Intervention: SCD's Lines/Catheters IV [facility] PICC Line Central line still needed: Yes Urinary Cath still in place: No Assessment/Plan Chief Complaint/Hosp Course s/p ecf which has resolved with repair with ECF and revision of anastomosis Problems: Assessment/Plan moderated bloody drainage from midline wound, awaiting bowel function Subjective 24 Hr Interval Summary Free Text/Dictation hgb stable, no further prbc given, tolerating diet Exam/Review of Systems Vital Signs Vitals Vital Signs Date Time Temp Pulse Resp B/P Pulse Ox O2 Delivery O2 Flow Rate FiO2 01/10/17 08:07 98.7 103 17 102/63 93 01/09/17 22:43 Room Air Intake and Output 01/09/17 01/09/17 01/10/17 15:00 23:00 07:00 Intake Total 2480 ml 1820 ml Balance 2480 ml 1820 ml Exam some bloody drainage, no evidence of infection Results Result Diagram: 01/10/17 0435 01/10/17 0435 Results 24 hrs Laboratory Tests Test 01/09/17 16:10 01/10/17 04:35 White Blood Count 9.2 7.2 # Red Blood Count 3.44 #L 3.32 L Hemoglobin 9.5 #L 9.4 L Hematocrit 30.0 #L 28.4 L Mean Corpuscular Volume 87.2 85.5 Mean Corpuscular Hemoglobin 27.6 L 28.3 L Mean Corpuscular Hemoglobin Concent 31.7 L 33.1 Red Cell Distribution Width 16.5 H 16.5 H Platelet Count 287 283 Mean Platelet Volume 9.9 10.2 Neutrophils % 75.8 73.1 Lymphocytes % 15.3 14.8 L Monocytes % 6.0 6.4 Eosinophils % 2.1 5.2 Basophils % 0.3 0.1 Nucleated Red Blood Cells % 0.0 0.0 Neutrophils # 7.0 5.3 Lymphocytes # 1.4 1.1 Monocytes # 0.6 0.5 Eosinophils # 0.2 0.4 Basophils # 0.0 0.0 Nucleated Red Blood Cells # 0.0 0.0 Sodium Level 137 Potassium Level 3.0 L Chloride Level 103 Carbon Dioxide Level 23 Anion Gap 14 Blood Urea Nitrogen 3 L Creatinine 0.40 L Glucose Level 89 Calcium Level 8.2 L Total Bilirubin 0.1 L Direct Bilirubin 0.00 Indirect Bilirubin 0.1 Aspartate Amino Transf (AST/SGOT) 14 L Alanine Aminotransferase (ALT/SGPT) 28 Alkaline Phosphatase 95 Total Protein 5.4 L Albumin 2.5 L Globulin 2.90 Albumin/Globulin Ratio 0.86 Medications Medications Current Medications Acetaminophen (Tylenol Tab) 650 mg Q6H PRN PO ELEVATED TEMPERATURE Last administered on 01/09/17 14:53; Admin Dose 650 MG; Start 12/31/16 at 19:00 Amitriptyline HCl (Elavil) 25 mg QHS PO Last administered on 01/07/17 20:35; Admin Dose 25 MG; Start 12/31/16 at 21:00 Aspirin (Aspirin) 81 mg DAILY PO Last administered on 01/01/17 08:57; Admin Dose 81 MG; Start 01/01/17 at 09:00; Status Future Hold Gabapentin (Neurontin) 600 mg BID PO Last administered on 01/09/17 20:38; Admin Dose 600 MG; Start 12/31/16 at 21:00 Hydroxyzine HCl (Atarax) 25 mg QHS PO Last administered on 01/08/17 21:07; Admin Dose 25 MG; Start 12/31/16 at 21:00 Ondansetron HCl (Zofran Inj) 4 mg Q6H PRN IV NAUSEA AND/OR VOMITING; Start at 19:00 Pantoprazole (Protonix Tab) 40 mg DAILY@06 PO Last administered on 01/10/17 05: 34; Admin Dose 40 MG; Start 01/01/17 at 06:00 Polyethylene Glycol (Miralax) 17 gm DAILY PRN PO CONSTIPATION; Start 12/31/16 at 19:00 Simethicone (Mylicon) 80 mg BID PRN PO DISTENSION/GAS/BLOATING; Start 12/31/16 at 19:00 Sucralfate (Carafate) 1 gm BID PO Last administered on 01/09/17 20:38; Admin Dose 1 GM; Start 12/31/16 at 21:00 Topiramate (Topamax) 100 mg QHS PO Last administered on 01/09/17 20:38; Admin Dose 100 MG; Start 12/31/16 at 21:00 Trazodone HCl (Desyrel) 50 mg QHS PO Last administered on 01/09/17 20:38; Admin Dose 50 MG; Start 12/31/16 at 21:00 Zolpidem Tartrate (Ambien) 10 mg QHS PRN PO INSOMNIA Last administered on 20:43; Admin Dose 10 MG; Start 12/31/16 at 19:00 Phenol (Cepastat Lozenge) 1 lozenge Q4H PRN MT sore throat Last administered on 01/03/17 07:28; Admin Dose 1 LOZENGE; Start 01/01/17 at 20:30 Hydromorphone HCl 0.75 mg 0.75 mg Q3H PRN IV PAIN Last administered on 05:46; Admin Dose 0.75 MG; Start 01/02/17 at 18:38 Lactated Ringer's (Lr) 1,000 ml @ 100 mls/hr Q10H IV Last administered on 05:01; Admin Dose 100 MLS/HR; Start 01/03/17 at 14:15 Hydromorphone HCl (Dilaudid ADMITTING COUNSELOR) 0.4 mg DOSE 10 ... Q4PCA IV Last administered on 01/10/17 06:28; Admin Dose 6 MG; Start 01/03/17 at 15:00 Famotidine 20 mg 20 mg BID PO Last administered on 01/09/17 20:39; Admin Dose 20 MG; Start 01/08/17 at 21:00 Metronidazole (Flagyl 500 Mg (Pmx)) 100 ml @ 100 mls/hr Q8 IVPB Last administered on 01/10/17 05:35; Admin Dose 100 MLS/HR; Start 01/09/17 at 16:00 Trimethoprim/ Sulfamethoxazole (Bactrim (Ds)) 1 tab BID PO Last administered on 01/09/17 20:38; Admin Dose 1 TAB; Start 01/09/17 at 21:00 Rubin RUSS January 10, 2017 09:23
[2017-01-10] MEDS: SUCRALFATE 1 GM TAB PO SCH ×2 (10:16→21:24)
[2017-01-10] MEDS: TRIMETHOPRIM/SULFAMETHOX (DS) TAB PO SCH ×2 (10:17→21:23)
[2017-01-10] MEDS: FAMOTIDINE 20 MG TAB PO SCH ×2 (10:17→21:23)
[2017-01-10] MEDS: GABAPENTIN 300 MG CAP PO SCH ×2 (10:17→21:23)
--- NOTE | 2017-01-10 11:42 | PN ---
Date/Time of Note Date/Time of Note DATE: 01/10/17 TIME: 11:40 Assessment/Plan VTE Prophylaxis VTE Prophylaxis Intervention: ambulation Lines/Catheters IV Catheter Type (from [place]): PICC Line Central line still needed: Yes Urinary Cath still in place: No Assessment/Plan Chief Complaint/Hosp Course 1. Patient has abd pain 2. s/p abd surgery 3 post op anemia 4 post op gi bleed stable 5 sepsis 6 1. Enterocutaneous fistula takedown and repair. 2. Partial colectomy. 3. [place]-enteric anastomosis. 4. Open lysis of adhesions of approximately 1 hour. Problems: Assessment/Plan 1. antibiotic continue 2. plan per surgery 3. Physical therapy to ambulate Subjective 24 Hr Interval Summary Constitutional: no complaints Exam/Review of Systems Vital Signs Vitals Vital Signs Date Time Temp Pulse Resp B/P Pulse Ox O2 Delivery O2 Flow Rate FiO2 01/10/17 08:07 98.7 103 17 102/63 93 01/09/17 22:43 Room Air Intake and Output 01/09/17 01/09/17 01/10/17 15:00 23:00 07:00 Intake Total 2480 ml 1820 ml Balance 2480 ml 1820 ml Exam Constitutional: alert, oriented Psych: no complaints Head: normocephalic Eyes: nl conjunctiva ENMT: nl external ears & nose Neck: supple Cardiovascular: regular rate and rhythm Gastrointestinal: other (colostomy), soft, surgical scars Results Result Diagram: 01/10/17 0435 01/10/17 0435 Results 24 hrs Laboratory Tests Test 01/09/17 16:10 01/10/17 04:35 White Blood Count 9.2 7.2 # Red Blood Count 3.44 #L 3.32 L Hemoglobin 9.5 #L 9.4 L Hematocrit 30.0 #L 28.4 L Mean Corpuscular Volume 87.2 85.5 Mean Corpuscular Hemoglobin 27.6 L 28.3 L Mean Corpuscular Hemoglobin Concent 31.7 L 33.1 Red Cell Distribution Width 16.5 H 16.5 H Platelet Count 287 283 Mean Platelet Volume 9.9 10.2 Neutrophils % 75.8 73.1 Lymphocytes % 15.3 14.8 L Monocytes % 6.0 6.4 Eosinophils % 2.1 5.2 Basophils % 0.3 0.1 Nucleated Red Blood Cells % 0.0 0.0 Neutrophils # 7.0 5.3 Lymphocytes # 1.4 1.1 Monocytes # 0.6 0.5 Eosinophils # 0.2 0.4 Basophils # 0.0 0.0 Nucleated Red Blood Cells # 0.0 0.0 Sodium Level 137 Potassium Level 3.0 L Chloride Level 103 Carbon Dioxide Level 23 Anion Gap 14 Blood Urea Nitrogen 3 L Creatinine 0.40 L Glucose Level 89 Calcium Level 8.2 L Total Bilirubin 0.1 L Direct Bilirubin 0.00 Indirect Bilirubin 0.1 Aspartate Amino Transf (AST/SGOT) 14 L Alanine Aminotransferase (ALT/SGPT) 28 Alkaline Phosphatase 95 Total Protein 5.4 L Albumin 2.5 L Globulin 2.90 Albumin/Globulin Ratio 0.86 Medications Medications Current Medications Acetaminophen (Tylenol Tab) 650 mg Q6H PRN PO ELEVATED TEMPERATURE Last administered on 01/09/17 14:53; Admin Dose 650 MG; Start 12/31/16 at 19:00 Amitriptyline HCl (Elavil) 25 mg QHS PO Last administered on 01/07/17 20:35; Admin Dose 25 MG; Start 12/31/16 at 21:00 Aspirin (Aspirin) 81 mg DAILY PO Last administered on 01/01/17 08:57; Admin Dose 81 MG; Start 01/01/17 at 09:00; Status Future Hold Gabapentin (Neurontin) 600 mg BID PO Last administered on 01/10/17 10:17; Admin Dose 600 MG; Start 12/31/16 at 21:00 Hydroxyzine HCl (Atarax) 25 mg QHS PO Last administered on 01/08/17 21:07; Admin Dose 25 MG; Start 12/31/16 at 21:00 Ondansetron HCl (Zofran Inj) 4 mg Q6H PRN IV NAUSEA AND/OR VOMITING; Start at 19:00 Pantoprazole (Protonix Tab) 40 mg DAILY@06 PO Last administered on 01/10/17 05: 34; Admin Dose 40 MG; Start 01/01/17 at 06:00 Polyethylene Glycol (Miralax) 17 gm DAILY PRN PO CONSTIPATION; Start 12/31/16 at 19:00 Simethicone (Mylicon) 80 mg BID PRN PO DISTENSION/GAS/BLOATING; Start 12/31/16 at 19:00 Sucralfate (Carafate) 1 gm BID PO Last administered on 01/10/17 10:16; Admin Dose 1 GM; Start 12/31/16 at 21:00 Topiramate (Topamax) 100 mg QHS PO Last administered on 01/09/17 20:38; Admin Dose 100 MG; Start 12/31/16 at 21:00 Trazodone HCl (Desyrel) 50 mg QHS PO Last administered on 01/09/17 20:38; Admin Dose 50 MG; Start 12/31/16 at 21:00 Zolpidem Tartrate (Ambien) 10 mg QHS PRN PO INSOMNIA Last administered on 20:43; Admin Dose 10 MG; Start 12/31/16 at 19:00 Phenol (Cepastat Lozenge) 1 lozenge Q4H PRN MT sore throat Last administered on 01/03/17 07:28; Admin Dose 1 LOZENGE; Start 01/01/17 at 20:30 Hydromorphone HCl 0.75 mg 0.75 mg Q3H PRN IV PAIN Last administered on 05:46; Admin Dose 0.75 MG; Start 01/02/17 at 18:38 Lactated Ringer's (Lr) 1,000 ml @ 100 mls/hr Q10H IV Last administered on 05:01; Admin Dose 100 MLS/HR; Start 01/03/17 at 14:15 Hydromorphone HCl (Dilaudid AGRICULTURAL PRODUCTION ENGINEER) 0.4 mg DOSE 10 ... Q4PCA IV Last administered on 01/10/17 06:28; Admin Dose 6 MG; Start 01/03/17 at 15:00 Famotidine 20 mg 20 mg BID PO Last administered on 01/10/17 10:17; Admin Dose 20 MG; Start 01/08/17 at 21:00 Metronidazole (Flagyl 500 Mg (Pmx)) 100 ml @ 100 mls/hr Q8 IVPB Last administered on 01/10/17 05:35; Admin Dose 100 MLS/HR; Start 01/09/17 at 16:00 Trimethoprim/ Sulfamethoxazole (Bactrim (Ds)) 1 tab BID PO Last administered on 01/10/17 10:17; Admin Dose 1 TAB; Start 01/09/17 at 21:00 IZZY BRAMBILA January 10, 2017 11:42
[2017-01-10] MEDS ORDERED: POTASSIUM CHLORIDE 20 MEQ POWDER FOR ORAL SOLN PO ONE (12:00)
--- NOTE | 2017-01-10 14:29 | PN ---
DATE: 01/10/2017 SUBJECTIVE: No acute changes. The patient spiked fever of 101.8 yesterday, had been afebrile since that. LABORATORY: WBC today 7.2, no shift, no bands. BUN 3, creatinine 0.40. MICROBIOLOGY: Urine culture from yesterday negative. INDWELLINGS: PICC line. ANTIMICROBIALS: The patient is on: 1. Bactrim 2. Flagyl. PHYSICAL EXAMINATION: GENERAL: This is a cachectic, middle-aged white woman who is in no distress. HEENT: Head atraumatic, normocephalic. Sclerae anicteric. Buccal mucosa dry. NECK: Supple. CHEST: Rise symmetrical. Breath sounds diminished at the bases. HEART: S1, S2. ABDOMEN: Soft. Bowel tones present. Mid abdominal wound with some bloody drainage from midline. EXTREMITIES: Without cyanosis. Trace edema. ASSESSMENT: 1. Status post enterocutaneous fistula repair. 2. Status post rectal bleeding. 3. History of right hemicolectomy. 4. Status post fever yesterday. PLAN: The patient remains stable, covered with appropriate antimicrobials. She is being followed b y multiple consultants. We will order chest x-ray and repeat blood cultures p.r.n. if she spikes fe [place] again. Dictated By: BÁRBARA SMITH ENGINEERING [employer]ACULT[employer] for DEYVI SMITH/SCOTT Conf#: [id number] DID#: [id number]
--- NOTE | 2017-01-10 14:42 | RADRPT ---
PROCEDURE: XR Chest. CLINICAL INDICATION: Shortness of breath. TECHNIQUE: Single frontal view. COMPARISON: 12/31/2016. FINDINGS: There is mild atelectasis at the lung bases. The lungs are otherwise clear. The right arm PICC pool e remains in satisfactory position with the tip in the lower superior vena cava. The heart size is normal. There is no pleural effusion. There is no pneumothorax. IMPRESSION: 1. Mild atelectasis at the lung bases. 2. Right arm PICC line. 3. Otherwise normal chest x-ray. RPTAT: QQ .Andrew Ramos MD, MD Date Time Electronically viewed and signed by .Andrew Ramos MD, on 01/10/2017 14:42 .R/
--- NOTE | 2017-01-10 19:36 | CONS ---
Date/Time of Note Date/Time of Note DATE: 01/10/17 TIME: 19:36 Assessment/Plan Assessment/Plan Additional Assessment/Plan Assessment/Plan Additional Assessment/Plan IMPRESSION: 1. Rectal bleeding, most probably from hemorrhoids. Has stopped completely 2. Enterocutaneous fistula, closed with conservative treatment. 3. Right hemicolectomy. 4. Abdominal pain, much better. 5. Anemia.ht 30,stable Plan monitor H&H sitz bath Consultation Date/Type/Reason Admit Date/Time Dec 31, 2016 at 08:01 24 HR Interval Summary Constitutional: improved, no complaints Exam/Review of Systems Vital Signs Vitals Vital Signs Date Time Temp Pulse Resp B/P Pulse Ox O2 Delivery O2 Flow Rate FiO2 01/10/17 16:50 18 01/10/17 08:07 98.7 103 102/63 93 01/09/17 22:43 Room Air Intake and Output 01/09/17 01/09/17 01/10/17 15:00 23:00 07:00 Intake Total 2480 ml 1820 ml Balance 2480 ml 1820 ml Exam Constitutional: alert, oriented, well developed Psych: nl mood/affect, no complaints Head: atraumatic, normocephalic Eyes: EOMI, PERRL, nl conjunctiva, nl lids, nl sclera ENMT: nl external ears & nose, nl lips & teeth, nl nasal mucosa & septum Neck: non-tender, supple Respiratory: clear to auscultation, normal air movement Cardiovascular: nl pulses, regular rate and rhythm Gastrointestinal: nl liver, spleen, non-tender, soft Musculoskeletal: nl extremities to inspection, nl gait and stance Extremities: normal pulses Neurological: 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 intact, nl mental status, nl speech, nl strength Skin: nl turgor, No rash or lesions Lymph: nl lymph nodes Results Result Diagram: 01/10/17 0435 01/10/17 0435 Results 24 hrs Laboratory Tests Test 01/10/17 04:35 White Blood Count 7.2 # Red Blood Count 3.32 L Hemoglobin 9.4 L Hematocrit 28.4 L Mean Corpuscular Volume 85.5 Mean Corpuscular Hemoglobin 28.3 L Mean Corpuscular Hemoglobin Concent 33.1 Red Cell Distribution Width 16.5 H Platelet Count 283 Mean Platelet Volume 10.2 Neutrophils % 73.1 Lymphocytes % 14.8 L Monocytes % 6.4 Eosinophils % 5.2 Basophils % 0.1 Nucleated Red Blood Cells % 0.0 Neutrophils # 5.3 Lymphocytes # 1.1 Monocytes # 0.5 Eosinophils # 0.4 Basophils # 0.0 Nucleated Red Blood Cells # 0.0 Sodium Level 137 Potassium Level 3.0 L Chloride Level 103 Carbon Dioxide Level 23 Anion Gap 14 Blood Urea Nitrogen 3 L Creatinine 0.40 L Glucose Level 89 Calcium Level 8.2 L Total Bilirubin 0.1 L Direct Bilirubin 0.00 Indirect Bilirubin 0.1 Aspartate Amino Transf (AST/SGOT) 14 L Alanine Aminotransferase (ALT/SGPT) 28 Alkaline Phosphatase 95 Total Protein 5.4 L Albumin 2.5 L Globulin 2.90 Albumin/Globulin Ratio 0.86 Medications Medications Current Medications Acetaminophen (Tylenol Tab) 650 mg Q6H PRN PO ELEVATED TEMPERATURE Last administered on 01/09/17 14:53; Admin Dose 650 MG; Start 12/31/16 at 19:00 Amitriptyline HCl (Elavil) 25 mg QHS PO Last administered on 01/07/17 20:35; Admin Dose 25 MG; Start 12/31/16 at 21:00 Aspirin (Aspirin) 81 mg DAILY PO Last administered on 01/01/17 08:57; Admin Dose 81 MG; Start 01/01/17 at 09:00; Status Future Hold Gabapentin (Neurontin) 600 mg BID PO Last administered on 01/10/17 10:17; Admin Dose 600 MG; Start 12/31/16 at 21:00 Hydroxyzine HCl (Atarax) 25 mg QHS PO Last administered on 01/08/17 21:07; Admin Dose 25 MG; Start 12/31/16 at 21:00 Ondansetron HCl (Zofran Inj) 4 mg Q6H PRN IV NAUSEA AND/OR VOMITING; Start at 19:00 Pantoprazole (Protonix Tab) 40 mg DAILY@06 PO Last administered on 01/10/17 05: 34; Admin Dose 40 MG; Start 01/01/17 at 06:00 Polyethylene Glycol (Miralax) 17 gm DAILY PRN PO CONSTIPATION; Start 12/31/16 at 19:00 Simethicone (Mylicon) 80 mg BID PRN PO DISTENSION/GAS/BLOATING; Start 12/31/16 at 19:00 Sucralfate (Carafate) 1 gm BID PO Last administered on 01/10/17 10:16; Admin Dose 1 GM; Start 12/31/16 at 21:00 Topiramate (Topamax) 100 mg QHS PO Last administered on 01/09/17 20:38; Admin Dose 100 MG; Start 12/31/16 at 21:00 Trazodone HCl (Desyrel) 50 mg QHS PO Last administered on 01/09/17 20:38; Admin Dose 50 MG; Start 12/31/16 at 21:00 Zolpidem Tartrate (Ambien) 10 mg QHS PRN PO INSOMNIA Last administered on 20:43; Admin Dose 10 MG; Start 12/31/16 at 19:00 Phenol (Cepastat Lozenge) 1 lozenge Q4H PRN MT sore throat Last administered on 01/03/17 07:28; Admin Dose 1 LOZENGE; Start 01/01/17 at 20:30 Hydromorphone HCl 0.75 mg 0.75 mg Q3H PRN IV PAIN Last administered on 05:46; Admin Dose 0.75 MG; Start 01/02/17 at 18:38 Lactated Ringer's (Lr) 1,000 ml @ 100 mls/hr Q10H IV Last administered on 17:28; Admin Dose 100 MLS/HR; Start 01/03/17 at 14:15 Hydromorphone HCl (Dilaudid ACCOUNT MANAGER FOREST SERVICE) 0.4 mg DOSE 10 ... Q4PCA IV Last administered on 01/10/17 15:47; Admin Dose 6 MG; Start 01/03/17 at 15:00 Famotidine 20 mg 20 mg BID PO Last administered on 01/10/17 10:17; Admin Dose 20 MG; Start 01/08/17 at 21:00 Metronidazole (Flagyl 500 Mg (Pmx)) 100 ml @ 100 mls/hr Q8 IVPB Last administered on 01/10/17 13:56; Admin Dose 100 MLS/HR; Start 01/09/17 at 16:00 Trimethoprim/ Sulfamethoxazole (Bactrim (Ds)) 1 tab BID PO Last administered on 01/10/17 10:17; Admin Dose 1 TAB; Start 01/09/17 at 21:00 BRIANDA MORSE MD January 10, 2017 19:36
[2017-01-10 20:55] VITALS: BP 137/69; RESP 20
[2017-01-10] MEDS: hydrOXYzine HCL 25 MG TAB PO SCH (21:00)
[2017-01-10] MEDS: AMITRIPTYLINE 25 MG TAB PO SCH (21:00)
[2017-01-10] MEDS: traZODone 50 MG TAB PO SCH (21:24)
[2017-01-10] MEDS: TOPIRAMATE 100 MG TAB PO SCH (21:24)
[2017-01-10] MEDS: ZOLPIDEM 5 MG TAB PO PRN (21:46)
[2017-01-11] MEDS: HYDROmorphONE 0.2 MG/ML PCA IV SCH ×2 (00:49→13:27)
[2017-01-11] MEDS: LACTATED RINGER'S 1,000 ML IV SCH ×4 (04:15→22:15)
[2017-01-11] MEDS: metroNIDAZOLE 500 MG/NS (PMX) 100 ML IVPB SCH ×3 (04:30→21:56)
[2017-01-11] MEDS: PANTOPRAZOLE (EC) 40 MG TAB PO SCH (04:30)
[2017-01-11 05:22] LABS: ADD SCAN DIFF NO
[2017-01-11 05:24] LABS: BASOPHILS % 0.3 % (0.0-2.0); EOSINOPHILS # 0.3 10^3/ul (0.0-0.5); EOSINOPHILS % 4.1 % (0.0-7.0); HEMOGLOBIN 9.6 g/dl (12.0-16.0); LYMPHOCYTES # 1.3 10^3/ul (0.8-2.9); LYMPHOCYTES % 19.6 % (15.0-51.0); MEAN CORPUSCULAR HEMOGLOBIN 28.3 pg (29.0-33.0); MEAN CORPUSCULAR HGB CONC 33.1 g/dl (32.0-37.0); MEAN CORPUSCULAR VOLUME 85.5 fl (82.0-101.0); MEAN PLATELET VOLUME 9.9 fl (7.4-10.4); MONOCYTE # 0.4 10^3/ul (0.3-0.9); MONOCYTES % 6.1 % (0.0-11.0); NEUTROPHIL # 4.8 10^3/ul (1.6-7.5); NEUTROPHILS % 69.5 % (39.0-77.0); PLATELET COUNT 334 10^3/UL (140-415); RED BLOOD COUNT 3.39 10^6/ul (4.20-5.40); RED CELL DISTRIBUTION WIDTH 16.5 % (11.5-14.5); WHITE BLOOD COUNT 6.8 10^3/ul (4.8-10.8)
[2017-01-11 06:06] LABS: ANION GAP 12 (8-16); CALCIUM 8.3 mg/dl (8.4-10.2); CARBON DIOXIDE 22 mmol/L (21-31); CHLORIDE 102 mmol/L (97-110); CREATININE 0.45 mg/dl (0.44-1.00); GLUCOSE 92 mg/dl (70-220); POTASSIUM 3.2 mmol/L (3.5-5.1); SODIUM 133 mmol/L (135-144)
[2017-01-11 06:16] LABS: BLOOD UREA NITROGEN < 2 mg/dl (7-20)
[2017-01-11 07:53] VITALS: BP 101/62; RESP 19
[2017-01-11] MEDS: GABAPENTIN 300 MG CAP PO SCH ×2 (09:44→20:28)
[2017-01-11] MEDS: FAMOTIDINE 20 MG TAB PO SCH ×2 (09:44→20:28)
[2017-01-11] MEDS: TRIMETHOPRIM/SULFAMETHOX (DS) TAB PO SCH ×2 (09:44→20:28)
[2017-01-11] MEDS: SUCRALFATE 1 GM TAB PO SCH ×2 (09:44→20:28)
[2017-01-11] MEDS: ACETAMINOPHEN 325 MG TAB PO PRN (13:31)
--- NOTE | 2017-01-11 14:08 | PN ---
Date/Time of Note Date/Time of Note DATE: 01/11/17 TIME: 14:06 Assessment/Plan VTE Prophylaxis VTE Prophylaxis Intervention: anti-embolic stocking Lines/Catheters IV Catheter Type (from Nrs): PICC Line Central line still needed: Yes Urinary Cath still in place: No Assessment/Plan Chief Complaint/Hosp Course 1. Hypokalemia 2. s/p abd surgery 3 post op anemia 4 post op gi bleed stable 5 sepsis 6 Enterocutaneous fistula takedown and repair. 2. Partial colectomy. 3. [place]-enteric anastomosis. 4. Open lysis of adhesions of approximately 1 hour. Problems: Assessment/Plan 1. replacement K by 40 meq liquid Subjective 24 Hr Interval Summary Constitutional: no complaints Eyes: no complaints ENT: no complaints Respiratory: no complaints Cardiovascular: no complaints Exam/Review of Systems Vital Signs Vitals Vital Signs Date Time Temp Pulse Resp B/P Pulse Ox O2 Delivery O2 Flow Rate FiO2 01/11/17 13:34 18 01/11/17 07:53 99.0 100 101/62 95 01/09/17 22:43 Room Air Intake and Output 01/10/17 01/10/17 01/11/17 15:00 23:00 07:00 Intake Total 100 ml 1390 ml 1630 ml Balance 100 ml 1390 ml 1630 ml Exam Constitutional: alert, oriented Psych: no complaints Head: normocephalic ENMT: nl external ears & nose Neck: supple Respiratory: clear to auscultation Cardiovascular: regular rate and rhythm Gastrointestinal: firm, surgical scars Genitourinary - Female: nl external genitalia Results Result Diagram: 01/11/17 0435 01/11/17 0435 Results 24 hrs Laboratory Tests Test 01/11/17 04:35 White Blood Count 6.8 Red Blood Count 3.39 L Hemoglobin 9.6 L Hematocrit 29.0 L Mean Corpuscular Volume 85.5 Mean Corpuscular Hemoglobin 28.3 L Mean Corpuscular Hemoglobin Concent 33.1 Red Cell Distribution Width 16.5 H Platelet Count 334 Mean Platelet Volume 9.9 Neutrophils % 69.5 Lymphocytes % 19.6 Monocytes % 6.1 Eosinophils % 4.1 Basophils % 0.3 Nucleated Red Blood Cells % 0.0 Neutrophils # 4.8 Lymphocytes # 1.3 Monocytes # 0.4 Eosinophils # 0.3 Basophils # 0.0 Nucleated Red Blood Cells # 0.0 Sodium Level 133 L Potassium Level 3.2 L Chloride Level 102 Carbon Dioxide Level 22 Anion Gap 12 Blood Urea Nitrogen < 2 L Creatinine 0.45 Glucose Level 92 Calcium Level 8.3 L Medications Medications Current Medications Acetaminophen (Tylenol Tab) 650 mg Q6H PRN PO ELEVATED TEMPERATURE Last administered on 01/11/17 13:31; Admin Dose 650 MG; Start 12/31/16 at 19:00 Amitriptyline HCl (Elavil) 25 mg QHS PO Last administered on 01/07/17 20:35; Admin Dose 25 MG; Start 12/31/16 at 21:00 Aspirin (Aspirin) 81 mg DAILY PO Last administered on 01/01/17 08:57; Admin Dose 81 MG; Start 01/01/17 at 09:00; Status Future Hold Gabapentin (Neurontin) 600 mg BID PO Last administered on 01/11/17 09:44; Admin Dose 600 MG; Start 12/31/16 at 21:00 Hydroxyzine HCl (Atarax) 25 mg QHS PO Last administered on 01/08/17 21:07; Admin Dose 25 MG; Start 12/31/16 at 21:00 Ondansetron HCl (Zofran Inj) 4 mg Q6H PRN IV NAUSEA AND/OR VOMITING; Start at 19:00 Pantoprazole (Protonix Tab) 40 mg DAILY@06 PO Last administered on 01/11/17 04: 30; Admin Dose 40 MG; Start 01/01/17 at 06:00 Polyethylene Glycol (Miralax) 17 gm DAILY PRN PO CONSTIPATION; Start 12/31/16 at 19:00 Simethicone (Mylicon) 80 mg BID PRN PO DISTENSION/GAS/BLOATING; Start 12/31/16 at 19:00 Sucralfate (Carafate) 1 gm BID PO Last administered on 01/11/17 09:44; Admin Dose 1 GM; Start 12/31/16 at 21:00 Topiramate (Topamax) 100 mg QHS PO Last administered on 01/10/17 21:24; Admin Dose 100 MG; Start 12/31/16 at 21:00 Trazodone HCl (Desyrel) 50 mg QHS PO Last administered on 01/10/17 21:24; Admin Dose 50 MG; Start 12/31/16 at 21:00 Zolpidem Tartrate (Ambien) 10 mg QHS PRN PO INSOMNIA Last administered on 21:46; Admin Dose 10 MG; Start 12/31/16 at 19:00 Phenol (Cepastat Lozenge) 1 lozenge Q4H PRN [place] sore throat Last administered on 01/03/17 07:28; Admin Dose 1 LOZENGE; Start 01/01/17 at 20:30 Hydromorphone HCl 0.75 mg 0.75 mg Q3H PRN IV PAIN Last administered on 05:46; Admin Dose 0.75 MG; Start 01/02/17 at 18:38 Lactated Ringer's (Lr) 1,000 ml @ 100 mls/hr Q10H IV Last administered on 04:31; Admin Dose 100 MLS/HR; Start 01/03/17 at 14:15 Hydromorphone HCl (Dilaudid HEEL COMPRESSOR) 0.4 mg DOSE 10 ... Q4PCA IV Last administered on 01/11/17 13:27; Admin Dose 6 MG; Start 01/03/17 at 15:00 Famotidine 20 mg 20 mg BID PO Last administered on 01/11/17 09:44; Admin Dose 20 MG; Start 01/08/17 at 21:00 Metronidazole (Flagyl 500 Mg (Pmx)) 100 ml @ 100 mls/hr Q8 IVPB Last administered on 01/11/17 13:30; Admin Dose 100 MLS/HR; Start 01/09/17 at 16:00 Trimethoprim/ Sulfamethoxazole (Bactrim (Ds)) 1 tab BID PO Last administered on 01/11/17 09:44; Admin Dose 1 TAB; Start 01/09/17 at 21:00 IZZY BRAMBILA January 11, 2017 14:08
--- NOTE | 2017-01-11 14:12 | CONS ---
Date/Time of Note Date/Time of Note DATE: 01/11/17 TIME: 14:11 Assessment/Plan Assessment/Plan Additional Assessment/Plan Additional Assessment/Plan IMPRESSION: 1. Rectal bleeding, most probably from hemorrhoids. Has stopped completely 2. Enterocutaneous fistula, closed with conservative treatment. 3. Right hemicolectomy. 4. Abdominal pain, much better. 5. Anemia.ht 30,stable Plan monitor H&H sitz bath Surgical follow up Consultation Date/Type/Reason Admit Date/Time Dec 31, 2016 at 08:01 24 HR Interval Summary Free Text/Dictation No rectal bleeding Bleeding from the wound Constitutional: improved Exam/Review of Systems Vital Signs Vitals Vital Signs Date Time Temp Pulse Resp B/P Pulse Ox O2 Delivery O2 Flow Rate FiO2 01/11/17 13:34 18 01/11/17 07:53 99.0 100 101/62 95 01/09/17 22:43 Room Air Intake and Output 01/10/17 01/10/17 01/11/17 15:00 23:00 07:00 Intake Total 100 ml 1390 ml 1630 ml Balance 100 ml 1390 ml 1630 ml Exam Constitutional: alert, oriented, well developed Psych: nl mood/affect, no complaints Head: atraumatic, normocephalic Eyes: EOMI, PERRL, nl conjunctiva, nl lids, nl sclera ENMT: nl external ears & nose, nl lips & teeth, nl nasal mucosa & septum Neck: non-tender, supple Respiratory: clear to auscultation, normal air movement Cardiovascular: nl pulses, regular rate and rhythm Gastrointestinal: nl liver, spleen, non-tender, soft Musculoskeletal: nl extremities to inspection, nl gait and stance Extremities: normal pulses Neurological: 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 intact, nl mental status, nl speech, nl strength Skin: nl turgor, No rash or lesions Lymph: nl lymph nodes Results Result Diagram: 01/11/17 0435 01/11/17 0435 Results 24 hrs Laboratory Tests Test 01/11/17 04:35 White Blood Count 6.8 Red Blood Count 3.39 L Hemoglobin 9.6 L Hematocrit 29.0 L Mean Corpuscular Volume 85.5 Mean Corpuscular Hemoglobin 28.3 L Mean Corpuscular Hemoglobin Concent 33.1 Red Cell Distribution Width 16.5 H Platelet Count 334 Mean Platelet Volume 9.9 Neutrophils % 69.5 Lymphocytes % 19.6 Monocytes % 6.1 Eosinophils % 4.1 Basophils % 0.3 Nucleated Red Blood Cells % 0.0 Neutrophils # 4.8 Lymphocytes # 1.3 Monocytes # 0.4 Eosinophils # 0.3 Basophils # 0.0 Nucleated Red Blood Cells # 0.0 Sodium Level 133 L Potassium Level 3.2 L Chloride Level 102 Carbon Dioxide Level 22 Anion Gap 12 Blood Urea Nitrogen < 2 L Creatinine 0.45 Glucose Level 92 Calcium Level 8.3 L Medications Medications Current Medications Acetaminophen (Tylenol Tab) 650 mg Q6H PRN PO ELEVATED TEMPERATURE Last administered on 01/11/17 13:31; Admin Dose 650 MG; Start 12/31/16 at 19:00 Amitriptyline HCl (Elavil) 25 mg QHS PO Last administered on 01/07/17 20:35; Admin Dose 25 MG; Start 12/31/16 at 21:00 Aspirin (Aspirin) 81 mg DAILY PO Last administered on 01/01/17 08:57; Admin Dose 81 MG; Start 01/01/17 at 09:00; Status Future Hold Gabapentin (Neurontin) 600 mg BID PO Last administered on 01/11/17 09:44; Admin Dose 600 MG; Start 12/31/16 at 21:00 Hydroxyzine HCl (Atarax) 25 mg QHS PO Last administered on 01/08/17 21:07; Admin Dose 25 MG; Start 12/31/16 at 21:00 Ondansetron HCl (Zofran Inj) 4 mg Q6H PRN IV NAUSEA AND/OR VOMITING; Start at 19:00 Pantoprazole (Protonix Tab) 40 mg DAILY@06 PO Last administered on 01/11/17 04: 30; Admin Dose 40 MG; Start 01/01/17 at 06:00 Polyethylene Glycol (Miralax) 17 gm DAILY PRN PO CONSTIPATION; Start 12/31/16 at 19:00 Simethicone (Mylicon) 80 mg BID PRN PO DISTENSION/GAS/BLOATING; Start 12/31/16 at 19:00 Sucralfate (Carafate) 1 gm BID PO Last administered on 01/11/17 09:44; Admin Dose 1 GM; Start 12/31/16 at 21:00 Topiramate (Topamax) 100 mg QHS PO Last administered on 01/10/17 21:24; Admin Dose 100 MG; Start 12/31/16 at 21:00 Trazodone HCl (Desyrel) 50 mg QHS PO Last administered on 01/10/17 21:24; Admin Dose 50 MG; Start 12/31/16 at 21:00 Zolpidem Tartrate (Ambien) 10 mg QHS PRN PO INSOMNIA Last administered on 21:46; Admin Dose 10 MG; Start 12/31/16 at 19:00 Phenol (Cepastat Lozenge) 1 lozenge Q4H PRN [place] sore throat Last administered on 01/03/17 07:28; Admin Dose 1 LOZENGE; Start 01/01/17 at 20:30 Hydromorphone HCl 0.75 mg 0.75 mg Q3H PRN IV PAIN Last administered on 05:46; Admin Dose 0.75 MG; Start 01/02/17 at 18:38 Lactated Ringer's (Lr) 1,000 ml @ 100 mls/hr Q10H IV Last administered on 04:31; Admin Dose 100 MLS/HR; Start 01/03/17 at 14:15 Hydromorphone HCl (Dilaudid OR MANAGER) 0.4 mg DOSE 10 ... Q4PCA IV Last administered on 01/11/17 13:27; Admin Dose 6 MG; Start 01/03/17 at 15:00 Famotidine 20 mg 20 mg BID PO Last administered on 01/11/17 09:44; Admin Dose 20 MG; Start 01/08/17 at 21:00 Metronidazole (Flagyl 500 Mg (Pmx)) 100 ml @ 100 mls/hr Q8 IVPB Last administered on 01/11/17 13:30; Admin Dose 100 MLS/HR; Start 01/09/17 at 16:00 Trimethoprim/ Sulfamethoxazole (Bactrim (Ds)) 1 tab BID PO Last administered on 01/11/17 09:44; Admin Dose 1 TAB; Start 01/09/17 at 21:00 Potassium Chloride (Potassium Chloride Pwd/Soln) 40 meq ONCE ONCE PO ; Start at 14:30; Stop 01/11/17 at 14:31 BRIANDA MORSE MD January 11, 2017 14:12
[2017-01-11] MEDS ORDERED: POTASSIUM CHLORIDE 20 MEQ POWDER FOR ORAL SOLN PO ONE (14:30)
[2017-01-11] MEDS ORDERED: POTASSIUM CHLORIDE (SR) 20 MEQ TAB PO ONE (16:00)
--- NOTE | 2017-01-11 16:04 | PN ---
DATE: 01/11/2017 Status post laparotomy, closure of enterocutaneous fistula. Postoperative day #8. SUBJECTIVE: Feels better. Has had a bowel movement. Has been out of bed walking to the bathroom. No fevers, no chills. No nausea, no vomiting. Tolerating diet so far. OBJECTIVE: VITAL SIGNS: Temperature 99.0, heart rate 100, respirations 18, blood pressure 101/62, saturation 9 5% on room air. ABDOMEN: Soft. Dressing change, the incisional line is clean. No cellulitis. Minimal brownish liq uefied blood drainage between the staple lines, which was soaking 2 sponges since 6:00 in the mornin g and now it is 2 p.m. Dressing was changed and painted with Betadine and new dressing was applied LABORATORY DATA: Today, WBC 6800 with 69% neutrophils, normal. Hemoglobin is stable at 9.6, hemato crit 29. No further bleeding has been reported by the patient or the nurse. Also, the hematocrit a nd hemoglobin remain stable in the past 48 hours PLAN: Continue current care. Dictated By: BREN GUILLEN/SCOTT Conf#: [id number] DID#: [id number]
[2017-01-11] MEDS: ONDANSETRON 4 MG INJ IV PRN (17:46)
--- NOTE | 2017-01-11 19:59 | CONS ---
Date/Time of Note Date/Time of Note DATE: 01/11/17 TIME: 19:58 Assessment/Plan Assessment/Plan Chief Complaint/Hosp Course SUBJECTIVE: No acute changes. Alert, feels good, no n/v/d, tolerates diet, nad INDWELLINGS: PICC line. ANTIMICROBIALS: The patient is on: 1. Bactrim 2. Flagyl. PHYSICAL EXAMINATION: GENERAL: This is a cachectic, middle-aged white woman who is in no distress. HEENT: Head atraumatic, normocephalic. Sclerae anicteric. Buccal mucosa dry. NECK: Supple. CHEST: Rise symmetrical. Breath sounds diminished at the bases. HEART: S1, S2. ABDOMEN: Soft. Bowel tones present. Mid abdominal wound with some bloody drainage from midline. EXTREMITIES: Without cyanosis. Trace edema. ASSESSMENT: 1. Status post enterocutaneous fistula repair. 2. Status post rectal bleeding. 3. History of right hemicolectomy. 4. Status post fever yesterday. PLAN: The patient remains stable, covered with appropriate antimicrobials. Surgery on case. Will follow\ DW staff Problems: Consultation Date/Type/Reason Admit Date/Time Dec 31, 2016 at 08:01 Initial Consult Date Type of Consultation: ID Exam/Review of Systems Vital Signs Vitals Vital Signs Date Time Temp Pulse Resp B/P Pulse Ox O2 Delivery O2 Flow Rate FiO2 01/11/17 17:06 16 01/11/17 14:30 97.8 01/11/17 07:53 100 101/62 95 01/09/17 22:43 Room Air Intake and Output 01/10/17 01/10/17 01/11/17 15:00 23:00 07:00 Intake Total 100 ml 1390 ml 1630 ml Balance 100 ml 1390 ml 1630 ml Results Result Diagram: 01/11/17 0435 01/11/17 0435 Results 24 hrs Laboratory Tests Test 01/11/17 04:35 White Blood Count 6.8 Red Blood Count 3.39 L Hemoglobin 9.6 L Hematocrit 29.0 L Mean Corpuscular Volume 85.5 Mean Corpuscular Hemoglobin 28.3 L Mean Corpuscular Hemoglobin Concent 33.1 Red Cell Distribution Width 16.5 H Platelet Count 334 Mean Platelet Volume 9.9 Neutrophils % 69.5 Lymphocytes % 19.6 Monocytes % 6.1 Eosinophils % 4.1 Basophils % 0.3 Nucleated Red Blood Cells % 0.0 Neutrophils # 4.8 Lymphocytes # 1.3 Monocytes # 0.4 Eosinophils # 0.3 Basophils # 0.0 Nucleated Red Blood Cells # 0.0 Sodium Level 133 L Potassium Level 3.2 L Chloride Level 102 Carbon Dioxide Level 22 Anion Gap 12 Blood Urea Nitrogen < 2 L Creatinine 0.45 Glucose Level 92 Calcium Level 8.3 L Medications Medications Current Medications Acetaminophen (Tylenol Tab) 650 mg Q6H PRN PO ELEVATED TEMPERATURE Last administered on 01/11/17 13:31; Admin Dose 650 MG; Start 12/31/16 at 19:00 Amitriptyline HCl (Elavil) 25 mg QHS PO Last administered on 01/07/17 20:35; Admin Dose 25 MG; Start 12/31/16 at 21:00 Aspirin (Aspirin) 81 mg DAILY PO Last administered on 01/01/17 08:57; Admin Dose 81 MG; Start 01/01/17 at 09:00; Status Future Hold Gabapentin (Neurontin) 600 mg BID PO Last administered on 01/11/17 09:44; Admin Dose 600 MG; Start 12/31/16 at 21:00 Hydroxyzine HCl (Atarax) 25 mg QHS PO Last administered on 01/08/17 21:07; Admin Dose 25 MG; Start 12/31/16 at 21:00 Ondansetron HCl (Zofran Inj) 4 mg Q6H PRN IV NAUSEA AND/OR VOMITING Last administered on 01/11/17 17:46; Admin Dose 4 MG; Start 12/31/16 at 19:00 Pantoprazole (Protonix Tab) 40 mg DAILY@06 PO Last administered on 01/11/17 04: 30; Admin Dose 40 MG; Start 01/01/17 at 06:00 Polyethylene Glycol (Miralax) 17 gm DAILY PRN PO CONSTIPATION; Start 12/31/16 at 19:00 Simethicone (Mylicon) 80 mg BID PRN PO DISTENSION/GAS/BLOATING; Start 12/31/16 at 19:00 Sucralfate (Carafate) 1 gm BID PO Last administered on 01/11/17 09:44; Admin Dose 1 GM; Start 12/31/16 at 21:00 Topiramate (Topamax) 100 mg QHS PO Last administered on 01/10/17 21:24; Admin Dose 100 MG; Start 12/31/16 at 21:00 Trazodone HCl (Desyrel) 50 mg QHS PO Last administered on 01/10/17 21:24; Admin Dose 50 MG; Start 12/31/16 at 21:00 Zolpidem Tartrate (Ambien) 10 mg QHS PRN PO INSOMNIA Last administered on 21:46; Admin Dose 10 MG; Start 12/31/16 at 19:00 Phenol (Cepastat Lozenge) 1 lozenge Q4H PRN MT sore throat Last administered on 01/03/17 07:28; Admin Dose 1 LOZENGE; Start 01/01/17 at 20:30 Hydromorphone HCl 0.75 mg 0.75 mg Q3H PRN IV PAIN Last administered on 05:46; Admin Dose 0.75 MG; Start 01/02/17 at 18:38 Lactated Ringer's (Lr) 1,000 ml @ 100 mls/hr Q10H IV Last administered on 16:10; Admin Dose 100 MLS/HR; Start 01/03/17 at 14:15 Hydromorphone HCl (Dilaudid INTEL ANALYST) 0.4 mg DOSE 10 ... Q4PCA IV Last administered on 01/11/17 13:27; Admin Dose 6 MG; Start 01/03/17 at 15:00 Famotidine 20 mg 20 mg BID PO Last administered on 01/11/17 09:44; Admin Dose 20 MG; Start 01/08/17 at 21:00 Metronidazole (Flagyl 500 Mg (Pmx)) 100 ml @ 100 mls/hr Q8 IVPB Last administered on 01/11/17 13:30; Admin Dose 100 MLS/HR; Start 01/09/17 at 16:00 Trimethoprim/ Sulfamethoxazole (Bactrim (Ds)) 1 tab BID PO Last administered on 01/11/17 09:44; Admin Dose 1 TAB; Start 01/09/17 at 21:00 BÁRBARA SMITH NP January 11, 2017 19:59
[2017-01-11] MEDS: TOPIRAMATE 100 MG TAB PO SCH (20:28)
[2017-01-11] MEDS: traZODone 50 MG TAB PO SCH (20:29)
[2017-01-11] MEDS: hydrOXYzine HCL 25 MG TAB PO SCH (20:29)
[2017-01-11] MEDS: AMITRIPTYLINE 25 MG TAB PO SCH (20:29)
[2017-01-11] MEDS: ZOLPIDEM 5 MG TAB PO PRN (20:33)
[2017-01-11 22:27] VITALS: BP 105/66; RESP 18
[2017-01-12] MEDS: HYDROmorphONE 0.2 MG/ML PCA IV SCH ×2 (01:58→16:04)
[2017-01-12] MEDS: LACTATED RINGER'S 1,000 ML IV SCH ×3 (03:49→17:29)
[2017-01-12] MEDS: metroNIDAZOLE 500 MG/NS (PMX) 100 ML IVPB SCH ×3 (05:14→22:43)
[2017-01-12] MEDS: PANTOPRAZOLE (EC) 40 MG TAB PO SCH (05:14)
[2017-01-12 06:08] LABS: ADD SCAN DIFF NO
[2017-01-12 06:13] LABS: BASOPHILS % 0.5 % (0.0-2.0); EOSINOPHILS # 0.2 10^3/ul (0.0-0.5); EOSINOPHILS % 3.7 % (0.0-7.0); HEMATOCRIT 28.7 % (37.0-47.0); HEMOGLOBIN 9.2 g/dl (12.0-16.0); LYMPHOCYTES # 1.1 10^3/ul (0.8-2.9); LYMPHOCYTES % 18.1 % (15.0-51.0); MEAN CORPUSCULAR HEMOGLOBIN 27.8 pg (29.0-33.0); MEAN CORPUSCULAR HGB CONC 32.1 g/dl (32.0-37.0); MEAN CORPUSCULAR VOLUME 86.7 fl (82.0-101.0); MEAN PLATELET VOLUME 9.8 fl (7.4-10.4); MONOCYTE # 0.4 10^3/ul (0.3-0.9); MONOCYTES % 5.9 % (0.0-11.0); NEUTROPHIL # 4.4 10^3/ul (1.6-7.5); NEUTROPHILS % 71.5 % (39.0-77.0); PLATELET COUNT 384 10^3/UL (140-415); RED BLOOD COUNT 3.31 10^6/ul (4.20-5.40); RED CELL DISTRIBUTION WIDTH 16.4 % (11.5-14.5); WHITE BLOOD COUNT 6.1 10^3/ul (4.8-10.8)
[2017-01-12 06:34] LABS: ANION GAP 11 (8-16); CALCIUM 8.3 mg/dl (8.4-10.2); CARBON DIOXIDE 21 mmol/L (21-31); CHLORIDE 104 mmol/L (97-110); CREATININE 0.44 mg/dl (0.44-1.00); GLUCOSE 75 mg/dl (70-220); SODIUM 132 mmol/L (135-144)
[2017-01-12 06:42] LABS: BLOOD UREA NITROGEN < 2 mg/dl (7-20)
[2017-01-12 08:16] VITALS: BP 110/58; RESP 20
[2017-01-12] MEDS: TRIMETHOPRIM/SULFAMETHOX (DS) TAB PO SCH ×2 (08:58→20:36)
[2017-01-12] MEDS: GABAPENTIN 300 MG CAP PO SCH ×2 (08:59→20:28)
[2017-01-12] MEDS: FAMOTIDINE 20 MG TAB PO SCH ×2 (08:59→20:28)
[2017-01-12] MEDS: SUCRALFATE 1 GM TAB PO SCH ×2 (08:59→20:28)
[2017-01-12] MEDS: ONDANSETRON 4 MG INJ IV PRN (12:14)
--- NOTE | 2017-01-12 16:00 | CONS ---
Date/Time of Note Date/Time of Note DATE: 01/12/17 TIME: 16:00 Assessment/Plan Assessment/Plan Chief Complaint/Hosp Course SUBJECTIVE: No acute changes. Alert, feels good, no fevers INDWELLINGS: PICC line. ANTIMICROBIALS: The patient is on: 1. Bactrim 2. Flagyl. PHYSICAL EXAMINATION: GENERAL: This is a cachectic, middle-aged white woman who is in no distress. HEENT: Head atraumatic, normocephalic. Sclerae anicteric. Buccal mucosa dry. NECK: Supple. CHEST: Rise symmetrical. Breath sounds diminished at the bases. HEART: S1, S2. ABDOMEN: Soft. Bowel tones present. Mid abdominal wound with some bloody drainage from midline. EXTREMITIES: Without cyanosis. Trace edema. ASSESSMENT: 1. Status post enterocutaneous fistula repair. 2. Status post rectal bleeding. 3. History of right hemicolectomy. 4. Status post fever yesterday. PLAN: The patient remains stable, covered with appropriate antimicrobials. Surgery on case. Will follow DW staff Problems: Consultation Date/Type/Reason Admit Date/Time Dec 31, 2016 at 08:01 Type of Consultation: ID Exam/Review of Systems Vital Signs Vitals Vital Signs Date Time Temp Pulse Resp B/P Pulse Ox O2 Delivery O2 Flow Rate FiO2 01/12/17 13:08 16 01/12/17 08:16 98.1 101 110/58 94 01/09/17 22:43 Room Air Intake and Output 01/11/17 01/11/17 01/12/17 15:00 23:00 07:00 Intake Total 100 ml 2160 ml 1505 ml Balance 100 ml 2160 ml 1505 ml Results Result Diagram: 01/12/17 0513 01/12/17 0513 Results 24 hrs Laboratory Tests Test 01/12/17 05:13 White Blood Count 6.1 Red Blood Count 3.31 L Hemoglobin 9.2 L Hematocrit 28.7 L Mean Corpuscular Volume 86.7 Mean Corpuscular Hemoglobin 27.8 L Mean Corpuscular Hemoglobin Concent 32.1 Red Cell Distribution Width 16.4 H Platelet Count 384 Mean Platelet Volume 9.8 Neutrophils % 71.5 Lymphocytes % 18.1 Monocytes % 5.9 Eosinophils % 3.7 Basophils % 0.5 Nucleated Red Blood Cells % 0.0 Neutrophils # 4.4 Lymphocytes # 1.1 Monocytes # 0.4 Eosinophils # 0.2 Basophils # 0.0 Nucleated Red Blood Cells # 0.0 Sodium Level 132 L Potassium Level 4.0 Chloride Level 104 Carbon Dioxide Level 21 Anion Gap 11 Blood Urea Nitrogen < 2 L Creatinine 0.44 Glucose Level 75 Calcium Level 8.3 L Medications Medications Current Medications Acetaminophen (Tylenol Tab) 650 mg Q6H PRN PO ELEVATED TEMPERATURE Last administered on 01/11/17 13:31; Admin Dose 650 MG; Start 12/31/16 at 19:00 Amitriptyline HCl (Elavil) 25 mg QHS PO Last administered on 01/07/17 20:35; Admin Dose 25 MG; Start 12/31/16 at 21:00 Aspirin (Aspirin) 81 mg DAILY PO Last administered on 01/01/17 08:57; Admin Dose 81 MG; Start 01/01/17 at 09:00; Status Future Hold Gabapentin (Neurontin) 600 mg BID PO Last administered on 01/12/17 08:59; Admin Dose 600 MG; Start 12/31/16 at 21:00 Hydroxyzine HCl (Atarax) 25 mg QHS PO Last administered on 01/08/17 21:07; Admin Dose 25 MG; Start 12/31/16 at 21:00 Ondansetron HCl (Zofran Inj) 4 mg Q6H PRN IV NAUSEA AND/OR VOMITING Last administered on 01/12/17 12:14; Admin Dose 4 MG; Start 12/31/16 at 19:00 Pantoprazole (Protonix Tab) 40 mg DAILY@06 PO Last administered on 01/12/17 05: 14; Admin Dose 40 MG; Start 01/01/17 at 06:00 Polyethylene Glycol (Miralax) 17 gm DAILY PRN PO CONSTIPATION; Start 12/31/16 at 19:00 Simethicone (Mylicon) 80 mg BID PRN PO DISTENSION/GAS/BLOATING; Start 12/31/16 at 19:00 Sucralfate (Carafate) 1 gm BID PO Last administered on 01/12/17 08:59; Admin Dose 1 GM; Start 12/31/16 at 21:00 Topiramate (Topamax) 100 mg QHS PO Last administered on 01/11/17 20:28; Admin Dose 100 MG; Start 12/31/16 at 21:00 Trazodone HCl (Desyrel) 50 mg QHS PO Last administered on 01/11/17 20:29; Admin Dose 50 MG; Start 12/31/16 at 21:00 Zolpidem Tartrate (Ambien) 10 mg QHS PRN PO INSOMNIA Last administered on 20:33; Admin Dose 10 MG; Start 12/31/16 at 19:00 Phenol (Cepastat Lozenge) 1 lozenge Q4H PRN MT sore throat Last administered on 01/03/17 07:28; Admin Dose 1 LOZENGE; Start 01/01/17 at 20:30 Hydromorphone HCl 0.75 mg 0.75 mg Q3H PRN IV PAIN Last administered on 05:46; Admin Dose 0.75 MG; Start 01/02/17 at 18:38 Lactated Ringer's (Lr) 1,000 ml @ 100 mls/hr Q10H IV Last administered on 03:49; Admin Dose 100 MLS/HR; Start 01/03/17 at 14:15 Hydromorphone HCl (Dilaudid MARKER HAND) 0.4 mg DOSE 10 ... Q4PCA IV Last administered on 01/12/17 01:58; Admin Dose 6 MG; Start 01/03/17 at 15:00 Famotidine 20 mg 20 mg BID PO Last administered on 01/12/17 08:59; Admin Dose 20 MG; Start 01/08/17 at 21:00 Metronidazole (Flagyl 500 Mg (Pmx)) 100 ml @ 100 mls/hr Q8 IVPB Last administered on 01/12/17 13:40; Admin Dose 100 MLS/HR; Start 01/09/17 at 16:00 Trimethoprim/ Sulfamethoxazole (Bactrim (Ds)) 1 tab BID PO Last administered on 01/12/17 08:58; Admin Dose 1 TAB; Start 01/09/17 at 21:00 BÁRBARA SMITH NP January 12, 2017 16:00
--- NOTE | 2017-01-12 18:10 | PN ---
DATE: SUBJECTIVE: Status post takedown and closure of enterocutaneous fistula. Postop day #9. Feels o genny, has been walking around the floor a couple of times. Has tolerated food. Has had a bowel move ment 2 days ago. Passing gas. No bowel movement today or yesterday. OBJECTIVE: VITAL SIGNS: Temperature 98.1, heart rate 101, respirations 16 to 20, blood pressure 110/58, satura tion 94% on room air. LABORATORY DATA: WBC 6100 with 71% segmented, hemoglobin 9.2, hematocrit 28.7, stable. Has been st able in the past 3 days. No more bleeding. ABDOMEN: Nurse reports that from the incision line. There is some reddish-brownish fluid discharge coming, totally maybe soaking 3 to 4 sponges per 24 hours, which is about 10 to 15 mL of drainage. Wound is clean. No erythema, no cellulitis. This means that this could be a small oozing from und er the subcutaneous tissue. Abdomen is soft. PLAN: Continue current care. Dictated By: BREN ROSALES MD PS/NTS Conf#: [id number] DID#: [id number] CC: MARTINEZ MELVIN MD;*EndCC*
--- NOTE | 2017-01-12 18:34 | PN ---
Date/Time of Note Date/Time of Note DATE: 01/12/17 TIME: 18:33 Assessment/Plan VTE Prophylaxis VTE Prophylaxis Intervention: other Lines/Catheters IV Catheter Type (from Nrsg): PICC Line Central line still needed: Yes Urinary Cath still in place: No Reason Cath still needed: other (indicate) Assessment/Plan Chief Complaint/Hosp Course IMPRESSION: 1. Patient has abd pain 2. s/p abd surgery 3 post op anemia 4 post op gi bleed stable 5 sepsis 6 1. Enterocutaneous fistula takedown and repair. 2. Partial colectomy. 3. Linn-enteric anastomosis. 4. Open lysis of adhesions of approximately 1 hour. plan antibiotic per surgery Problems: Subjective 24 Hr Interval Summary Cardiovascular: no complaints Gastrointestinal: pain (+), No blood Exam/Review of Systems Vital Signs Vitals Vital Signs Date Time Temp Pulse Resp B/P Pulse Ox O2 Delivery O2 Flow Rate FiO2 01/12/17 17:31 16 01/12/17 08:16 98.1 101 110/58 94 01/09/17 22:43 Room Air Intake and Output 01/11/17 01/11/17 01/12/17 15:00 23:00 07:00 Intake Total 100 ml 2160 ml 1505 ml Balance 100 ml 2160 ml 1505 ml Exam Respiratory: clear to auscultation Cardiovascular: regular rate and rhythm Gastrointestinal: bowel sounds (+), soft Results Result Diagram: 01/12/17 0513 01/12/17 0513 Results 24 hrs Laboratory Tests Test 01/12/17 05:13 White Blood Count 6.1 Red Blood Count 3.31 L Hemoglobin 9.2 L Hematocrit 28.7 L Mean Corpuscular Volume 86.7 Mean Corpuscular Hemoglobin 27.8 L Mean Corpuscular Hemoglobin Concent 32.1 Red Cell Distribution Width 16.4 H Platelet Count 384 Mean Platelet Volume 9.8 Neutrophils % 71.5 Lymphocytes % 18.1 Monocytes % 5.9 Eosinophils % 3.7 Basophils % 0.5 Nucleated Red Blood Cells % 0.0 Neutrophils # 4.4 Lymphocytes # 1.1 Monocytes # 0.4 Eosinophils # 0.2 Basophils # 0.0 Nucleated Red Blood Cells # 0.0 Sodium Level 132 L Potassium Level 4.0 Chloride Level 104 Carbon Dioxide Level 21 Anion Gap 11 Blood Urea Nitrogen < 2 L Creatinine 0.44 Glucose Level 75 Calcium Level 8.3 L Medications Medications Current Medications Acetaminophen (Tylenol Tab) 650 mg Q6H PRN PO ELEVATED TEMPERATURE Last administered on 01/11/17 13:31; Admin Dose 650 MG; Start 12/31/16 at 19:00 Amitriptyline HCl (Elavil) 25 mg QHS PO Last administered on 01/07/17 20:35; Admin Dose 25 MG; Start 12/31/16 at 21:00 Aspirin (Aspirin) 81 mg DAILY PO Last administered on 01/01/17 08:57; Admin Dose 81 MG; Start 01/01/17 at 09:00; Status Future Hold Gabapentin (Neurontin) 600 mg BID PO Last administered on 01/12/17 08:59; Admin Dose 600 MG; Start 12/31/16 at 21:00 Hydroxyzine HCl (Atarax) 25 mg QHS PO Last administered on 01/08/17 21:07; Admin Dose 25 MG; Start 12/31/16 at 21:00 Ondansetron HCl (Zofran Inj) 4 mg Q6H PRN IV NAUSEA AND/OR VOMITING Last administered on 01/12/17 12:14; Admin Dose 4 MG; Start 12/31/16 at 19:00 Pantoprazole (Protonix Tab) 40 mg DAILY@06 PO Last administered on 01/12/17 05: 14; Admin Dose 40 MG; Start 01/01/17 at 06:00 Polyethylene Glycol (Miralax) 17 gm DAILY PRN PO CONSTIPATION; Start 12/31/16 at 19:00 Simethicone (Mylicon) 80 mg BID PRN PO DISTENSION/GAS/BLOATING; Start 12/31/16 at 19:00 Sucralfate (Carafate) 1 gm BID PO Last administered on 01/12/17 08:59; Admin Dose 1 GM; Start 12/31/16 at 21:00 Topiramate (Topamax) 100 mg QHS PO Last administered on 01/11/17 20:28; Admin Dose 100 MG; Start 12/31/16 at 21:00 Trazodone HCl (Desyrel) 50 mg QHS PO Last administered on 01/11/17 20:29; Admin Dose 50 MG; Start 12/31/16 at 21:00 Zolpidem Tartrate (Ambien) 10 mg QHS PRN PO INSOMNIA Last administered on 20:33; Admin Dose 10 MG; Start 12/31/16 at 19:00 Phenol (Cepastat Lozenge) 1 lozenge Q4H PRN MT sore throat Last administered on 01/03/17 07:28; Admin Dose 1 LOZENGE; Start 01/01/17 at 20:30 Hydromorphone HCl 0.75 mg 0.75 mg Q3H PRN IV PAIN Last administered on 05:46; Admin Dose 0.75 MG; Start 01/02/17 at 18:38 Lactated Ringer's (Lr) 1,000 ml @ 100 mls/hr Q10H IV Last administered on 17:29; Admin Dose 100 MLS/HR; Start 01/03/17 at 14:15 Hydromorphone HCl (Dilaudid LOGISTICS/SHIPPER) 0.4 mg DOSE 10 ... Q4PCA IV Last administered on 01/12/17 16:04; Admin Dose 6 MG; Start 01/03/17 at 15:00 Famotidine 20 mg 20 mg BID PO Last administered on 01/12/17 08:59; Admin Dose 20 MG; Start 01/08/17 at 21:00 Metronidazole (Flagyl 500 Mg (Pmx)) 100 ml @ 100 mls/hr Q8 IVPB Last administered on 01/12/17 13:40; Admin Dose 100 MLS/HR; Start 01/09/17 at 16:00 Trimethoprim/ Sulfamethoxazole (Bactrim (Ds)) 1 tab BID PO Last administered on 01/12/17 08:58; Admin Dose 1 TAB; Start 01/09/17 at 21:00 MARTINEZ MELVIN MD January 12, 2017 18:34
[2017-01-12] MEDS: hydrOXYzine HCL 25 MG TAB PO SCH ×2 (20:28→21:00)
[2017-01-12] MEDS: traZODone 50 MG TAB PO SCH (20:28)
[2017-01-12] MEDS: TOPIRAMATE 100 MG TAB PO SCH (20:29)
[2017-01-12] MEDS: AMITRIPTYLINE 25 MG TAB PO SCH (20:32)
[2017-01-12 21:21] VITALS: BP 110/74; RESP 20
[2017-01-12] MEDS: ZOLPIDEM 5 MG TAB PO PRN (22:43)
[2017-01-13] MEDS: LACTATED RINGER'S 1,000 ML IV SCH ×2 (03:44→16:20)
[2017-01-13 05:06] LABS: ADD SCAN DIFF NO
[2017-01-13 05:15] LABS: BASOPHILS % 0.3 % (0.0-2.0); EOSINOPHILS # 0.2 10^3/ul (0.0-0.5); EOSINOPHILS % 2.3 % (0.0-7.0); HEMATOCRIT 28.7 % (37.0-47.0); HEMOGLOBIN 9.2 g/dl (12.0-16.0); LYMPHOCYTES # 1.3 10^3/ul (0.8-2.9); LYMPHOCYTES % 18.1 % (15.0-51.0); MEAN CORPUSCULAR HEMOGLOBIN 27.5 pg (29.0-33.0); MEAN CORPUSCULAR HGB CONC 32.1 g/dl (32.0-37.0); MEAN CORPUSCULAR VOLUME 85.7 fl (82.0-101.0); MEAN PLATELET VOLUME 9.6 fl (7.4-10.4); MONOCYTE # 0.5 10^3/ul (0.3-0.9); MONOCYTES % 6.5 % (0.0-11.0); NEUTROPHIL # 5.1 10^3/ul (1.6-7.5); NEUTROPHILS % 72.4 % (39.0-77.0); PLATELET COUNT 439 10^3/UL (140-415); RED BLOOD COUNT 3.35 10^6/ul (4.20-5.40); RED CELL DISTRIBUTION WIDTH 16.6 % (11.5-14.5); WHITE BLOOD COUNT 7.1 10^3/ul (4.8-10.8)
[2017-01-13] MEDS: PANTOPRAZOLE (EC) 40 MG TAB PO SCH (05:42)
[2017-01-13] MEDS: metroNIDAZOLE 500 MG/NS (PMX) 100 ML IVPB SCH (05:42)
[2017-01-13] MEDS: HYDROmorphONE 0.2 MG/ML PCA IV SCH ×2 (06:45→20:37)
[2017-01-13 07:38] VITALS: BP 99/62; RESP 18
[2017-01-13] MEDS ORDERED: BISACODYL (EC) 5 MG TAB PO ONE (08:30)
[2017-01-13] MEDS: FAMOTIDINE 20 MG TAB PO SCH ×2 (09:11→21:06)
[2017-01-13] MEDS: GABAPENTIN 300 MG CAP PO SCH ×2 (09:11→21:05)
[2017-01-13] MEDS: SUCRALFATE 1 GM TAB PO SCH ×2 (09:11→21:06)
[2017-01-13] MEDS: TRIMETHOPRIM/SULFAMETHOX (DS) TAB PO SCH (09:11)
--- NOTE | 2017-01-13 10:21 | PN ---
Date/Time of Note Date/Time of Note DATE: 01/13/17 TIME: 10:20 Assessment/Plan VTE Prophylaxis VTE Prophylaxis Intervention: SCD's Lines/Catheters IV Catheter Type (from Nrs): PICC Line Central line still needed: Yes Urinary Cath still in place: No Assessment/Plan Chief Complaint/Hosp Course s/p ecf which has resolved with repair with ECF and revision of anastomosis Problems: Assessment/Plan doing well, needs to eat more and have bm daily Subjective 24 Hr Interval Summary Free Text/Dictation small wound opening, tolerating diet, no other bm recently but a bm two days ago Exam/Review of Systems Vital Signs Vitals Vital Signs Date Time Temp Pulse Resp B/P Pulse Ox O2 Delivery O2 Flow Rate FiO2 01/13/17 09:00 19 01/13/17 07:38 98.4 99 99/62 96 01/09/17 22:43 Room Air Intake and Output 01/12/17 01/12/17 01/13/17 15:00 23:00 07:00 Intake Total 100 ml 1640 ml 1645 ml Output Total 850 ml Balance 100 ml 790 ml 1645 ml Exam small wound opening with bloody drainage Results Result Diagram: 01/13/17 0445 01/12/17 0513 Results 24 hrs Laboratory Tests Test 01/13/17 04:45 White Blood Count 7.1 Red Blood Count 3.35 L Hemoglobin 9.2 L Hematocrit 28.7 L Mean Corpuscular Volume 85.7 Mean Corpuscular Hemoglobin 27.5 L Mean Corpuscular Hemoglobin Concent 32.1 Red Cell Distribution Width 16.6 H Platelet Count 439 H Mean Platelet Volume 9.6 Neutrophils % 72.4 Lymphocytes % 18.1 Monocytes % 6.5 Eosinophils % 2.3 Basophils % 0.3 Nucleated Red Blood Cells % 0.0 Neutrophils # 5.1 Lymphocytes # 1.3 Monocytes # 0.5 Eosinophils # 0.2 Basophils # 0.0 Nucleated Red Blood Cells # 0.0 Medications Medications Current Medications Acetaminophen (Tylenol Tab) 650 mg Q6H PRN PO ELEVATED TEMPERATURE Last administered on 01/11/17 13:31; Admin Dose 650 MG; Start 12/31/16 at 19:00 Amitriptyline HCl (Elavil) 25 mg QHS PO Last administered on 01/07/17 20:35; Admin Dose 25 MG; Start 12/31/16 at 21:00 Aspirin (Aspirin) 81 mg DAILY PO Last administered on 01/01/17 08:57; Admin Dose 81 MG; Start 01/01/17 at 09:00; Status Future Hold Gabapentin (Neurontin) 600 mg BID PO Last administered on 01/13/17 09:11; Admin Dose 600 MG; Start 12/31/16 at 21:00 Hydroxyzine HCl (Atarax) 25 mg QHS PO Last administered on 01/08/17 21:07; Admin Dose 25 MG; Start 12/31/16 at 21:00 Ondansetron HCl (Zofran Inj) 4 mg Q6H PRN IV NAUSEA AND/OR VOMITING Last administered on 01/12/17 12:14; Admin Dose 4 MG; Start 12/31/16 at 19:00 Pantoprazole (Protonix Tab) 40 mg DAILY@06 PO Last administered on 01/13/17 05: 42; Admin Dose 40 MG; Start 01/01/17 at 06:00 Polyethylene Glycol (Miralax) 17 gm DAILY PRN PO CONSTIPATION; Start 12/31/16 at 19:00 Simethicone (Mylicon) 80 mg BID PRN PO DISTENSION/GAS/BLOATING; Start 12/31/16 at 19:00 Sucralfate (Carafate) 1 gm BID PO Last administered on 01/13/17 09:11; Admin Dose 1 GM; Start 12/31/16 at 21:00 Topiramate (Topamax) 100 mg QHS PO Last administered on 01/12/17 20:29; Admin Dose 100 MG; Start 12/31/16 at 21:00 Trazodone HCl (Desyrel) 50 mg QHS PO Last administered on 01/12/17 20:28; Admin Dose 50 MG; Start 12/31/16 at 21:00 Zolpidem Tartrate (Ambien) 10 mg QHS PRN PO INSOMNIA Last administered on 22:43; Admin Dose 10 MG; Start 12/31/16 at 19:00 Phenol (Cepastat Lozenge) 1 lozenge Q4H PRN MT sore throat Last administered on 01/03/17 07:28; Admin Dose 1 LOZENGE; Start 4/26/17 at 20:30 Hydromorphone HCl 0.75 mg 0.75 mg Q3H PRN IV PAIN Last administered on 05:46; Admin Dose 0.75 MG; Start 01/02/17 at 18:38 Lactated Ringer's (Lr) 1,000 ml @ 100 mls/hr Q10H IV Last administered on 03:44; Admin Dose 100 MLS/HR; Start 01/03/17 at 14:15 Hydromorphone HCl (Dilaudid ASSEMBLER PIANO) 0.4 mg DOSE 10 ... Q4PCA IV Last administered on 01/13/17 06:45; Admin Dose 6 MG; Start 01/03/17 at 15:00 Famotidine 20 mg 20 mg BID PO Last administered on 01/13/17 09:11; Admin Dose 20 MG; Start 01/08/17 at 21:00 Metronidazole (Flagyl 500 Mg (Pmx)) 100 ml @ 100 mls/hr Q8 IVPB Last administered on 01/13/17 05:42; Admin Dose 100 MLS/HR; Start 01/09/17 at 16:00 Trimethoprim/ Sulfamethoxazole (Bactrim (Ds)) 1 tab BID PO Last administered on 01/13/17 09:11; Admin Dose 1 TAB; Start 01/09/17 at 21:00 Rubin RUSS January 13, 2017 10:21
[2017-01-13] MEDS ORDERED: BISACODYL (EC) 5 MG TAB PO PRN (10:30)
--- NOTE | 2017-01-13 12:31 | CONS ---
Date/Time of Note Date/Time of Note DATE: 01/13/17 TIME: 12:30 Assessment/Plan Assessment/Plan Chief Complaint/Hosp Course SUBJECTIVE: No acute changes. Alert, feels good, no fevers INDWELLINGS: PICC line. ANTIMICROBIALS: The patient is on: 1. Bactrim 2. Flagyl. PHYSICAL EXAMINATION: GENERAL: This is a cachectic, middle-aged white woman who is in no distress. HEENT: Head atraumatic, normocephalic. Sclerae anicteric. Buccal mucosa dry. NECK: Supple. CHEST: Rise symmetrical. Breath sounds diminished at the bases. HEART: S1, S2. ABDOMEN: Soft. Bowel tones present. Mid abdominal wound with some bloody drainage from midline. EXTREMITIES: Without cyanosis. Trace edema. ASSESSMENT: 1. Status post enterocutaneous fistula repair. 2. Status post rectal bleeding. 3. History of right hemicolectomy. 4. Status post fevers. PLAN: The patient remains stable, as per surgical note incision is clean, no cellulitis, will dc abx and observe, f/u surgical rec-s [facility] staff Problems: Consultation Date/Type/Reason Admit Date/Time Dec 31, 2016 at 08:01 Type of Consultation: ID Exam/Review of Systems Vital Signs Vitals Vital Signs Date Time Temp Pulse Resp B/P Pulse Ox O2 Delivery O2 Flow Rate FiO2 01/13/17 09:00 19 01/13/17 07:38 98.4 99 99/62 96 01/09/17 22:43 Room Air Intake and Output 01/12/17 01/12/17 01/13/17 15:00 23:00 07:00 Intake Total 100 ml 1640 ml 1645 ml Output Total 850 ml Balance 100 ml 790 ml 1645 ml Results Result Diagram: 01/13/17 0445 01/12/17 0513 Results 24 hrs Laboratory Tests Test 01/13/17 04:45 White Blood Count 7.1 Red Blood Count 3.35 L Hemoglobin 9.2 L Hematocrit 28.7 L Mean Corpuscular Volume 85.7 Mean Corpuscular Hemoglobin 27.5 L Mean Corpuscular Hemoglobin Concent 32.1 Red Cell Distribution Width 16.6 H Platelet Count 439 H Mean Platelet Volume 9.6 Neutrophils % 72.4 Lymphocytes % 18.1 Monocytes % 6.5 Eosinophils % 2.3 Basophils % 0.3 Nucleated Red Blood Cells % 0.0 Neutrophils # 5.1 Lymphocytes # 1.3 Monocytes # 0.5 Eosinophils # 0.2 Basophils # 0.0 Nucleated Red Blood Cells # 0.0 Medications Medications Current Medications Acetaminophen (Tylenol Tab) 650 mg Q6H PRN PO ELEVATED TEMPERATURE Last administered on 01/11/17 13:31; Admin Dose 650 MG; Start 12/31/16 at 19:00 Amitriptyline HCl (Elavil) 25 mg QHS PO Last administered on 01/07/17 20:35; Admin Dose 25 MG; Start 12/31/16 at 21:00 Aspirin (Aspirin) 81 mg DAILY PO Last administered on 01/01/17 08:57; Admin Dose 81 MG; Start 01/01/17 at 09:00; Status Future Hold Gabapentin (Neurontin) 600 mg BID PO Last administered on 01/13/17 09:11; Admin Dose 600 MG; Start 12/31/16 at 21:00 Hydroxyzine HCl (Atarax) 25 mg QHS PO Last administered on 01/08/17 21:07; Admin Dose 25 MG; Start 12/31/16 at 21:00 Ondansetron HCl (Zofran Inj) 4 mg Q6H PRN IV NAUSEA AND/OR VOMITING Last administered on 01/12/17 12:14; Admin Dose 4 MG; Start 12/31/16 at 19:00 Pantoprazole (Protonix Tab) 40 mg DAILY@06 PO Last administered on 01/13/17 05: 42; Admin Dose 40 MG; Start 01/01/17 at 06:00 Polyethylene Glycol (Miralax) 17 gm DAILY PRN PO CONSTIPATION; Start 12/31/16 at 19:00 Simethicone (Mylicon) 80 mg BID PRN PO DISTENSION/GAS/BLOATING; Start 12/31/16 at 19:00 Sucralfate (Carafate) 1 gm BID PO Last administered on 01/13/17 09:11; Admin Dose 1 GM; Start 12/31/16 at 21:00 Topiramate (Topamax) 100 mg QHS PO Last administered on 01/12/17 20:29; Admin Dose 100 MG; Start 12/31/16 at 21:00 Trazodone HCl (Desyrel) 50 mg QHS PO Last administered on 01/12/17 20:28; Admin Dose 50 MG; Start 12/31/16 at 21:00 Zolpidem Tartrate (Ambien) 10 mg QHS PRN PO INSOMNIA Last administered on 22:43; Admin Dose 10 MG; Start 12/31/16 at 19:00 Phenol (Cepastat Lozenge) 1 lozenge Q4H PRN MT sore throat Last administered on 01/03/17 07:28; Admin Dose 1 LOZENGE; Start 01/01/17 at 20:30 Hydromorphone HCl 0.75 mg 0.75 mg Q3H PRN IV PAIN Last administered on 05:46; Admin Dose 0.75 MG; Start 01/02/17 at 18:38 Lactated Ringer's (Lr) 1,000 ml @ 100 mls/hr Q10H IV Last administered on 03:44; Admin Dose 100 MLS/HR; Start 01/03/17 at 14:15 Hydromorphone HCl (Dilaudid MARINE OILER) 0.4 mg DOSE 10 ... Q4PCA IV Last administered on 01/13/17 06:45; Admin Dose 6 MG; Start 01/03/17 at 15:00 Famotidine 20 mg 20 mg BID PO Last administered on 01/13/17 09:11; Admin Dose 20 MG; Start 01/08/17 at 21:00 Metronidazole (Flagyl 500 Mg (Pmx)) 100 ml @ 100 mls/hr Q8 IVPB Last administered on 01/13/17 05:42; Admin Dose 100 MLS/HR; Start 01/09/17 at 16:00 Trimethoprim/ Sulfamethoxazole (Bactrim (Ds)) 1 tab BID PO Last administered on 01/13/17 09:11; Admin Dose 1 TAB; Start 01/09/17 at 21:00 Bisacodyl (Dulcolax) 10 mg DAILY PRN PO CONSTIPATION; Start 01/13/17 at 10:30 BÁRBARA SMITH NP January 13, 2017 12:31
[2017-01-13] MEDS: ONDANSETRON 4 MG INJ IV PRN (15:04)
--- NOTE | 2017-01-13 16:56 | RADRPT ---
PROCEDURE: US Abdomen and Retroperitoneum. CLINICAL INDICATION: Abdominal pain TECHNIQUE: Multiple real-time longitudinal and transverse images were acquired of the patient's ab domen and retroperitoneum utilizing a curved array transducer. COMPARISON: CT from 12/31/2016. Ultrasound from 12/12/2016. FINDINGS: The liver is normal in size and echogenicity without focal mass or intrahepatic biliary dilatation. Normal hepatopetal flow is seen within the main portal vein. The gallbladder is normal. There is no pericholecystic fluid or gallbladder wall thickening or gallstones. No intra or extrahepatic biliar y dilatation is seen. The common bile duct measures 2.1 mm in maximal dimension. The visualized po rtions of the pancreas are unremarkable with obscuration of the tail of the pancreas. The spleen is normal in size and homogeneous in echogenicity. No free fluid is identified. The right kidney measures 10.5 cm in length. The left kidney measures 10.3 cm in length. There i s normal echogenicity within the kidneys. There are no perinephric fluid collections. No hydroneph rosis, mass, or calculus is seen. The aorta and IVC are unremarkable. IMPRESSION: Unremarkable abdominal and retroperitoneal ultrasound. RPTAT: JJ .Alen Madrid MD, MD Date Time Electronically viewed and signed by .Alen Madrid MD, on 01/13/2017 16:56 .A/
--- NOTE | 2017-01-13 18:34 | CONS ---
Date/Time of Note Date/Time of Note DATE: 01/13/17 TIME: 18:33 Assessment/Plan Assessment/Plan Additional Assessment/Plan Additional Assessment/Plan IMPRESSION: 1. Rectal bleeding, most probably from hemorrhoids. Has stopped completely 2. Closure of the enterocutaneous fistula 3. Right hemicolectomy. 4. Abdominal pain, much better. 5. Anemia.ht 30,stable Plan monitor H&H sitz bath Surgical follow up Consultation Date/Type/Reason Admit Date/Time Dec 31, 2016 at 08:01 Type of Consultation: ID [id number] HR Interval Summary Constitutional: improved Exam/Review of Systems Vital Signs Vitals Vital Signs Date Time Temp Pulse Resp B/P Pulse Ox O2 Delivery O2 Flow Rate FiO2 01/13/17 17:00 19 01/13/17 07:38 98.4 99 99/62 96 01/09/17 22:43 Room Air Intake and Output 01/12/17 01/12/17 01/13/17 15:00 23:00 07:00 Intake Total 100 ml 1640 ml 1645 ml Output Total 850 ml Balance 100 ml 790 ml 1645 ml Exam Constitutional: alert, oriented, well developed Psych: nl mood/affect, no complaints Head: atraumatic, normocephalic Eyes: EOMI, PERRL, nl conjunctiva, nl lids, nl sclera ENMT: nl external ears & nose, nl lips & teeth, nl nasal mucosa & septum Neck: non-tender, supple Respiratory: clear to auscultation, normal air movement Cardiovascular: nl pulses, regular rate and rhythm Gastrointestinal: nl liver, spleen, non-tender, soft Musculoskeletal: nl extremities to inspection, nl gait and stance Extremities: normal pulses Neurological: STREET SPRINKLER II-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 intact, nl mental status, nl speech, nl strength Skin: nl turgor, No rash or lesions Lymph: nl lymph nodes Results Result Diagram: 01/13/17 0445 01/12/17 0513 Results 24 hrs Laboratory Tests Test 01/13/17 04:45 White Blood Count 7.1 Red Blood Count 3.35 L Hemoglobin 9.2 L Hematocrit 28.7 L Mean Corpuscular Volume 85.7 Mean Corpuscular Hemoglobin 27.5 L Mean Corpuscular Hemoglobin Concent 32.1 Red Cell Distribution Width 16.6 H Platelet Count 439 H Mean Platelet Volume 9.6 Neutrophils % 72.4 Lymphocytes % 18.1 Monocytes % 6.5 Eosinophils % 2.3 Basophils % 0.3 Nucleated Red Blood Cells % 0.0 Neutrophils # 5.1 Lymphocytes # 1.3 Monocytes # 0.5 Eosinophils # 0.2 Basophils # 0.0 Nucleated Red Blood Cells # 0.0 Medications Medications Current Medications Acetaminophen (Tylenol Tab) 650 mg Q6H PRN PO ELEVATED TEMPERATURE Last administered on 01/11/17 13:31; Admin Dose 650 MG; Start 12/31/16 at 19:00 Amitriptyline HCl (Elavil) 25 mg QHS PO Last administered on 01/07/17 20:35; Admin Dose 25 MG; Start 12/31/16 at 21:00 Aspirin (Aspirin) 81 mg DAILY PO Last administered on 01/01/17 08:57; Admin Dose 81 MG; Start 01/01/17 at 09:00; Status Future Hold Gabapentin (Neurontin) 600 mg BID PO Last administered on 01/13/17 09:11; Admin Dose 600 MG; Start 12/31/16 at 21:00 Hydroxyzine HCl (Atarax) 25 mg QHS PO Last administered on 01/08/17 21:07; Admin Dose 25 MG; Start 12/31/16 at 21:00 Ondansetron HCl (Zofran Inj) 4 mg Q6H PRN IV NAUSEA AND/OR VOMITING Last administered on 01/13/17 15:04; Admin Dose 4 MG; Start 12/31/16 at 19:00 Pantoprazole (Protonix Tab) 40 mg DAILY@06 PO Last administered on 01/13/17 05: 42; Admin Dose 40 MG; Start 01/01/17 at 06:00 Polyethylene Glycol (Miralax) 17 gm DAILY PRN PO CONSTIPATION; Start 12/31/16 at 19:00 Simethicone (Mylicon) 80 mg BID PRN PO DISTENSION/GAS/BLOATING; Start 12/31/16 at 19:00 Sucralfate (Carafate) 1 gm BID PO Last administered on 01/13/17 09:11; Admin Dose 1 GM; Start 12/31/16 at 21:00 Topiramate (Topamax) 100 mg QHS PO Last administered on 01/12/17 20:29; Admin Dose 100 MG; Start 12/31/16 at 21:00 Trazodone HCl (Desyrel) 50 mg QHS PO Last administered on 01/12/17 20:28; Admin Dose 50 MG; Start 12/31/16 at 21:00 Zolpidem Tartrate (Ambien) 10 mg QHS PRN PO INSOMNIA Last administered on 22:43; Admin Dose 10 MG; Start 12/31/16 at 19:00 Phenol (Cepastat Lozenge) 1 lozenge Q4H PRN MT sore throat Last administered on 01/03/17 07:28; Admin Dose 1 LOZENGE; Start 01/01/17 at 20:30 Hydromorphone HCl 0.75 mg 0.75 mg Q3H PRN IV PAIN Last administered on 05:46; Admin Dose 0.75 MG; Start 01/02/17 at 18:38 Lactated Ringer's (Lr) 1,000 ml @ 100 mls/hr Q10H IV Last administered on 16:20; Admin Dose 100 MLS/HR; Start 01/03/17 at 14:15 Hydromorphone HCl (Dilaudid PRICING MANAGER) 0.4 mg DOSE 10 ... Q4PCA IV Last administered on 01/13/17 06:45; Admin Dose 6 MG; Start 01/03/17 at 15:00 Famotidine (Pepcid) 20 mg BID PO Last administered on 01/13/17 09:11; Admin Dose 20 MG; Start 01/08/17 at 21:00 Bisacodyl (Dulcolax) 10 mg DAILY PRN PO CONSTIPATION; Start 01/13/17 at 10:30 Megestrol Acetate (Megace Susp) 800 mg BID PO ; Start 01/13/17 at 21:00 BRIANDA MORSE MD January 13, 2017 18:34
[2017-01-13 20:06] VITALS: BP 100/62; RESP 18
[2017-01-13] MEDS: AMITRIPTYLINE 25 MG TAB PO SCH (21:00)
[2017-01-13] MEDS: hydrOXYzine HCL 25 MG TAB PO SCH (21:00)
[2017-01-13] MEDS: MEGESTROL (40 MG/ML) 10ML CUP PO SCH (21:05)
[2017-01-13] MEDS: traZODone 50 MG TAB PO SCH (21:06)
[2017-01-13] MEDS: TOPIRAMATE 100 MG TAB PO SCH (21:07)
--- NOTE | 2017-01-13 23:29 | PN ---
Date/Time of Note Date/Time of Note DATE: 01/13/17 TIME: 23:28 Assessment/Plan VTE Prophylaxis VTE Prophylaxis Intervention: other Lines/Catheters IV Catheter Type (from Nrsg): PICC Line Central line still needed: Yes Urinary Cath still in place: No Reason Cath still needed: other (indicate) Assessment/Plan Chief Complaint/Hosp Course IMPRESSION: 1. Patient has abd pain 2. s/p abd surgery 3 post op anemia 4 post op gi bleed stable 5 sepsis 6 1. Enterocutaneous fistula takedown and repair. 2. Partial colectomy. 3. [place]-enteric anastomosis. 4. Open lysis of adhesions of approximately 1 hour. plan antibiotic per surgery Problems: Subjective 24 Hr Interval Summary Gastrointestinal: pain (less) Exam/Review of Systems Vital Signs Vitals Vital Signs Date Time Temp Pulse Resp B/P Pulse Ox O2 Delivery O2 Flow Rate FiO2 01/13/17 20:06 99.2 100 18 100/62 95 01/09/17 22:43 Room Air Intake and Output 01/12/17 01/12/17 01/13/17 15:00 23:00 07:00 Intake Total 100 ml 1640 ml 1645 ml Output Total 850 ml Balance 100 ml 790 ml 1645 ml Exam Neck: supple Respiratory: clear to auscultation Cardiovascular: regular rate and rhythm Gastrointestinal: bowel sounds (+), soft Results Result Diagram: 01/13/17 0445 01/12/17 0513 Results 24 hrs Laboratory Tests Test 01/13/17 04:45 White Blood Count 7.1 Red Blood Count 3.35 L Hemoglobin 9.2 L Hematocrit 28.7 L Mean Corpuscular Volume 85.7 Mean Corpuscular Hemoglobin 27.5 L Mean Corpuscular Hemoglobin Concent 32.1 Red Cell Distribution Width 16.6 H Platelet Count 439 H Mean Platelet Volume 9.6 Neutrophils % 72.4 Lymphocytes % 18.1 Monocytes % 6.5 Eosinophils % 2.3 Basophils % 0.3 Nucleated Red Blood Cells % 0.0 Neutrophils # 5.1 Lymphocytes # 1.3 Monocytes # 0.5 Eosinophils # 0.2 Basophils # 0.0 Nucleated Red Blood Cells # 0.0 Medications Medications Current Medications Acetaminophen (Tylenol Tab) 650 mg Q6H PRN PO ELEVATED TEMPERATURE Last administered on 01/11/17t 13:31; Admin Dose 650 MG; Start 12/31/16 at 19:00 Amitriptyline HCl (Elavil) 25 mg QHS PO Last administered on 01/07/17 20:35; Admin Dose 25 MG; Start 12/31/16 at 21:00 Aspirin (Aspirin) 81 mg DAILY PO Last administered on 01/01/17 08:57; Admin Dose 81 MG; Start 01/01/17 at 09:00; Status Future Hold Gabapentin (Neurontin) 600 mg BID PO Last administered on 01/13/17 21:05; Admin Dose 600 MG; Start 12/31/16 at 21:00 Hydroxyzine HCl (Atarax) 25 mg QHS PO Last administered on 01/08/17 21:07; Admin Dose 25 MG; Start 12/31/16 at 21:00 Ondansetron HCl (Zofran Inj) 4 mg Q6H PRN IV NAUSEA AND/OR VOMITING Last administered on 01/13/17 15:04; Admin Dose 4 MG; Start 12/31/16 at 19:00 Pantoprazole (Protonix Tab) 40 mg DAILY@06 PO Last administered on 01/13/17 05: 42; Admin Dose 40 MG; Start 01/01/17 at 06:00 Polyethylene Glycol (Miralax) 17 gm DAILY PRN PO CONSTIPATION; Start 12/31/16 at 19:00 Simethicone (Mylicon) 80 mg BID PRN PO DISTENSION/GAS/BLOATING; Start 12/31/16 at 19:00 Sucralfate (Carafate) 1 gm BID PO Last administered on 01/13/17 21:06; Admin Dose 1 GM; Start 12/31/16 at 21:00 Topiramate (Topamax) 100 mg QHS PO Last administered on 01/13/17 21:07; Admin Dose 100 MG; Start 12/31/16 at 21:00 Trazodone HCl (Desyrel) 50 mg QHS PO Last administered on 01/13/17 21:06; Admin Dose 50 MG; Start 12/31/16 at 21:00 Zolpidem Tartrate (Ambien) 10 mg QHS PRN PO INSOMNIA Last administered on 22:43; Admin Dose 10 MG; Start 12/31/16 at 19:00 Phenol (Cepastat Lozenge) 1 lozenge Q4H PRN MT sore throat Last administered on 01/03/17 07:28; Admin Dose 1 LOZENGE; Start 01/01/17 at 20:30 Hydromorphone HCl 0.75 mg 0.75 mg Q3H PRN IV PAIN Last administered on 05:46; Admin Dose 0.75 MG; Start 01/02/17 at 18:38 Lactated Ringer's (Lr) 1,000 ml @ 100 mls/hr Q10H IV Last administered on 16:20; Admin Dose 100 MLS/HR; Start 01/03/17 at 14:15 Hydromorphone HCl (Dilaudid COMMERCIAL PRINT SALESMAN) 0.4 mg DOSE 10 ... Q4PCA IV Last administered on 01/13/17 20:37; Admin Dose 6 MG; Start 01/03/17 at 15:00 Famotidine (Pepcid) 20 mg BID PO Last administered on 01/13/17 21:06; Admin Dose 20 MG; Start 01/08/17 at 21:00 Bisacodyl (Dulcolax) 10 mg DAILY PRN PO CONSTIPATION; Start 01/13/17 at 10:30 Megestrol Acetate (Megace Susp) 800 mg BID PO Last administered on 01/13/17 21: 05; Admin Dose 800 MG; Start 01/13/17 at 21:00 MARTINEZ MELVIN MD January 13, 2017 23:28
[2017-01-13] MEDS: ZOLPIDEM 5 MG TAB PO PRN (23:44)
[2017-01-14] MEDS: LACTATED RINGER'S 1,000 ML IV SCH ×4 (02:34→23:42)
[2017-01-14 05:21] LABS: ADD SCAN DIFF NO
[2017-01-14] MEDS: PANTOPRAZOLE (EC) 40 MG TAB PO SCH (05:32)
[2017-01-14 05:33] LABS: BASOPHILS % 0.3 % (0.0-2.0); EOSINOPHILS # 0.1 10^3/ul (0.0-0.5); EOSINOPHILS % 1.9 % (0.0-7.0); HEMATOCRIT 27.8 % (37.0-47.0); HEMOGLOBIN 9.1 g/dl (12.0-16.0); LYMPHOCYTES # 1.4 10^3/ul (0.8-2.9); LYMPHOCYTES % 18.8 % (15.0-51.0); MEAN CORPUSCULAR HEMOGLOBIN 27.9 pg (29.0-33.0); MEAN CORPUSCULAR HGB CONC 32.7 g/dl (32.0-37.0); MEAN CORPUSCULAR VOLUME 85.3 fl (82.0-101.0); MEAN PLATELET VOLUME 9.7 fl (7.4-10.4); MONOCYTE # 0.4 10^3/ul (0.3-0.9); MONOCYTES % 5.8 % (0.0-11.0); NEUTROPHIL # 5.4 10^3/ul (1.6-7.5); NEUTROPHILS % 72.8 % (39.0-77.0); PLATELET COUNT 483 10^3/UL (140-415); RED BLOOD COUNT 3.26 10^6/ul (4.20-5.40); RED CELL DISTRIBUTION WIDTH 16.4 % (11.5-14.5); WHITE BLOOD COUNT 7.4 10^3/ul (4.8-10.8)
[2017-01-14 07:40] VITALS: BP 97/52; RESP 18
[2017-01-14] MEDS: FAMOTIDINE 20 MG TAB PO SCH ×2 (09:00→20:34)
[2017-01-14] MEDS: SUCRALFATE 1 GM TAB PO SCH ×2 (09:00→20:34)
[2017-01-14] MEDS: MEGESTROL (40 MG/ML) 10ML CUP PO SCH ×2 (09:00→20:34)
[2017-01-14] MEDS: GABAPENTIN 300 MG CAP PO SCH ×2 (09:00→20:34)
[2017-01-14] MEDS: HYDROmorphONE 0.2 MG/ML PCA IV SCH (11:28)
--- NOTE | 2017-01-14 13:37 | PN ---
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 Subjective 24 Hr Interval Summary Free Text/Dictation doing well, no issues Exam/Review of Systems Vital Signs Vitals Vital Signs Date Time Temp Pulse Resp B/P Pulse Ox O2 Delivery O2 Flow Rate FiO2 01/14/17 13:00 19 01/14/17 07:40 99.0 95 97/52 94 Intake and Output 01/13/17 01/13/17 01/14/17 15:00 23:00 07:00 Intake Total 1235 ml 1820 ml Balance 1235 ml 1820 ml Exam small opening, clean base with packing Results Result Diagram: 01/14/17 0457 01/12/17 0513 Results 24 hrs Laboratory Tests Test 01/14/17 04:57 White Blood Count 7.4 Red Blood Count 3.26 L Hemoglobin 9.1 L Hematocrit 27.8 L Mean Corpuscular Volume 85.3 Mean Corpuscular Hemoglobin 27.9 L Mean Corpuscular Hemoglobin Concent 32.7 Red Cell Distribution Width 16.4 H Platelet Count 483 H Mean Platelet Volume 9.7 Neutrophils % 72.8 Lymphocytes % 18.8 Monocytes % 5.8 Eosinophils % 1.9 Basophils % 0.3 Nucleated Red Blood Cells % 0.0 Neutrophils # 5.4 Lymphocytes # 1.4 Monocytes # 0.4 Eosinophils # 0.1 Basophils # 0.0 Nucleated Red Blood Cells # 0.0 Medications Medications Current Medications Acetaminophen (Tylenol Tab) 650 mg Q6H PRN PO ELEVATED TEMPERATURE Last administered on 01/11/17 13:31; Admin Dose 650 MG; Start 12/31/16 at 19:00 Amitriptyline HCl (Elavil) 25 mg QHS PO Last administered on 01/07/17 20:35; Admin Dose 25 MG; Start 12/31/16 at 21:00 Aspirin (Aspirin) 81 mg DAILY PO Last administered on 01/01/17 08:57; Admin Dose 81 MG; Start 01/01/17 at 09:00; Status Future Hold Gabapentin (Neurontin) 600 mg BID PO Last administered on 01/14/17 09:00; Admin Dose 600 MG; Start 12/31/16 at 21:00 Hydroxyzine HCl (Atarax) 25 mg QHS PO Last administered on 01/08/17 21:07; Admin Dose 25 MG; Start 12/31/16 at 21:00 Ondansetron HCl (Zofran Inj) 4 mg Q6H PRN IV NAUSEA AND/OR VOMITING Last administered on 01/13/17 15:04; Admin Dose 4 MG; Start 12/31/16 at 19:00 Pantoprazole (Protonix Tab) 40 mg DAILY@06 PO Last administered on 01/14/17 05: 32; Admin Dose 40 MG; Start 01/01/17 at 06:00 Polyethylene Glycol (Miralax) 17 gm DAILY PRN PO CONSTIPATION; Start 12/31/16 at 19:00 Simethicone (Mylicon) 80 mg BID PRN PO DISTENSION/GAS/BLOATING; Start 12/31/16 at 19:00 Sucralfate (Carafate) 1 gm BID PO Last administered on 01/14/17 09:00; Admin Dose 1 GM; Start 12/31/16 at 21:00 Topiramate (Topamax) 100 mg QHS PO Last administered on 01/13/17 21:07; Admin Dose 100 MG; Start 12/31/16 at 21:00 Trazodone HCl (Desyrel) 50 mg QHS PO Last administered on 01/13/17 21:06; Admin Dose 50 MG; Start 12/31/16 at 21:00 Zolpidem Tartrate (Ambien) 10 mg QHS PRN PO INSOMNIA Last administered on 23:44; Admin Dose 10 MG; Start 12/31/16 at 19:00 Phenol (Cepastat Lozenge) 1 lozenge Q4H PRN MT sore throat Last administered on 01/03/17 07:28; Admin Dose 1 LOZENGE; Start 01/01/17 at 20:30 Hydromorphone HCl 0.75 mg 0.75 mg Q3H PRN IV PAIN Last administered on 05:46; Admin Dose 0.75 MG; Start 01/02/17 at 18:38 Lactated Ringer's (Lr) 1,000 ml @ 100 mls/hr Q10H IV Last administered on 13:02; Admin Dose 100 MLS/HR; Start 01/03/17 at 14:15 Famotidine (Pepcid) 20 mg BID PO Last administered on 01/14/17 09:00; Admin Dose 20 MG; Start 01/08/17 at 21:00 Bisacodyl (Dulcolax) 10 mg DAILY PRN PO CONSTIPATION; Start 01/13/17 at 10:30 Megestrol Acetate (Megace Susp) 800 mg BID PO Last administered on 01/14/17 09: 00; Admin Dose 800 MG; Start 01/13/17 at 21:00 Rubin RUSS January 14, 2017 13:37
--- NOTE | 2017-01-14 13:59 | CONS ---
Date/Time of Note Date/Time of Note DATE: 01/14/17 TIME: 13:59 Assessment/Plan Assessment/Plan Chief Complaint/Hosp Course SUBJECTIVE: No acute changes. Alert, c/o poor appetite, nad ,no fevers INDWELLINGS: PICC line. PHYSICAL EXAMINATION: GENERAL: This is a cachectic, middle-aged white woman who is in no distress. HEENT: Head atraumatic, normocephalic. Sclerae anicteric. Buccal mucosa dry. NECK: Supple. CHEST: Rise symmetrical. Breath sounds diminished at the bases. HEART: S1, S2. ABDOMEN: Soft. Bowel tones present. Mid abdominal wound with some bloody drainage from midline. EXTREMITIES: Without cyanosis. Trace edema. ASSESSMENT: 1. Status post enterocutaneous fistula repair. 2. Status post rectal bleeding. 3. History of right hemicolectomy. PLAN: The patient remains stable, off abx, f/u surgical rec-s [facility] staff Problems: Consultation Date/Type/Reason Admit Date/Time Dec 31, 2016 at 08:01 Type of Consultation: ID Exam/Review of Systems Vital Signs Vitals Vital Signs Date Time Temp Pulse Resp B/P Pulse Ox O2 Delivery O2 Flow Rate FiO2 01/14/17 13:00 19 01/14/17 07:40 99.0 95 97/52 94 Intake and Output 01/13/17 01/13/17 01/14/17 15:00 23:00 07:00 Intake Total 1235 ml 1820 ml Balance 1235 ml 1820 ml Results Result Diagram: 01/14/17 0457 01/12/17 0513 Results 24 hrs Laboratory Tests Test 01/14/17 04:57 White Blood Count 7.4 Red Blood Count 3.26 L Hemoglobin 9.1 L Hematocrit 27.8 L Mean Corpuscular Volume 85.3 Mean Corpuscular Hemoglobin 27.9 L Mean Corpuscular Hemoglobin Concent 32.7 Red Cell Distribution Width 16.4 H Platelet Count 483 H Mean Platelet Volume 9.7 Neutrophils % 72.8 Lymphocytes % 18.8 Monocytes % 5.8 Eosinophils % 1.9 Basophils % 0.3 Nucleated Red Blood Cells % 0.0 Neutrophils # 5.4 Lymphocytes # 1.4 Monocytes # 0.4 Eosinophils # 0.1 Basophils # 0.0 Nucleated Red Blood Cells # 0.0 Medications Medications Current Medications Acetaminophen (Tylenol Tab) 650 mg Q6H PRN PO ELEVATED TEMPERATURE Last administered on 01/11/17 13:31; Admin Dose 650 MG; Start 12/31/16 at 19:00 Amitriptyline HCl (Elavil) 25 mg QHS PO Last administered on 01/07/17 20:35; Admin Dose 25 MG; Start 12/31/16 at 21:00 Aspirin (Aspirin) 81 mg DAILY PO Last administered on 01/01/17 08:57; Admin Dose 81 MG; Start 01/01/17 at 09:00; Status Future Hold Gabapentin (Neurontin) 600 mg BID PO Last administered on 01/14/17 09:00; Admin Dose 600 MG; Start 12/31/16 at 21:00 Hydroxyzine HCl (Atarax) 25 mg QHS PO Last administered on 01/08/17 21:07; Admin Dose 25 MG; Start 12/31/16 at 21:00 Ondansetron HCl (Zofran Inj) 4 mg Q6H PRN IV NAUSEA AND/OR VOMITING Last administered on 01/13/17 15:04; Admin Dose 4 MG; Start 12/31/16 at 19:00 Pantoprazole (Protonix Tab) 40 mg DAILY@06 PO Last administered on 01/14/17 05: 32; Admin Dose 40 MG; Start 01/01/17 at 06:00 Polyethylene Glycol (Miralax) 17 gm DAILY PRN PO CONSTIPATION; Start 12/31/16 at 19:00 Simethicone (Mylicon) 80 mg BID PRN PO DISTENSION/GAS/BLOATING; Start 12/31/16 at 19:00 Sucralfate (Carafate) 1 gm BID PO Last administered on 01/14/17 09:00; Admin Dose 1 GM; Start 12/31/16 at 21:00 Topiramate (Topamax) 100 mg QHS PO Last administered on 01/13/17 21:07; Admin Dose 100 MG; Start 12/31/16 at 21:00 Trazodone HCl (Desyrel) 50 mg QHS PO Last administered on 01/13/17 21:06; Admin Dose 50 MG; Start 12/31/16 at 21:00 Zolpidem Tartrate (Ambien) 10 mg QHS PRN PO INSOMNIA Last administered on 23:44; Admin Dose 10 MG; Start 12/31/16 at 19:00 Phenol (Cepastat Lozenge) 1 lozenge Q4H PRN [place] sore throat Last administered on 01/03/17 07:28; Admin Dose 1 LOZENGE; Start 01/01/17 at 20:30 Hydromorphone HCl 0.75 mg 0.75 mg Q3H PRN IV PAIN Last administered on 05:46; Admin Dose 0.75 MG; Start 01/02/17 at 18:38 Lactated Ringer's (Lr) 1,000 ml @ 100 mls/hr Q10H IV Last administered on 13:02; Admin Dose 100 MLS/HR; Start 01/03/17 at 14:15 Famotidine (Pepcid) 20 mg BID PO Last administered on 01/14/17 09:00; Admin Dose 20 MG; Start 01/08/17 at 21:00 Bisacodyl (Dulcolax) 10 mg DAILY PRN PO CONSTIPATION; Start 01/13/17 at 10:30 Megestrol Acetate (Megace Susp) 800 mg BID PO Last administered on 01/14/17 09: 00; Admin Dose 800 MG; Start 01/13/17 at 21:00 Acetaminophen/ Hydrocodone Bitart (Provo (5/325)) 1 tab Q6H PRN PO PAIN; Start 01/14/17 at 14:00 BÁRBARA SMITH NP January 14, 2017 13:59 BÁRBARA SMITH NP January 14, 2017 13:59
[2017-01-14] MEDS ORDERED: HYDROCODONE/APAP (5/325) TAB PO PRN (14:00)
[2017-01-14] MEDS: HYDROmorphONE 1 MG/ML SYG IV PRN ×3 (17:16→23:40)
--- NOTE | 2017-01-14 18:48 | CONS ---
Date/Time of Note Date/Time of Note DATE: 01/14/17 TIME: 18:47 Assessment/Plan Assessment/Plan Additional Assessment/Plan IMPRESSION: 1. Rectal bleeding, most probably from hemorrhoids. Has stopped completely 2. Closure of the enterocutaneous fistula 3. Right hemicolectomy. 4. Abdominal pain, much better. 5. Anemia.ht 30,stable 6. Surgical wound Plan monitor H&H Wound care Surgical follow up Consultation Date/Type/Reason Admit Date/Time Dec 31, 2016 at 08:01 Type of Consultation: ID [id number] HR Interval Summary Free Text/Dictation Discharge from the wound, no rectal bleeding, Good bowel movements Tolerating feeding Exam/Review of Systems Vital Signs Vitals Vital Signs Date Time Temp Pulse Resp B/P Pulse Ox O2 Delivery O2 Flow Rate FiO2 01/14/17 13:00 19 01/14/17 07:40 99.0 95 97/52 94 Intake and Output 01/13/17 01/13/17 01/14/17 15:00 23:00 07:00 Intake Total 1235 ml 1820 ml Balance 1235 ml 1820 ml Exam Constitutional: alert, oriented, well developed Psych: nl mood/affect, no complaints Head: atraumatic, normocephalic Eyes: EOMI, PERRL, nl conjunctiva, nl lids, nl sclera ENMT: nl external ears & nose, nl lips & teeth, nl nasal mucosa & septum Neck: non-tender, supple Respiratory: clear to auscultation, normal air movement Cardiovascular: nl pulses, regular rate and rhythm Gastrointestinal: nl liver, spleen, non-tender, soft Musculoskeletal: nl extremities to inspection, nl gait and stance Extremities: normal pulses Neurological: ASSOCIATE [employer] OF 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 II-XII intact, nl mental status, nl speech, nl strength Skin: nl turgor, No rash or lesions Lymph: nl lymph nodes Results Result Diagram: 01/14/17 0457 01/12/17 0513 Results 24 hrs Laboratory Tests Test 01/14/17 04:57 White Blood Count 7.4 Red Blood Count 3.26 L Hemoglobin 9.1 L Hematocrit 27.8 L Mean Corpuscular Volume 85.3 Mean Corpuscular Hemoglobin 27.9 L Mean Corpuscular Hemoglobin Concent 32.7 Red Cell Distribution Width 16.4 H Platelet Count 483 H Mean Platelet Volume 9.7 Neutrophils % 72.8 Lymphocytes % 18.8 Monocytes % 5.8 Eosinophils % 1.9 Basophils % 0.3 Nucleated Red Blood Cells % 0.0 Neutrophils # 5.4 Lymphocytes # 1.4 Monocytes # 0.4 Eosinophils # 0.1 Basophils # 0.0 Nucleated Red Blood Cells # 0.0 Medications Medications Current Medications Acetaminophen (Tylenol Tab) 650 mg Q6H PRN PO ELEVATED TEMPERATURE Last administered on 01/11/17 13:31; Admin Dose 650 MG; Start 12/31/16 at 19:00 Amitriptyline HCl (Elavil) 25 mg QHS PO Last administered on 01/07/17 20:35; Admin Dose 25 MG; Start 12/31/16 at 21:00 Aspirin (Aspirin) 81 mg DAILY PO Last administered on 01/01/17 08:57; Admin Dose 81 MG; Start 01/01/17 at 09:00; Status Future Hold Gabapentin (Neurontin) 600 mg BID PO Last administered on 01/14/17 09:00; Admin Dose 600 MG; Start 12/31/16 at 21:00 Hydroxyzine HCl (Atarax) 25 mg QHS PO Last administered on 01/08/17 21:07; Admin Dose 25 MG; Start 12/31/16 at 21:00 Ondansetron HCl (Zofran Inj) 4 mg Q6H PRN IV NAUSEA AND/OR VOMITING Last administered on 01/13/17 15:04; Admin Dose 4 MG; Start 12/31/16 at 19:00 Pantoprazole (Protonix Tab) 40 mg DAILY@06 PO Last administered on 01/14/17 05: 32; Admin Dose 40 MG; Start 01/01/17 at 06:00 Polyethylene Glycol (Miralax) 17 gm DAILY PRN PO CONSTIPATION; Start 12/31/16 at 19:00 Simethicone (Mylicon) 80 mg BID PRN PO DISTENSION/GAS/BLOATING; Start 12/31/16 at 19:00 Sucralfate (Carafate) 1 gm BID PO Last administered on 01/14/17 09:00; Admin Dose 1 GM; Start 12/31/16 at 21:00 Topiramate (Topamax) 100 mg QHS PO Last administered on 01/13/17 21:07; Admin Dose 100 MG; Start 12/31/16 at 21:00 Trazodone HCl (Desyrel) 50 mg QHS PO Last administered on 01/13/17 21:06; Admin Dose 50 MG; Start 12/31/16 at 21:00 Zolpidem Tartrate (Ambien) 10 mg QHS PRN PO INSOMNIA Last administered on 23:44; Admin Dose 10 MG; Start 12/31/16 at 19:00 Phenol (Cepastat Lozenge) 1 lozenge Q4H PRN [place] sore throat Last administered on 01/03/17 07:28; Admin Dose 1 LOZENGE; Start 01/01/17 at 20:30 Hydromorphone HCl 0.75 mg 0.75 mg Q3H PRN IV PAIN Last administered on 17:16; Admin Dose 0.75 MG; Start 01/02/17 at 18:38 Lactated Ringer's (Lr) 1,000 ml @ 100 mls/hr Q10H IV Last administered on 13:02; Admin Dose 100 MLS/HR; Start 01/03/17 at 14:15 Famotidine (Pepcid) 20 mg BID PO Last administered on 01/14/17 09:00; Admin Dose 20 MG; Start 01/08/17 at 21:00 Bisacodyl (Dulcolax) 10 mg DAILY PRN PO CONSTIPATION; Start 01/13/17 at 10:30 Megestrol Acetate (Megace Susp) 800 mg BID PO Last administered on 01/14/17 09: 00; Admin Dose 800 MG; Start 01/13/17 at 21:00 Acetaminophen/ Hydrocodone Bitart ([place] (5/325)) 1 tab Q6H PRN PO PAIN; Start 01/14/17 at 14:00 BRIANDA MORSE MD January 14, 2017 18:48
[2017-01-14 20:06] VITALS: BP 115/70; RESP 16
[2017-01-14] MEDS: traZODone 50 MG TAB PO SCH (20:34)
[2017-01-14] MEDS: TOPIRAMATE 100 MG TAB PO SCH (20:34)
[2017-01-14] MEDS: AMITRIPTYLINE 25 MG TAB PO SCH (20:41)
[2017-01-14] MEDS: hydrOXYzine HCL 25 MG TAB PO SCH (20:41)
--- NOTE | 2017-01-14 21:17 | PN ---
Date/Time of Note Date/Time of Note DATE: 01/14/17 TIME: 21:14 Assessment/Plan VTE Prophylaxis VTE Prophylaxis Intervention: other Lines/Catheters IV Catheter Type (from Nrsg): PICC Line Central line still needed: Yes Urinary Cath still in place: No Reason Cath still needed: other (indicate) Assessment/Plan Chief Complaint/Hosp Course IMPRESSION: 1. Patient has abd pain better 2. s/p abd surgery 3 post op anemia 4 post op gi bleed stable 5 sepsis 6 1. Enterocutaneous fistula takedown and repair. 2. Partial colectomy. 3. [place]-enteric anastomosis. 4. Open lysis of adhesions of approximately 1 hour. hyponatremia plan antibiotic per surgery per gi Problems: Subjective 24 Hr Interval Summary Gastrointestinal: pain (less) Exam/Review of Systems Vital Signs Vitals Vital Signs Date Time Temp Pulse Resp B/P Pulse Ox O2 Delivery O2 Flow Rate FiO2 01/14/17 20:06 99.1 101 16 115/70 99 Intake and Output 01/13/17 01/13/17 01/14/17 15:00 23:00 07:00 Intake Total 1235 ml 1820 ml Balance 1235 ml 1820 ml Exam Neck: supple Respiratory: clear to auscultation Cardiovascular: regular rate and rhythm Gastrointestinal: bowel sounds (+), soft Musculoskeletal: nl extremities to inspection Extremities: normal pulses Results Result Diagram: 01/14/17 0457 01/12/17 0513 Results 24 hrs Laboratory Tests Test 01/14/17 04:57 White Blood Count 7.4 Red Blood Count 3.26 L Hemoglobin 9.1 L Hematocrit 27.8 L Mean Corpuscular Volume 85.3 Mean Corpuscular Hemoglobin 27.9 L Mean Corpuscular Hemoglobin Concent 32.7 Red Cell Distribution Width 16.4 H Platelet Count 483 H Mean Platelet Volume 9.7 Neutrophils % 72.8 Lymphocytes % 18.8 Monocytes % 5.8 Eosinophils % 1.9 Basophils % 0.3 Nucleated Red Blood Cells % 0.0 Neutrophils # 5.4 Lymphocytes # 1.4 Monocytes # 0.4 Eosinophils # 0.1 Basophils # 0.0 Nucleated Red Blood Cells # 0.0 Medications Medications Current Medications Acetaminophen (Tylenol Tab) 650 mg Q6H PRN PO ELEVATED TEMPERATURE Last administered on 01/11/17t 13:31; Admin Dose 650 MG; Start 12/31/16 at 19:00 Amitriptyline HCl (Elavil) 25 mg QHS PO Last administered on 01/07/17 20:35; Admin Dose 25 MG; Start 12/31/16 at 21:00 Aspirin (Aspirin) 81 mg DAILY PO Last administered on 01/01/17 08:57; Admin Dose 81 MG; Start 01/01/17 at 09:00; Status Future Hold Gabapentin (Neurontin) 600 mg BID PO Last administered on 01/14/17 20:34; Admin Dose 600 MG; Start 12/31/16 at 21:00 Hydroxyzine HCl (Atarax) 25 mg QHS PO Last administered on 01/08/17 21:07; Admin Dose 25 MG; Start 12/31/16 at 21:00 Ondansetron HCl (Zofran Inj) 4 mg Q6H PRN IV NAUSEA AND/OR VOMITING Last administered on 01/13/17 15:04; Admin Dose 4 MG; Start 12/31/16 at 19:00 Pantoprazole (Protonix Tab) 40 mg DAILY@06 PO Last administered on 01/14/17 05: 32; Admin Dose 40 MG; Start 01/01/17 at 06:00 Polyethylene Glycol (Miralax) 17 gm DAILY PRN PO CONSTIPATION; Start 12/31/16 at 19:00 Simethicone (Mylicon) 80 mg BID PRN PO DISTENSION/GAS/BLOATING; Start 12/31/16 at 19:00 Sucralfate (Carafate) 1 gm BID PO Last administered on 01/14/17 20:34; Admin Dose 1 GM; Start 12/31/16 at 21:00 Topiramate (Topamax) 100 mg QHS PO Last administered on 01/14/17 20:34; Admin Dose 100 MG; Start 12/31/16 at 21:00 Trazodone HCl (Desyrel) 50 mg QHS PO Last administered on 01/14/17 20:34; Admin Dose 50 MG; Start 12/31/16 at 21:00 Zolpidem Tartrate (Ambien) 10 mg QHS PRN PO INSOMNIA Last administered on 23:44; Admin Dose 10 MG; Start 12/31/16 at 19:00 Phenol (Cepastat Lozenge) 1 lozenge Q4H PRN [place] sore throat Last administered on 01/03/17 07:28; Admin Dose 1 LOZENGE; Start 01/01/17 at 20:30 Hydromorphone HCl 0.75 mg 0.75 mg Q3H PRN IV PAIN Last administered on 20:33; Admin Dose 0.75 MG; Start 01/02/17 at 18:38 Lactated Ringer's (Lr) 1,000 ml @ 100 mls/hr Q10H IV Last administered on 13:02; Admin Dose 100 MLS/HR; Start 01/03/17 at 14:15 Famotidine (Pepcid) 20 mg BID PO Last administered on 01/14/17 20:34; Admin Dose 20 MG; Start 01/08/17 at 21:00 Bisacodyl (Dulcolax) 10 mg DAILY PRN PO CONSTIPATION; Start 01/13/17 at 10:30 Megestrol Acetate (Megace Susp) 800 mg BID PO Last administered on 01/14/17 20: 34; Admin Dose 800 MG; Start 01/13/17 at 21:00 Acetaminophen/ Hydrocodone Bitart ([place] (5/325)) 1 tab Q6H PRN PO PAIN; Start 01/14/17 at 14:00 MARTINEZ MELVIN MD January 14, 2017 21:17
[2017-01-14] MEDS: ZOLPIDEM 5 MG TAB PO PRN (21:27)
[2017-01-15] MEDS: HYDROmorphONE 1 MG/ML SYG IV PRN ×6 (03:30→21:06)
[2017-01-15] MEDS: PANTOPRAZOLE (EC) 40 MG TAB PO SCH (05:43)
[2017-01-15] MEDS: LACTATED RINGER'S 1,000 ML IV SCH ×3 (06:15→21:04)
[2017-01-15 06:23] LABS: ADD SCAN DIFF NO
[2017-01-15 06:28] LABS: BASOPHILS % 0.3 % (0.0-2.0); EOSINOPHILS # 0.3 10^3/ul (0.0-0.5); EOSINOPHILS % 3.4 % (0.0-7.0); HEMATOCRIT 29.1 % (37.0-47.0); HEMOGLOBIN 9.4 g/dl (12.0-16.0); LYMPHOCYTES # 1.6 10^3/ul (0.8-2.9); MEAN CORPUSCULAR HEMOGLOBIN 27.6 pg (29.0-33.0); MEAN CORPUSCULAR HGB CONC 32.3 g/dl (32.0-37.0); MEAN CORPUSCULAR VOLUME 85.3 fl (82.0-101.0); MEAN PLATELET VOLUME 9.5 fl (7.4-10.4); MONOCYTE # 0.3 10^3/ul (0.3-0.9); MONOCYTES % 4.6 % (0.0-11.0); NEUTROPHIL # 5.1 10^3/ul (1.6-7.5); NEUTROPHILS % 69.2 % (39.0-77.0); PLATELET COUNT 573 10^3/UL (140-415); RED BLOOD COUNT 3.41 10^6/ul (4.20-5.40); RED CELL DISTRIBUTION WIDTH 16.7 % (11.5-14.5); WHITE BLOOD COUNT 7.4 10^3/ul (4.8-10.8)
[2017-01-15] MEDS: FAMOTIDINE 20 MG TAB PO SCH ×2 (09:09→20:10)
[2017-01-15] MEDS: MEGESTROL (40 MG/ML) 10ML CUP PO SCH ×2 (09:09→20:10)
[2017-01-15] MEDS: SUCRALFATE 1 GM TAB PO SCH ×2 (09:09→20:09)
[2017-01-15] MEDS: GABAPENTIN 300 MG CAP PO SCH ×2 (09:09→20:10)
--- NOTE | 2017-01-15 13:40 | CONS ---
Date/Time of Note Date/Time of Note DATE: 01/15/17 TIME: 13:39 Assessment/Plan Assessment/Plan Chief Complaint/Hosp Course SUBJECTIVE: No acute changes. no fevers INDWELLINGS: PICC line. PHYSICAL EXAMINATION: GENERAL: This is a cachectic, middle-aged white woman who is in no distress. HEENT: Head atraumatic, normocephalic. Sclerae anicteric. Buccal mucosa dry. NECK: Supple. CHEST: Rise symmetrical. Breath sounds diminished at the bases. HEART: S1, S2. ABDOMEN: Soft. Bowel tones present. Mid abdominal wound with some bloody drainage from midline. EXTREMITIES: Without cyanosis. Trace edema. ASSESSMENT: 1. Status post enterocutaneous fistula repair. 2. Status post rectal bleeding. 3. History of right hemicolectomy. PLAN: The patient remains stable, off abx, continue present care, f/u surgical rec-s DW staff Problems: Consultation Date/Type/Reason Admit Date/Time Dec 31, 2016 at 08:01 Type of Consultation: ID Exam/Review of Systems Vital Signs Vitals Vital Signs Date Time Temp Pulse Resp B/P Pulse Ox O2 Delivery O2 Flow Rate FiO2 01/14/17 21:03 98.5 01/14/17 20:06 101 16 115/70 99 Intake and Output 01/14/17 01/14/17 01/15/17 15:00 23:00 07:00 Intake Total 650 ml 1255 ml 1710 ml Balance 650 ml 1255 ml 1710 ml Results Result Diagram: 01/15/17 0510 01/12/17 0513 Results 24 hrs Laboratory Tests Test 01/15/17 05:10 White Blood Count 7.4 Red Blood Count 3.41 L Hemoglobin 9.4 L Hematocrit 29.1 L Mean Corpuscular Volume 85.3 Mean Corpuscular Hemoglobin 27.6 L Mean Corpuscular Hemoglobin Concent 32.3 Red Cell Distribution Width 16.7 H Platelet Count 573 H Mean Platelet Volume 9.5 Neutrophils % 69.2 Lymphocytes % 22.0 Monocytes % 4.6 Eosinophils % 3.4 Basophils % 0.3 Nucleated Red Blood Cells % 0.0 Neutrophils # 5.1 Lymphocytes # 1.6 Monocytes # 0.3 Eosinophils # 0.3 Basophils # 0.0 Nucleated Red Blood Cells # 0.0 Medications Medications Current Medications Acetaminophen (Tylenol Tab) 650 mg Q6H PRN PO ELEVATED TEMPERATURE Last administered on 01/11/17 13:31; Admin Dose 650 MG; Start 12/31/16 at 19:00 Amitriptyline HCl (Elavil) 25 mg QHS PO Last administered on 01/07/17 20:35; Admin Dose 25 MG; Start 12/31/16 at 21:00 Aspirin (Aspirin) 81 mg DAILY PO Last administered on 01/01/17 08:57; Admin Dose 81 MG; Start 01/01/17 at 09:00; Status Future Hold Gabapentin (Neurontin) 600 mg BID PO Last administered on 01/15/17 09:09; Admin Dose 600 MG; Start 12/31/16 at 21:00 Hydroxyzine HCl (Atarax) 25 mg QHS PO Last administered on 01/08/17 21:07; Admin Dose 25 MG; Start 12/31/16 at 21:00 Ondansetron HCl (Zofran Inj) 4 mg Q6H PRN IV NAUSEA AND/OR VOMITING Last administered on 01/13/17 15:04; Admin Dose 4 MG; Start 12/31/16 at 19:00 Pantoprazole (Protonix Tab) 40 mg DAILY@06 PO Last administered on 01/15/17 05 :43; Admin Dose 40 MG; Start 01/01/17 at 06:00 Polyethylene Glycol (Miralax) 17 gm DAILY PRN PO CONSTIPATION; Start 12/31/16 at 19:00 Simethicone (Mylicon) 80 mg BID PRN PO DISTENSION/GAS/BLOATING; Start 12/31/16 at 19:00 Sucralfate (Carafate) 1 gm BID PO Last administered on 01/15/17 09:09; Admin Dose 1 GM; Start 12/31/16 at 21:00 Topiramate (Topamax) 100 mg QHS PO Last administered on 01/14/17 20:34; Admin Dose 100 MG; Start 12/31/16 at 21:00 Trazodone HCl (Desyrel) 50 mg QHS PO Last administered on 01/14/17 20:34; Admin Dose 50 MG; Start 12/31/16 at 21:00 Zolpidem Tartrate (Ambien) 10 mg QHS PRN PO INSOMNIA Last administered on 21:27; Admin Dose 10 MG; Start 12/31/16 at 19:00 Phenol (Cepastat Lozenge) 1 lozenge Q4H PRN MT sore throat Last administered on 01/03/17 07:28; Admin Dose 1 LOZENGE; Start 01/01/17 at 20:30 Hydromorphone HCl 0.75 mg 0.75 mg Q3H PRN IV PAIN Last administered on 12:09; Admin Dose 0.75 MG; Start 01/02/17 at 18:38 Lactated Ringer's (Lr) 1,000 ml @ 100 mls/hr Q10H IV Last administered on 01/15 09:09; Admin Dose 100 MLS/HR; Start 01/03/17 at 14:15 Famotidine (Pepcid) 20 mg BID PO Last administered on 01/15/17 09:09; Admin Dose 20 MG; Start 01/08/17 at 21:00 Bisacodyl (Dulcolax) 10 mg DAILY PRN PO CONSTIPATION; Start 01/13/17 at 10:30 Megestrol Acetate (Megace Susp) 800 mg BID PO Last administered on 01/15/17 09 :09; Admin Dose 800 MG; Start 01/13/17 at 21:00 Acetaminophen/ Hydrocodone Bitart ([place] (5/325)) 1 tab Q6H PRN PO PAIN; Start 01/14/17 at 14:00 BÁRBARA SMITH NP January 15, 2017 13:40
--- NOTE | 2017-01-15 13:54 | PN ---
Date/Time of Note Date/Time of Note DATE: 01/15/17 TIME: 13:53 Assessment/Plan VTE Prophylaxis VTE Prophylaxis Intervention: SCD's Lines/Catheters IV Catheter Type (from Nrs): PICC Line Central line still needed: Yes Urinary Cath still in place: No Assessment/Plan Chief Complaint/Hosp Course s/p ecf which has resolved with repair with ECF and revision of anastomosis Problems: Assessment/Plan discharge planning and disposition Subjective 24 Hr Interval Summary Free Text/Dictation doing well, having bowel movements, tolerating diet, Exam/Review of Systems Vital Signs Vitals Vital Signs Date Time Temp Pulse Resp B/P Pulse Ox O2 Delivery O2 Flow Rate FiO2 01/14/17 21:03 98.5 01/14/17 20:06 101 16 115/70 99 Intake and Output 01/14/17 01/14/17 01/15/17 15:00 23:00 07:00 Intake Total 650 ml 1255 ml 1710 ml Balance 650 ml 1255 ml 1710 ml Exam small opening, no evidence of ecf Results Result Diagram: 01/15/17 0510 01/12/17 0513 Results 24 hrs Laboratory Tests Test 01/15/17 05:10 White Blood Count 7.4 Red Blood Count 3.41 L Hemoglobin 9.4 L Hematocrit 29.1 L Mean Corpuscular Volume 85.3 Mean Corpuscular Hemoglobin 27.6 L Mean Corpuscular Hemoglobin Concent 32.3 Red Cell Distribution Width 16.7 H Platelet Count 573 H Mean Platelet Volume 9.5 Neutrophils % 69.2 Lymphocytes % 22.0 Monocytes % 4.6 Eosinophils % 3.4 Basophils % 0.3 Nucleated Red Blood Cells % 0.0 Neutrophils # 5.1 Lymphocytes # 1.6 Monocytes # 0.3 Eosinophils # 0.3 Basophils # 0.0 Nucleated Red Blood Cells # 0.0 Medications Medications Current Medications Acetaminophen (Tylenol Tab) 650 mg Q6H PRN PO ELEVATED TEMPERATURE Last administered on 01/11/17 13:31; Admin Dose 650 MG; Start 12/31/16 at 19:00 Amitriptyline HCl (Elavil) 25 mg QHS PO Last administered on 01/07/17 20:35; Admin Dose 25 MG; Start 12/31/16 at 21:00 Aspirin (Aspirin) 81 mg DAILY PO Last administered on 01/01/17 08:57; Admin Dose 81 MG; Start 01/01/17 at 09:00; Status Future Hold Gabapentin (Neurontin) 600 mg BID PO Last administered on 01/15/17 09:09; Admin Dose 600 MG; Start 12/31/16 at 21:00 Hydroxyzine HCl (Atarax) 25 mg QHS PO Last administered on 01/08/17 21:07; Admin Dose 25 MG; Start 12/31/16 at 21:00 Ondansetron HCl (Zofran Inj) 4 mg Q6H PRN IV NAUSEA AND/OR VOMITING Last administered on 01/13/17 15:04; Admin Dose 4 MG; Start 12/31/16 at 19:00 Pantoprazole (Protonix Tab) 40 mg DAILY@06 PO Last administered on 01/15/17 05 :43; Admin Dose 40 MG; Start 01/01/17 at 06:00 Polyethylene Glycol (Miralax) 17 gm DAILY PRN PO CONSTIPATION; Start 12/31/16 at 19:00 Simethicone (Mylicon) 80 mg BID PRN PO DISTENSION/GAS/BLOATING; Start 12/31/16 at 19:00 Sucralfate (Carafate) 1 gm BID PO Last administered on 01/15/17 09:09; Admin Dose 1 GM; Start 12/31/16 at 21:00 Topiramate (Topamax) 100 mg QHS PO Last administered on 01/14/17 20:34; Admin Dose 100 MG; Start 12/31/16 at 21:00 Trazodone HCl (Desyrel) 50 mg QHS PO Last administered on 01/14/17 20:34; Admin Dose 50 MG; Start 12/31/16 at 21:00 Zolpidem Tartrate (Ambien) 10 mg QHS PRN PO INSOMNIA Last administered on 21:27; Admin Dose 10 MG; Start 12/31/16 at 19:00 Phenol (Cepastat Lozenge) 1 lozenge Q4H PRN MT sore throat Last administered on 01/03/17 07:28; Admin Dose 1 LOZENGE; Start 01/01/17 at 20:30 Hydromorphone HCl 0.75 mg 0.75 mg Q3H PRN IV PAIN Last administered on 12:09; Admin Dose 0.75 MG; Start 01/02/17 at 18:38 Lactated Ringer's (Lr) 1,000 ml @ 100 mls/hr Q10H IV Last administered on 01/15 09:09; Admin Dose 100 MLS/HR; Start 01/03/17 at 14:15 Famotidine (Pepcid) 20 mg BID PO Last administered on 01/15/17 09:09; Admin Dose 20 MG; Start 01/08/17 at 21:00 Bisacodyl (Dulcolax) 10 mg DAILY PRN PO CONSTIPATION; Start 01/13/17 at 10:30 Megestrol Acetate (Megace Susp) 800 mg BID PO Last administered on 01/15/17 09 :09; Admin Dose 800 MG; Start 01/13/17 at 21:00 Acetaminophen/ Hydrocodone Bitart ([place] (5/325)) 1 tab Q6H PRN PO PAIN; Start 01/14/17 at 14:00 Rubin RUSS January 15, 2017 13:54
[2017-01-15] MEDS: ZOLPIDEM 5 MG TAB PO PRN (20:09)
[2017-01-15] MEDS: TOPIRAMATE 100 MG TAB PO SCH (20:10)
[2017-01-15] MEDS: hydrOXYzine HCL 25 MG TAB PO SCH (20:10)
[2017-01-15] MEDS: traZODone 50 MG TAB PO SCH (20:10)
[2017-01-15] MEDS: AMITRIPTYLINE 25 MG TAB PO SCH (20:13)
[2017-01-15 21:00] VITALS: BP 104/61; RESP 19
[2017-01-15 21:09] VITALS: BP 100/62; PULSE 87
--- NOTE | 2017-01-15 23:50 | PN ---
Date/Time of Note Date/Time of Note DATE: 01/15/17 TIME: 23:49 Assessment/Plan VTE Prophylaxis VTE Prophylaxis Intervention: other Lines/Catheters IV Catheter Type (from Nrsg): PICC Line Central line still needed: Yes Urinary Cath still in place: No Reason Cath still needed: other (indicate) Assessment/Plan Chief Complaint/Hosp Course IMPRESSION: 1. Patient has abd pain better 2. s/p abd surgery 3 post op anemia 4 post op gi bleed stable 5 sepsis 6 1. Enterocutaneous fistula takedown and repair. 2. Partial colectomy. 3. [place]-enteric anastomosis. 4. Open lysis of adhesions of approximately 1 hour. hyponatremia plan antibiotic per surgery per gi snf soon Problems: Subjective 24 Hr Interval Summary Cardiovascular: no complaints Gastrointestinal: pain (better) Exam/Review of Systems Vital Signs Vitals Vital Signs Date Time Temp Pulse Resp B/P Pulse Ox O2 Delivery O2 Flow Rate FiO2 01/15/17 21:09 87 100/62 01/15/17 21:00 98.4 19 98 Intake and Output 01/14/17 01/14/17 01/15/17 15:00 23:00 07:00 Intake Total 650 ml 1255 ml 1710 ml Balance 650 ml 1255 ml 1710 ml Exam Neck: supple Respiratory: clear to auscultation Cardiovascular: regular rate and rhythm Gastrointestinal: bowel sounds (+), soft Results Result Diagram: 01/15/17 0510 01/12/17 0513 Results 24 hrs Laboratory Tests Test 01/15/17 05:10 White Blood Count 7.4 Red Blood Count 3.41 L Hemoglobin 9.4 L Hematocrit 29.1 L Mean Corpuscular Volume 85.3 Mean Corpuscular Hemoglobin 27.6 L Mean Corpuscular Hemoglobin Concent 32.3 Red Cell Distribution Width 16.7 H Platelet Count 573 H Mean Platelet Volume 9.5 Neutrophils % 69.2 Lymphocytes % 22.0 Monocytes % 4.6 Eosinophils % 3.4 Basophils % 0.3 Nucleated Red Blood Cells % 0.0 Neutrophils # 5.1 Lymphocytes # 1.6 Monocytes # 0.3 Eosinophils # 0.3 Basophils # 0.0 Nucleated Red Blood Cells # 0.0 Medications Medications Current Medications Acetaminophen (Tylenol Tab) 650 mg Q6H PRN PO ELEVATED TEMPERATURE Last administered on 01/11/17t 13:31; Admin Dose 650 MG; Start 12/31/16 at 19:00 Amitriptyline HCl (Elavil) 25 mg QHS PO Last administered on 01/07/17 20:35; Admin Dose 25 MG; Start 12/31/16 at 21:00 Aspirin (Aspirin) 81 mg DAILY PO Last administered on 01/01/17 08:57; Admin Dose 81 MG; Start 01/01/17 at 09:00; Status Future Hold Gabapentin (Neurontin) 600 mg BID PO Last administered on 01/15/17 20:10; Admin Dose 600 MG; Start 12/31/16 at 21:00 Hydroxyzine HCl (Atarax) 25 mg QHS PO Last administered on 01/08/17 21:07; Admin Dose 25 MG; Start 12/31/16 at 21:00 Ondansetron HCl (Zofran Inj) 4 mg Q6H PRN IV NAUSEA AND/OR VOMITING Last administered on 01/13/17 15:04; Admin Dose 4 MG; Start 12/31/16 at 19:00 Pantoprazole (Protonix Tab) 40 mg DAILY@06 PO Last administered on 01/15/17 05 :43; Admin Dose 40 MG; Start 01/01/17 at 06:00 Polyethylene Glycol (Miralax) 17 gm DAILY PRN PO CONSTIPATION; Start 12/31/16 at 19:00 Simethicone (Mylicon) 80 mg BID PRN PO DISTENSION/GAS/BLOATING; Start 12/31/16 at 19:00 Sucralfate (Carafate) 1 gm BID PO Last administered on 01/15/17 20:09; Admin Dose 1 GM; Start 12/31/16 at 21:00 Topiramate (Topamax) 100 mg QHS PO Last administered on 01/15/17 20:10; Admin Dose 100 MG; Start 12/31/16 at 21:00 Trazodone HCl (Desyrel) 50 mg QHS PO Last administered on 01/15/17 20:10; Admin Dose 50 MG; Start 12/31/16 at 21:00 Zolpidem Tartrate (Ambien) 10 mg QHS PRN PO INSOMNIA Last administered on 20:09; Admin Dose 10 MG; Start 12/31/16 at 19:00 Phenol (Cepastat Lozenge) 1 lozenge Q4H PRN MT sore throat Last administered on 01/03/17 07:28; Admin Dose 1 LOZENGE; Start 01/01/17 at 20:30 Hydromorphone HCl 0.75 mg 0.75 mg Q3H PRN IV PAIN Last administered on 21:06; Admin Dose 0.75 MG; Start 01/02/17 at 18:38 Lactated Ringer's (Lr) 1,000 ml @ 100 mls/hr Q10H IV Last administered on 01/15 21:04; Admin Dose 100 MLS/HR; Start 01/03/17 at 14:15 Famotidine (Pepcid) 20 mg BID PO Last administered on 01/15/17 20:10; Admin Dose 20 MG; Start 01/08/17 at 21:00 Bisacodyl (Dulcolax) 10 mg DAILY PRN PO CONSTIPATION; Start 01/13/17 at 10:30 Megestrol Acetate (Megace Susp) 800 mg BID PO Last administered on 01/15/17 20 :10; Admin Dose 800 MG; Start 01/13/17 at 21:00 Acetaminophen/ Hydrocodone Bitart ([place] (5/325)) 1 tab Q6H PRN PO PAIN; Start 01/14/17 at 14:00 MARTINEZ MELVIN MD January 15, 2017 23:50
[2017-01-16] MEDS: HYDROmorphONE 1 MG/ML SYG IV PRN ×7 (00:12→18:35)
[2017-01-16 04:52] LABS: ADD SCAN DIFF NO
[2017-01-16 04:57] LABS: BASOPHILS % 0.3 % (0.0-2.0); EOSINOPHILS # 0.1 10^3/ul (0.0-0.5); EOSINOPHILS % 2.3 % (0.0-7.0); HEMATOCRIT 29.2 % (37.0-47.0); HEMOGLOBIN 9.4 g/dl (12.0-16.0); LYMPHOCYTES # 1.8 10^3/ul (0.8-2.9); LYMPHOCYTES % 30.8 % (15.0-51.0); MEAN CORPUSCULAR HEMOGLOBIN 27.5 pg (29.0-33.0); MEAN CORPUSCULAR HGB CONC 32.2 g/dl (32.0-37.0); MEAN CORPUSCULAR VOLUME 85.4 fl (82.0-101.0); MEAN PLATELET VOLUME 9.6 fl (7.4-10.4); MONOCYTE # 0.4 10^3/ul (0.3-0.9); NEUTROPHIL # 3.6 10^3/ul (1.6-7.5); NEUTROPHILS % 60.1 % (39.0-77.0); PLATELET COUNT 613 10^3/UL (140-415); RED BLOOD COUNT 3.42 10^6/ul (4.20-5.40); RED CELL DISTRIBUTION WIDTH 16.6 % (11.5-14.5)
[2017-01-16] MEDS: PANTOPRAZOLE (EC) 40 MG TAB PO SCH (05:23)
[2017-01-16 05:24] LABS: ALBUMIN 2.7 g/dl (3.3-4.9); ALBUMIN/GLOBULIN RATIO 0.81; BILIRUBIN,INDIRECT 0.1 mg/dl (0-1.1); BILIRUBIN,TOTAL 0.1 mg/dl (0.2-1.3); CALCIUM 8.7 mg/dl (8.4-10.2); CREATININE 0.43 mg/dl (0.44-1.00); POTASSIUM 3.7 mmol/L (3.5-5.1)
[2017-01-16] MEDS: LACTATED RINGER'S 1,000 ML IV SCH (07:36)
[2017-01-16] MEDS: SUCRALFATE 1 GM TAB PO SCH ×2 (09:05→20:49)
[2017-01-16] MEDS: FAMOTIDINE 20 MG TAB PO SCH ×2 (09:05→20:49)
[2017-01-16] MEDS: MEGESTROL (40 MG/ML) 10ML CUP PO SCH ×2 (09:05→20:50)
[2017-01-16] MEDS: GABAPENTIN 300 MG CAP PO SCH ×2 (09:05→20:48)
[2017-01-16 09:17] VITALS: BP 104/71; RESP 18
--- NOTE | 2017-01-16 13:50 | CONS ---
Date/Time of Note Date/Time of Note DATE: 01/16/17 TIME: 13:50 Assessment/Plan Assessment/Plan Chief Complaint/Hosp Course SUBJECTIVE: No acute changes. Alert, feels good, no fevers, no n/v/d INDWELLINGS: PICC line. PHYSICAL EXAMINATION: GENERAL: This is a cachectic, middle-aged white woman who is in no distress. HEENT: Head atraumatic, normocephalic. Sclerae anicteric. Buccal mucosa dry. NECK: Supple. CHEST: Rise symmetrical. Breath sounds diminished at the bases. HEART: S1, S2. ABDOMEN: Soft. Bowel tones present. Mid abdominal wound with some bloody drainage from midline. EXTREMITIES: Without cyanosis. Trace edema. ASSESSMENT: 1. Status post enterocutaneous fistula repair. 2. Status post rectal bleeding. 3. History of right hemicolectomy. 4. Status post fevers. PLAN: The patient remains stable, off abx, pending dc plan, f/u surgical rec-s DW pt Problems: Consultation Date/Type/Reason Admit Date/Time Dec 31, 2016 at 08:01 Type of Consultation: ID Exam/Review of Systems Vital Signs Vitals Vital Signs Date Time Temp Pulse Resp B/P Pulse Ox O2 Delivery O2 Flow Rate FiO2 01/16/17 09:17 97.3 93 18 104/71 97 Intake and Output 01/15/17 01/15/17 01/16/17 15:00 23:00 07:00 Intake Total 1460 ml 1280 ml Balance 1460 ml 1280 ml Results Result Diagram: 01/16/17 0430 01/16/17 0430 Results 24 hrs Laboratory Tests Test 01/16/17 04:30 White Blood Count 6.0 Red Blood Count 3.42 L Hemoglobin 9.4 L Hematocrit 29.2 L Mean Corpuscular Volume 85.4 Mean Corpuscular Hemoglobin 27.5 L Mean Corpuscular Hemoglobin Concent 32.2 Red Cell Distribution Width 16.6 H Platelet Count 613 H Mean Platelet Volume 9.6 Neutrophils % 60.1 Lymphocytes % 30.8 Monocytes % 6.0 Eosinophils % 2.3 Basophils % 0.3 Nucleated Red Blood Cells % 0.0 Neutrophils # 3.6 Lymphocytes # 1.8 Monocytes # 0.4 Eosinophils # 0.1 Basophils # 0.0 Nucleated Red Blood Cells # 0.0 Sodium Level 138 Potassium Level 3.7 Chloride Level 112 H Carbon Dioxide Level 21 Anion Gap 9 Blood Urea Nitrogen 3 L Creatinine 0.43 L Glucose Level 100 Calcium Level 8.7 Total Bilirubin 0.1 L Direct Bilirubin 0.00 Indirect Bilirubin 0.1 Aspartate Amino Transf (AST/SGOT) 18 Alanine Aminotransferase (ALT/SGPT) 22 Alkaline Phosphatase 95 Total Protein 6.0 L Albumin 2.7 L Globulin 3.30 H Albumin/Globulin Ratio 0.81 Medications Medications Current Medications Acetaminophen (Tylenol Tab) 650 mg Q6H PRN PO ELEVATED TEMPERATURE Last administered on 01/11/17 13:31; Admin Dose 650 MG; Start 12/31/16 at 19:00 Amitriptyline HCl (Elavil) 25 mg QHS PO Last administered on 01/07/17 20:35; Admin Dose 25 MG; Start 12/31/16 at 21:00 Aspirin (Aspirin) 81 mg DAILY PO Last administered on 01/01/17 08:57; Admin Dose 81 MG; Start 01/01/17 at 09:00; Status Future Hold Gabapentin (Neurontin) 600 mg BID PO Last administered on 01/16/17 09:05; Admin Dose 600 MG; Start 12/31/16 at 21:00 Hydroxyzine HCl (Atarax) 25 mg QHS PO Last administered on 01/08/17 21:07; Admin Dose 25 MG; Start 12/31/16 at 21:00 Ondansetron HCl (Zofran Inj) 4 mg Q6H PRN IV NAUSEA AND/OR VOMITING Last administered on 01/13/17 15:04; Admin Dose 4 MG; Start 12/31/16 at 19:00 Pantoprazole (Protonix Tab) 40 mg DAILY@06 PO Last administered on 01/16/17 05 :23; Admin Dose 40 MG; Start 01/01/17 at 06:00 Polyethylene Glycol (Miralax) 17 gm DAILY PRN PO CONSTIPATION; Start 12/31/16 at 19:00 Simethicone (Mylicon) 80 mg BID PRN PO DISTENSION/GAS/BLOATING; Start 12/31/16 at 19:00 Sucralfate (Carafate) 1 gm BID PO Last administered on 01/16/17 09:05; Admin Dose 1 GM; Start 12/31/16 at 21:00 Topiramate (Topamax) 100 mg QHS PO Last administered on 01/15/17 20:10; Admin Dose 100 MG; Start 12/31/16 at 21:00 Trazodone HCl (Desyrel) 50 mg QHS PO Last administered on 01/15/17 20:10; Admin Dose 50 MG; Start 12/31/16 at 21:00 Zolpidem Tartrate (Ambien) 10 mg QHS PRN PO INSOMNIA Last administered on 20:09; Admin Dose 10 MG; Start 12/31/16 at 19:00 Phenol (Cepastat Lozenge) 1 lozenge Q4H PRN MT sore throat Last administered on 01/03/17 07:28; Admin Dose 1 LOZENGE; Start 01/01/17 at 20:30 Hydromorphone HCl 0.75 mg 0.75 mg Q3H PRN IV PAIN Last administered on 12:41; Admin Dose 0.75 MG; Start 01/02/17 at 18:38 Lactated Ringer's (Lr) 1,000 ml @ 100 mls/hr Q10H IV Last administered on 01/16 07:36; Admin Dose 100 MLS/HR; Start 01/03/17 at 14:15 Famotidine (Pepcid) 20 mg BID PO Last administered on 01/16/17 09:05; Admin Dose 20 MG; Start 01/08/17 at 21:00 Bisacodyl (Dulcolax) 10 mg DAILY PRN PO CONSTIPATION; Start 01/13/17 at 10:30 Megestrol Acetate (Megace Susp) 800 mg BID PO Last administered on 01/16/17 09 :05; Admin Dose 800 MG; Start 01/13/17 at 21:00 Acetaminophen/ Hydrocodone Bitart ([place] (5/325)) 1 tab Q6H PRN PO PAIN; Start 01/14/17 at 14:00 BÁRBARA SMITH NP January 16, 2017 13:50
--- NOTE | 2017-01-16 15:10 | PN ---
Date/Time of Note Date/Time of Note DATE: 01/16/17 TIME: 15:08 Assessment/Plan VTE Prophylaxis VTE Prophylaxis Intervention: other Lines/Catheters IV Catheter Type (from Nrs): PICC Line Central line still needed: Yes Urinary Cath still in place: No Reason Cath still needed: other (indicate) Assessment/Plan Chief Complaint/Hosp Course IMPRESSION: 1. s/p abd pain 2. s/p abd surgery 3 post op anemia 4 post op gi bleed stable 5 sepsis 6 1. Enterocutaneous fistula takedown and repair. 2. Partial colectomy. 3. [place]-enteric anastomosis. 4. Open lysis of adhesions of approximately 1 hour. hyponatremia plan antibiotic per surgery per gi home Problems: Subjective 24 Hr Interval Summary Respiratory: no complaints Cardiovascular: no complaints Exam/Review of Systems Vital Signs Vitals Vital Signs Date Time Temp Pulse Resp B/P Pulse Ox O2 Delivery O2 Flow Rate FiO2 01/16/17 09:17 97.3 93 18 104/71 97 Intake and Output 01/15/17 01/15/17 01/16/17 15:00 23:00 07:00 Intake Total 1460 ml 1280 ml Balance 1460 ml 1280 ml Exam Respiratory: clear to auscultation Cardiovascular: regular rate and rhythm Gastrointestinal: soft Musculoskeletal: nl extremities to inspection Extremities: normal pulses Results Result Diagram: 01/16/17 0430 01/16/17 0430 Results 24 hrs Laboratory Tests Test 01/16/17 04:30 White Blood Count 6.0 Red Blood Count 3.42 L Hemoglobin 9.4 L Hematocrit 29.2 L Mean Corpuscular Volume 85.4 Mean Corpuscular Hemoglobin 27.5 L Mean Corpuscular Hemoglobin Concent 32.2 Red Cell Distribution Width 16.6 H Platelet Count 613 H Mean Platelet Volume 9.6 Neutrophils % 60.1 Lymphocytes % 30.8 Monocytes % 6.0 Eosinophils % 2.3 Basophils % 0.3 Nucleated Red Blood Cells % 0.0 Neutrophils # 3.6 Lymphocytes # 1.8 Monocytes # 0.4 Eosinophils # 0.1 Basophils # 0.0 Nucleated Red Blood Cells # 0.0 Sodium Level 138 Potassium Level 3.7 Chloride Level 112 H Carbon Dioxide Level 21 Anion Gap 9 Blood Urea Nitrogen 3 L Creatinine 0.43 L Glucose Level 100 Calcium Level 8.7 Total Bilirubin 0.1 L Direct Bilirubin 0.00 Indirect Bilirubin 0.1 Aspartate Amino Transf (AST/SGOT) 18 Alanine Aminotransferase (ALT/SGPT) 22 Alkaline Phosphatase 95 Total Protein 6.0 L Albumin 2.7 L Globulin 3.30 H Albumin/Globulin Ratio 0.81 Medications Medications Current Medications Acetaminophen (Tylenol Tab) 650 mg Q6H PRN PO ELEVATED TEMPERATURE Last administered on 01/11/17 13:31; Admin Dose 650 MG; Start 12/31/16 at 19:00 Amitriptyline HCl (Elavil) 25 mg QHS PO Last administered on 01/07/17 20:35; Admin Dose 25 MG; Start 12/31/16 at 21:00 Aspirin (Aspirin) 81 mg DAILY PO Last administered on 01/01/17 08:57; Admin Dose 81 MG; Start 01/01/17 at 09:00; Status Future Hold Gabapentin (Neurontin) 600 mg BID PO Last administered on 01/16/17 09:05; Admin Dose 600 MG; Start 12/31/16 at 21:00 Hydroxyzine HCl (Atarax) 25 mg QHS PO Last administered on 01/08/17 21:07; Admin Dose 25 MG; Start 12/31/16 at 21:00 Ondansetron HCl (Zofran Inj) 4 mg Q6H PRN IV NAUSEA AND/OR VOMITING Last administered on 01/13/17 15:04; Admin Dose 4 MG; Start 12/31/16 at 19:00 Pantoprazole (Protonix Tab) 40 mg DAILY@06 PO Last administered on 01/16/17 05 :23; Admin Dose 40 MG; Start 01/01/17 at 06:00 Polyethylene Glycol (Miralax) 17 gm DAILY PRN PO CONSTIPATION; Start 12/31/16 at 19:00 Simethicone (Mylicon) 80 mg BID PRN PO DISTENSION/GAS/BLOATING; Start 12/31/16 at 19:00 Sucralfate (Carafate) 1 gm BID PO Last administered on 01/16/17 09:05; Admin Dose 1 GM; Start 12/31/16 at 21:00 Topiramate (Topamax) 100 mg QHS PO Last administered on 01/15/17 20:10; Admin Dose 100 MG; Start 12/31/16 at 21:00 Trazodone HCl (Desyrel) 50 mg QHS PO Last administered on 01/15/17 20:10; Admin Dose 50 MG; Start 12/31/16 at 21:00 Zolpidem Tartrate (Ambien) 10 mg QHS PRN PO INSOMNIA Last administered on 20:09; Admin Dose 10 MG; Start 12/31/16 at 19:00 Phenol (Cepastat Lozenge) 1 lozenge Q4H PRN MT sore throat Last administered on 01/03/17 07:28; Admin Dose 1 LOZENGE; Start 01/01/17 at 20:30 Hydromorphone HCl 0.75 mg 0.75 mg Q3H PRN IV PAIN Last administered on 12:41; Admin Dose 0.75 MG; Start 01/02/17 at 18:38 Lactated Ringer's (Lr) 1,000 ml @ 100 mls/hr Q10H IV Last administered on 01/16 07:36; Admin Dose 100 MLS/HR; Start 01/03/17 at 14:15 Famotidine (Pepcid) 20 mg BID PO Last administered on 01/16/17 09:05; Admin Dose 20 MG; Start 01/08/17 at 21:00 Bisacodyl (Dulcolax) 10 mg DAILY PRN PO CONSTIPATION; Start 01/13/17 at 10:30 Megestrol Acetate (Megace Susp) 800 mg BID PO Last administered on 01/16/17 09 :05; Admin Dose 800 MG; Start 01/13/17 at 21:00 Acetaminophen/ Hydrocodone Bitart ([place] (5/325)) 1 tab Q6H PRN PO PAIN; Start 01/14/17 at 14:00 MARTINEZ MELVIN MD January 16, 2017 15:10
--- NOTE | 2017-01-16 15:11 | PDOCDIS ---
Discharge Instructions CONDITION Patient Condition: Stable HOME CARE INSTRUCTIONS: Special Diet: SOFT DIET ACTIVITY: Activity Restrictions: Slowly Increase Activity FOLLOW UP/APPOINTMENTS Appointments f/u own pcp [address] cavazos 1 wk MARTINEZ MELVIN MD January 16, 2017 15:11
[2017-01-16] MEDS ORDERED: MEGE400O4 PO (15:15)
[2017-01-16] MEDS ORDERED: BENZ1LOZ4 MT (15:15)
[2017-01-16] MEDS ORDERED: MYL80 PO (15:15)
[2017-01-16] MEDS ORDERED: PANT40TA4 PO (15:15)
[2017-01-16] MEDS ORDERED: SUCR1TAB56 PO (15:15)
[2017-01-16] MEDS ORDERED: ZOLP5TAB PO (15:15)
[2017-01-16] MEDS ORDERED: POLY17PO6 PO (15:15)
[2017-01-16 19:58] VITALS: BP 112/70; RESP 18
[2017-01-16] MEDS ORDERED: HYDROmorphONE 2 MG TAB PO ONE (20:15)
[2017-01-16] MEDS: TOPIRAMATE 100 MG TAB PO SCH (20:48)
[2017-01-16] MEDS: AMITRIPTYLINE 25 MG TAB PO SCH (20:49)
[2017-01-16] MEDS: traZODone 50 MG TAB PO SCH (20:49)
[2017-01-16] MEDS: hydrOXYzine HCL 25 MG TAB PO SCH (20:49)
== END 2017-01-16 21:30 | disposition home health service (06) | DRG 329 ==
LOC: E/R 07:35 → PP2 08:01
PROVIDERS: ADMIT Internal Medicine Nephrology; ATTEND Internal Medicine Nephrology
PROC: 0DNE0ZZ Release Large Intestine, Open Approach (ICD-10-PCS; 2017-01-03)
PROC: 0DBE0ZZ Excision of Large Intestine, Open Approach (ICD-10-PCS; principal; 2017-01-03 12:00)
PROC: 30243N1 Transfusion of Nonautologous Red Blood Cells into Central Vein, Percutaneous Approach (ICD-10-PCS; 2017-01-04)
DX: K63.2 Fistula of intestine (principal); A41.9 Sepsis, unspecified organism; E87.1 Hypo-osmolality and hyponatremia; K91.840 Postprocedural hemorrhage of a digestive system organ or structure following a digestive system procedure; K64.9 Unspecified hemorrhoids; E87.6 Hypokalemia; F17.210 Nicotine dependence, cigarettes, uncomplicated; Z90.49 Acquired absence of other specified parts of digestive tract; R33.9 Retention of urine, unspecified; Z79.82 Long term (current) use of aspirin; D64.9 Anemia, unspecified; Y83.8 Other surgical procedures as the cause of abnormal reaction of the patient, or of later complication, without mention of misadventure at the time of the procedure; Y92.230 Patient room in hospital as the place of occurrence of the external cause
CPT/HCPCS: 36415; 36430; 71010; 74000; 74177; 76700; 80048; 80053; 81001; 81003; 83735; 84100; 84134; 84466; 84484; 85014; 85018; 85025; 85610; 85730; 86078; 86850; 86900; 86901; 86920; 87040; 87070; 87075; 87086; 88304; J0744; J1100; J1170; J1200; J1885; J2250; J2370; J2405; J2543; J2710; J2795; J3010; J3030; J3480; J7040; J7120; P9016; Q9967

== ENCOUNTER 2017-02-12 07:28 | Inpatient (IN) | payer BC ==
[~2017-02-12] VITALS: Ht 165.1 cm; Wt 52.0 kg
[~2017-02-12 07:28] MED LIST changes: -FAMO20VI9 IV; +MEGE400O4 PO; -ONDA4VIA2 IV; -Oxycodone/Acetamin (5/325) PO
[2017-02-12] MEDS ORDERED: SOD CHLORIDE 0.9% 1,000 ML IV STA (08:05)
[2017-02-12] MEDS ORDERED: LIDOCAINE 1% (MPF) 5 ML VIAL SC ONE ×2 (08:30→09:00)
[2017-02-12] MEDS ORDERED: KETOROLAC 15 MG INJ IV STA (08:36)
[2017-02-12] MEDS ORDERED: RANI150T5 PO (08:44)
--- NOTE | 2017-02-12 08:45 | ERA ---
ER Documentation Chief Complaint Date/Time DATE: 02/12/17 TIME: 08:44 Chief Complaint ap, poor apetite s/p abd surgery 01/04/17 HPI 52-year-old woman complains of recent poor appetite and multiple episodes of loose stools and diarrhea. She is status post partial colectomy and coloenteric anastomosis with repair. Her general surgeon who I spoke to earlier states she has lost 40-50 pounds over the last few weeks. Patient states she feels weak and has complaints of pain, and states she has not been eating much due to loss of appetite. She denies fevers or chills, no dysuria, no chest pain or shortness of breath, no headache or blurry vision, no suicidal homicidal ideation. ROS All systems reviewed and are negative except as per history of present illness. Medications Home Meds Active Scripts Sucralfate* (Carafate*) 1 Gm Tab, 1 GM PO BID for 28 Days, TAB Prov:MARTINEZ MELVIN MD 01/16/17 Reported Medications Ranitidine Hcl* (Ranitidine Hcl*) 150 Mg Tablet, 150 MG PO QAM, #30 TAB 02/12/17 Hydroxyzine Hcl* (Hydroxyzine Hcl*) 25 Mg Tablet, 25 MG PO QHS, #30 TAB 11/18/16 Trazodone Hcl* (Trazodone Hcl*) 50 Mg Tablet, 50 MG PO QHS, #30 TAB 11/18/16 Zolpidem Tartrate* (Zolpidem Tartrate*) 10 Mg Tablet, 10 MG PO QHS Y for INSOMNIA, #30 TAB 11/18/16 Topiramate* (Topiramate*) 100 Mg Tablet, 100 MG PO QHS, TAB 11/18/16 Gabapentin* (Gabapentin*) 600 Mg Tablet, 600 MG PO BID, #60 TAB 11/18/16 Aspirin* (Aspirin* Chew) 81 Mg Tab.chew, 81 MG PO DAILY, TAB.CHEW 11/18/16 Discontinued Reported Medications Amitriptyline Hcl* (Amitriptyline Hcl*) 25 Mg Tablet, 25 MG PO QHS, #30 TAB 11/18/16 Discontinued Scripts Benzocaine/Menthol (SORE THROAT LOZENGE) 1 Each Lozenge, 1 LOZENGE MT Q4H Y for sore throat for 7 Days, LOZENGE Prov:MARTINEZ MELVIN MD 01/16/17 Megestrol Acetate (Megestrol Acetate) 400 Mg/10 Ml Oral.susp, 800 MG PO BID for 7 Days, #14 Prov:MARTINEZ MELVIN MD 01/16/17 Simethicone* (Mylicon*) 80 Mg Tab, 80 MG PO BID Y for DISTENSION/GAS/BLOATING for 28 Days, TAB Prov:MARTINEZ MELVIN MD 01/16/17 Polyethylene Glycol* (Miralax*) 17 Gm Powd.pack, 17 GM PO DAILY Y for CONSTIPATION for 14 Days Prov:MARTINEZ MELVIN MD 01/16/17 Zolpidem Tartrate (Ambien [place]) 5 Mg Tablet, 5 MG PO HS MAY REPEAT X 1 Y for INSOMNIA for 28 Days, TAB Prov:MARTINEZ MELVIN MD 01/16/17 Pantoprazole* (Pantoprazole*) 40 Mg Tablet.dr, 40 MG PO DAILY for 28 Days, TAB Prov:MARTINEZ MELVIN MD 01/16/17 Benzocaine/Menthol (SORE THROAT LOZENGE) 1 Each Lozenge, 1 LOZENGE MT Q1H Y for SORE THROAT for 7 Days, LOZENGE Prov:MARTINEZ MELVIN MD 12/10/16 Acetaminophen (MAPAP) 325 Mg Tablet, 650 MG PO Q6H Y for ELEVATED TEMPERATURE for 14 Days, TAB Prov:MARTINEZ MELVIN MD 12/10/16 Allergies Allergies: Coded Allergies: succinylcholine (Unverified Allergy, Unknown, CARDIAC ARRHYTHMIA, 02/12/17) PMhx/Soc Enterococcus and staph infection, hypertension, depression, gastritis, recent enterocutaneous fistula takedown and repair with partial colectomy, coloenteric anastomosis and subsequent repair, and open lysis of adhesions History of Surgery: Yes (polypectomy, right hemicolectomy ) Anesthesia Reaction: No Hx Neurological Disorder: No Hx Respiratory Disorders: Yes (SEASONAL ALLERGIES) Hx Cardiac Disorders: No Hx Psychiatric Problems: Yes (anxiety and depression) Hx Miscellaneous Medical Probl: No Hx Alcohol Use: Yes (occasional) Hx Substance Use: Yes Hx Tobacco Use: Yes Smoking Status: Never smoker FmHx Family History: diabetes Physical Exam Vitals Vital Signs Date Time Temp Pulse Resp B/P Pulse Ox O2 Delivery O2 Flow Rate FiO2 02/12/17 11:01 98.3 69 18 95/56 98 Room Air 02/12/17 07:33 97.8 75 18 152/60 99 Physical Exam GENERAL: Well-developed, well-nourished, appears dehydrated, afebrile HEENT: Dry mucous membranes, pink conjunctiva, no cervical spine tenderness or step-off deformities, no goiter, no jaundice or icterus, extraocular movements intact without pain. No submandibular induration, and no pharyngeal erythema NEURO: Alert and oriented 3, cranial nerves II through XII intact bilaterally, pupils equal round reactive to light, no focal deficits or facial asymmetry, sensation intact distally Strength 5/5 in upper and lower extremities bilaterally CARDIAC: Regular rate and rhythm, no murmurs rubs or gallops LUNGS: Clear bilaterally no wheezing crackles or stridor ABDOMEN: Soft nontender, no guarding, no masses. Surgical site appears clean and dry without discharge, good wound healing noted, although there are 2 2-4 cm areas of wound dehiscence with granulation tissue present closing by secondary intention SKIN: Warm and dry to touch, no abrasions, contusions, or hematomas, no lacerations, no ecchymosis, no target lesions, and without ulcers EXTREMITIES: No clubbing cyanosis or edema, calves are bilaterally symmetrical, no Homans sign, no popliteal cord sign. Distal pulses equal and bilateral PSYCH: Normal affect without agitation or irritability Results 24 hrs Current Medications Medications (Trade) Dose Ordered Sig/Juan A Route PRN Reason Start Time Stop Time Status Last Admin Dose Admin Lidocaine 5 ml 5 ml ONCE ONCE SC 02/12/17 08:30 02/12/17 08:31 DC Sodium Chloride (NS) 1,000 ml @ 1,000 mls/hr Q1H STAT IV 02/12/17 08:05 02/12/17 09:04 DC 02/12/17 08:31 Ketorolac Tromethamine (Toradol) 15 mg ONCE STAT IV 02/12/17 08:36 02/12/17 08:37 DC 02/12/17 08:58 Lidocaine 5 ml 5 ml ONCE ONCE SC 02/12/17 09:00 02/12/17 09:02 DC Sodium Chloride (NS) 100 ml @ ud STK-MED ONCE .ROUTE 02/12/17 10:39 02/12/17 10:40 DC 02/12/17 10:00 IV Flush (NS 10 ml) 10 ml PRN PRN IV IV PROTOCOL 02/12/17 11:00 Procedures/MDM IV line was established patient was placed on cardiac cath lab manager rhythm strip revealed a sinus rhythm at about 70 bpm with upright P and T waves. Patient was afebrile. For dehydration I administered 2 L normal saline intravenously, and for pain she received Toradol 15 mg IV 1. EKG performed, read by me: 72 bpm, normal sinus rhythm, normal axis, no acute ST segment changes, narrow QRS complex, with good R-wave progression in precordial leads. I administered 2 L normal saline intravenously for dehydration and Toradol 15 mg IV for pain control. I ordered PICC line placement, PICC line was placed in anticipation of total parenteral nutrition therapy. CBC was unremarkable, electrolytes revealed dehydration, liver function tests are normal, troponin was negative. Urine analysis is also been ordered results are pending I will follow-up. C. difficile and stool cultures have been ordered results are also pending. Patient to be admitted to [facility] for continued medical management and surgical consultation. Departure Diagnosis: Primary Impression: Diarrhea Qualified Code: R19.7 - Diarrhea, unspecified type Additional Impressions: Unexplained weight loss Dehydration Depression Qualified Code: F32.1 - Moderate single current episode of major depressive disorder Condition: FILIPPO Mascorro MD Feb 12, 2017 08:45
--- NOTE | 2017-02-12 10:01 | RADRPT ---
PROCEDURE: US guidance for PICC line CLINICAL INDICATION: PICC line placement TECHNIQUE: Multiple real-time images were acquired of the patient's arm utilizing a high resolutio n transducer. This was performed by the PICC line nurse for venous access. COMPARISON: None FINDINGS: Ultrasound guidance for PICC line placement. There is a patent and compressible right upper extremity vein. IMPRESSION: Ultrasound guidance for PICC line placement. RPTAT: AA Physician Kieran Date Time Electronically viewed and signed by Physician Kieran on 02/12/2017 10:01 /
--- NOTE | 2017-02-12 10:03 | RADRPT ---
PROCEDURE: XR Chest. CLINICAL INDICATION: Check Line Placement TECHNIQUE: Single frontal view of the chest was obtained. COMPARISON: Chest x-ray from 01/10/2017 FINDINGS: There is a right-sided PICC line with its tip in the distal SVC. The heart and mediastinum are within normal limits. The lungs are clear. There is no significant pleural effusion or pneumothorax. IMPRESSION: No acute disease. Right-sided PICC line with its tip in the distal SVC. RPTAT: EE Physician Kieran Date Time Electronically viewed and signed by Horace Carter Physician on 02/12/2017 10:03 /
[2017-02-12] MEDS ORDERED: SOD CHLORIDE 0.9% 100 ML ONE (10:39)
[2017-02-12 11:01] VITALS: TEMP 98.3
[2017-02-12] MEDS ORDERED: HYDROmorphONE 1 MG/ML SYG IV STA (11:19)
[2017-02-12 12:08] LABS: ADD SCAN DIFF NO
[2017-02-12 12:11] LABS: BASOPHILS % 0.2 % (0.0-2.0); EOSINOPHILS # 0.1 10^3/ul (0.0-0.5); EOSINOPHILS % 1.7 % (0.0-7.0); HEMATOCRIT 32.9 % (37.0-47.0); HEMOGLOBIN 10.8 g/dl (12.0-16.0); LYMPHOCYTES # 2.2 10^3/ul (0.8-2.9); LYMPHOCYTES % 46.6 % (15.0-51.0); MEAN CORPUSCULAR HEMOGLOBIN 28.3 pg (29.0-33.0); MEAN CORPUSCULAR HGB CONC 32.8 g/dl (32.0-37.0); MEAN CORPUSCULAR VOLUME 86.1 fl (82.0-101.0); MEAN PLATELET VOLUME 10.7 fl (7.4-10.4); MONOCYTE # 0.2 10^3/ul (0.3-0.9); MONOCYTES % 4.7 % (0.0-11.0); NEUTROPHIL # 2.2 10^3/ul (1.6-7.5); NEUTROPHILS % 46.6 % (39.0-77.0); PLATELET COUNT 224 10^3/UL (140-415); RED BLOOD COUNT 3.82 10^6/ul (4.20-5.40); RED CELL DISTRIBUTION WIDTH 17.8 % (11.5-14.5); WHITE BLOOD COUNT 4.7 10^3/ul (4.8-10.8)
[2017-02-12 12:29] LABS: INR 1.22; PROTIME 15.5 Sec (12.2-14.2); PT RATIO 1.2
[2017-02-12 12:34] LABS: ALANINE AMINOTRANSFERASE 24 IU/L (13-69); ALBUMIN 3.5 g/dl (3.3-4.9); ALBUMIN/GLOBULIN RATIO 1.66; ALKALINE PHOSPHATASE 97 IU/L (42-121); ANION GAP 13 (8-16); ASPARTATE AMINO TRANSFERASE 14 IU/L (15-46); BLOOD UREA NITROGEN 13 mg/dl (7-20); CARBON DIOXIDE 18 mmol/L (21-31); CHLORIDE 111 mmol/L (97-110); CREATININE 0.49 mg/dl (0.44-1.00); GLUCOSE 64 mg/dl (70-220); POTASSIUM 3.5 mmol/L (3.5-5.1); SODIUM 138 mmol/L (135-144); TOTAL PROTEIN 5.6 g/dl (6.1-8.1)
[2017-02-12 12:46] LABS: TROPONIN-I < 0.012 ng/ml (0.00-0.12)
--- NOTE | 2017-02-12 13:44 | RADRPT ---
PROCEDURE: CT Abdomen and Pelvis without contrast. CLINICAL INDICATION: Pain, weakness, evaluate for fistula TECHNIQUE: CT of the abdomen and pelvis was performed on a multi-detector scanner without IV contr ast. Coronal and sagittal images were reformatted from the axial data set. One or more of the foll owing dose reduction techniques were used: automated exposure control, adjustment of the mA and/or kV according to patient size, use of iterative reconstruction technique. CTDI = 5.01 mGy. DLP = 257 .29 mGy-cm. COMPARISON: None. FINDINGS: CT abdomen: The lung bases are clear. The heart size is normal, without pericardial effusion. Liver, gallbladd er, biliary tree, pancreas, spleen and adrenal glands are unremarkable. Tiny bilateral nonobstructi ve renal calculi are noted, without ureterolithiasis or obstructive uropathy. The stomach is grossl y unremarkable. The aorta is of normal caliber. Aortic vascular calcifications are present. There is no retroperit weston lymphadenopathy. The gage hepatis region is clear. CT pelvis: No bowel obstruction, free intraperitoneal air or abscess is identified. The patient is status post partial right colectomy, with unremarkable appearance of the surgical staple line. Stranding is id entified within the peritoneal fat deep to the incision site, suggestive of fat necrosis. Diverticu losis, diverticulitis or colitis is identified. Urinary bladder, uterus and adnexa are grossly unre markable. No pelvic mass, free fluid or lymphadenopathy is identified. The surrounding osseous structures are remarkable for chronic bilateral L5 spondylolysis, without as sociated spondylolisthesis. No osteolytic or osteoblastic lesion is detected. IMPRESSION: 1. The patient is status post partial right colectomy, with unremarkable appearance of the surgical staple line. 2. There is stranding within the peritoneal fat deep to the incision site, suggestive of focal fat necrosis. 3. No gross evidence of cutaneous fistula is seen, though sensitivity is somewhat limited without o ral / IV contrast. If there remains high clinical suspicion for cutaneous fistula, consider fistuag fawn or contrast enhanced CT for further evaluation. 4. Tiny bilateral nonobstructive renal calculi are noted, without ureterolithiasis or obstructive u ropathy. 5. Aortoiliac atherosclerotic calcifications are present. RPTAT: EE .Kevon Renteria MD, MD Date Time Electronically viewed and signed by .Kevon Renteria MD, MD on 02/12/2017 13:44 .R/
[2017-02-12 14:17] LABS: ADD UMIC YES; URINE BILIRUBIN (Dip) 2+ (NEGATIVE); URINE BLOOD (Dip) 3+ (NEGATIVE); URINE COLOR LT. YELLOW (YELLOW); URINE GLUCOSE (Dip) NEGATIVE (NEGATIVE); URINE KETONES (Dip) 3+ (NEGATIVE); URINE LEUKOCYTE ESTERASE (Dip) TRACE (NEGATIVE); URINE NITRITE (Dip) NEGATIVE (NEGATIVE); URINE TOTAL PROTEIN (Dip) TRACE (NEGATIVE); URINE UROBILINOGEN (Dip) 0.2 E.U./dL (0.1-1.0)
[2017-02-12 14:28] LABS: BACTERIA,URINE MANY; ICTOTEST NEGATIVE (NEGATIVE); MUCUS,URINE MANY
[2017-02-12] MEDS ORDERED: morphine 10 MG INJ IV ONE (15:00)
[2017-02-12] MEDS ORDERED: NACL 0.9% 3 ML SYG IV SCH (15:30)
[2017-02-12] MEDS ORDERED: ACETAMINOPHEN 325 MG TAB PO PRN (15:30)
[2017-02-12] MEDS ORDERED: BISACODYL (EC) 5 MG TAB PO PRN (15:30)
[2017-02-12] MEDS ORDERED: DOCUSATE SODIUM 100 MG CAP PO PRN (15:30)
[2017-02-12] MEDS ORDERED: ONDANSETRON 4 MG INJ IV PRN (15:30)
[2017-02-12] MEDS ORDERED: ACETAMINOPHEN 650 MG SUPP PR PRN (15:30)
[2017-02-12] MEDS ORDERED: MAGNESIUM HYDROXIDE 30ML CUP PO PRN (15:30)
[2017-02-12] MEDS: D5W-0.45 NACL + KCL 20 MEQ 1,000 ML IV SCH (16:16)
--- NOTE | 2017-02-12 18:17 | QN ---
Documentation Comment [id number] MARTINEZ MELVIN MD Feb 12, 2017 18:17
[2017-02-12] MEDS: HYDROmorphONE 1 MG/ML SYG IV PRN ×2 (18:56→23:19)
[2017-02-12] MEDS: HYDROCODONE/APAP (5/325) TAB PO PRN (20:06)
[2017-02-12] MEDS: hydrOXYzine HCL 25 MG TAB PO SCH (21:00)
[2017-02-12] MEDS: traZODone 50 MG TAB PO SCH (21:51)
[2017-02-12] MEDS: SUCRALFATE 1 GM TAB PO SCH (21:51)
[2017-02-12] MEDS: GABAPENTIN 300 MG CAP PO SCH (21:51)
[2017-02-12] MEDS: TOPIRAMATE 100 MG TAB PO SCH (21:51)
[2017-02-12 21:59] VITALS: Ht 165.1 cm; Wt 52.0 kg
[2017-02-12] MEDS: ZOLPIDEM 5 MG TAB PO PRN (22:19)
[2017-02-13] MEDS: HYDROmorphONE 1 MG/ML SYG IV PRN ×6 (03:13→22:00)
[2017-02-13] MEDS: PANTOPRAZOLE 40 MG INJ IV SCH (05:43)
[2017-02-13] MEDS: HYDROCODONE/APAP (5/325) TAB PO PRN ×3 (06:04→20:12)
--- NOTE | 2017-02-13 06:49 | HP ---
DATE OF ADMISSION: 02/12/2017 HISTORY OF PRESENT ILLNESS: A 52-year-old female who has a history of enterocutaneous fistula takedown and repair, partial colectomy, coloenteric anastomosis, lysis of adhesion, hyponatremia who presents to this hospital complaining of poor p.o. intake, nausea, vomiting. Still has open wound and is being admitted for further management. The patient was seen in the ER and noted to have WBC 4.7, hematocrit , platelet count of 224. Sodium 130, potassium 3.5. Patient has abdominal pelvic CT scan that shows patient is status post partial right colectomy with unremarkable appearance and a stable surgical site. There is stranding within the peritoneal fat _focal fat necrosis. No gross evidence of cutaneous fistula is seen nonobstructive renal calculi The patient is admitted with ongoing abdominal wound. Patient had a PICC line placement. PAST MEDICAL HISTORY: The patient's other history includes: 1. Laparoscopic right hemicolectomy. 2. Electrolyte imbalance. 3. History of colonoscopy. 4. History of polypectomy. 5. History of depression. 6. History of enterocutaneous fistula repair. ALLERGIES: PENICILLIN. SOCIAL HISTORY: Negative at this point for smoking and drinking. MEDICATION HISTORY: The patient is on: 1. Aspirin. 2. Gabapentin. 3. Hydroxyzine. 4. Ranitidine 5. Carafate. 6. Topamax. 7. Trazodone. 8. Ambien. REVIEW OF SYSTEMS: HEENT: Unremarkable. RESPIRATORY: Unremarkable. CARDIOVASCULAR: Unremarkable. ABDOMEN: As mentioned above. EXTREMITIES: Unremarkable. PHYSICAL EXAMINATION: GENERAL: The patient is awake, alert. VITAL SIGNS: Stable. HEAD: Atraumatic, normocephalic. Pupils equal, reactive to light. NECK: Supple. No JVD. LUNGS: Clear. CARDIOVASCULAR: S1, S2 normal. ABDOMEN: Soft, nontender. The patient has abdominal wound and clear discharge noted _ noted at this point. EXTREMITIES: There is no cyanosis, clubbing, or edema. CENTRAL NERVOUS SYSTEM: The patient is awake, alert, no focal deficit. LABORATORY DATA: Shows WBC 4.7, hematocrit 32.9, platelet count of 224, CO2 18. IMPRESSION: 1. Nonhealing abdominal wound. 2. Malnutrition. 3. Metabolic acidosis. 4. Anemia. 5. Neutropenia 6. History of right hemicolectomy. 7. History of abd wound_infection. 8. History of enterocutaneous fistula and repair. PLAN: At this point is to give this patient wound care, IV fluid, possible TPN. The patient will benefit from CT of the abdomen and pelvis with p.o. contrast and DVT prophylaxis. Orders were done. Dictated By: MARTINEZ MELVIN MD BS/NTS Conf#: [id number] DID#: [id number]
[2017-02-13] MEDS: GABAPENTIN 300 MG CAP PO SCH ×2 (08:24→20:11)
[2017-02-13] MEDS: RANITIDINE 150 MG TAB PO SCH (08:24)
[2017-02-13] MEDS: ASPIRIN 81 MG TAB PO SCH (08:24)
[2017-02-13] MEDS: SUCRALFATE 1 GM TAB PO SCH ×2 (08:24→20:12)
[2017-02-13 08:42] VITALS: BP 88/56; RESP 20
[2017-02-13] MEDS: D5W-0.45 NACL + KCL 20 MEQ 1,000 ML IV SCH (09:26)
[2017-02-13 09:50] LABS: ADD SCAN DIFF NO
[2017-02-13 09:51] LABS: BASOPHILS % 0.5 % (0.0-2.0); EOSINOPHILS # 0.2 10^3/ul (0.0-0.5); EOSINOPHILS % 3.2 % (0.0-7.0); HEMATOCRIT 35.2 % (37.0-47.0); HEMOGLOBIN 11.4 g/dl (12.0-16.0); LYMPHOCYTES % 32.9 % (15.0-51.0); MEAN CORPUSCULAR HEMOGLOBIN 28.1 pg (29.0-33.0); MEAN CORPUSCULAR HGB CONC 32.4 g/dl (32.0-37.0); MEAN CORPUSCULAR VOLUME 86.9 fl (82.0-101.0); MEAN PLATELET VOLUME 10.1 fl (7.4-10.4); MONOCYTE # 0.2 10^3/ul (0.3-0.9); MONOCYTES % 3.5 % (0.0-11.0); NEUTROPHIL # 3.7 10^3/ul (1.6-7.5); NEUTROPHILS % 59.7 % (39.0-77.0); PLATELET COUNT 225 10^3/UL (140-415); RED BLOOD COUNT 4.05 10^6/ul (4.20-5.40); RED CELL DISTRIBUTION WIDTH 17.8 % (11.5-14.5); WHITE BLOOD COUNT 6.2 10^3/ul (4.8-10.8)
[2017-02-13 10:10] LABS: ALBUMIN 3.5 g/dl (3.3-4.9); ALBUMIN/GLOBULIN RATIO 1.52; CALCIUM 8.3 mg/dl (8.4-10.2); CREATININE 0.47 mg/dl (0.44-1.00); POTASSIUM 3.6 mmol/L (3.5-5.1); TOTAL PROTEIN 5.8 g/dl (6.1-8.1)
--- NOTE | 2017-02-13 17:15 | PN ---
Date/Time of Note Date/Time of Note DATE: 02/13/17 TIME: 17:14 Assessment/Plan VTE Prophylaxis VTE Prophylaxis Intervention: other Lines/Catheters IV Catheter Type (from Nrs): PICC Line Central line still needed: Yes Reason Cath still needed: other (indicate) Assessment/Plan Chief Complaint/Hosp Course IMPRESSION: 1. Nonhealing abdominal wound. 2. Malnutrition. 3. Metabolic acidosis. 4. Anemia. 5. Neutropenia 6. History of right hemicolectomy. 7. History of abd wound_infection. 8. History of enterocutaneous fistula and repair. 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 consult Problems: Subjective 24 Hr Interval Summary Subjective hx not possible: other (poor po intake) Exam/Review of Systems Vital Signs Vitals Vital Signs Date Time Temp Pulse Resp B/P Pulse Ox O2 Delivery O2 Flow Rate FiO2 02/13/17 08:42 98.5 74 20 88/56 95 02/12/17 20:34 Room Air Intake and Output 02/12/17 02/12/17 02/13/17 15:00 23:00 07:00 Intake Total 1190 ml Balance 1190 ml Exam Respiratory: clear to auscultation Cardiovascular: regular rate and rhythm Gastrointestinal: bowel sounds (+), soft Results Result Diagram: 02/13/17 0940 02/13/17 0940 Results 24 hrs Laboratory Tests Test 02/13/17 09:40 White Blood Count 6.2 # Red Blood Count 4.05 L Hemoglobin 11.4 L Hematocrit 35.2 L Mean Corpuscular Volume 86.9 Mean Corpuscular Hemoglobin 28.1 L Mean Corpuscular Hemoglobin Concent 32.4 Red Cell Distribution Width 17.8 H Platelet Count 225 Mean Platelet Volume 10.1 Neutrophils % 59.7 Lymphocytes % 32.9 Monocytes % 3.5 Eosinophils % 3.2 Basophils % 0.5 Nucleated Red Blood Cells % 0.0 Neutrophils # 3.7 Lymphocytes # 2.0 Monocytes # 0.2 L Eosinophils # 0.2 Basophils # 0.0 Nucleated Red Blood Cells # 0.0 Sodium Level 139 Potassium Level 3.6 Chloride Level 109 Carbon Dioxide Level 21 Anion Gap 13 Blood Urea Nitrogen 9 Creatinine 0.47 Glucose Level 123 # Calcium Level 8.3 L Total Bilirubin 0.0 L Direct Bilirubin 0.00 Indirect Bilirubin 0.0 Aspartate Amino Transf (AST/SGOT) 15 Alanine Aminotransferase (ALT/SGPT) 24 Alkaline Phosphatase 98 Total Protein 5.8 L Albumin 3.5 Globulin 2.30 Albumin/Globulin Ratio 1.52 Medications Medications Current Medications IV Flush (NS 10 ml) 10 ml PRN PRN IV IV PROTOCOL; Start 02/12/17 at 11:00 Aspirin (Aspirin) 81 mg DAILY PO Last administered on 02/13/17 08:24; Admin Dose 81 MG; Start 02/13/17 at 09:00 Gabapentin (Neurontin) 600 mg BID PO Last administered on 02/13/17 08:24; Admin Dose 600 MG; Start 02/12/17 at 21:00 Hydroxyzine HCl (Atarax) 25 mg QHS PO ; Start 02/12/17 at 21:00 Ranitidine HCl (Zantac) 150 mg QAM PO Last administered on 02/13/17 08:24; Admin Dose 150 MG; Start 02/13/17 at 09:00 Sucralfate (Carafate) 1 gm BID PO Last administered on 02/13/17 08:24; Admin Dose 1 GM; Start 02/12/17 at 21:00 Topiramate (Topamax) 100 mg QHS PO Last administered on 02/12/17 21:51; Admin Dose 100 MG; Start 02/12/17 at 21:00 Trazodone HCl (Desyrel) 50 mg QHS PO Last administered on 02/12/17 21:51; Admin Dose 50 MG; Start 02/12/17 at 21:00 Zolpidem Tartrate 10 mg 10 mg QHS PRN PO INSOMNIA Last administered on 22:19; Admin Dose 10 MG; Start 02/12/17 at 15:30 Potassium Chloride/Dextrose/ Sod Cl (D5-1/2ns + KCl 20 Meq) 1,000 ml @ 60 mls/ hr [id number] IV Last administered on 02/13/17 09:26; Admin Dose 60 MLS/HR; Start 02/12/17 at 15:27; Status Future Hold Ondansetron HCl (Zofran Inj) 4 mg Q6H PRN IV NAUSEA AND/OR VOMITING; Start 02/12 at 15:30 Acetaminophen (Tylenol Tab) 650 mg Q6H PRN PO PAIN LEVEL 1-3 OR FEVER; Start at 15:30 Acetaminophen (Tylenol Supp) 650 mg Q6H PRN [place] PAIN LEVEL 1-3 OR FEVER; Start 02/12/17 at 15:30 Acetaminophen/ Hydrocodone Bitart ([place] (5/325)) 1 tab Q6H PRN PO MODERATE PAIN LEVEL 4-6 Last administered on 02/13/17 13:04; Admin Dose 1 TAB; Start 02/12 at 15:30 Hydromorphone HCl (Dilaudid) 0.5 mg Q4H PRN IV SEVERE PAIN LEVEL 7-10 Last administered on 02/13/17 15:42; Admin Dose 0.5 MG; Start 02/12/17 at 15:30 Docusate Sodium (Colace) 100 mg Q12H PRN PO CONSTIPATION; Start 02/12/17 at 15: 30 Magnesium Hydroxide (Milk Of Mag) 30 ml DAILY PRN PO CONSTIPATION; Start at 15:30 Bisacodyl (Dulcolax) 5 mg DAILY PRN PO CONSTIPATION; Start 02/12/17 at 15:30 Pantoprazole 40 mg 40 mg DAILY@06 IV Last administered on 02/13/17 05:43; Admin Dose 40 MG; Start 02/13/17 at 06:00 Total Parenteral Nutrition 1,000 ml @ 80 mls/hr [id number] IV ; Start 02/13/17 at 18:00 Fat Emulsion Intravenous (Liposyn Ii 20%) 250 ml @ 10.417 mls/ hr Q24H IV ; Start 02/13/17 at 18:00 Miscellaneous Information (*Order Clarification Bulletin) MEDICATION REQUIRES CLARIFICATI... Q8H XX ; Start 02/13/17 at 17:30 MARTINEZ MELVIN MD Feb 13, 2017 17:15
[2017-02-13] MEDS ORDERED: BARIUM SULF 2% 450 ML BTL (BERRY SMOOTHIE) PO ONE (17:30)
[2017-02-13] MEDS: [UNRECOGNIZED DRUG - REMARK] XX SCH (19:00)
[2017-02-13] MEDS: TPN 1,000 ML IV SCH (19:00)
[2017-02-13] MEDS: FAT EMULSION 20% 250 ML IV SCH (19:01)
[2017-02-13 20:00] VITALS: BP 101/66; RESP 16
[2017-02-13] MEDS: traZODone 50 MG TAB PO SCH (20:11)
[2017-02-13] MEDS: hydrOXYzine HCL 25 MG TAB PO SCH ×3 (20:12→21:00)
[2017-02-13] MEDS: TOPIRAMATE 100 MG TAB PO SCH (20:12)
[2017-02-13] MEDS: ZOLPIDEM 5 MG TAB PO PRN (23:36)
[2017-02-14] MEDS: HYDROmorphONE 1 MG/ML SYG IV PRN ×7 (01:15→21:34)
[2017-02-14] MEDS: [UNRECOGNIZED DRUG - REMARK] XX SCH ×3 (01:30→17:30)
[2017-02-14] MEDS: PANTOPRAZOLE 40 MG INJ IV SCH (05:40)
[2017-02-14] MEDS: TPN 1,000 ML IV SCH ×2 (06:30→11:47)
[2017-02-14 06:43] LABS: ALBUMIN 3.3 g/dl (3.3-4.9); ALBUMIN/GLOBULIN RATIO 1.57; CALCIUM 8.6 mg/dl (8.4-10.2); CREATININE 0.49 mg/dl (0.44-1.00); MAGNESIUM 1.9 mg/dl (1.7-2.5); PHOSPHORUS 3.8 mg/dl (2.5-4.9); POTASSIUM 3.7 mmol/L (3.5-5.1); TOTAL PROTEIN 5.4 g/dl (6.1-8.1)
[2017-02-14 06:50] LABS: PREALBUMIN 12.5 mg/dl (17.6-36.0)
[2017-02-14 08:17] VITALS: BP 92/50; RESP 18
[2017-02-14] MEDS: GABAPENTIN 300 MG CAP PO SCH ×2 (08:48→20:10)
[2017-02-14] MEDS: ASPIRIN 81 MG TAB PO SCH (08:48)
[2017-02-14] MEDS: SUCRALFATE 1 GM TAB PO SCH ×2 (08:48→20:10)
[2017-02-14] MEDS: RANITIDINE 150 MG TAB PO SCH (08:48)
[2017-02-14] MEDS: HYDROCODONE/APAP (5/325) TAB PO PRN ×2 (10:10→16:05)
--- NOTE | 2017-02-14 10:13 | CONS ---
DATE OF ADMISSION: 02/12/2017 DATE OF CONSULTATION: 02/14/2017 HISTORY OF PRESENT ILLNESS: This is a 52-year-old female who had undergone a laparoscopic right hem icolectomy. She developed an enterocutaneous fistula and this was repaired with a partial colectomy and primary anastomosis. She presents to ER with poor p.o. intake, nausea and intermittent episode s of diarrhea. She has lost significant weight. She has other social factors limiting her access t o food and has limited economic resources. She had a CT scan that seems unremarkable, and a stable surgical site, with some open midline incisions. She is being admitted to the hospital for PICC li ne placement and nutritional supplementation with TPN. PAST MEDICAL HISTORY: 1. Laparoscopic right hemicolectomy. 2. History of depression. 3. History of enterocutaneous fistula. ALLERGIES: PENICILLIN. SOCIAL HISTORY: She has been a longtime smoker for many years, over 30 years. MEDICATIONS: 1. Aspirin. 2. Gabapentin. 3. Hydroxyzine. 4. Ranitidine 5. Carafate. 6. Topamax. 7. Trazodone. 8. Ambien: PHYSICAL EXAMINATION: VITAL SIGNS: Temperature is 97.7, pulse is 67, respiratory rate is 18, blood pressure is 92 to 101 over 50 to 66. ABDOMEN: On focal abdominal exam, there are open midline wounds x2, approximately 2 cm, each cleaned . Minimal drainage. No purulence. No peritoneal signs. No rebound tenderness. GENERAL: Malnourished. LUNGS: Clear to auscultation. CARDIOVASCULAR: Regular rate and rhythm. EXTREMITIES: No clubbing or edema. LABORATORY: White blood cell count 6.2, hemoglobin 11.4, hematocrit 35.2, platelets 225. Chemistri es: Sodium is 142, potassium is 3.7, chloride is 112, carbon dioxide is 24, BUN is 7, creatinine 0. 49, glucose is 92, calcium is 8.6, phosphorus 3.8, magnesium is 1.9. AST 17, ALT 26, alkaline phosp hatase 90. Albumin is 3.3, prealbumin is 12.5. Triglycerides 108. Lipase is 33. CT scan imaging shows status post right partial colectomy, with unremarkable appearance of the surgi jennifer staple line. Some stranding within the peritoneal fat and deep tissue incision sites suggest fo jennifer fat necrosis. No evidence of cutaneous fistula. Tiny bilateral nonobstructing renal calculi. Aortoiliac atherosclerotic calcifications. ASSESSMENT AND PLAN: This is a 52-year-old female who underwent a right hemicolectomy with enterocu taneous fistula which was repaired. She has had a number of social factors limiting her access to n utrition and has been malnourished and losing weight. She is admitted to the hospital for PICC line placement and TPN. Will continue to monitor weight and get dietary involved for optimizing nutriti on. Dictated By: AARTI CROSS/SCOTT Conf#: [id number] DID#: [id number]
--- NOTE | 2017-02-14 10:44 | RADRPT ---
PROCEDURE: CT Abdomen and Pelvis without contrast. CLINICAL INDICATION: Abdominal pain TECHNIQUE: CT scan of the abdomen and pelvis without contrast was performed on a multidetector hig h-resolution CT scanner. The patient was scanned without intravenous contrast. Coronal and sagittal reformatted images were obtained from the axial source images. Images were reviewed on a high-resol [employer] PACS workstation. The total exam CTDI equals 7.03 mGy and the total exam DLP equals 361.95 mGy -cm. One or more of the following dose reduction techniques were used: Automated exposure control. Adjustment of the mA and/or kV according to patient size. Use of iterative reconstruction technique. COMPARISON: CT abdomen and pelvis 02/12/2017 FINDINGS: CT abdomen: The lung bases are remarkable for linear pleuroparenchymal scarring. The heart size is normal, with out pericardial thickening or effusion. The liver is normal in size and density without focal mass or intrahepatic biliary dilatation. The spleen is normal in size and homogeneous in density. The s tomach is partially collapsed, but is grossly unremarkable. The pancreas as visualized is normal. The gallbladder is unremarkable. There is no evidence for biliary dilatation. The adrenal glands ar e symmetric and normal. The kidneys are symmetrically unremarkable as well. There are a few puncta te nonobstructing bilateral renal stones. There is no hydronephrosis. The aorta is of normal caliber. Aortic vascular calcifications are present. There is no retroperit weston lymphadenopathy. The gage hepatis region is clear. The patient is status post right hemicole ctomy with unremarkable appearance of the ileocolic anastomosis. There are 2 areas of infraumbilica l skin and subcutaneous defects. There is fatty stranding with small foci of gas in the anterior abd ominal wall at the level of the superior defect. There is fatty stranding within the peritoneal fat deep to the inferior defect without significant abdominal wall inflammation. CT pelvis: The small bowel loops situated within the pelvis are unremarkable. The pelvic organs are normal. T he pelvic sidewalls and inguinal regions are clear. The sigmoid colon and rectum are unremarkable. No mass, lymphadenopathy, or free fluid is seen. No acute inflammation is seen. The surrounding o sseous structures are remarkable for degenerative spondylosis of the spine. No osteolytic or osteob lastic lesion is detected. Bilateral pars defects at L5-S1 is again identified without anterolisthes is. IMPRESSION: 1. Status post right hemicolectomy. Two areas of infraumbilical skin and subcutaneous tissue defect s are identified. No oral contrast leak is identified through any of the defects to suggest enteroc utaneous fistula; however the distension of the small bowel might not be adequate for detection of s mall fistulization. Fatty stranding in the anterior abdominal wall with tiny pockets of gas are see n at the level of the superior defect with several adjacent small bowel loops. If there is persiste nt clinical concern for fistulization, recommend fistulogram for further evaluation. 2. More inferior skin and subcutaneous fat defect with adjacent peritoneal fatty stranding likely r epresenting postsurgical changes. No adjacent bowel loops or the abdominal wall inflammation/gas ar e identified in this area concerning for fistulization. 3. Tiny bilateral nonobstructing renal stones. 4. Aortoiliac atherosclerosis. RPTAT: BB .Vernon Stephens MD, MD Date Time Electronically viewed and signed by .Vernon Stephens MD, MD on 02/14/2017 10:43 .O/
--- NOTE | 2017-02-14 16:09 | PN ---
Date/Time of Note Date/Time of Note DATE: 02/14/17 TIME: 16:08 Assessment/Plan VTE Prophylaxis VTE Prophylaxis Intervention: ambulation Lines/Catheters IV Catheter Type (from Nrs): PICC Line Central line still needed: Yes Urinary Cath still in place: No Assessment/Plan Chief Complaint/Hosp Course 1. Nonhealing abdominal wound. 2. Malnutrition. 3. Metabolic acidosis. 4. Anemia. 5. Neutropenia 6. History of right hemicolectomy. 7. History of abd wound_infection. 8. History of enterocutaneous fistula and repair. Problems: Assessment/Plan 1. Continue medical regime unchanged 2. Per surgeon Subjective 24 Hr Interval Summary Constitutional: poor po Gastrointestinal: pain Exam/Review of Systems Vital Signs Vitals Vital Signs Date Time Temp Pulse Resp B/P Pulse Ox O2 Delivery O2 Flow Rate FiO2 02/14/17 08:17 97.7 67 18 92/50 98 02/12/17 20:34 Room Air Intake and Output 02/13/17 02/13/17 02/14/17 15:00 23:00 07:00 Intake Total 210 ml 1448 ml 1970 ml Output Total 1100 ml Balance 210 ml 1448 ml 870 ml Exam Constitutional: alert, oriented Neck: supple Respiratory: clear to auscultation Cardiovascular: regular rate and rhythm Gastrointestinal: bowel sounds (present), surgical scars Results Result Diagram: 02/13/17 0940 02/14/17 0540 Results 24 hrs Laboratory Tests Test 02/14/17 05:40 Sodium Level 142 Potassium Level 3.7 Chloride Level 112 H Carbon Dioxide Level 24 Anion Gap 10 Blood Urea Nitrogen 7 Creatinine 0.49 Glucose Level 92 Calcium Level 8.6 Phosphorus Level 3.8 Magnesium Level 1.9 Total Bilirubin 0.0 L Direct Bilirubin 0.00 Indirect Bilirubin 0.0 Aspartate Amino Transf (AST/SGOT) 17 Alanine Aminotransferase (ALT/SGPT) 26 Alkaline Phosphatase 90 Total Protein 5.4 L Albumin 3.3 Globulin 2.10 Albumin/Globulin Ratio 1.57 Prealbumin 12.5 L Triglycerides Level 108 Medications Medications Current Medications IV Flush (NS 10 ml) 10 ml PRN PRN IV IV PROTOCOL; Start 02/12/17 at 11:00 Aspirin (Aspirin) 81 mg DAILY PO Last administered on 02/13/17t 08:24; Admin Dose 81 MG; Start 02/13/17 at 09:00 Gabapentin (Neurontin) 600 mg BID PO Last administered on 02/14/17 08:48; Admin Dose 600 MG; Start 02/12/17 at 21:00 Hydroxyzine HCl (Atarax) 25 mg QHS PO ; Start 02/12/17 at 21:00 Ranitidine HCl (Zantac) 150 mg QAM PO Last administered on 02/14/17 08:48; Admin Dose 150 MG; Start 02/13/17 at 09:00 Sucralfate (Carafate) 1 gm BID PO Last administered on 02/14/17 08:48; Admin Dose 1 GM; Start 02/12/17 at 21:00 Topiramate (Topamax) 100 mg QHS PO Last administered on 02/13/17 20:12; Admin Dose 100 MG; Start 02/12/17 at 21:00 Trazodone HCl (Desyrel) 50 mg QHS PO Last administered on 02/13/17 20:11; Admin Dose 50 MG; Start 02/12/17 at 21:00 Zolpidem Tartrate 10 mg 10 mg QHS PRN PO INSOMNIA Last administered on 23:36; Admin Dose 10 MG; Start 02/12/17 at 15:30 Potassium Chloride/Dextrose/ Sod Cl (D5-1/2ns + KCl 20 Meq) 1,000 ml @ 60 mls/ hr [id number] IV Last administered on 02/13/17 09:26; Admin Dose 60 MLS/HR; Start 02/12/17 at 15:27; Status Future Hold Ondansetron HCl (Zofran Inj) 4 mg Q6H PRN IV NAUSEA AND/OR VOMITING; Start 02/12 at 15:30 Acetaminophen (Tylenol Tab) 650 mg Q6H PRN PO PAIN LEVEL 1-3 OR FEVER; Start at 15:30 Acetaminophen (Tylenol Supp) 650 mg Q6H PRN [place] PAIN LEVEL 1-3 OR FEVER; Start 02/12/17 at 15:30 Acetaminophen/ Hydrocodone Bitart ([place] (5/325)) 1 tab Q6H PRN PO MODERATE PAIN LEVEL 4-6 Last administered on 02/14/17 16:05; Admin Dose 1 TAB; Start 02/12 at 15:30 Docusate Sodium (Colace) 100 mg Q12H PRN PO CONSTIPATION; Start 02/12/17 at 15: 30 Magnesium Hydroxide (Milk Of Mag) 30 ml DAILY PRN PO CONSTIPATION; Start at 15:30 Bisacodyl (Dulcolax) 5 mg DAILY PRN PO CONSTIPATION; Start 02/12/17 at 15:30 Pantoprazole 40 mg 40 mg DAILY@06 IV Last administered on 02/14/17 05:40; Admin Dose 40 MG; Start 02/13/17 at 06:00 Total Parenteral Nutrition 1,000 ml @ 80 mls/hr [id number] IV Last administered on 02/14/17 11:47; Admin Dose 80 MLS/HR; Start 02/13/17 at 18:00 Fat Emulsion Intravenous (Liposyn Ii 20%) 250 ml @ 10.417 mls/ hr Q24H IV Last administered on 02/13/17 19:01; Admin Dose 10.417 MLS/HR; Start 02/13/17 at 18:00 Miscellaneous Information (*Order Clarification Bulletin) MEDICATION REQUIRES CLARIFICATI... Q8H XX ; Start 02/13/17 at 17:30 Hydromorphone HCl (Dilaudid) 0.5 mg Q3H PRN IV PAIN Last administered on 15:00; Admin Dose 0.5 MG; Start 02/13/17 at 19:00 IZZY BRAMBILA Feb 14, 2017 16:09
[2017-02-14] MEDS: FAT EMULSION 20% 250 ML IV SCH (18:00)
[2017-02-14] MEDS: traZODone 50 MG TAB PO SCH (20:10)
[2017-02-14] MEDS: TOPIRAMATE 100 MG TAB PO SCH (20:10)
[2017-02-14] MEDS: hydrOXYzine HCL 25 MG TAB PO SCH (20:10)
[2017-02-14 20:20] VITALS: BP 112/62; RESP 18
[2017-02-14] MEDS: ZOLPIDEM 5 MG TAB PO PRN (21:34)
[2017-02-15] MEDS: HYDROmorphONE 1 MG/ML SYG IV PRN ×7 (00:43→22:17)
[2017-02-15] MEDS: TPN 1,000 ML IV SCH ×3 (00:49→20:00)
[2017-02-15] MEDS: [UNRECOGNIZED DRUG - REMARK] XX SCH (01:30)
[2017-02-15] MEDS: PANTOPRAZOLE 40 MG INJ IV SCH (05:23)
[2017-02-15 06:23] LABS: CALCIUM 8.2 mg/dl (8.4-10.2); CREATININE 0.5 mg/dl (0.44-1.00); PHOSPHORUS 3.3 mg/dl (2.5-4.9)
[2017-02-15 07:46] VITALS: BP 84/54; RESP 18
[2017-02-15] MEDS: SUCRALFATE 1 GM TAB PO SCH ×2 (08:00→21:05)
[2017-02-15] MEDS: GABAPENTIN 300 MG CAP PO SCH ×2 (08:01→21:05)
[2017-02-15] MEDS: RANITIDINE 150 MG TAB PO SCH (08:04)
[2017-02-15] MEDS: ASPIRIN 81 MG TAB PO SCH (08:06)
[2017-02-15 09:05] VITALS: BP 98/68; PULSE 64; RESP 16
--- NOTE | 2017-02-15 10:02 | PN ---
Date/Time of Note Date/Time of Note DATE: 02/15/17 TIME: 09:59 Assessment/Plan VTE Prophylaxis VTE Prophylaxis Intervention: SCD's Lines/Catheters IV Catheter Type (from Nrs): PICC Line Central line still needed: Yes Urinary Cath still in place: No Assessment/Plan Chief Complaint/Hosp Course 52 yo F s/p lap right hemicolectomy with development of ECF s/p operative repair with two small open wounds ct scan shows no further evidence of ecf patient has not been taking in adequate calories due to socioeconomic factors at home and low accessibility to food tpn started and nutritional status improving Problems: Assessment/Plan tpn for five days and recheck of nutritional labs prior to discharge Subjective 24 Hr Interval Summary Free Text/Dictation severely malnourished with low prealbumin started on tpn tolerating diet and no further diarrhea per patient with formed stool Exam/Review of Systems Vital Signs Vitals Vital Signs Date Time Temp Pulse Resp B/P Pulse Ox O2 Delivery O2 Flow Rate FiO2 02/15/17 07:46 98.5 70 18 84/54 100 02/12/17 20:34 Room Air Intake and Output 02/14/17 02/14/17 02/15/17 15:00 23:00 07:00 Intake Total 240 ml 1940 ml 1390 ml Output Total 1550 ml Balance 240 ml 390 ml 1390 ml Exam two small open wounds Results Result Diagram: 02/13/17 0940 02/15/17 0540 Results 24 hrs Laboratory Tests Test 02/15/17 05:40 Sodium Level 141 Potassium Level 4.0 Chloride Level 113 H Carbon Dioxide Level 25 Anion Gap 7 L Blood Urea Nitrogen 10 Creatinine 0.50 Glucose Level 100 Calcium Level 8.2 L Phosphorus Level 3.3 Magnesium Level 2.0 Medications Medications Current Medications IV Flush (NS 10 ml) 10 ml PRN PRN IV IV PROTOCOL; Start 02/12/17 at 11:00 Aspirin (Aspirin) 81 mg DAILY PO Last administered on 02/13/17 08:24; Admin Dose 81 MG; Start 02/13/17 at 09:00 Gabapentin (Neurontin) 600 mg BID PO Last administered on 02/15/17 08:01; Admin Dose 600 MG; Start 02/12/17 at 21:00 Hydroxyzine HCl (Atarax) 25 mg QHS PO Last administered on 02/14/17 20:10; Admin Dose 25 MG; Start 02/12/17 at 21:00 Ranitidine HCl (Zantac) 150 mg QAM PO Last administered on 02/15/17 08:04; Admin Dose 150 MG; Start 02/13/17 at 09:00 Sucralfate (Carafate) 1 gm BID PO Last administered on 02/15/17 08:00; Admin Dose 1 GM; Start 02/12/17 at 21:00 Topiramate (Topamax) 100 mg QHS PO Last administered on 02/14/17 20:10; Admin Dose 100 MG; Start 02/12/17 at 21:00 Trazodone HCl (Desyrel) 50 mg QHS PO Last administered on 02/14/17 20:10; Admin Dose 50 MG; Start 02/12/17 at 21:00 Zolpidem Tartrate (Ambien) 10 mg QHS PRN PO INSOMNIA Last administered on 21:34; Admin Dose 10 MG; Start 02/12/17 at 15:30 Ondansetron HCl (Zofran Inj) 4 mg Q6H PRN IV NAUSEA AND/OR VOMITING; Start 02/12 at 15:30 Acetaminophen (Tylenol Tab) 650 mg Q6H PRN PO PAIN LEVEL 1-3 OR FEVER; Start at 15:30 Acetaminophen (Tylenol Supp) 650 mg Q6H PRN [place] PAIN LEVEL 1-3 OR FEVER; Start 02/12/17 at 15:30 Acetaminophen/ Hydrocodone Bitart ([place] (5/325)) 1 tab Q6H PRN PO MODERATE PAIN LEVEL 4-6 Last administered on 02/14/17 16:05; Admin Dose 1 TAB; Start 02/12 at 15:30 Docusate Sodium (Colace) 100 mg Q12H PRN PO CONSTIPATION; Start 02/12/17 at 15: 30 Magnesium Hydroxide (Milk Of Mag) 30 ml DAILY PRN PO CONSTIPATION; Start at 15:30 Bisacodyl (Dulcolax) 5 mg DAILY PRN PO CONSTIPATION; Start 02/12/17 at 15:30 Pantoprazole 40 mg 40 mg DAILY@06 IV Last administered on 02/15/17 05:23; Admin Dose 40 MG; Start 02/13/17 at 06:00 Total Parenteral Nutrition 1,000 ml @ 80 mls/hr [id number] IV Last administered on 02/15/17 00:49; Admin Dose 80 MLS/HR; Start 02/13/17 at 18:00 Fat Emulsion Intravenous (Liposyn Ii 20%) 250 ml @ 10.417 mls/ hr Q24H IV Last administered on 02/13/17 19:01; Admin Dose 10.417 MLS/HR; Start 02/13/17 at 18:00 Hydromorphone HCl (Dilaudid) 0.5 mg Q3H PRN IV PAIN Last administered on 09:05; Admin Dose 0.5 MG; Start 02/13/17 at 19:00 Simethicone (Mylicon) 80 mg BID PRN PO DISTENSION/GAS/BLOATING Last administered on 02/14/17 18:14; Admin Dose 80 MG; Start 02/14/17 at 17:30 Rubin RUSS Feb 15, 2017 10:02
[2017-02-15] MEDS: NICOTINE (14 MG/24 HR) PATCH TRANSDERM SCH (12:00)
--- NOTE | 2017-02-15 12:02 | PN ---
Date/Time of Note Date/Time of Note DATE: 02/15/17 TIME: 12:01 Assessment/Plan VTE Prophylaxis VTE Prophylaxis Intervention: other Lines/Catheters IV Catheter Type (from Nrs): PICC Line Central line still needed: Yes Urinary Cath still in place: No Assessment/Plan Chief Complaint/Hosp Course 1. Nonhealing abdominal wound. 2. Malnutrition. 3. Metabolic acidosis. 4. Anemia. 5. Neutropenia 6. History of right hemicolectomy. 7. History of abd wound_infection. 8. History of enterocutaneous fistula and repair. Problems: Assessment/Plan 1. Megace to increase appetite 2. Nicotine patch Subjective 24 Hr Interval Summary Free Text/Dictation craving for a cigarette Constitutional: poor po Gastrointestinal: no complaints, other (abdominal pain) Skin: no complaints Exam/Review of Systems Vital Signs Vitals Vital Signs Date Time Temp Pulse Resp B/P Pulse Ox O2 Delivery O2 Flow Rate FiO2 02/15/17 09:05 64 16 98/68 94 Room Air 02/15/17 07:46 98.5 Intake and Output 02/14/17 02/14/17 02/15/17 15:00 23:00 07:00 Intake Total 240 ml 1940 ml 1390 ml Output Total 1550 ml Balance 240 ml 390 ml 1390 ml Exam Constitutional: alert, oriented Head: normocephalic Eyes: nl conjunctiva Neck: supple Respiratory: clear to auscultation Cardiovascular: regular rate and rhythm Gastrointestinal: surgical scars Results Result Diagram: 02/13/17 0940 02/15/17 0540 Results 24 hrs Laboratory Tests Test 02/15/17 05:40 Sodium Level 141 Potassium Level 4.0 Chloride Level 113 H Carbon Dioxide Level 25 Anion Gap 7 L Blood Urea Nitrogen 10 Creatinine 0.50 Glucose Level 100 Calcium Level 8.2 L Phosphorus Level 3.3 Magnesium Level 2.0 Medications Medications Current Medications IV Flush (NS 10 ml) 10 ml PRN PRN IV IV PROTOCOL; Start 02/12/17 at 11:00 Aspirin (Aspirin) 81 mg DAILY PO Last administered on 02/13/17 08:24; Admin Dose 81 MG; Start 02/13/17 at 09:00 Gabapentin (Neurontin) 600 mg BID PO Last administered on 02/15/17 08:01; Admin Dose 600 MG; Start 02/12/17 at 21:00 Hydroxyzine HCl (Atarax) 25 mg QHS PO Last administered on 02/14/17 20:10; Admin Dose 25 MG; Start 02/12/17 at 21:00 Ranitidine HCl (Zantac) 150 mg QAM PO Last administered on 02/15/17 08:04; Admin Dose 150 MG; Start 02/13/17 at 09:00 Sucralfate (Carafate) 1 gm BID PO Last administered on 02/15/17 08:00; Admin Dose 1 GM; Start 02/12/17 at 21:00 Topiramate (Topamax) 100 mg QHS PO Last administered on 02/14/17 20:10; Admin Dose 100 MG; Start 02/12/17 at 21:00 Trazodone HCl (Desyrel) 50 mg QHS PO Last administered on 02/14/17 20:10; Admin Dose 50 MG; Start 02/12/17 at 21:00 Zolpidem Tartrate (Ambien) 10 mg QHS PRN PO INSOMNIA Last administered on 21:34; Admin Dose 10 MG; Start 02/12/17 at 15:30 Ondansetron HCl (Zofran Inj) 4 mg Q6H PRN IV NAUSEA AND/OR VOMITING; Start 02/12 at 15:30 Acetaminophen (Tylenol Tab) 650 mg Q6H PRN PO PAIN LEVEL 1-3 OR FEVER; Start at 15:30 Acetaminophen (Tylenol Supp) 650 mg Q6H PRN [place] PAIN LEVEL 1-3 OR FEVER; Start 02/12/17 at 15:30 Acetaminophen/ Hydrocodone Bitart ([place] (5/325)) 1 tab Q6H PRN PO MODERATE PAIN LEVEL 4-6 Last administered on 02/14/17 16:05; Admin Dose 1 TAB; Start 02/12 at 15:30 Docusate Sodium (Colace) 100 mg Q12H PRN PO CONSTIPATION; Start 02/12/17 at 15: 30 Magnesium Hydroxide (Milk Of Mag) 30 ml DAILY PRN PO CONSTIPATION; Start at 15:30 Bisacodyl (Dulcolax) 5 mg DAILY PRN PO CONSTIPATION; Start 02/12/17 at 15:30 Pantoprazole 40 mg 40 mg DAILY@06 IV Last administered on 02/15/17 05:23; Admin Dose 40 MG; Start 02/13/17 at 06:00 Total Parenteral Nutrition 1,000 ml @ 80 mls/hr [id number] IV Last administered on 02/15/17 00:49; Admin Dose 80 MLS/HR; Start 02/13/17 at 18:00 Fat Emulsion Intravenous (Liposyn Ii 20%) 250 ml @ 10.417 mls/ hr Q24H IV Last administered on 02/13/17 19:01; Admin Dose 10.417 MLS/HR; Start 02/13/17 at 18:00 Hydromorphone HCl (Dilaudid) 0.5 mg Q3H PRN IV PAIN Last administered on 09:05; Admin Dose 0.5 MG; Start 02/13/17 at 19:00 Simethicone (Mylicon) 80 mg BID PRN PO DISTENSION/GAS/BLOATING Last administered on 02/14/17 18:14; Admin Dose 80 MG; Start 02/14/17 at 17:30 Nicotine (Nicoderm 14 Mg/ 24hr) 1 patch DAILY TRANSDERM ; Start 02/15/17 at 12: 00; Status IZZY DAVALOS Feb 15, 2017 12:02
[2017-02-15] MEDS: MEGESTROL (40 MG/ML) 10ML CUP PO SCH ×2 (12:16→21:06)
[2017-02-15] MEDS: FAT EMULSION 20% 250 ML IV SCH (18:12)
[2017-02-15 19:35] VITALS: BP 99/58; RESP 18
[2017-02-15] MEDS: TOPIRAMATE 100 MG TAB PO SCH (21:05)
[2017-02-15] MEDS: hydrOXYzine HCL 25 MG TAB PO SCH (21:06)
[2017-02-15] MEDS: traZODone 50 MG TAB PO SCH (21:06)
[2017-02-15] MEDS: ZOLPIDEM 5 MG TAB PO PRN (22:16)
[2017-02-16] MEDS: HYDROmorphONE 1 MG/ML SYG IV PRN ×7 (02:00→23:26)
[2017-02-16 02:02] VITALS: BP 98/56; PULSE 64; RESP 18
[2017-02-16] MEDS: PANTOPRAZOLE 40 MG INJ IV SCH (05:21)
[2017-02-16 06:04] LABS: ADD SCAN DIFF NO
[2017-02-16 06:11] LABS: BASOPHILS % 0.2 % (0.0-2.0); EOSINOPHILS # 0.2 10^3/ul (0.0-0.5); EOSINOPHILS % 3.4 % (0.0-7.0); HEMATOCRIT 37.4 % (37.0-47.0); HEMOGLOBIN 11.6 g/dl (12.0-16.0); LYMPHOCYTES # 2.7 10^3/ul (0.8-2.9); LYMPHOCYTES % 50.8 % (15.0-51.0); MEAN CORPUSCULAR HEMOGLOBIN 27.4 pg (29.0-33.0); MEAN CORPUSCULAR VOLUME 88.2 fl (82.0-101.0); MEAN PLATELET VOLUME 11.2 fl (7.4-10.4); MONOCYTE # 0.2 10^3/ul (0.3-0.9); MONOCYTES % 4.5 % (0.0-11.0); NEUTROPHIL # 2.2 10^3/ul (1.6-7.5); NEUTROPHILS % 40.7 % (39.0-77.0); PLATELET COUNT 230 10^3/UL (140-415); RED BLOOD COUNT 4.24 10^6/ul (4.20-5.40); RED CELL DISTRIBUTION WIDTH 18.8 % (11.5-14.5); WHITE BLOOD COUNT 5.3 10^3/ul (4.8-10.8)
[2017-02-16 06:41] LABS: CALCIUM 8.8 mg/dl (8.4-10.2); CREATININE 0.56 mg/dl (0.44-1.00); POTASSIUM 4.3 mmol/L (3.5-5.1)
[2017-02-16 08:01] VITALS: BP 88/57; RESP 16
[2017-02-16] MEDS: GABAPENTIN 300 MG CAP PO SCH ×2 (08:40→20:41)
[2017-02-16] MEDS: SUCRALFATE 1 GM TAB PO SCH ×2 (08:40→20:41)
[2017-02-16] MEDS: ASPIRIN 81 MG TAB PO SCH (08:40)
[2017-02-16] MEDS: RANITIDINE 150 MG TAB PO SCH (08:41)
[2017-02-16] MEDS: NICOTINE (14 MG/24 HR) PATCH TRANSDERM SCH (08:41)
[2017-02-16] MEDS: MEGESTROL (40 MG/ML) 10ML CUP PO SCH ×2 (08:41→20:42)
[2017-02-16] MEDS: TPN 1,000 ML IV SCH ×2 (08:42→23:25)
[2017-02-16] MEDS: HYDROCODONE/APAP (5/325) TAB PO PRN (13:51)
--- NOTE | 2017-02-16 16:11 | PN ---
Date/Time of Note Date/Time of Note DATE: 02/16/17 TIME: 16:09 Assessment/Plan VTE Prophylaxis VTE Prophylaxis Intervention: other Lines/Catheters IV Catheter Type (from Nrs): PICC Line Central line still needed: Yes Urinary Cath still in place: No Assessment/Plan Chief Complaint/Hosp Course IMPRESSION: 1. Nonhealing abdominal wound. 2. Malnutrition. 3. Metabolic acidosis. 4. Anemia. 5. Neutropenia 6. History of right hemicolectomy. 7. History of abd wound_infection. 8. History of enterocutaneous fistula and repair. plan tpn Problems: Subjective 24 Hr Interval Summary Gastrointestinal: diarrhea Exam/Review of Systems Vital Signs Vitals Vital Signs Date Time Temp Pulse Resp B/P Pulse Ox O2 Delivery O2 Flow Rate FiO2 02/16/17 08:01 98.2 63 16 88/57 100 02/16/17 02:02 Room Air Intake and Output 02/15/17 02/15/17 02/16/17 15:00 23:00 07:00 Intake Total 1360 ml 1305 ml Output Total 700 ml 1800 ml Balance 660 ml -495 ml Exam Respiratory: clear to auscultation Cardiovascular: regular rate and rhythm Gastrointestinal: soft Genitourinary - Female: nl external genitalia Results Result Diagram: 02/16/17 0515 02/16/17 0515 Results 24 hrs Laboratory Tests Test 02/16/17 05:15 White Blood Count 5.3 Red Blood Count 4.24 Hemoglobin 11.6 L Hematocrit 37.4 Mean Corpuscular Volume 88.2 Mean Corpuscular Hemoglobin 27.4 L Mean Corpuscular Hemoglobin Concent 31.0 L Red Cell Distribution Width 18.8 H Platelet Count 230 Mean Platelet Volume 11.2 H Neutrophils % 40.7 Lymphocytes % 50.8 Monocytes % 4.5 Eosinophils % 3.4 Basophils % 0.2 Nucleated Red Blood Cells % 0.0 Neutrophils # 2.2 Lymphocytes # 2.7 Monocytes # 0.2 L Eosinophils # 0.2 Basophils # 0.0 Nucleated Red Blood Cells # 0.0 Sodium Level 143 Potassium Level 4.3 Chloride Level 111 H Carbon Dioxide Level 25 Anion Gap 11 Blood Urea Nitrogen 13 Creatinine 0.56 Glucose Level 86 Calcium Level 8.8 Medications Medications Current Medications IV Flush (NS 10 ml) 10 ml PRN PRN IV IV PROTOCOL; Start 02/12/17 at 11:00 Aspirin (Aspirin) 81 mg DAILY PO Last administered on 02/16/17 08:40; Admin Dose 81 MG; Start 02/13/17 at 09:00 Gabapentin (Neurontin) 600 mg BID PO Last administered on 02/16/17 08:40; Admin Dose 600 MG; Start 02/12/17 at 21:00 Hydroxyzine HCl (Atarax) 25 mg QHS PO Last administered on 02/15/17 21:06; Admin Dose 25 MG; Start 02/12/17 at 21:00 Ranitidine HCl (Zantac) 150 mg QAM PO Last administered on 02/16/17 08:41; Admin Dose 150 MG; Start 02/13/17 at 09:00 Sucralfate (Carafate) 1 gm BID PO Last administered on 02/16/17 08:40; Admin Dose 1 GM; Start 02/12/17 at 21:00 Topiramate (Topamax) 100 mg QHS PO Last administered on 02/15/17 21:05; Admin Dose 100 MG; Start 02/12/17 at 21:00 Trazodone HCl (Desyrel) 50 mg QHS PO Last administered on 02/15/17 21:06; Admin Dose 50 MG; Start 02/12/17 at 21:00 Zolpidem Tartrate (Ambien) 10 mg QHS PRN PO INSOMNIA Last administered on 22:16; Admin Dose 10 MG; Start 02/12/17 at 15:30 Ondansetron HCl (Zofran Inj) 4 mg Q6H PRN IV NAUSEA AND/OR VOMITING; Start 02/12 at 15:30 Acetaminophen (Tylenol Tab) 650 mg Q6H PRN PO PAIN LEVEL 1-3 OR FEVER; Start at 15:30 Acetaminophen (Tylenol Supp) 650 mg Q6H PRN [place] PAIN LEVEL 1-3 OR FEVER; Start 02/12/17 at 15:30 Acetaminophen/ Hydrocodone Bitart ([place] (5/325)) 1 tab Q6H PRN PO MODERATE PAIN LEVEL 4-6 Last administered on 02/16/17 13:51; Admin Dose 1 TAB; Start 02/12/17 at 15:30 Docusate Sodium (Colace) 100 mg Q12H PRN PO CONSTIPATION; Start 02/12/17 at 15: 30 Magnesium Hydroxide (Milk Of Mag) 30 ml DAILY PRN PO CONSTIPATION; Start at 15:30 Bisacodyl (Dulcolax) 5 mg DAILY PRN PO CONSTIPATION; Start 02/12/17 at 15:30 Pantoprazole 40 mg 40 mg DAILY@06 IV Last administered on 02/16/17 05:21; Admin Dose 40 MG; Start 02/13/17 at 06:00 Total Parenteral Nutrition 1,000 ml @ 80 mls/hr [id number] IV Last administered on 02/16/17 08:42; Admin Dose 80 MLS/HR; Start 02/13/17 at 18:00 Fat Emulsion Intravenous (Liposyn Ii 20%) 250 ml @ 10.417 mls/ hr Q24H IV Last administered on 02/15/17 18:12; Admin Dose 10.417 MLS/HR; Start 02/13/17 at 18:00 Hydromorphone HCl (Dilaudid) 0.5 mg Q3H PRN IV PAIN Last administered on 14:35; Admin Dose 0.5 MG; Start 02/13/17 at 19:00 Simethicone (Mylicon) 80 mg BID PRN PO DISTENSION/GAS/BLOATING Last administered on 02/15/17 12:16; Admin Dose 80 MG; Start 02/14/17 at 17:30 Nicotine (Nicoderm 14 Mg/ 24hr) 1 patch DAILY TRANSDERM ; Start 02/15/17 at 12: 00 Megestrol Acetate (Megace Susp) 400 mg BID PO Last administered on 02/16/17 08 :41; Admin Dose 400 MG; Start 02/15/17 at 12:00 MARTINEZ MELVIN MD Feb 16, 2017 16:10
--- NOTE | 2017-02-16 16:11 | PN ---
DATE: 02/16/2017 SUBJECTIVE: Slightly feels better. She has not had a bowel movement today, but she had diarrhea yesterday. No nausea, no vomiting. OBJECTIVE: GENERAL: Patient is lying down in the bed, does not appear in too much acute distress. VITAL SIGNS: Temperature 98.2, heart rate 63, respirations 16, blood pressure 88/57, saturation 100% on room air. LABS: WBC 5300 with 40% neutrophils. Hemoglobin 11.6, hematocrit 37.4. Platelet 230. Chemistry: Sodium, potassium normal. BUN and creatinine normal today. ABDOMEN: Some tenderness in right lower quadrant. Bowel sound is present and appears to be normal. ASSESSMENT: The patient is a 52-year-old with status post right hemicolectomy and status post repair of the enterocutaneous fistula. The patient has had diarrhea at home for 2 to 3 weeks and has lost 15 pounds of weight in the past 2 to 3 weeks, even though the patient has been eating food, so is being admitted for evaluation of nutrition status and treatment with TPN. The patient also has forgotten to bring her teeth, so she can have a regular diet here. She is going to have soft diet as much as possible. Other colleagues are following the patient and she is stable.today PLAN: Continue current care. Dictated By: BREN GUILLEN/SCOTT Conf#: [id number] DID#: [id number] MTDD
[2017-02-16] MEDS: FAT EMULSION 20% 250 ML IV SCH (17:34)
[2017-02-16 20:00] VITALS: BP 103/64; RESP 20
[2017-02-16] MEDS: traZODone 50 MG TAB PO SCH (20:41)
[2017-02-16] MEDS: TOPIRAMATE 100 MG TAB PO SCH (20:41)
[2017-02-16] MEDS: hydrOXYzine HCL 25 MG TAB PO SCH (20:42)
[2017-02-16] MEDS: ZOLPIDEM 5 MG TAB PO PRN (23:31)
[2017-02-17] MEDS: HYDROmorphONE 1 MG/ML SYG IV PRN ×7 (02:30→23:20)
[2017-02-17] MEDS: PANTOPRAZOLE 40 MG INJ IV SCH (05:36)
[2017-02-17 07:19] VITALS: BP 123/60; RESP 18
[2017-02-17] MEDS: MEGESTROL (40 MG/ML) 10ML CUP PO SCH ×2 (08:08→20:25)
[2017-02-17] MEDS: SUCRALFATE 1 GM TAB PO SCH ×2 (08:08→20:25)
[2017-02-17] MEDS: ASPIRIN 81 MG TAB PO SCH (08:08)
[2017-02-17] MEDS: GABAPENTIN 300 MG CAP PO SCH ×2 (08:08→20:25)
[2017-02-17] MEDS: NICOTINE (14 MG/24 HR) PATCH TRANSDERM SCH (08:09)
[2017-02-17] MEDS: NYSTATIN 30 GM POWDER BTL TOP SCH ×2 (10:54→20:26)
--- NOTE | 2017-02-17 12:54 | PN ---
Date/Time of Note Date/Time of Note DATE: 02/17/17 TIME: 12:53 Assessment/Plan VTE Prophylaxis VTE Prophylaxis Intervention: SCD's Lines/Catheters [facility] PICC Line Central line still needed: Yes Urinary Cath still in place: No Assessment/Plan Chief Complaint/Hosp Course 52 yo F s/p lap right hemicolectomy with development of ECF s/p operative repair with two small open wounds ct scan shows no further evidence of ecf patient has not been taking in adequate calories due to socioeconomic factors at home and low accessibility to food tpn started and nutritional status improving Problems: Assessment/Plan tolerating diet and on TPN some loose stool after diet will get small bowel follow through Subjective 24 Hr Interval Summary Free Text/Dictation slowly improving, some diarrhea Exam/Review of Systems Vital Signs Vitals Vital Signs Date Time Temp Pulse Resp B/P Pulse Ox O2 Delivery O2 Flow Rate FiO2 02/17/17 07:19 98.7 77 18 123/60 98 02/16/17 02:02 Room Air Intake and Output 02/16/17 02/16/17 02/17/17 15:00 23:00 07:00 Intake Total 880 ml 1325 ml 1185 ml Output Total 1000 ml 700 ml Balance 880 ml 325 ml 485 ml Exam open wounds with some drainage Results Result Diagram: 02/16/1715 02/16/1715 Medications Medications Current Medications IV Flush (NS 10 ml) 10 ml PRN PRN IV IV PROTOCOL; Start 02/12/17 at 11:00 Aspirin (Aspirin) 81 mg DAILY PO Last administered on 02/16/17 08:40; Admin Dose 81 MG; Start 02/13/17 at 09:00 Gabapentin (Neurontin) 600 mg BID PO Last administered on 02/17/17 08:08; Admin Dose 600 MG; Start 02/12/17 at 21:00 Hydroxyzine HCl (Atarax) 25 mg QHS PO Last administered on 02/16/17 20:42; Admin Dose 25 MG; Start 02/12/17 at 21:00 Sucralfate (Carafate) 1 gm BID PO Last administered on 02/17/17 08:08; Admin Dose 1 GM; Start 02/12/17 at 21:00 Topiramate (Topamax) 100 mg QHS PO Last administered on 02/16/17 20:41; Admin Dose 100 MG; Start 02/12/17 at 21:00 Trazodone HCl (Desyrel) 50 mg QHS PO Last administered on 02/16/17 20:41; Admin Dose 50 MG; Start 02/12/17 at 21:00 Zolpidem Tartrate (Ambien) 10 mg QHS PRN PO INSOMNIA Last administered on 23:31; Admin Dose 10 MG; Start 02/12/17 at 15:30 Ondansetron HCl (Zofran Inj) 4 mg Q6H PRN IV NAUSEA AND/OR VOMITING; Start 02/12 at 15:30 Acetaminophen (Tylenol Tab) 650 mg Q6H PRN PO PAIN LEVEL 1-3 OR FEVER; Start at 15:30 Acetaminophen (Tylenol Supp) 650 mg Q6H PRN [place] PAIN LEVEL 1-3 OR FEVER; Start 02/12/17 at 15:30 Acetaminophen/ Hydrocodone Bitart ([place] (5/325)) 1 tab Q6H PRN PO MODERATE PAIN LEVEL 4-6 Last administered on 02/16/17 13:51; Admin Dose 1 TAB; Start 02/12/17 at 15:30 Docusate Sodium (Colace) 100 mg Q12H PRN PO CONSTIPATION; Start 02/12/17 at 15: 30 Magnesium Hydroxide (Milk Of Mag) 30 ml DAILY PRN PO CONSTIPATION; Start at 15:30 Bisacodyl (Dulcolax) 5 mg DAILY PRN PO CONSTIPATION; Start 02/12/17 at 15:30 Pantoprazole 40 mg 40 mg DAILY@06 IV Last administered on 02/17/17 05:36; Admin Dose 40 MG; Start 02/13/17 at 06:00 Total Parenteral Nutrition 1,000 ml @ 80 mls/hr [id number] IV Last administered on 02/16/17 23:25; Admin Dose 80 MLS/HR; Start 02/13/17 at 18:00 Fat Emulsion Intravenous (Liposyn Ii 20%) 250 ml @ 10.417 mls/ hr Q24H IV Last administered on 02/16/17 17:34; Admin Dose 10.417 MLS/HR; Start 02/13/17 at 18:00 Hydromorphone HCl (Dilaudid) 0.5 mg Q3H PRN IV PAIN Last administered on 08:16; Admin Dose 0.5 MG; Start 02/13/17 at 19:00 Simethicone (Mylicon) 80 mg BID PRN PO DISTENSION/GAS/BLOATING Last administered on 02/17/17 08:08; Admin Dose 80 MG; Start 02/14/17 at 17:30 Nicotine (Nicoderm 14 Mg/ 24hr) 1 patch DAILY TRANSDERM ; Start 02/15/17 at 12: 00 Megestrol Acetate (Megace Susp) 400 mg BID PO Last administered on 02/17/17 08 :08; Admin Dose 400 MG; Start 02/15/17 at 12:00 Nystatin (Nystatin Powder) 1 applic BID TOP Last administered on 02/17/17 10: 54; Admin Dose 1 APPLIC; Start 02/17/17 at 09:00 Rubin RUSS Feb 17, 2017 12:54
[2017-02-17] MEDS: TPN 1,000 ML IV SCH (13:04)
[2017-02-17] MEDS: HYDROCODONE/APAP (5/325) TAB PO PRN (15:22)
--- NOTE | 2017-02-17 17:33 | PN ---
Date/Time of Note Date/Time of Note DATE: 02/17/17 TIME: 17:32 Assessment/Plan VTE Prophylaxis VTE Prophylaxis Intervention: other Lines/Catheters IV Catheter Type (from [facility]): PICC Line Central line still needed: Yes Urinary Cath still in place: No Assessment/Plan Chief Complaint/Hosp Course IMPRESSION: 1. Nonhealing abdominal wound. 2. Malnutrition. 3. Metabolic acidosis. 4. Anemia. 5. Neutropenia 6. History of right hemicolectomy. 7. History of abd wound_infection. 8. History of enterocutaneous fistula and repair. plan tpn NEED HOME HEALTH AND HOME TPN Problems: Subjective 24 Hr Interval Summary Respiratory: no complaints Cardiovascular: no complaints Exam/Review of Systems Vital Signs Vitals Vital Signs Date Time Temp Pulse Resp B/P Pulse Ox O2 Delivery O2 Flow Rate FiO2 02/17/17 07:19 98.7 77 18 123/60 98 02/16/17 02:02 Room Air Intake and Output 02/16/17 02/16/17 02/17/17 15:00 23:00 07:00 Intake Total 880 ml 1325 ml 1185 ml Output Total 1000 ml 700 ml Balance 880 ml 325 ml 485 ml Exam Neck: supple Respiratory: clear to auscultation Cardiovascular: regular rate and rhythm Gastrointestinal: soft Musculoskeletal: nl extremities to inspection Results Result Diagram: 02/16/1751402/16/1715 Medications Medications Current Medications IV Flush (NS 10 ml) 10 ml PRN PRN IV IV PROTOCOL; Start 02/12/17 at 11:00 Aspirin (Aspirin) 81 mg DAILY PO Last administered on 02/16/17 08:40; Admin Dose 81 MG; Start 02/13/17 at 09:00 Gabapentin (Neurontin) 600 mg BID PO Last administered on 02/17/17 08:08; Admin Dose 600 MG; Start 02/12/17 at 21:00 Hydroxyzine HCl (Atarax) 25 mg QHS PO Last administered on 02/16/17 20:42; Admin Dose 25 MG; Start 02/12/17 at 21:00 Sucralfate (Carafate) 1 gm BID PO Last administered on 02/17/17 08:08; Admin Dose 1 GM; Start 02/12/17 at 21:00 Topiramate (Topamax) 100 mg QHS PO Last administered on 02/16/17 20:41; Admin Dose 100 MG; Start 02/12/17 at 21:00 Trazodone HCl (Desyrel) 50 mg QHS PO Last administered on 02/16/17 20:41; Admin Dose 50 MG; Start 02/12/17 at 21:00 Zolpidem Tartrate (Ambien) 10 mg QHS PRN PO INSOMNIA Last administered on 23:31; Admin Dose 10 MG; Start 02/12/17 at 15:30 Ondansetron HCl (Zofran Inj) 4 mg Q6H PRN IV NAUSEA AND/OR VOMITING; Start 02/12 at 15:30 Acetaminophen (Tylenol Tab) 650 mg Q6H PRN PO PAIN LEVEL 1-3 OR FEVER; Start at 15:30 Acetaminophen (Tylenol Supp) 650 mg Q6H PRN [place] PAIN LEVEL 1-3 OR FEVER; Start 02/12/17 at 15:30 Acetaminophen/ Hydrocodone Bitart ([place] (5/325)) 1 tab Q6H PRN PO MODERATE PAIN LEVEL 4-6 Last administered on 02/17/17 15:22; Admin Dose 1 TAB; Start 02/12/17 at 15:30 Docusate Sodium (Colace) 100 mg Q12H PRN PO CONSTIPATION; Start 02/12/17 at 15: 30 Magnesium Hydroxide (Milk Of Mag) 30 ml DAILY PRN PO CONSTIPATION; Start at 15:30 Bisacodyl (Dulcolax) 5 mg DAILY PRN PO CONSTIPATION; Start 02/12/17 at 15:30 Pantoprazole 40 mg 40 mg DAILY@06 IV Last administered on 02/17/17 05:36; Admin Dose 40 MG; Start 02/13/17 at 06:00 Total Parenteral Nutrition 1,000 ml @ 80 mls/hr [id number] IV Last administered on 02/17/17 13:04; Admin Dose 80 MLS/HR; Start 02/13/17 at 18:00 Fat Emulsion Intravenous (Liposyn Ii 20%) 250 ml @ 10.417 mls/ hr Q24H IV Last administered on 02/16/17 17:34; Admin Dose 10.417 MLS/HR; Start 02/13/17 at 18:00 Hydromorphone HCl (Dilaudid) 0.5 mg Q3H PRN IV PAIN Last administered on 14:17; Admin Dose 0.5 MG; Start 02/13/17 at 19:00 Simethicone (Mylicon) 80 mg BID PRN PO DISTENSION/GAS/BLOATING Last administered on 02/17/17 08:08; Admin Dose 80 MG; Start 02/14/17 at 17:30 Nicotine (Nicoderm 14 Mg/ 24hr) 1 patch DAILY TRANSDERM ; Start 02/15/17 at 12: 00 Megestrol Acetate (Megace Susp) 400 mg BID PO Last administered on 02/17/17 08 :08; Admin Dose 400 MG; Start 02/15/17 at 12:00 Nystatin (Nystatin Powder) 1 applic BID TOP Last administered on 02/17/17 10: 54; Admin Dose 1 APPLIC; Start 02/17/17 at 09:00 MARTINEZ MELVIN MD Feb 17, 2017 17:33
[2017-02-17] MEDS: FAT EMULSION 20% 250 ML IV SCH (17:45)
[2017-02-17 19:50] VITALS: BP 101/63; RESP 18
[2017-02-17] MEDS: traZODone 50 MG TAB PO SCH (20:25)
[2017-02-17] MEDS: TOPIRAMATE 100 MG TAB PO SCH (20:25)
[2017-02-17] MEDS: hydrOXYzine HCL 25 MG TAB PO SCH (20:25)
[2017-02-18] MEDS: HYDROmorphONE 1 MG/ML SYG IV PRN ×8 (02:23→23:39)
[2017-02-18] MEDS: TPN 1,000 ML IV SCH ×2 (02:25→16:22)
[2017-02-18] MEDS: PANTOPRAZOLE 40 MG INJ IV SCH (05:34)
[2017-02-18 06:46] LABS: CALCIUM 8.9 mg/dl (8.4-10.2); CREATININE 0.51 mg/dl (0.44-1.00); MAGNESIUM 1.8 mg/dl (1.7-2.5); PHOSPHORUS 2.4 mg/dl (2.5-4.9); POTASSIUM 3.8 mmol/L (3.5-5.1)
[2017-02-18 07:58] VITALS: BP 98/54; RESP 16
[2017-02-18] MEDS: NYSTATIN 30 GM POWDER BTL TOP SCH ×2 (08:40→21:55)
[2017-02-18] MEDS: NICOTINE (14 MG/24 HR) PATCH TRANSDERM SCH (08:41)
[2017-02-18] MEDS: ASPIRIN 81 MG TAB PO SCH (09:00)
[2017-02-18] MEDS: SUCRALFATE 1 GM TAB PO SCH ×2 (11:11→21:54)
[2017-02-18] MEDS: MEGESTROL (40 MG/ML) 10ML CUP PO SCH ×2 (11:11→21:54)
[2017-02-18] MEDS: GABAPENTIN 300 MG CAP PO SCH ×2 (11:11→21:54)
--- NOTE | 2017-02-18 13:12 | PN ---
Date/Time of Note Date/Time of Note DATE: 02/18/17 TIME: 13:11 Assessment/Plan VTE Prophylaxis VTE Prophylaxis Intervention: SCD's Lines/Catheters IV C[facility]ter Type (from [facility]): PICC Line Central line still needed: Yes Urinary Cath still in place: No Assessment/Plan Chief Complaint/Hosp Course 52 yo F s/p lap right hemicolectomy with development of ECF s/p operative repair with two small open wounds Problems: Assessment/Plan diarrhea resolved dc home on tpn Subjective 24 Hr Interval Summary Free Text/Dictation doing well, diarrhea resolved no need for sbft Exam/Review of Systems Vital Signs Vitals Vital Signs Date Time Temp Pulse Resp B/P Pulse Ox O2 Delivery O2 Flow Rate FiO2 02/18/17 07:58 98.4 64 16 98/54 95 02/16/17 02:02 Room Air Intake and Output 02/17/17 02/17/17 02/18/17 14:59 22:59 06:59 Intake Total 520 ml 1405 ml 1005 ml Output Total 1500 ml Balance 520 ml -95 ml 1005 ml Exam small openings stable Results Result Diagram: 02/16/17 0515 02/18/17 0528 Results 24 hrs Laboratory Tests Test 02/18/17 05:28 Sodium Level 141 Potassium Level 3.8 Chloride Level 112 H Carbon Dioxide Level 24 Anion Gap 9 Blood Urea Nitrogen 14 Creatinine 0.51 Glucose Level 100 Calcium Level 8.9 Phosphorus Level 2.4 L Magnesium Level 1.8 Medications Medications Current Medications IV Flush (NS 10 ml) 10 ml PRN PRN IV IV PROTOCOL; Start 02/12/17 at 11:00 Aspirin (Aspirin) 81 mg DAILY PO Last administered on 02/16/17 08:40; Admin Dose 81 MG; Start 02/13/17 at 09:00 Gabapentin (Neurontin) 600 mg BID PO Last administered on 02/18/17 11:11; Admin Dose 600 MG; Start 02/12/17 at 21:00 Hydroxyzine HCl (Atarax) 25 mg QHS PO Last administered on 02/17/17 20:25; Admin Dose 25 MG; Start 02/12/17 at 21:00 Sucralfate (Carafate) 1 gm BID PO Last administered on 02/18/17 11:11; Admin Dose 1 GM; Start 02/12/17 at 21:00 Topiramate (Topamax) 100 mg QHS PO Last administered on 02/17/17 20:25; Admin Dose 100 MG; Start 02/12/17 at 21:00 Trazodone HCl (Desyrel) 50 mg QHS PO Last administered on 02/17/17 20:25; Admin Dose 50 MG; Start 02/12/17 at 21:00 Zolpidem Tartrate (Ambien) 10 mg QHS PRN PO INSOMNIA Last administered on 23:31; Admin Dose 10 MG; Start 02/12/17 at 15:30 Ondansetron HCl (Zofran Inj) 4 mg Q6H PRN IV NAUSEA AND/OR VOMITING; Start 02/12 at 15:30 Acetaminophen (Tylenol Tab) 650 mg Q6H PRN PO PAIN LEVEL 1-3 OR FEVER; Start at 15:30 Acetaminophen (Tylenol Supp) 650 mg Q6H PRN [place] PAIN LEVEL 1-3 OR FEVER; Start 02/12/17 at 15:30 Acetaminophen/ Hydrocodone Bitart ([place] (5/325)) 1 tab Q6H PRN PO MODERATE PAIN LEVEL 4-6 Last administered on 02/17/17 15:22; Admin Dose 1 TAB; Start 02/12/17 at 15:30 Docusate Sodium (Colace) 100 mg Q12H PRN PO CONSTIPATION; Start 02/12/17 at 15: 30 Magnesium Hydroxide (Milk Of Mag) 30 ml DAILY PRN PO CONSTIPATION; Start at 15:30 Bisacodyl (Dulcolax) 5 mg DAILY PRN PO CONSTIPATION; Start 02/12/17 at 15:30 Pantoprazole 40 mg 40 mg DAILY@06 IV Last administered on 02/18/17 05:34; Admin Dose 40 MG; Start 02/13/17 at 06:00 Total Parenteral Nutrition 1,000 ml @ 80 mls/hr [id number] IV Last administered on 02/18/17 02:25; Admin Dose 80 MLS/HR; Start 02/13/17 at 18:00 Fat Emulsion Intravenous (Liposyn Ii 20%) 250 ml @ 10.417 mls/ hr Q24H IV Last administered on 02/17/17 17:45; Admin Dose 10.417 MLS/HR; Start 02/13/17 at 18:00 Hydromorphone HCl (Dilaudid) 0.5 mg Q3H PRN IV PAIN Last administered on 11:33; Admin Dose 0.5 MG; Start 02/13/17 at 19:00 Simethicone (Mylicon) 80 mg BID PRN PO DISTENSION/GAS/BLOATING Last administered on 02/17/17 08:08; Admin Dose 80 MG; Start 02/14/17 at 17:30 Nicotine (Nicoderm 14 Mg/ 24hr) 1 patch DAILY TRANSDERM ; Start 02/15/17 at 12: 00 Megestrol Acetate (Megace Susp) 400 mg BID PO Last administered on 02/18/17 11 :11; Admin Dose 400 MG; Start 02/15/17 at 12:00 Nystatin (Nystatin Powder) 1 applic BID TOP Last administered on 02/18/17 08: 40; Admin Dose 1 APPLIC; Start 02/17/17 at 09:00 Rubin RUSS Feb 18, 2017 13:12
[2017-02-18] MEDS: FAT EMULSION 20% 250 ML IV SCH (17:49)
[2017-02-18 19:37] VITALS: BP 102/55; RESP 20
[2017-02-18] MEDS: hydrOXYzine HCL 25 MG TAB PO SCH (21:54)
[2017-02-18] MEDS: TOPIRAMATE 100 MG TAB PO SCH (21:54)
[2017-02-18] MEDS: traZODone 50 MG TAB PO SCH (21:54)
--- NOTE | 2017-02-18 22:23 | RADRPT ---
PROCEDURE: X-ray, Abdomen. CLINICAL INDICATION: Diarrhea. TECHNIQUE: Abdominal x-ray, single view. 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 FINDINGS: A nonobstructive bowel gas pattern is present. Residual contrast is seen within the descending and r ectosigmoid colon. Microstaples are seen within the right side of the abdomen. There is no evidenc e of free intra-abdominal air. There are no abnormal calcifications. Skeletal structures are unrem arkable. IMPRESSION: No radiographic evidence of acute intra-abdominal pathology. RPTAT: HLST .Jing Reyna MD, MD Date Time Electronically viewed and signed by .Jing Reyna MD, on 02/18/2017 22:22 .T/
[2017-02-18] MEDS: ZOLPIDEM 5 MG TAB PO PRN (23:09)
[2017-02-18] MEDS: ACCU-CHEK XX SCH (23:44)
--- NOTE | 2017-02-19 00:15 | PN ---
Date/Time of Note Date/Time of Note DATE: 02/19/17 TIME: 00:14 Assessment/Plan VTE Prophylaxis VTE Prophylaxis Intervention: other Lines/Catheters IV Catheter Type (from Nrs): PICC Line Central line still needed: Yes Urinary Cath still in place: No Reason Cath still needed: other (indicate) Assessment/Plan Chief Complaint/Hosp Course IMPRESSION: 1. Nonhealing abdominal wound. 2. Malnutrition. 3. Metabolic acidosis. 4. Anemia. 5. Neutropenia 6. History of right hemicolectomy. 7. History of abd wound_infection. 8. History of enterocutaneous fistula and repair. plan tpn NEED HOME HEALTH AND HOME TPN per dr cavazos Problems: Subjective 24 Hr Interval Summary Gastrointestinal: no complaints Genitourinary: no complaints Exam/Review of Systems Vital Signs Vitals Vital Signs Date Time Temp Pulse Resp B/P Pulse Ox O2 Delivery O2 Flow Rate FiO2 02/18/17 19:37 98.7 71 20 102/55 98 02/16/17 02:02 Room Air Intake and Output 02/18/17 02/18/17 02/19/17 15:00 23:00 07:00 Intake Total 800 ml 2584 ml Output Total 1500 ml 1400 ml Balance -700 ml 1184 ml Exam Neck: supple Respiratory: clear to auscultation Cardiovascular: regular rate and rhythm Gastrointestinal: soft Musculoskeletal: nl extremities to inspection Extremities: normal pulses Results Result Diagram: 02/16/17 0515 02/18/17 0528 Results 24 hrs Laboratory Tests Test 02/18/17 05:28 02/18/17 23:44 Sodium Level 141 Potassium Level 3.8 Chloride Level 112 H Carbon Dioxide Level 24 Anion Gap 9 Blood Urea Nitrogen 14 Creatinine 0.51 Glucose Level 100 Calcium Level 8.9 Phosphorus Level 2.4 L Magnesium Level 1.8 Bedside Glucose 125 Medications Medications Current Medications IV Flush (NS 10 ml) 10 ml PRN PRN IV IV PROTOCOL; Start 02/12/17 at 11:00 Aspirin (Aspirin) 81 mg DAILY PO Last administered on 02/16/17 08:40; Admin Dose 81 MG; Start 02/13/17 at 09:00 Gabapentin (Neurontin) 600 mg BID PO Last administered on 02/18/17 21:54; Admin Dose 600 MG; Start 02/12/17 at 21:00 Hydroxyzine HCl (Atarax) 25 mg QHS PO Last administered on 02/18/17 21:54; Admin Dose 25 MG; Start 02/12/17 at 21:00 Sucralfate (Carafate) 1 gm BID PO Last administered on 02/18/17 21:54; Admin Dose 1 GM; Start 02/12/17 at 21:00 Topiramate (Topamax) 100 mg QHS PO Last administered on 02/18/17 21:54; Admin Dose 100 MG; Start 02/12/17 at 21:00 Trazodone HCl (Desyrel) 50 mg QHS PO Last administered on 02/18/17 21:54; Admin Dose 50 MG; Start 02/12/17 at 21:00 Zolpidem Tartrate (Ambien) 10 mg QHS PRN PO INSOMNIA Last administered on 23:09; Admin Dose 10 MG; Start 02/12/17 at 15:30 Ondansetron HCl (Zofran Inj) 4 mg Q6H PRN IV NAUSEA AND/OR VOMITING; Start 02/12 at 15:30 Acetaminophen (Tylenol Tab) 650 mg Q6H PRN PO PAIN LEVEL 1-3 OR FEVER; Start at 15:30 Acetaminophen (Tylenol Supp) 650 mg Q6H PRN [place] PAIN LEVEL 1-3 OR FEVER; Start 02/12/17 at 15:30 Acetaminophen/ Hydrocodone Bitart ([place] (5/325)) 1 tab Q6H PRN PO MODERATE PAIN LEVEL 4-6 Last administered on 02/17/17 15:22; Admin Dose 1 TAB; Start 02/12/17 at 15:30 Docusate Sodium (Colace) 100 mg Q12H PRN PO CONSTIPATION; Start 02/12/17 at 15: 30 Magnesium Hydroxide (Milk Of Mag) 30 ml DAILY PRN PO CONSTIPATION; Start at 15:30 Bisacodyl 5 mg 5 mg DAILY PRN PO CONSTIPATION; Start 02/12/17 at 15:30 Total Parenteral Nutrition 1,000 ml @ 80 mls/hr [id number] IV Last administered on 02/18/17 16:22; Admin Dose 80 MLS/HR; Start 02/13/17 at 18:00 Fat Emulsion Intravenous (Liposyn Ii 20%) 250 ml @ 10.417 mls/ hr Q24H IV Last administered on 02/18/17 17:49; Admin Dose 10.417 MLS/HR; Start 02/13/17 at 18:00 Hydromorphone HCl (Dilaudid) 0.5 mg Q3H PRN IV PAIN Last administered on 23:39; Admin Dose 0.5 MG; Start 02/13/17 at 19:00 Simethicone (Mylicon) 80 mg BID PRN PO DISTENSION/GAS/BLOATING Last administered on 02/17/17 08:08; Admin Dose 80 MG; Start 02/14/17 at 17:30 Nicotine (Nicoderm 14 Mg/ 24hr) 1 patch DAILY TRANSDERM ; Start 02/15/17 at 12: 00 Megestrol Acetate (Megace Susp) 400 mg BID PO Last administered on 02/18/17 21 :54; Admin Dose 400 MG; Start 02/15/17 at 12:00 Nystatin (Nystatin Powder) 1 applic BID TOP Last administered on 02/18/17 21: 55; Admin Dose 1 APPLIC; Start 02/17/17 at 09:00 Pantoprazole (Protonix Tab) 40 mg DAILY@06 PO ; Start 02/19/17 at 06:00 Diagnostic Test (Pha) (Accu-Chek) 1 ea Q12 XX Last administered on 02/18/17 23 :44; Admin Dose 1 EA; Start 02/18/17 at 23:30 MARTINEZ MELVIN MD Feb 19, 2017 00:15
[2017-02-19] MEDS: HYDROmorphONE 1 MG/ML SYG IV PRN ×4 (02:54→12:25)
[2017-02-19] MEDS: TPN 1,000 ML IV SCH (05:17)
[2017-02-19] MEDS ORDERED: PANTOPRAZOLE (EC) 40 MG TAB PO SCH (06:00)
[2017-02-19 07:27] LABS: CREATININE 0.49 mg/dl (0.44-1.00); MAGNESIUM 1.8 mg/dl (1.7-2.5); PHOSPHORUS 2.8 mg/dl (2.5-4.9); POTASSIUM 3.8 mmol/L (3.5-5.1)
[2017-02-19 07:38] VITALS: BP 96/59; RESP 18
[2017-02-19] MEDS: ASPIRIN 81 MG TAB PO SCH (09:00)
[2017-02-19] MEDS: ACCU-CHEK XX SCH (09:00)
[2017-02-19] MEDS: NICOTINE (14 MG/24 HR) PATCH TRANSDERM SCH (09:00)
[2017-02-19] MEDS: MEGESTROL (40 MG/ML) 10ML CUP PO SCH (09:04)
[2017-02-19] MEDS: GABAPENTIN 300 MG CAP PO SCH (09:04)
[2017-02-19] MEDS: SUCRALFATE 1 GM TAB PO SCH (09:05)
[2017-02-19] MEDS: NYSTATIN 30 GM POWDER BTL TOP SCH (09:07)
--- NOTE | 2017-02-19 11:46 | PDOCDIS ---
Discharge Instructions CONDITION Patient Condition: Stable HOME CARE INSTRUCTIONS: Special Diet: regular FOLLOW UP/APPOINTMENTS Appointments f/u dr cavazos 1 wk see own pcp 1 wk MARTINEZ MELVIN MD Feb 19, 2017 11:46
[2017-02-19] MEDS ORDERED: MYL80 PO (11:48)
[2017-02-19] MEDS ORDERED: Nicotine (14 Mg/24 Hr) TRANSDERM (11:48)
[2017-02-19] MEDS ORDERED: MEGE400O4 PO (11:48)
[2017-02-19] MEDS ORDERED: BISA5TAB6 PO (11:48)
[2017-02-19] MEDS ORDERED: DOCU-216 PO (11:48)
--- NOTE | 2017-02-19 13:13 | PN ---
Date/Time of Note Date/Time of Note DATE: 02/19/17 TIME: 13:12 Assessment/Plan VTE Prophylaxis VTE Prophylaxis Intervention: SCD's Lines/Catheters IV Catheter Type (from Nrs): PICC Line Central line still needed: Yes Urinary Cath still in place: No Assessment/Plan Chief Complaint/Hosp Course 52 yo F s/p lap right hemicolectomy with development of ECF s/p operative repair with two small open wounds Problems: Assessment/Plan continue wound care and home tpn f/u in 2 weeks Subjective 24 Hr Interval Summary Free Text/Dictation no new issues, tolerating tpn, and tolerating diet, no diarrhea Exam/Review of Systems Vital Signs Vitals Vital Signs Date Time Temp Pulse Resp B/P Pulse Ox O2 Delivery O2 Flow Rate FiO2 02/19/17 07:38 98.4 68 18 96/59 98 02/16/17 02:02 Room Air Intake and Output 02/18/17 02/18/17 02/19/17 15:00 23:00 07:00 Intake Total 800 ml 2584 ml 1465 ml Output Total 1500 ml 1400 ml 1100 ml Balance -700 ml 1184 ml 365 ml Exam small two open wounds Results Result Diagram: 02/16/17 0515 02/19/17 0515 Results 24 hrs Laboratory Tests Test 02/18/17 23:44 02/19/17 05:15 02/19/17 09:11 Bedside Glucose 125 123 Sodium Level 143 Potassium Level 3.8 Chloride Level 112 H Carbon Dioxide Level 23 Anion Gap 12 Blood Urea Nitrogen 17 Creatinine 0.49 Glucose Level 95 Calcium Level 9.0 Phosphorus Level 2.8 Magnesium Level 1.8 Medications Medications Current Medications IV Flush (NS 10 ml) 10 ml PRN PRN IV IV PROTOCOL; Start 02/12/17 at 11:00 Aspirin (Aspirin) 81 mg DAILY PO Last administered on 02/16/17 08:40; Admin Dose 81 MG; Start 02/13/17 at 09:00 Gabapentin (Neurontin) 600 mg BID PO Last administered on 02/19/17 09:04; Admin Dose 600 MG; Start 02/12/17 at 21:00 Hydroxyzine HCl (Atarax) 25 mg QHS PO Last administered on 02/18/17 21:54; Admin Dose 25 MG; Start 02/12/17 at 21:00 Sucralfate (Carafate) 1 gm BID PO Last administered on 02/19/17 09:05; Admin Dose 1 GM; Start 02/12/17 at 21:00 Topiramate (Topamax) 100 mg QHS PO Last administered on 02/18/17 21:54; Admin Dose 100 MG; Start 02/12/17 at 21:00 Trazodone HCl (Desyrel) 50 mg QHS PO Last administered on 02/18/17 21:54; Admin Dose 50 MG; Start 02/12/17 at 21:00 Zolpidem Tartrate (Ambien) 10 mg QHS PRN PO INSOMNIA Last administered on 23:09; Admin Dose 10 MG; Start 02/12/17 at 15:30 Ondansetron HCl (Zofran Inj) 4 mg Q6H PRN IV NAUSEA AND/OR VOMITING; Start 02/12 at 15:30 Acetaminophen (Tylenol Tab) 650 mg Q6H PRN PO PAIN LEVEL 1-3 OR FEVER; Start at 15:30 Acetaminophen (Tylenol Supp) 650 mg Q6H PRN PA PAIN LEVEL 1-3 OR FEVER; Start 02/12/17 at 15:30 Acetaminophen/ Hydrocodone Bitart ([place] (5/325)) 1 tab Q6H PRN PO MODERATE PAIN LEVEL 4-6 Last administered on 02/17/17 15:22; Admin Dose 1 TAB; Start 02/12/17 at 15:30 Docusate Sodium (Colace) 100 mg Q12H PRN PO CONSTIPATION; Start 02/12/17 at 15: 30 Magnesium Hydroxide (Milk Of Mag) 30 ml DAILY PRN PO CONSTIPATION; Start at 15:30 Bisacodyl 5 mg 5 mg DAILY PRN PO CONSTIPATION; Start 02/12/17 at 15:30 Total Parenteral Nutrition 1,000 ml @ 80 mls/hr [id number] IV Last administered on 02/19/17 05:17; Admin Dose 80 MLS/HR; Start 02/13/17 at 18:00 Fat Emulsion Intravenous (Liposyn Ii 20%) 250 ml @ 10.417 mls/ hr Q24H IV Last administered on 02/18/17 17:49; Admin Dose 10.417 MLS/HR; Start 02/13/17 at 18:00 Hydromorphone HCl (Dilaudid) 0.5 mg Q3H PRN IV PAIN Last administered on 12:25; Admin Dose 0.5 MG; Start 02/13/17 at 19:00 Simethicone (Mylicon) 80 mg BID PRN PO DISTENSION/GAS/BLOATING Last administered on 02/17/17 08:08; Admin Dose 80 MG; Start 02/14/17 at 17:30 Nicotine (Nicoderm 14 Mg/ 24hr) 1 patch DAILY TRANSDERM ; Start 02/15/17 at 12: 00 Megestrol Acetate (Megace Susp) 400 mg BID PO Last administered on 02/19/17 09 :04; Admin Dose 400 MG; Start 02/15/17 at 12:00 Nystatin (Nystatin Powder) 1 applic BID TOP Last administered on 02/19/17 09: 07; Admin Dose 1 APPLIC; Start 02/17/17 at 09:00 Pantoprazole (Protonix Tab) 40 mg DAILY@06 PO Last administered on 02/19/17 05 :51; Admin Dose 40 MG; Start 02/19/17 at 06:00 Diagnostic Test (Pha) (Accu-Chek) 1 ea Q12 XX Last administered on 02/18/17 23 :44; Admin Dose 1 EA; Start 02/18/17 at 23:30 Rubin RUSS Feb 19, 2017 13:13
--- NOTE | 2017-02-20 19:27 | QN ---
Documentation Comment [id number] MARTINEZ MELVIN MD Feb 20, 2017 19:26
--- NOTE | 2017-02-21 00:22 | DS ---
DATE OF ADMISSION: 02/12/2017 DATE OF DISCHARGE: 02/19/2017 HOSPITAL COURSE: The patient was admitted with history of laparoscopic right hemicolectomy, electro lyte imbalance, history of colonoscopy, history of polypectomy, history of depression. The patient has history of enterocutaneous fistula repair. The patient has malnutrition, not eating. The patie nt was admitted for protein calorie malnutrition, started on TPN, was seen by Dr. Patricio in consultatio n. CT of the abdomen and KUB of the abdomen were done which were unremarkable. The patient is also on appetite stimulant as well as the patient was getting IV fluid. The patient also has open wound in the abdominal area, nonhealing. Wound care was continued. The patient was cleared by Dr. Patricio t o be discharged home with further nutrition at home. The patient refused SNF. DISCHARGE DIAGNOSES: Include: 1. Status post laparoscopic right hemicolectomy. 2. Status post enterocutaneous fistula repair. 3. Nonhealing abdominal wound. 4. Malnutrition. 5. Metabolic acidosis. 6. Anemia. 7. Neutropenia. DISCHARGE MEDICATIONS: 1. To continue on TPN. 2. Bisacodyl. 3. Docusate sodium. 4. Megace. 5. Simethicone. 6. Nicotine. 7. Aspirin. 8. Gabapentin. 9. Hydroxyzine. 10. Ranitidine. 11. Carafate. 12. Topamax. 13. Trazodone. 14. Ambien. FOLLOWUP: The patient to follow with Dr. Patricio and PCP as an outpatient. Dictated By: MARTINEZ MELVIN MD BS/NTS Conf#: [id number] DID#: [id number]
== END 2017-02-19 15:20 | disposition home or self-care (01) | DRG 919 ==
LOC: E/R 07:28 → MS2 10:34
PROVIDERS: ADMIT Internal Medicine Nephrology; ATTEND Internal Medicine Nephrology
PROC: 02HV33Z Insertion of Infusion Device into Superior Vena Cava, Percutaneous Approach (ICD-10-PCS; principal; 2017-02-12)
PROC: B548ZZA Ultrasonography of Superior Vena Cava, Guidance (ICD-10-PCS; 2017-02-12)
PROC: 3E0436Z Introduction of Nutritional Substance into Central Vein, Percutaneous Approach (ICD-10-PCS; 2017-02-13)
DX: T81.89XA Other complications of procedures, not elsewhere classified, initial encounter (principal); E43 Unspecified severe protein-calorie malnutrition; E87.2 Acidosis; Z68.1 Body mass index [BMI] 19.9 or less, adult; D70.9 Neutropenia, unspecified; D64.9 Anemia, unspecified; Z90.49 Acquired absence of other specified parts of digestive tract; R63.4 Abnormal weight loss; R19.7 Diarrhea, unspecified; Y83.8 Other surgical procedures as the cause of abnormal reaction of the patient, or of later complication, without mention of misadventure at the time of the procedure
CPT/HCPCS: 36415; 36569; 71010; 74000; 74176; 76937; 80048; 80053; 81001; 82962; 83690; 83735; 84100; 84134; 84478; 84484; 85025; 85610; 87081; 93005; 96374; 96375; 96376; C9113; J1170; J1885; J2270; J3480; J7030

== ENCOUNTER 2017-06-27 10:28 | Emergency (ER) | payer BC ==
[~2017-06-27] VITALS: Ht 165.1 cm; Wt 55.5 kg
[~2017-06-27 10:28] MED LIST changes: -ACET325T40 PO; -AMIT25TA9 PO; -BENZ1LOZ4 MT; +BISA5TAB6 PO; +DOCU-216 PO; +Nicotine (14 Mg/24 Hr) TRANSDERM; -PANT40TA4 PO; -POLY17PO6 PO; +RANI150T5 PO; -ZOLP5TAB PO
[2017-06-27 10:30] VITALS: Ht 165.1 cm; Wt 55.5 kg
--- NOTE | 2017-06-27 13:18 | ERD ---
ER Documentation Chief Complaint Chief Complaint Patient states she has a Blocked picc line HPI Patient is a 52-year-old female presents for a block PICC line. The patient says that she came in just because she has a "clogged PICC line". She said that she put TPN in one port and does not remember if she flushed it or not because she took a sleeping pill and fell asleep. The other side works however. She just came in for PICC line troubleshooting. She has no other complaints. ROS All systems reviewed and are negative except as per history of present illness. Medications Home Meds Active Scripts Simethicone* (Mylicon*) 80 Mg Tab, 80 MG PO BID Y for DISTENSION/GAS/BLOATING for 14 Days, TAB Prov:MARTINEZ MELVIN MD 02/19/17 Docusate Sodium (Dok) 100 Mg Capsule, 100 MG PO Q12H Y for CONSTIPATION for 14 Days, CAP Prov:MARTINEZ MELVIN MD 02/19/17 Bisacodyl* (Bisacodyl*) 5 Mg Tablet.dr, 5 MG PO DAILY Y for CONSTIPATION for 14 Days Prov:MARTINEZ MELVIN MD 02/19/17 [Nicotine (14 Mg/24 Hr)] 1 PATCH PATCH No Conflict Check, 1 PATCH TRANSDERM DAILY for 14 Days Prov:MARTINEZ MELVIN MD 02/19/17 Megestrol Acetate (Megestrol Acetate) 400 Mg/10 Ml Oral.susp, 400 MG PO BID for 14 Days Prov:MARTINEZ MELVIN MD 02/19/17 Sucralfate* (Carafate*) 1 Gm Tab, 1 GM PO BID for 28 Days, TAB Prov:MARTINEZ MELVIN MD 01/16/17 Reported Medications Ranitidine Hcl* (Ranitidine Hcl*) 150 Mg Tablet, 150 MG PO QAM, #30 TAB 02/12/17 Hydroxyzine Hcl* (Hydroxyzine Hcl*) 25 Mg Tablet, 25 MG PO QHS, #30 TAB 11/18/16 Trazodone Hcl* (Trazodone Hcl*) 50 Mg Tablet, 50 MG PO QHS, #30 TAB 11/18/16 Zolpidem Tartrate* (Zolpidem Tartrate*) 10 Mg Tablet, 10 MG PO QHS Y for INSOMNIA, #30 TAB 11/18/16 Topiramate* (Topiramate*) 100 Mg Tablet, 100 MG PO QHS, TAB 11/18/16 Gabapentin* (Gabapentin*) 600 Mg Tablet, 600 MG PO BID, #60 TAB 11/18/16 Aspirin* (Aspirin* Chew) 81 Mg Tab.chew, 81 MG PO DAILY, TAB.CHEW 11/18/16 Allergies Allergies: Coded Allergies: succinylcholine (Unverified Allergy, Unknown, CARDIAC ARRHYTHMIA, 02/12/17) PMhx/Soc History of Surgery: Yes (Fistula repair, ) Anesthesia Reaction: No Hx Neurological Disorder: No Hx Respiratory Disorders: No Hx Cardiac Disorders: No Hx Psychiatric Problems: No Hx Miscellaneous Medical Probl: No Hx Alcohol Use: Yes (occasionally, ) Hx Substance Use: Yes (MArijauna in past in high school) Hx Tobacco Use: Yes (cigrattes 2 months ago) Smoking Status: Former smoker FmHx Family History: No diabetes Physical Exam Vitals Vital Signs Date Time Temp Pulse Resp B/P Pulse Ox O2 Delivery O2 Flow Rate FiO2 06/27/17 10:30 98.4 95 20 102/65 97 Physical Exam Const: No acute distress Head: Atraumatic Eyes: Normal Conjunctiva ENT: Normal External Ears, Nose and Mouth. Neck: Full range of motion..~ No meningismus. Resp: Clear to auscultation bilaterally Cardio: Regular rate and rhythm, no murmurs Abd: Soft, non tender, non distended. Normal bowel sounds Skin: No petechiae or rashes Back: No midline or flank tenderness Ext: No cyanosis, or edema Neur: Awake and alert Psych: Normal Mood and Affect Procedures/MDM Kerrie from the PICC team took the patient to radiology to evaluate the PICC line. She attempted to use Cathflo but was unsuccessful with flushing as the one line is full of dried TPN. The patient has another port however which flows and draws without difficulty. Patient will use this side and is okay with that. She does not need PICC replacement at this time. She can return for any worsening symptoms. She should follow-up with her primary doctor within 1 week. Departure Diagnosis: Primary Impression: Occluded PICC line Encounter type: initial encounter Qualified Code: T82.898A - Occlusion of peripherally inserted central catheter (PICC) line, initial encounter Condition: Fair Patient Instructions: Picc Line Care Referrals: Your doctor Additional Instructions: Call your primary care doctor TOMORROW for an appointment during the next 1 WEEK.Tell the garbage stoker that you were referred from this facility.See the doctor sooner or return here if your condition worsens before your appointment time. RAYMUNDO AGUSTIN MD Jun 27, 2017 13:18
== END 2017-06-27 12:31 | disposition home or self-care (01) ==
LOC: E/R 10:28
DX: T82.898A Other specified complication of vascular prosthetic devices, implants and grafts, initial encounter (principal); Y82.8 Other medical devices associated with adverse incidents; Z79.82 Long term (current) use of aspirin; Z87.891 Personal history of nicotine dependence
CPT/HCPCS: 99282